=== PATIENT | female | born 1960 | race Two or more races ===

== ENCOUNTER 2020-01-14 17:54 | Inpatient (IN) | payer MEDICARE ==
[~2020-01-14] VITALS: Ht 165.1 cm; Wt 107.0 kg
[2020-01-14 17:56] VITALS: BP 88/44
--- NOTE | 2020-01-14 18:09 | Emergency Room Report ---
History of Present Illness General Chief Complaint: Abnormal vital signs Source: Patient, EMS Present Illness HPI Disclaimer: Please note that this report is being documented using DRAGON technology. This can lead to erroneous entry secondary to incorrect interpretation by the dictating instrument. HPI: 59-year-old female presenting from [facility] with a history of hypertension, diabetes, ESRD not on hemodialysis and recently tested positive for COVID-19 presents for abnormal vital signs. The patient reported shortness of breath, chills, sweats beginning last night. She was started on oxygen and this afternoon found tachycardic. She was being transferred to a different hospital by BLS team who noted a change in her vital signs. They noted increasing heart rate, hypotension with pressures 80s/40s, tachypnea. The patient is reported to be confused at baseline however she appears awake and alert. She states she is full code and seems to know her medical history. She denies acute complaints of vomiting, diarrhea, cough, shortness of breath currently but states those have been present for about a week. States she tested positive for COVID-19 last week. Unknown what medications she was given for it. PMH: ESRD not hemodialysis, hypertension, diabetes, COVID-19 PSH: Cholecystectomy, hysterectomy Allergies: Erythromycin, heparin Social Hx: None reported Allergies: Coded Allergies: ERYTHROMYCIN BASE (Verified Allergy, Unknown, 01/14/20) HEPARIN (Verified Allergy, Unknown, 01/14/20) COVID-19 Screening Contact w/high risk pt: No Recent Travel to affected area: No Experienced COVID-19 symptoms?: Yes COVID-19 symptoms experienced: Shortness of Breath, Flu-Like Symptoms COVID-19 Testing performed OVERNIGHT BABYSITTER: Yes COVID-19 Screening: Positive COVID-19 COVID-19 Testing Source: [facility] Review of Systems All Other Systems: negative except mentioned in HPI Physical Exam Vital Signs Date Time Temp Pulse Resp B/P (MAP) Pulse Ox O2 Delivery O2 Flow Rate FiO2 01/14/20 17:55 97.3 122 30 88/44 (59) 98 Nasal Cannula 2.0 General: Awake and alert, no acute distress HEENT: NC/AT. EOMI. PERRLA. Anicteric sclera. Cardiovascular: Tachycardic. S1 and S2 normal. No murmur appreciated Resp: 2 L nasal cannula. Tachypnea. Normal work of breathing. No cough, wheezing or crackles appreciated Abdomen: Abdomen is soft, nondistended, obese. Nontender Skin: Bandages over the heels and feet on the lower extremities MSK: Normal tone and bulk. Moving all extremities. No obvious deformity. Neuro: Awake and alert. Mentating appropriately. Procedures Critical Care Time Critical Care Time Total critical care time: Approximately 31 minutes Due to a high probability of clinically significant, life threatening deterioration, the patient required the highest level of preparedness to intervene emergently and I personally spent this critical care time directly and personally managing the patient. This critical care time included obtaining a history, examining the patient, pulse oximetry, ordering and reviewing studies , ordering treatments, evaluating response to treatment and updating management plan as needed, frequent reassessment and discussion with other providers as well as arranging for ultimate disposition. This critical to care time was performed to assess and manage the high probability of life-threatening deterioration that could result in multiorgan failure. This critical care time is separate from the separately billable procedures and treating other patients. Medical Decision Making Diagnostic Impression: Primary Impression: COVID-19 Additional Impressions: Anemia UTI (urinary tract infection) Sepsis ER Course 59-year-old female recently tested positive for COVID-19 presents for evaluation of tachycardia, hypotension and increased respiratory rate. Concern for pneumonia, sepsis, worsening COVID-19 infection, ACS, pneumothorax, bronchitis, URI to name a few. Concern for sepsis greatest at this point. IV access established and patient is receiving 30 cc/kg IV fluid bolus, empiric antibiotics vancomycin and Zosyn. She is comfortable on 2 L nasal cannula, saturating greater than 95%. Does not require emergent intubation at this point. She is full code. We will send off broad labs. Will give dexamethasone. Patient will require admission. 2000: Labs show anemia, urinary tract infection, lactic acid within normal limits. Vital signs improving. Patient is received antibiotics, Decadron. Continues to receive IV fluids. Dimer returned positive. Patient is unaware of what her allergy to Haldol is. Discussed with admitting team who supports giving a dose of Lovenox. Will be admitted to panel physician group, Alfonzo earl. Laboratory Tests Test 01/14/20 18:00 01/14/20 18:51 White Blood Count 9.3 K/UL (4.8-10.8) Red Blood Count 2.58 M/UL (4.20-5.40) L Hemoglobin 7.1 G/DL (12.0-16.0) L Hematocrit 24.3 % (37.0-47.0) L Mean Corpuscular Volume 94 FL (80-99) Mean Corpuscular Hemoglobin 27.5 PG (27.0-31.0) Mean Corpuscular Hemoglobin Concent 29.2 G/DL (32.0-36.0) L Red Cell Distribution Width 18.8 % (11.6-14.8) H Platelet Count 104 K/UL (150-450) L Mean Platelet Volume 7.3 FL (6.5-10.1) Neutrophils (%) (Auto) % (45.0-75.0) Lymphocytes (%) (Auto) % (20.0-45.0) Monocytes (%) (Auto) % (1.0-10.0) Eosinophils (%) (Auto) % (0.0-3.0) Basophils (%) (Auto) % (0.0-2.0) Neutrophils % (Manual) Pending Lymphocytes % (Manual) Pending Platelet Estimate Pending Platelet Morphology Pending Prothrombin Time 12.4 SEC (9.30-11.50) H Prothrombin Time INR 1.1 (0.9-1.1) Activated Partial Thromboplast Time 29 SEC (23-33) D-Dimer 2.98 mg/L FEU (0.00-0.49) H Sodium Level 147 MMOL/L (136-145) H Potassium Level 3.6 MMOL/L (3.5-5.1) Chloride Level 108 MMOL/L (98-107) H Carbon Dioxide Level 24 MMOL/L (21-32) Anion Gap 15 mmol/L (5-15) Blood Urea Nitrogen 39 mg/dL (7-18) H Creatinine 1.0 MG/DL (0.55-1.30) Estimated Glomerular Filtration Rate 56.5 mL/min (>60) Glucose Level 116 MG/DL (74-106) H Lactic Acid Level 1.10 mmol/L (0.4-2.0) Calcium Level 8.1 MG/DL (8.5-10.1) L Phosphorus Level 3.7 MG/DL (2.5-4.9) Magnesium Level 1.6 MG/DL (1.8-2.4) L Ferritin 417 NG/ML (8-388) H Total Bilirubin 0.9 MG/DL (0.2-1.0) Aspartate Amino Transferase (AST) 28 U/L (15-37) Alanine Aminotransferase (ALT) 35 U/L (12-78) Alkaline Phosphatase 158 U/L (46-116) H Total Creatine Kinase 26 U/L (26-308) Creatine Kinase MB 1.1 NG/ML (0.0-3.6) Creatine Kinase MB Relative Index 4.2 Troponin I 0.039 ng/mL (0.000-0.056) C-Reactive Protein, Quantitative 25.1 mg/dL (0.00-0.90) H Pro-B-Type Natriuretic Peptide 963 pg/mL (0-125) H Total Protein 6.0 G/DL (6.4-8.2) L Albumin 2.1 G/DL (3.4-5.0) L Globulin 3.9 g/dL Albumin/Globulin Ratio 0.5 (1.0-2.7) L Urine Color Yellow Urine Appearance Very cloudy Urine pH 6 (4.5-8.0) Urine Specific [place] 1.005 (1.005-1.035) Urine Protein 2+ (NEGATIVE) H Urine Glucose (UA) Negative (NEGATIVE) Urine Ketones Negative (NEGATIVE) Urine Blood 3+ (NEGATIVE) H Urine Nitrite Negative (NEGATIVE) Urine Bilirubin Negative (NEGATIVE) Urine Urobilinogen Normal MG/DL (0.0-1.0) Urine Leukocyte Esterase 3+ (NEGATIVE) H Urine RBC 0-2 /HPF (0 - 2) Urine WBC Tntc /HPF (0 - 2) H Urine Squamous Epithelial Cells Occasional /LPF Urine Bacteria Many /HPF (NONE) H EKG Diagnostic Results EKG Time: 18:36 Rate: tachycardiac Rhythm: NSR ST Segments: no acute changes Other Impression Sinus rhythm, tachycardic rate, normal axis, nonspecific ST flattening Rhythm Strip Diag. Results Rhythm Strip Time: 18:36 EP Interpretation: yes Rate: 107 Rhythm: NSR, no PVC's, no ectopy Chest X-Ray Diagnostic Results Chest X-Ray Diagnostic Results : Chest X-Ray Ordered: Yes # of Views/Limited/Complete: 1 View Indication: Shortness of Breath EP Interpretation: Yes Interpretation: no consolidation, no effusion, no pneumothorax, no acute cardiopulmonary disease Impression: No acute disease Electronically Signed by: Electronically signed by Dr. Diony Bell Last Vital Signs Date Time Temp Pulse Resp B/P (MAP) Pulse Ox O2 Delivery O2 Flow Rate FiO2 01/14/20 17:55 97.3 122 30 88/44 (59) 98 Nasal Cannula 2.0 Disposition: ADMITTED INPATIENT Condition: Serious Diony Bell MD Jan 14, 2020 18:09
[2020-01-14] MEDS ORDERED: Vancomycin 1 GM in NS 275 ML IVPB ONE (18:15)
[2020-01-14] MEDS ORDERED: Piperacillin/Tazobactam 3.375 GM in NS 110 ML IVPB ONE (18:15)
[2020-01-14] MEDS ORDERED: dexAMETHasone 10mg/ml Inj IV ONE (18:15)
[2020-01-14 18:40] LABS: HEMATOCRIT 24.3 % (37.0-47.0); HEMOGLOBIN 7.1 G/DL (12.0-16.0); MEAN CORPUSCULAR VOLUME 94 FL (80-99); PLATELET COUNT 104 K/UL (150-450); RED BLOOD COUNT 2.58 M/UL (4.20-5.40); RED CELL DISTRIBUTION WIDTH 18.8 % (11.6-14.8); WHITE BLOOD COUNT 9.3 K/UL (4.8-10.8)
[2020-01-14 18:45] LABS: INR 1.1 (0.9-1.1)
[2020-01-14 18:47] LABS: ANION GAP 15 mmol/L (5-15); BLOOD UREA NITROGEN 39 mg/dL (7-18); CALCIUM 8.1 MG/DL (8.5-10.1); CARBON DIOXIDE 24 MMOL/L (21-32); CHLORIDE 108 MMOL/L (98-107); POTASSIUM 3.6 MMOL/L (3.5-5.1); SODIUM 147 MMOL/L (136-145)
[2020-01-14 19:19] LABS: ALANINE AMINOTRANSFERASE 35 U/L (12-78); ALBUMIN 2.1 G/DL (3.4-5.0); ALBUMIN/GLOBULIN RATIO 0.5 (1.0-2.7); ALKALINE PHOSPHATASE 158 U/L (46-116); ASPARTATE AMINO TRANSFERASE 28 U/L (15-37); BILIRUBIN,TOTAL 0.9 MG/DL (0.2-1.0); CKMB 1.1 NG/ML (0.0-3.6); CREATINE KINASE 26 U/L (26-308); FERRITIN 417 NG/ML (8-388); PHOSPHORUS 3.7 MG/DL (2.5-4.9)
[2020-01-14 19:23] LABS: APPEARANCE,URINE VERY CLOUDY; BILIRUBIN, URINE NEGATIVE (NEGATIVE); GLUCOSE, URINE (UA) NEGATIVE (NEGATIVE); KETONES,URINE NEGATIVE (NEGATIVE); LEUKOCYTE ESTERASE ,URINE 3+ (NEGATIVE); NITRITE,URINE NEGATIVE (NEGATIVE); PH,URINE 6 (4.5-8.0); PROTEIN,URINE 2+ (NEGATIVE); UROBILINOGEN,URINE NORMAL MG/DL (0.0-1.0)
[2020-01-14 19:32] LABS: COLOR,URINE YELLOW
[2020-01-14 19:47] VITALS: BP 112/56
[2020-01-14] MEDS ORDERED: Vancomycin 1gm vial IVPB ONE (20:04)
[2020-01-14] MEDS ORDERED: Enoxaparin 80mg Inj SUBQ SCH (21:00)
[2020-01-14 21:20] VITALS: BP 133/55
--- NOTE | 2020-01-14 23:10 | History and Physical ---
History of Present Illness General Reason for Hospitalization: Flu Like Symptoms Present Illness HPI Patient 59yo F who reported from SNF ([facility]) with suspected COVID19 + as outpatient. Duration unknown.. 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 She is bedbound. She was transferred in route per EMS due to hypotension. Patients vitals here are stable. Inflammatory makers are elevated. Of note she has a hgb of 7mg/dl and a 40:1 BUN/Cr ratio. No active signs of bleeding. Will hydrate overnight and repeat CBC in morning. Patient remains on 2L NC. Allergies: Coded Allergies: ERYTHROMYCIN BASE (Verified Allergy, Unknown, 01/14/20) HEPARIN (Verified Allergy, Unknown, 01/14/20) COVID-19 Screening Contact w/high risk pt: No Recent Travel to affected area: No Experienced COVID-19 symptoms?: Yes COVID-19 symptoms experienced: Shortness of Breath, Flu-Like Symptoms Patient History Healthcare decision maker Resuscitation status Advanced Directive on File Review of Systems Constitutional: Reports: fever Eye: Reports: no symptoms ENT: Reports: no symptoms Respiratory: Reports: shortness of breath Cardiovascular: Denies: no symptoms, see HPI, chest pain, edema, palpitations, syncope, PND, other Gastrointestinal: Reports: no symptoms Genitourinary: Reports: no symptoms Musculoskeletal: Reports: no symptoms Skin: Reports: dryness Physical Exam General Appearance: WD/WN, alert, mild distress HEENT: normocephalic Neck: non-tender Respiratory/Chest: chest wall non-tender, normal breath sounds, respiratory distress Abdomen: normal bowel sounds Extremities: normal range of motion, non-tender, no edema Skin Exam: other Neurologic: harnessmaker II-XII grossly normal, oriented x 3 Last 24 Hour Vital Signs Date Time Temp Pulse Resp B/P (MAP) Pulse Ox O2 Delivery O2 Flow Rate FiO2 01/14/20 21:20 102.3 87 19 133/55 97 Nasal Cannula 2.0 01/14/20 19:47 97.7 102 26 112/56 98 Nasal Cannula 2.0 01/14/20 17:56 97.3 122 30 88/44 98 Nasal Cannula 2.0 01/14/20 17:56 122 30 Nasal Cannula 2.0 7/7/20 17:55 97.3 122 30 88/44 (59) 98 Nasal Cannula 2.0 Laboratory Tests Test 01/14/20 18:00 01/14/20 18:51 White Blood Count 9.3 K/UL (4.8-10.8) Red Blood Count 2.58 M/UL (4.20-5.40) L Hemoglobin 7.1 G/DL (12.0-16.0) L Hematocrit 24.3 % (37.0-47.0) L Mean Corpuscular Volume 94 FL (80-99) Mean Corpuscular Hemoglobin 27.5 PG (27.0-31.0) Mean Corpuscular Hemoglobin Concent 29.2 G/DL (32.0-36.0) L Red Cell Distribution Width 18.8 % (11.6-14.8) H Platelet Count 104 K/UL (150-450) L Mean Platelet Volume 7.3 FL (6.5-10.1) Neutrophils (%) (Auto) % (45.0-75.0) Lymphocytes (%) (Auto) % (20.0-45.0) Monocytes (%) (Auto) % (1.0-10.0) Eosinophils (%) (Auto) % (0.0-3.0) Basophils (%) (Auto) % (0.0-2.0) Differential Total Cells Counted 100 Neutrophils % (Manual) 87 % (45-75) H Lymphocytes % (Manual) 9 % (20-45) L Monocytes % (Manual) 3 % (1-10) Eosinophils % (Manual) 1 % (0-3) Basophils % (Manual) 0 % (0-2) Band Neutrophils 0 % (0-8) Platelet Estimate Decreased L Platelet Morphology Normal Polychromasia 1+ Hypochromasia 1+ Anisocytosis 1+ Prothrombin Time 12.4 SEC (9.30-11.50) H Prothromb Time International Ratio 1.1 (0.9-1.1) Activated Partial Thromboplast Time 29 SEC (23-33) D-Dimer 2.98 mg/L FEU (0.00-0.49) H Sodium Level 147 MMOL/L (136-145) H Potassium Level 3.6 MMOL/L (3.5-5.1) Chloride Level 108 MMOL/L (98-107) H Carbon Dioxide Level 24 MMOL/L (21-32) Anion Gap 15 mmol/L (5-15) Blood Urea Nitrogen 39 mg/dL (7-18) H Creatinine 1.0 MG/DL (0.55-1.30) Estimat Glomerular Filtration Rate 56.5 mL/min (>60) Glucose Level 116 MG/DL (74-106) H Lactic Acid Level 1.10 mmol/L (0.4-2.0) Calcium Level 8.1 MG/DL (8.5-10.1) L Phosphorus Level 3.7 MG/DL (2.5-4.9) Magnesium Level 1.6 MG/DL (1.8-2.4) L Ferritin 417 NG/ML (8-388) H Total Bilirubin 0.9 MG/DL (0.2-1.0) Aspartate Amino Transf (AST/SGOT) 28 U/L (15-37) Alanine Aminotransferase (ALT/SGPT) 35 U/L (12-78) Alkaline Phosphatase 158 U/L (46-116) H Total Creatine Kinase 26 U/L (26-308) Creatine Kinase MB 1.1 NG/ML (0.0-3.6) Creatine Kinase MB Relative Index 4.2 Troponin I 0.039 ng/mL (0.000-0.056) C-Reactive Protein, Quantitative 25.1 mg/dL (0.00-0.90) H Pro-B-Type Natriuretic Peptide 963 pg/mL (0-125) H Total Protein 6.0 G/DL (6.4-8.2) L Albumin 2.1 G/DL (3.4-5.0) L Globulin 3.9 g/dL Albumin/Globulin Ratio 0.5 (1.0-2.7) L Urine Color Yellow Urine Appearance Very cloudy Urine pH 6 (4.5-8.0) Urine Specific [place] 1.005 (1.005-1.035) Urine Protein 2+ (NEGATIVE) H Urine Glucose (UA) Negative (NEGATIVE) Urine Ketones Negative (NEGATIVE) Urine Blood 3+ (NEGATIVE) H Urine Nitrite Negative (NEGATIVE) Urine Bilirubin Negative (NEGATIVE) Urine Urobilinogen Normal MG/DL (0.0-1.0) Urine Leukocyte Esterase 3+ (NEGATIVE) H Urine RBC 0-2 /HPF (0 - 2) Urine WBC Tntc /HPF (0 - 2) H Urine Squamous Epithelial Cells Occasional /LPF Urine Bacteria Many /HPF (NONE) H Height (Feet): 5 Height (Inches): 7.00 Weight (Pounds): 170 Medications Current Medications Medications (Trade) Dose Ordered Sig/Samuel Route PRN Reason Start Time Stop Time Status Last Admin Dose Admin Enoxaparin Sodium (Lovenox) 80 mg EVERY 12 HOURS SUBQ 01/14/20 21:00 04/13/20 20:59 01/14/20 20:09 Assessment/Plan Problem List: (1) Anemia Assessment & Plan: High BUN: Cr ratio will continue to gentle hydrate overnight. Note serum sodium 147. ORDERS -IVF 0.45% 100ml/hr - Fecal occult - Repeat CBC in morning ICD Codes: D64.9 - Anemia, unspecified SNOMED: 109515976 (2) Sepsis ICD Codes: A41.9 - Sepsis, unspecified organism SNOMED: 51632439 (3) UTI (urinary tract infection) Assessment & Plan: Continue on zosyn renal dose. Await urine culture ICD Codes: N39.0 - Urinary tract infection, site not specified SNOMED: 78817669 (4) COVID-19 Assessment & Plan: Inflammatory markers elevated lymphocytopenic CXR negative Consults: Pulmonary: Dr. Ford ORDERED - Continue on Apixaban 2.5mg BID - Supportive care - Continue sildenafil 20mg daily for pulm htn, - Caution on overload due to Pulm HTN - Continue midodrine for hypotension - Due to active infection not a candidate for remdesivir ICD Codes: U07.1 - COVID-19 SNOMED: 917511392 Denny Trejo D.O. Jan 14, 2020 23:10
[2020-01-15] VITALS: BP 137/64
[2020-01-15] MEDS: Piperacillin/Tazobactam 3.375 GM in NS 110 ML IVPB SCH ×3 (02:41→16:28)
[2020-01-15 04:00] VITALS: BP 124/53
[2020-01-15 05:09] LABS: HEMATOCRIT 24.9 % (37.0-47.0); HEMOGLOBIN 7.1 G/DL (12.0-16.0); MEAN CORPUSCULAR VOLUME 97 FL (80-99); PLATELET COUNT 90 K/UL (150-450); RED BLOOD COUNT 2.56 M/UL (4.20-5.40); RED CELL DISTRIBUTION WIDTH 18.1 % (11.6-14.8); WHITE BLOOD COUNT 6.8 K/UL (4.8-10.8)
[2020-01-15 06:00] LABS: ANION GAP 15 mmol/L (5-15); BLOOD UREA NITROGEN 41 mg/dL (7-18); CARBON DIOXIDE 22 MMOL/L (21-32); CHLORIDE 109 MMOL/L (98-107); SODIUM 146 MMOL/L (136-145)
[2020-01-15] MEDS: NovoLOG Insulin Flexpen SUBQ SCH ×4 (06:30→21:20)
[2020-01-15 08:00] VITALS: BP 145/67
[2020-01-15] MEDS: Revatio 20mg tab ORAL SCH (08:24)
[2020-01-15] MEDS: Eliquis 2.5mg tablet ORAL SCH ×2 (08:25→17:45)
[2020-01-15] MEDS: Dakin's 0.125% Soln (Quarter Strength) 16oz TOPIC SCH (11:00)
[2020-01-15 12:00] VITALS: BP 107/50
[2020-01-15 12:02] LABS: % IRON SATURATION 7 % (15-50); IRON 10 ug/dL (50-175); TOTAL IRON BINDING CAPACITY 138 ug/dL (250-450)
--- NOTE | 2020-01-15 12:09 | General Progress Note ---
Assessment/Plan Problem List: (1) COVID-19 ICD Codes: U07.1 - COVID-19 SNOMED: 567010759 (2) UTI (urinary tract infection) ICD Codes: N39.0 - Urinary tract infection, site not specified SNOMED: 40724904 (3) Anemia ICD Codes: D64.9 - Anemia, unspecified SNOMED: 457327427 Qualifiers: Status: stable, progressing Assessment/Plan: # Acute Hypoxemic respiratory failure # COVID 19 infection # Pulmonary HTN Supplemental O2 on 2L NC saturating above 92% Pending COVID test Incentive spirometry trend inflammatory markers Consult to pulmonology appreciate recs Due to active infection not a candidate for remdesivir Sildenafil for pulmonary HTN # Normocytic anemia # Thrombocytopenia -Iron studies ordered - Trend CBC - Transfuse for Hg less than - Consult to hematology - put on 2.5 mg of elequis overnight - defer anticoagulation to hematology ( COVID hypercoagulability Vs. possible blood loss anemia) #UTI -Repeat UA with clean catch -Follow up cultures - gram negative rods -Continue with Zosyn -deescalate after speciating since it can still be Pseudomonas UTI DVRppx Elequis 2.5mg (heparin allergy) Physical therapy evaluation 40 minuets was spent on this patient with 20 min face to face with Patient. Coordinated with consultants, reviews labs and images. Discussed plan with RN. Subjective Constitutional: Reports: malaise HEENT: Reports: no symptoms Cardiovascular: Reports: no symptoms Respiratory: Reports: cough, shortness of breath, SOB at rest Gastrointestinal/Abdominal: Reports: no symptoms Genitourinary: Reports: no symptoms Neurologic/Psychiatric: Reports: no symptoms Endocrine: Reports: no symptoms Hematologic/Lymphatic: Reports: anemia Allergies: Coded Allergies: ERYTHROMYCIN BASE (Verified Allergy, Unknown, 01/14/20) HEPARIN (Verified Allergy, Unknown, 01/14/20) Subjective Patient is feeling better but concerned that this COVID infection will be the thing that kills her. On 2L NC saturating weel and speaking in full sentences. Objective Last 24 Hour Vital Signs Date Time Temp Pulse Resp B/P (MAP) Pulse Ox O2 Delivery O2 Flow Rate FiO2 01/15/20 08:24 89 145/67 01/15/20 08:00 97.3 95 145/67 (93) 01/15/20 08:00 Nasal Cannula 2.0 01/15/20 07:33 74 01/15/20 04:00 70 01/15/20 04:00 Nasal Cannula 2.0 01/15/20 04:00 97.5 60 124/53 (76) 01/15/20 00:00 98.2 85 137/64 (88) 01/15/20 00:00 Nasal Cannula 2.0 01/15/20 00:00 87 01/14/20 22:56 102.3 01/14/20 21:45 102.3 89 16 112/58 99 Nasal Cannula 2.0 01/14/20 21:20 102.3 87 19 133/55 97 Nasal Cannula 2.0 01/14/20 21:20 Nasal Cannula 2.0 01/14/20 19:47 97.7 102 26 112/56 98 Nasal Cannula 2.0 01/14/20 17:56 97.3 122 30 88/44 98 Nasal Cannula 2.0 01/14/20 17:56 122 30 Nasal Cannula 2.0 01/14/20 17:55 97.3 122 30 88/44 (59) 98 Nasal Cannula 2.0 Intake and Output 01/14/20 01/15/20 19:00 07:00 Intake Total 5469.0 ml Output Total 300 ml Balance 5169.0 ml Intake Oral 200 ml IV Total 5269.0 ml Output Urine Total 300 ml Laboratory Tests 01/14/20 18:00: White Blood Count 9.3, Red Blood Count 2.58L, Hemoglobin 7.1L, Hematocrit 24.3L , Mean Corpuscular Volume 94, Mean Corpuscular Hemoglobin 27.5, Mean Corpuscular Hemoglobin Concent 29.2L, Red Cell Distribution Width 18.8H, Platelet Count 104L, Mean Platelet Volume 7.3, Neutrophils (%) (Auto) , Lymphocytes (%) (Auto) , Monocytes (%) (Auto) , Eosinophils (%) (Auto) , Basophils (%) (Auto) , Differential Total Cells Counted 100, Neutrophils % ( Manual) 87H, Lymphocytes % (Manual) 9L, Monocytes % (Manual) 3, Eosinophils % ( Manual) 1, Basophils % (Manual) 0, Band Neutrophils 0, Platelet Estimate DecreasedL, Platelet Morphology Normal, Polychromasia 1+, Hypochromasia 1+, Anisocytosis 1+, Prothrombin Time 12.4H, Prothromb Time International Ratio 1.1 , Activated Partial Thromboplast Time 29, D-Dimer 2.98H, Sodium Level 147H, Potassium Level 3.6, Chloride Level 108H, Carbon Dioxide Level 24, Anion Gap 15 , Blood Urea Nitrogen 39H, Creatinine 1.0, Estimat Glomerular Filtration Rate 56.5, Glucose Level 116H, Lactic Acid Level 1.10, Calcium Level 8.1L, Phosphorus Level 3.7, Magnesium Level 1.6L, Ferritin 417H, Total Bilirubin 0.9, Aspartate Amino Transf (AST/SGOT) 28, Alanine Aminotransferase (ALT/SGPT) 35, Alkaline Phosphatase 158H, Total Creatine Kinase 26, Creatine Kinase MB 1.1, Creatine Kinase MB Relative Index 4.2, Troponin I 0.039, C-Reactive Protein, Quantitative 25.1H, Pro-B-Type Natriuretic Peptide 963H, Total Protein 6.0L, Albumin 2.1L, Globulin 3.9, Albumin/Globulin Ratio 0.5L 01/14/20 18:51: Urine Color Yellow, Urine Appearance Very cloudy, Urine pH 6, Urine Specific [place] 1.005, Urine Protein 2+H, Urine Glucose (UA) Negative, Urine Ketones Negative, Urine Blood 3+H, Urine Nitrite Negative, Urine Bilirubin Negative, Urine Urobilinogen Normal, Urine Leukocyte Esterase 3+H, Urine RBC 0-2, Urine WBC TntcH, Urine Squamous Epithelial Cells Occasional, Urine Bacteria ManyH 01/15/20 03:45: White Blood Count 6.8, Red Blood Count 2.56L, Hemoglobin 7.1L, Hematocrit 24.9L , Mean Corpuscular Volume 97, Mean Corpuscular Hemoglobin 27.6, Mean Corpuscular Hemoglobin Concent 28.3L, Red Cell Distribution Width 18.1H, Platelet Count 90L, Mean Platelet Volume 7.1, Neutrophils (%) (Auto) , Lymphocytes (%) (Auto) , Monocytes (%) (Auto) , Eosinophils (%) (Auto) , Basophils (%) (Auto) , Differential Total Cells Counted 100, Neutrophils % ( Manual) 91H, Lymphocytes % (Manual) 8L, Monocytes % (Manual) 1, Eosinophils % ( Manual) 0, Basophils % (Manual) 0, Band Neutrophils 0, Platelet Estimate DecreasedL, Platelet Morphology Normal, Hypochromasia 1+, Anisocytosis 1+, Sodium Level 146H, Potassium Level 4.0, Chloride Level 109H, Carbon Dioxide Level 22, Anion Gap 15, Blood Urea Nitrogen 41H, Creatinine 1.0, Estimat Glomerular Filtration Rate 56.5, Glucose Level 181H, Calcium Level 8.0L 01/15/20 06:11: POC Whole Blood Glucose 163H Height (Feet): 5 Height (Inches): 5.00 Weight (Pounds): 237 General Appearance: lethargic EENT: PERRL/EOMI, normal ENT inspection Neck: normal inspection Cardiovascular: normal rate, regular rhythm, no gallop/murmur, no JVD Respiratory/Chest: chest wall non-tender, normal breath sounds, no accessory muscle use, respiratory distress, decreased breath sounds, rhonchi - bilaterally Abdomen: normal bowel sounds, non tender, soft Extremities: normal inspection Edema: trace edema Neurologic: managing consultant clinical professor II-XII grossly normal, oriented x 3, responsive, normal mood/ affect Skin: normal pigmentation, warm/dry Khanh Sutart M.D. Jan 15, 2020 12:09
--- NOTE | 2020-01-15 13:26 | Diagnostic Imaging Report ---
Indication: Shortness of breath Technique: One view of the chest Comparison: none Findings: The lungs and pleural spaces are clear. The heart is normal in size. The aorta is tortuous and ectatic. Left arm PICC is noted Impression: No acute process
--- NOTE | 2020-01-15 15:30 | Consultation ---
DATE OF CONSULTATION: 01/15/2020 PULMONARY CONSULTATION CONSULTING PHYSICIAN: Rigoberto Ford MD. HISTORY OF PRESENT ILLNESS: This is a 59-year-old female who came to the hospital from a nursing facility with a known/suspected diagnosis of COVID-19. She is a known diabetic and has a history of midodrine use for autonomic dysfunction. She also is known to have pulmonary hypertension, GERD. Patient is bed-bound and has decubiti. Patient was found to be hypotensive and admitted to the hospital. She is also noted to be anemic. PAST MEDICAL HISTORY: Notable for diabetes mellitus, pulmonary hypertension, GERD, decubiti, [facility] resident. MEDICATIONS: Currently, patient is on Zosyn as well as vancomycin as well as resumption of home medications including Eliquis. REVIEW OF SYSTEMS: Not obtainable. PHYSICAL EXAMINATION: GENERAL: Reveals an elderly female, obese. HEENT: Unremarkable. CHEST: Decreased breath sounds bilaterally with normal heart sounds. ABDOMEN: Soft. EXTREMITIES: There is no edema. SKIN: Decubiti noted. VITAL SIGNS: Blood pressure 140/60, heart rate is 84, respirations 18, O2 saturation 98% on 2 L of oxygen. LABORATORY DATA: Lab testing shows hemoglobin 7.1, otherwise normal CBC and BMP. Creatinine is 1.0, glucose 163. Urine culture is pending at this point in time. COVID-19 PCR has been requested and is also pending. I have reviewed her imaging and I do not see a definitive report of a chest x-ray. The imaging study I have reviewed shows clear lung dejesus. IMPRESSION: 1. Probable COVID-19 pneumonia. 2. UTI. 3. Diabetes mellitus. 4. Decubiti. DISCUSSION: Admit to the hospital. Agree with broad-spectrum antibiotics. Oxygen and pulmonary hygiene. Await COVID-19 PCR. We will follow carefully. Rigoberto Ford M.D. DR: IRINA JOB#: [id number] CC:
--- NOTE | 2020-01-15 15:32 | Consultation ---
History of Present Illness General Date patient seen: Jan 15, 2020 Chief Complaint: Flu Like Symptoms Present Illness HPI 59-year-old female presenting from [facility] with a history of hypertension, diabetes, ESRD not on hemodialysis and recently tested positive for COVID-19 presents for abnormal vital signs. The patient reported shortness of breath, chills, sweats beginning last night. She was started on oxygen and this afternoon found tachycardic. She was being transferred to a different hospital by BLS team who noted a change in her vital signs. They noted increasing heart rate, hypotension with pressures 80s/40s, tachypnea. The patient is reported to be confused at baseline however she appears awake and alert. She states she is full code and seems to know her medical history. She denies acute complaints of vomiting, diarrhea, cough, shortness of breath currently but states those have been present for about a week. States she tested positive for COVID-19 last week. Unknown what medications she was given for it. On admission identified to have abnormal labs multiple decubitus ulcers complex requiring care and management surgery called to eval and assist with care patient seen, patient evaluate, chart reviewed Allergies: Coded Allergies: ERYTHROMYCIN BASE (Verified Allergy, Unknown, 01/14/20) HEPARIN (Verified Allergy, Unknown, 01/14/20) Patient History Limited by: medical condition History Provided By: Patient, Medical Record, PMD Healthcare decision maker Resuscitation status Advanced Directive on File Past Medical/Surgical History Past Medical/Surgical History: (1) Sepsis (2) UTI (urinary tract infection) (3) COVID-19 (4) SOB (shortness of breath) (5) Tachycardia (6) Anemia Review of Systems Constitutional: Denies: no symptoms, see HPI, chills, sweats, fever, malaise, weakness, other Eye: Denies: no symptoms, see HPI, eye pain, blurred vision, tearing, double vision, nose pain, nose congestion, acuity changes, discharge, other ENT: Denies: no symptoms, see HPI, ear pain, ear discharge, nose pain, nose congestion, throat pain, throat swelling, mouth pain, hearing loss, nasal discharge, other Respiratory: Denies: no symptoms, see HPI, cough, orthopnea, shortness of breath, stridor, wheezing, ELIAS, sputum, other Cardiovascular: Denies: no symptoms, see HPI, chest pain, edema, palpitations, syncope, PND, other Gastrointestinal: Denies: no symptoms, see HPI, abdominal pain, constipation, diarrhea, nausea, vomiting, melena, hematemesis, other Genitourinary: Denies: no symptoms, see HPI, discharge, dysuria, frequency, hematuria, pain, retention, incontinence, urgency, vag bleed/dc, other Musculoskeletal: Denies: no symptoms, see HPI, back pain, gout, joint pain, joint swelling, muscle pain, muscle stiffness, other Skin: Denies: no symptoms, see HPI, rash, change in color, change in hair/nails , dryness, lesions, other Psychiatric: Denies: no symptoms, see HPI, prior hx, anxiety, depressed feelings, emotional problems, SI, HI, hallucinations, other Neurological: Denies: no symptoms, see HPI, headache, numbness, paresthesia, seizure, tingling, tremors, focal weakness, syncope, dizziness, other Endocrine: Denies: no symptoms, see HPI, excessive sweating, flushing, intolerance to temperature, increased thirst, increased urine, unexplained weight loss, other Hematologic/Lymphatic: Denies: no symptoms, see HPI, anemia, blood clots, easy bleeding, easy bruising, swollen glands, diathesis, other All Other Systems: negative except mentioned in HPI Physical Exam General Appearance: no apparent distress, alert Lines, tubes and drains: peripheral HEENT: mucous membranes moist, PERRL Neck: normal inspection Respiratory/Chest: chest wall non-tender, no respiratory distress, no accessory muscle use, decreased breath sounds Cardiovascular/Chest: normal rate, regular rhythm Abdomen: soft, no organomegaly, no mass, other Extremities: inflammation, slow capillary refill, other Skin Exam: warm/dry, other Neurologic: alert, responsive Last 24 Hour Vital Signs Date Time Temp Pulse Resp B/P (MAP) Pulse Ox O2 Delivery O2 Flow Rate FiO2 01/15/20 12:00 Nasal Cannula 2.0 01/15/20 12:00 97.8 71 107/50 (69) 01/15/20 11:29 75 01/15/20 08:24 89 145/67 01/15/20 08:00 97.3 95 145/67 (93) 01/15/20 08:00 Nasal Cannula 2.0 01/15/20 07:33 74 01/15/20 04:00 70 01/15/20 04:00 Nasal Cannula 2.0 01/15/20 04:00 97.5 60 124/53 (76) 01/15/20 00:00 98.2 85 137/64 (88) 01/15/20 00:00 Nasal Cannula 2.0 01/15/20 00:00 87 01/14/20 22:56 102.3 01/14/20 21:45 102.3 89 16 112/58 99 Nasal Cannula 2.0 01/14/20 21:20 102.3 87 19 133/55 97 Nasal Cannula 2.0 01/14/20 21:20 Nasal Cannula 2.0 01/14/20 19:47 97.7 102 26 112/56 98 Nasal Cannula 2.0 01/14/20 17:56 97.3 122 30 88/44 98 Nasal Cannula 2.0 01/14/20 17:56 122 30 Nasal Cannula 2.0 01/14/20 17:55 97.3 122 30 88/44 (59) 98 Nasal Cannula 2.0 Intake and Output 01/14/20 01/15/20 19:00 07:00 Intake Total 5469.0 ml Output Total 300 ml Balance 5169.0 ml Intake Oral 200 ml IV Total 5269.0 ml Output Urine Total 300 ml Laboratory Tests Test 01/14/20 18:00 01/14/20 18:51 01/15/20 03:45 01/15/20 06:11 White Blood Count 9.3 K/UL (4.8-10.8) 6.8 K/UL (4.8-10.8) Red Blood Count 2.58 M/UL (4.20-5.40) L 2.56 M/UL (4.20-5.40) L Hemoglobin 7.1 G/DL (12.0-16.0) L 7.1 G/DL (12.0-16.0) L Hematocrit 24.3 % (37.0-47.0) L 24.9 % (37.0-47.0) L Mean Corpuscular Volume 94 FL (80-99) 97 FL (80-99) Mean Corpuscular Hemoglobin 27.5 PG (27.0-31.0) 27.6 PG (27.0-31.0) Mean Corpuscular Hemoglobin Concent 29.2 G/DL (32.0-36.0) L 28.3 G/DL (32.0-36.0) L Red Cell Distribution Width 18.8 % (11.6-14.8) H 18.1 % (11.6-14.8) H Platelet Count 104 K/UL (150-450) L 90 K/UL (150-450) L Mean Platelet Volume 7.3 FL (6.5-10.1) 7.1 FL (6.5-10.1) Neutrophils (%) (Auto) % (45.0-75.0) % (45.0-75.0) Lymphocytes (%) (Auto) % (20.0-45.0) % (20.0-45.0) Monocytes (%) (Auto) % (1.0-10.0) % (1.0-10.0) Eosinophils (%) (Auto) % (0.0-3.0) % (0.0-3.0) Basophils (%) (Auto) % (0.0-2.0) % (0.0-2.0) Differential Total Cells Counted 100 100 Neutrophils % (Manual) 87 % (45-75) H 91 % (45-75) H Lymphocytes % (Manual) 9 % (20-45) L 8 % (20-45) L Monocytes % (Manual) 3 % (1-10) 1 % (1-10) Eosinophils % (Manual) 1 % (0-3) 0 % (0-3) Basophils % (Manual) 0 % (0-2) 0 % (0-2) Band Neutrophils 0 % (0-8) 0 % (0-8) Platelet Estimate Decreased L Decreased L Platelet Morphology Normal Normal Polychromasia 1+ Hypochromasia 1+ 1+ Anisocytosis 1+ 1+ Prothrombin Time 12.4 SEC (9.30-11.50) H Prothromb Time International Ratio 1.1 (0.9-1.1) Activated Partial Thromboplast Time 29 SEC (23-33) D-Dimer 2.98 mg/L FEU (0.00-0.49) H Sodium Level 147 MMOL/L (136-145) H 146 MMOL/L (136-145) H Potassium Level 3.6 MMOL/L (3.5-5.1) 4.0 MMOL/L (3.5-5.1) Chloride Level 108 MMOL/L (98-107) H 109 MMOL/L (98-107) H Carbon Dioxide Level 24 MMOL/L (21-32) 22 MMOL/L (21-32) Anion Gap 15 mmol/L (5-15) 15 mmol/L (5-15) Blood Urea Nitrogen 39 mg/dL (7-18) H 41 mg/dL (7-18) H Creatinine 1.0 MG/DL (0.55-1.30) 1.0 MG/DL (0.55-1.30) Estimat Glomerular Filtration Rate 56.5 mL/min (>60) 56.5 mL/min (>60) Glucose Level 116 MG/DL (74-106) H 181 MG/DL (74-106) H Lactic Acid Level 1.10 mmol/L (0.4-2.0) Calcium Level 8.1 MG/DL (8.5-10.1) L 8.0 MG/DL (8.5-10.1) L Phosphorus Level 3.7 MG/DL (2.5-4.9) Magnesium Level 1.6 MG/DL (1.8-2.4) L Ferritin 417 NG/ML (8-388) H Total Bilirubin 0.9 MG/DL (0.2-1.0) Aspartate Amino Transf (AST/SGOT) 28 U/L (15-37) Alanine Aminotransferase (ALT/SGPT) 35 U/L (12-78) Alkaline Phosphatase 158 U/L (46-116) H Total Creatine Kinase 26 U/L (26-308) Creatine Kinase MB 1.1 NG/ML (0.0-3.6) Creatine Kinase MB Relative Index 4.2 Troponin I 0.039 ng/mL (0.000-0.056) C-Reactive Protein, Quantitative 25.1 mg/dL (0.00-0.90) H Pro-B-Type Natriuretic Peptide 963 pg/mL (0-125) H Total Protein 6.0 G/DL (6.4-8.2) L Albumin 2.1 G/DL (3.4-5.0) L Globulin 3.9 g/dL Albumin/Globulin Ratio 0.5 (1.0-2.7) L Urine Color Yellow Urine Appearance Very cloudy Urine pH 6 (4.5-8.0) Urine Specific [place] 1.005 (1.005-1.035) Urine Protein 2+ (NEGATIVE) H Urine Glucose (UA) Negative (NEGATIVE) Urine Ketones Negative (NEGATIVE) Urine Blood 3+ (NEGATIVE) H Urine Nitrite Negative (NEGATIVE) Urine Bilirubin Negative (NEGATIVE) Urine Urobilinogen Normal MG/DL (0.0-1.0) Urine Leukocyte Esterase 3+ (NEGATIVE) H Urine RBC 0-2 /HPF (0 - 2) Urine WBC Tntc /HPF (0 - 2) H Urine Squamous Epithelial Cells Occasional /LPF Urine Bacteria Many /HPF (NONE) H HIV (1&2) Antibody Rapid Negative (NEGATIVE) POC Whole Blood Glucose 163 MG/DL (74-106) H Test 01/15/20 08:48 01/15/20 14:00 Iron Level 10 ug/dL (50-175) L Total Iron Binding Capacity 138 ug/dL (250-450) L Percent Iron Saturation 7 % (15-50) L Unsaturated Iron Binding 128 ug/dL (112-346) Hepatitis A IgM Antibody Pending Hepatitis B Surface Antigen Pending Hepatitis B Core IgM Antibody Pending Hepatitis C Antibody Pending Microbiology Date/Time Source Procedure Growth Status 01/14/20 18:16 Blood Blood Culture - Preliminary Resulted 01/14/20 18:51 Urine,Clean Catch Urine Culture - Preliminary Resulted Height (Feet): 5 Height (Inches): 5.00 Weight (Pounds): 237 Medications Current Medications Medications (Trade) Dose Ordered Sig/Samuel Route PRN Reason Start Time Stop Time Status Last Admin Dose Admin Acetaminophen (Tylenol) 650 mg Q6H PRN ORAL Mild Pain (Pain Scale 1-3) 01/15/20 03:15 02/14/20 03:14 01/15/20 12:18 Acetaminophen (Tylenol) 650 mg Q6H PRN ORAL Temp >100.5 01/15/20 03:15 02/14/20 03:14 Apixaban (Eliquis) 2.5 mg BID ORAL 01/15/20 09:00 04/14/20 08:59 Chlorhexidine Gluconate (Mel-Hex 2%) 1 applic DAILY@1999 TOPIC 01/15/20 20:00 04/14/20 19:59 Dextrose (Dextrose 50%) 25 ml Q30M PRN IV Hypoglycemia 01/14/20 23:15 04/13/20 23:14 Dextrose (Dextrose 50%) 50 ml Q30M PRN IV Hypoglycemia 01/14/20 23:15 04/13/20 23:14 Insulin Aspart (NovoLOG) BEFORE MEALS AND HS SUBQ 01/15/20 06:30 04/14/20 06:29 01/15/20 11:30 Insulin Detemir (Levemir) 11 units BEDTIME SUBQ 01/15/20 21:00 04/14/20 20:59 Metoprolol Tartrate (Lopressor) 25 mg Q12HR ORAL 01/15/20 09:00 04/14/20 08:59 01/15/20 08:24 Midodrine (Pro-Amatine) 5 mg TID PRN ORAL sbp<110 01/15/20 09:00 04/14/20 08:59 Piperacillin Sod/ Tazobactam Sod 3.375 gm/Sodium Chloride 110 ml @ 27.5 mls/hr Q8H IVPB 01/15/20 00:00 01/22/20 00:00 01/15/20 08:25 Sildenafil Citrate (Revatio) 20 mg DAILY ORAL 01/15/20 09:00 04/14/20 08:59 01/15/20 08:24 Sodium Hypochlorite (Dakin's Quarter Strength) 1 applic DAILY TOPIC 01/15/20 11:00 02/14/20 10:59 01/15/20 11:00 Assessment/Plan Problem List: (1) Sepsis Assessment & Plan: Morbidly obese pt whom presented on admission with Multiple Pressure injuries. Pt stated wounds rapidly developed approx 3 weeks ago while acutely ill. Pt is on oxygen via N/C. Both ears assessed and no evidence of skin breakdown noted. Foam padding around oxygen tubing and pt was advised to maintain tubing loose around ears. Moisture Intertrigo noted to abd folds,R and L groin. 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 Base of wound is 100% soft Black/ rubin necrosis. Bone is palpable. Wound is malodorous. Small amt haemopurulent exudate noted. Borders are irregular, erythematous and macerated.Periwound is erythematous,indurated with additional Pressure injuries and shearing. At L gluteus is a full Thickness Pressure injury(L)7.5cm x (W)4.5cm.90% mixed necrosis/slough,10% pink epithelial at base of wound. Borders are erythematous and macerated. Small amt serous exudate noted. At R Gluteus is full thickness Pressure injury(L)7.3cm x (W)4.5cm. Base of wound is 100% slough. Borders are erythematous and macerated. Small amt serous exudate noted. Full Thickness stage 4 Pressure injury R lower Buttocks(L)4.4cm x (W)7.5cm. Base of wound is 25% necrotic,75% fibrinous slough. Wound is malodorous. Small amt haemopurulent exudate noted. Wound is malodorous. Borders are erythematous and macerated. Full Thickness stage 4 Pressure Injury R Ischium(L)7.6cm x (W)5.4cm. Base of wound is 25% necrotic,60% slough,15% pink epithelial. Small amt seropurulent exudate noted. Wound is malodorous.Borders are erythematous and macerated. Two Full thickness Pressure Injuries that are in close Proximity lower L buttocks.(Proximal)(L)3.5cm x (W)2.6cm.100% soft necrosis at base of wound. Marginal erythema along borders.Periwound L buttocks erythematous with shearing. (Distal)(L)1.3cm x (W)0.9cm. 100% slough at base of wound.Marginal erythema along Borders. Two Unstageable Pressure injuries L Ischium:(Proximal)(L)1.2cm x (W)1.9cm Base of wound is 90% slough,10%pink moist erythema.(Distal) L) 6cm x (W)5.3cm. 90% slough,10% moist erythema at base of wound. Small amt. seropurulent exudate noted. No odor noted. Borders are macerated. Periwound is erythematous with additional shearing. DTPI medial/posterior Upper L thigh which presents as blood Blister that is partially opened(L)1.1cm x (W)6.8cm.Open wound at most medial portion of wound ( L)1.1cm x (W)1.3cm noted to have slough at base. Stable dry eschar L pre-tibial (L)1.5cm x (W)1cm. Haemosiderin with dry scaly plaques L lower ext. DTPI L lateral Malleolus(L)2.3cm x (W)0.9cm. Wound presents as an intact Blood Blister. Non-Healing Surgical wound R Achilles. Pt stated she had surgical repair approximately 2 years ago. Base of wound is 40% fibrinous slough,10% necrotic , 50% pale pink. Edges are macerated. Keloid scar at distal portion of surgical wound. No odor or exudate noted. Surrounding Haemosiderin noted to R lower ext. Full thickness Pressure injury R lateral Malleolus(L)4.8cm x (W)5.8cm. Base of wound is 80%mixed soft necrosis and fibrinous slough,20% pink and moist. Small amt seropurulent exudate noted. (+) Epibole along borders.Periwound is erythematous. No elevation in skin temp. No odor noted. R Heel is boggy but blanchable. Historical scar noted to R heel. L Heel is boggy but blanchable. wounds unlikely etiology uti abx as per ID Tx.Plan: Cleanse Sacral,R and L Buttocks,R and L ischium wounds with Dakin's 0.125% Parul. Loosely pack with Dakin's moistened Gauze. Apply Triad Periwound. Cover with Optifoam drsgs Daily and prn. Cleanse Wound R Achilles with Dakin's 0.125% parul. Apply Dakin's Moistened Gauze. Apply Triad periwound. Cover with ABD Pad and Wrap with Kerlix Daily and prn. Cleanse Wound lateral R Malleolus with Dakin's 0.125%. parul. Apply Dakin's moistened Gauze to wound. Apply Triad Paste periwound. Cover with ABD Pad. Wrap with Kerlix Daily and prn. Apply Cavilon Skin Barrier to both heels. Cover each heel with Optifoam drsg. Change every 7 days and prn. Apply Triad Paste to abdominal folds and Bilat groin Twice Daily. Reposition at least every 2hours or as tolerated. Off-load heels with Pillow Bariatric bed with APM/LEO Mattress. ICD Codes: A41.9 - Sepsis, unspecified organism SNOMED: 28210148 (2) UTI (urinary tract infection) ICD Codes: N39.0 - Urinary tract infection, site not specified SNOMED: 35103433 (3) COVID-19 ICD Codes: U07.1 - COVID-19 SNOMED: 317866067 (4) Anemia ICD Codes: D64.9 - Anemia, unspecified SNOMED: 014039245 Qualifiers: (5) SOB (shortness of breath) ICD Codes: R06.02 - Shortness of breath SNOMED: 011188635 (6) Tachycardia ICD Codes: R00.0 - Tachycardia, unspecified SNOMED: 3327389 (7) Decubitus skin ulcer Assessment & Plan: Patient presented with multiple decubitus skin ulcers in various stages. Wounds evaluated initial staging and care plan initiated. Will follow with recommendations. DAILY ESTIMATED NEEDS: Needs based on Wounds, DM 62kg abw 25-30 kcals/kg 8587-3097 total kcals 1.5-2 g protein/kg 93-124 g total protein 25-30 mL/kg 0969-2884 total fluid mLs NUTRITION DIAGNOSIS: Increase pro needs r/t wound healing as evidenced by pt w/ multiple areas of skin breakdown, eval pending, per photos, wounds appear open and advanced. CURRENT DIET: CCHO LOW PO DIET RECOMMENDATIONS: CCHO LOW + DOUBLE PROTEIN PORTIONS ADDITIONAL RECOMMENDATIONS: 1) Texture per [place] 2) Add Glucerna 1 tetra TID 3) Wound care, f/up w/ WC eval 4) Monitor po intake, no record at this time ICD Codes: L89.90 - Pressure ulcer of unspecified site, unspecified stage SNOMED: 207642696 Jens Hoang Jan 15, 2020 15:32
[2020-01-15 16:00] VITALS: BP 109/53
[2020-01-15] MEDS ORDERED: 1/2 NS 1000ml IV ONE (17:01)
[2020-01-15 18:35] LABS: APPEARANCE,URINE TURBID; BILIRUBIN, URINE NEGATIVE (NEGATIVE); COLOR,URINE AMBER; GLUCOSE, URINE (UA) NEGATIVE (NEGATIVE); KETONES,URINE 1+ (NEGATIVE); LEUKOCYTE ESTERASE ,URINE 3+ (NEGATIVE); NITRITE,URINE NEGATIVE (NEGATIVE); PH,URINE 5 (4.5-8.0); PROTEIN,URINE 3+ (NEGATIVE); UROBILINOGEN,URINE NORMAL MG/DL (0.0-1.0)
[2020-01-15 20:00] VITALS: BP 99/53
[2020-01-15] MEDS: Dyna-Hex 2% Top Sol 2oz TOPIC SCH (20:09)
[2020-01-15] MEDS: Levemir Flexpen SUBQ SCH (21:21)
[2020-01-16] VITALS: BP 91/48
[2020-01-16] MEDS: Piperacillin/Tazobactam 3.375 GM in NS 110 ML IVPB SCH ×3 (00:18→16:00)
[2020-01-16 04:00] VITALS: BP 118/66
[2020-01-16] MEDS: NovoLOG Insulin Flexpen SUBQ SCH ×4 (05:47→20:50)
[2020-01-16 05:59] LABS: HEMATOCRIT 21.4 % (37.0-47.0); MEAN CORPUSCULAR VOLUME 94 FL (80-99); PLATELET COUNT 105 K/UL (150-450); RED BLOOD COUNT 2.28 M/UL (4.20-5.40); RED CELL DISTRIBUTION WIDTH 17.5 % (11.6-14.8); WHITE BLOOD COUNT 6.7 K/UL (4.8-10.8)
[2020-01-16 06:00] LABS: HEMOGLOBIN 6.4 G/DL (12.0-16.0)
[2020-01-16 08:00] VITALS: BP 128/68
[2020-01-16] MEDS: Eliquis 2.5mg tablet ORAL SCH (08:08)
[2020-01-16] MEDS: Revatio 20mg tab ORAL SCH (08:22)
[2020-01-16] MEDS: HYDROcodone/Acetamin 5/325 tab ORAL PRN ×3 (08:22→21:36)
[2020-01-16] MEDS: Dakin's 0.125% Soln (Quarter Strength) 16oz TOPIC SCH (08:23)
--- NOTE | 2020-01-16 08:37 | Consultation ---
History of Present Illness General Chief Complaint: Flu Like Symptoms Present Illness Allergies: Coded Allergies: ERYTHROMYCIN BASE (Verified Allergy, Unknown, 01/14/20) HEPARIN (Verified Allergy, Unknown, 01/14/20) Patient History Healthcare decision maker Resuscitation status Advanced Directive on File Physical Exam Last 24 Hour Vital Signs Date Time Temp Pulse Resp B/P (MAP) Pulse Ox O2 Delivery O2 Flow Rate FiO2 01/16/20 08:00 98.1 93 19 128/68 (88) 100 01/16/20 04:00 99 01/16/20 04:00 99.7 84 19 118/66 (83) 100 01/16/20 03:58 Nasal Cannula 2.0 01/16/20 00:00 97.0 77 20 91/48 (62) 100 01/16/20 00:00 69 01/16/20 00:00 Nasal Cannula 2.0 01/15/20 20:51 66 99/53 01/15/20 20:00 81 01/15/20 20:00 96.0 73 19 99/53 (68) 100 01/15/20 20:00 Nasal Cannula 2.0 01/15/20 16:00 Nasal Cannula 2.0 01/15/20 16:00 97.6 69 109/53 (71) 01/15/20 15:16 69 01/15/20 12:00 Nasal Cannula 2.0 01/15/20 12:00 97.8 71 107/50 (69) 01/15/20 11:29 75 Intake and Output 01/15/20 01/16/20 19:00 07:00 Intake Total 579.60 ml 395.0 ml Output Total 400 ml 380 ml Balance 179.60 ml 15.0 ml Intake Oral 400 ml 230 ml IV Total 179.60 ml 165.0 ml Output Urine Total 400 ml 380 ml # Bowel Movements 2 Laboratory Tests Test 01/15/20 08:48 01/15/20 14:00 01/15/20 18:20 01/15/20 21:09 Iron Level 10 ug/dL (50-175) L Total Iron Binding Capacity 138 ug/dL (250-450) L Percent Iron Saturation 7 % (15-50) L Unsaturated Iron Binding 128 ug/dL (112-346) Hepatitis A IgM Antibody Pending Hepatitis B Surface Antigen Pending Hepatitis B Core IgM Antibody Pending Hepatitis C Antibody Pending Urine Color Honey Urine Appearance Turbid Urine pH 5 (4.5-8.0) Urine Specific [place] 1.020 (1.005-1.035) Urine Protein 3+ (NEGATIVE) H Urine Glucose (UA) Negative (NEGATIVE) Urine Ketones 1+ (NEGATIVE) H Urine Blood 5+ (NEGATIVE) H Urine Nitrite Negative (NEGATIVE) Urine Bilirubin Negative (NEGATIVE) Urine Ictotest Negative (NEGATIVE) Urine Urobilinogen Normal MG/DL (0.0-1.0) Urine Leukocyte Esterase 3+ (NEGATIVE) H Urine RBC 15-20 /HPF (0 - 2) H Urine WBC Tntc /HPF (0 - 2) H Urine Squamous Epithelial Cells Moderate /LPF (NONE/OCC) H Urine Bacteria Many /HPF (NONE) H POC Whole Blood Glucose Pending Test 01/16/20 03:21 01/16/20 05:41 White Blood Count 6.7 K/UL (4.8-10.8) Red Blood Count 2.28 M/UL (4.20-5.40) L Hemoglobin 6.4 G/DL (12.0-16.0) *L Hematocrit 21.4 % (37.0-47.0) L Mean Corpuscular Volume 94 FL (80-99) Mean Corpuscular Hemoglobin 28.0 PG (27.0-31.0) Mean Corpuscular Hemoglobin Concent 29.8 G/DL (32.0-36.0) L Red Cell Distribution Width 17.5 % (11.6-14.8) H Platelet Count 105 K/UL (150-450) L Mean Platelet Volume 7.8 FL (6.5-10.1) Neutrophils (%) (Auto) % (45.0-75.0) Lymphocytes (%) (Auto) % (20.0-45.0) Monocytes (%) (Auto) % (1.0-10.0) Eosinophils (%) (Auto) % (0.0-3.0) Basophils (%) (Auto) % (0.0-2.0) Differential Total Cells Counted 100 Neutrophils % (Manual) 82 % (45-75) H Lymphocytes % (Manual) 10 % (20-45) L Monocytes % (Manual) 8 % (1-10) Eosinophils % (Manual) 0 % (0-3) Basophils % (Manual) 0 % (0-2) Band Neutrophils 0 % (0-8) Platelet Estimate Decreased L Platelet Morphology Normal Hypochromasia 4+ Anisocytosis 2+ POC Whole Blood Glucose 167 MG/DL (74-106) H Height (Feet): 5 Height (Inches): 5.00 Weight (Pounds): 237 Medications Current Medications Medications (Trade) Dose Ordered Sig/Samuel Route PRN Reason Start Time Stop Time Status Last Admin Dose Admin Acetaminophen (Tylenol) 650 mg Q6H PRN ORAL Mild Pain (Pain Scale 1-3) 01/15/20 03:15 02/14/20 03:14 01/16/20 01:38 Acetaminophen (Tylenol) 650 mg Q6H PRN ORAL Temp >100.5 01/15/20 03:15 02/14/20 03:14 Acetaminophen/ Hydrocodone Bitart ([place] 5/325) 1 tab Q6H PRN ORAL For Pain 01/16/20 07:00 01/23/20 06:59 01/16/20 08:22 Apixaban (Eliquis) 2.5 mg BID ORAL 01/15/20 09:00 04/14/20 08:59 Chlorhexidine Gluconate (Mel-Hex 2%) 1 applic DAILY@2000 TOPIC 01/15/20 20:00 04/14/20 19:59 01/15/20 20:09 Dextrose (Dextrose 50%) 25 ml Q30M PRN IV Hypoglycemia 01/14/20 23:15 04/13/20 23:14 Dextrose (Dextrose 50%) 50 ml Q30M PRN IV Hypoglycemia 01/14/20 23:15 04/13/20 23:14 Insulin Aspart (NovoLOG) BEFORE MEALS AND HS SUBQ 01/15/20 06:30 04/14/20 06:29 01/16/20 05:47 Insulin Detemir (Levemir) 11 units BEDTIME SUBQ 01/15/20 21:00 04/14/20 20:59 01/15/20 21:21 Metoprolol Tartrate (Lopressor) 25 mg Q12HR ORAL 01/15/20 09:00 04/14/20 08:59 01/15/20 08:24 Midodrine (Pro-Amatine) 5 mg TID PRN ORAL sbp<110 01/15/20 09:00 04/14/20 08:59 Piperacillin Sod/ Tazobactam Sod 3.375 gm/Sodium Chloride 110 ml @ 27.5 mls/hr Q8H IVPB 01/15/20 00:00 01/22/20 00:00 01/16/20 08:07 Sildenafil Citrate (Revatio) 20 mg DAILY ORAL 01/15/20 09:00 04/14/20 08:59 01/16/20 08:22 Sodium Hypochlorite (Dakin's Quarter Strength) 1 applic DAILY TOPIC 01/15/20 11:00 02/14/20 10:59 01/16/20 08:23 Assessment/Plan Assessment/Plan: Hematology Consultation REQ : Alfonzo RFC: Anemia and low platelets DOS 01/16/2020 HPI: 59-year-old female presenting from [facility] with a history of hypertension, diabetes, ESRD not on hemodialysis and recently tested positive for COVID-19 presents for abnormal vital signs. The patient reported shortness of breath, chills, sweats beginning last night. She was started on oxygen and this afternoon found tachycardic. She was being transferred to a different hospital by BLS team who noted a change in her vital signs. They noted increasing heart rate, hypotension with pressures 80s/40s, tachypnea. The patient is reported to be confused at baseline however she appears awake and alert. She states she is full code and seems to know her medical history. She denies acute complaints of vomiting, diarrhea, cough, shortness of breath currently but states those have been present for about a week. States she tested positive for COVID-19 last week. Unknown what medications she was given for it. 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 EOMI. PERRLA. Anicteric sclera. Cardiovascular: Tachycardic. S1 and S2 normal. Resp: 2 L nasal cannula. Tachypnea. Normal work of breathing. Abdomen: Abdomen is soft, nondistended, obese. Nontender Skin: Bandages over the heels and feet on the lower extremities MSK: Normal tone and bulk. Moving all extremities. No obvious deformity. Neuro: Awake and alert. Mentating appropriately. Labs: noted Imaging: reviewed Assessment and Recs # Anemia is due to chronic dsiease/kidney failure and covid19++, does not appear to be gi bleed --> anemia panel has been reviewed --> continue on epogen as per renal --> no hemolysis is noted --> hold off anticaog if hgb <7 # Thrombocytopenia given first time here cause workup ongoing --> us abd is pending, r/o cirrhosis and hsm --> hep and hiv panel pending --> may also be due to covid 19 # UTI (urinary tract infection) --> with poa Sepsis --> abx as per id team # Respiratory failure due to covid19 --> steriods, low threshold for intuabtion # Ddimer elevation --> duplex lower ext neg # Pulmonary HTN # Hyperocag disorder --> hold off eliquis for now given drop in h/h --> have bindu santiago this info --> consider cards patricia Appreciate consultation and Reno Castaneda RN, MD Jan 16, 2020 08:37
[2020-01-16 09:03] LABS: ANION GAP 14 mmol/L (5-15); BLOOD UREA NITROGEN 50 mg/dL (7-18); CALCIUM 7.7 MG/DL (8.5-10.1); CARBON DIOXIDE 23 MMOL/L (21-32); CHLORIDE 107 MMOL/L (98-107); CREATININE 1.4 MG/DL (0.55-1.30); POTASSIUM 3.7 MMOL/L (3.5-5.1); SODIUM 144 MMOL/L (136-145)
--- NOTE | 2020-01-16 10:08 | Consultation ---
History of Present Illness General Chief Complaint: Flu Like Symptoms Reason for Consultation: MISSY Present Illness HPI Patient 59yo F who reported from SNF ([facility]) with suspected COVID19 + as outpatient. Duration unknown.. 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 She is bedbound. She was transferred in route per EMS due to hypotension. labs today notable for MISSY in the setting of worsening anemia- plan to get one unit of prbc - I was consulted for further management of acute kidney injury. Allergies: Coded Allergies: ERYTHROMYCIN BASE (Verified Allergy, Unknown, 01/14/20) HEPARIN (Verified Allergy, Unknown, 01/14/20) Medication History Scheduled Duloxetine Hcl* (Cymbalta*), 60 MG ORAL DAILY, (Reported) Famotidine* (Pepcid 20mg tablet*), 40 MG ORAL DAILY, (Reported) Ferrous Sulfate (Ferrous Sulfate), 325 MG PO QOD, (Reported) Folic Acid* (Folic Acid*), 1 MG ORAL DAILY, (Reported) Midodrine* (Proamatine*), 5 MG ORAL THREE TIMES A DAY, (Reported) Scheduled PRN Metoprolol Tartrate* (Metoprolol Tartrate*), 25 MG ORAL EVERY 12 HOURS PRN for for high blood pressure, (Reported) Sildenafil Citrate (Sildenafil), 20 MG ORAL DAILY PRN for hypertension, ( Reported) Patient History Healthcare decision maker Resuscitation status Advanced Directive on File Review of Systems All Other Systems: negative except mentioned in HPI Physical Exam Last 24 Hour Vital Signs Date Time Temp Pulse Resp B/P (MAP) Pulse Ox O2 Delivery O2 Flow Rate FiO2 01/16/20 09:44 93 124/66 01/16/20 08:00 Nasal Cannula 2.0 01/16/20 08:00 98.1 93 19 128/68 (88) 100 01/16/20 04:00 99 01/16/20 04:00 99.7 84 19 118/66 (83) 100 01/16/20 03:58 Nasal Cannula 2.0 01/16/20 00:00 97.0 77 20 91/48 (62) 100 01/16/20 00:00 69 01/16/20 00:00 Nasal Cannula 2.0 01/15/20 20:51 66 99/53 01/15/20 20:00 81 01/15/20 20:00 96.0 73 19 99/53 (68) 100 01/15/20 20:00 Nasal Cannula 2.0 01/15/20 16:00 Nasal Cannula 2.0 01/15/20 16:00 97.6 69 109/53 (71) 01/15/20 15:16 69 01/15/20 12:00 Nasal Cannula 2.0 01/15/20 12:00 97.8 71 107/50 (69) 01/15/20 11:29 75 Intake and Output 01/15/20 01/16/20 19:00 07:00 Intake Total 579.60 ml 395.0 ml Output Total 400 ml 380 ml Balance 179.60 ml 15.0 ml Intake Oral 400 ml 230 ml IV Total 179.60 ml 165.0 ml Output Urine Total 400 ml 380 ml # Bowel Movements 2 Laboratory Tests Test 01/15/20 14:00 01/15/20 18:20 01/15/20 21:09 01/16/20 03:21 Hepatitis A IgM Antibody Pending Hepatitis B Surface Antigen Pending Hepatitis B Core IgM Antibody Pending Hepatitis C Antibody Pending Urine Color Honey Urine Appearance Turbid Urine pH 5 (4.5-8.0) Urine Specific [place] 1.020 (1.005-1.035) Urine Protein 3+ (NEGATIVE) H Urine Glucose (UA) Negative (NEGATIVE) Urine Ketones 1+ (NEGATIVE) H Urine Blood 5+ (NEGATIVE) H Urine Nitrite Negative (NEGATIVE) Urine Bilirubin Negative (NEGATIVE) Urine Ictotest Negative (NEGATIVE) Urine Urobilinogen Normal MG/DL (0.0-1.0) Urine Leukocyte Esterase 3+ (NEGATIVE) H Urine RBC 15-20 /HPF (0 - 2) H Urine WBC Tntc /HPF (0 - 2) H Urine Squamous Epithelial Cells Moderate /LPF (NONE/OCC) H Urine Bacteria Many /HPF (NONE) H POC Whole Blood Glucose Pending White Blood Count 6.7 K/UL (4.8-10.8) Red Blood Count 2.28 M/UL (4.20-5.40) L Hemoglobin 6.4 G/DL (12.0-16.0) *L Hematocrit 21.4 % (37.0-47.0) L Mean Corpuscular Volume 94 FL (80-99) Mean Corpuscular Hemoglobin 28.0 PG (27.0-31.0) Mean Corpuscular Hemoglobin Concent 29.8 G/DL (32.0-36.0) L Red Cell Distribution Width 17.5 % (11.6-14.8) H Platelet Count 105 K/UL (150-450) L Mean Platelet Volume 7.8 FL (6.5-10.1) Neutrophils (%) (Auto) % (45.0-75.0) Lymphocytes (%) (Auto) % (20.0-45.0) Monocytes (%) (Auto) % (1.0-10.0) Eosinophils (%) (Auto) % (0.0-3.0) Basophils (%) (Auto) % (0.0-2.0) Differential Total Cells Counted 100 Neutrophils % (Manual) 82 % (45-75) H Lymphocytes % (Manual) 10 % (20-45) L Monocytes % (Manual) 8 % (1-10) Eosinophils % (Manual) 0 % (0-3) Basophils % (Manual) 0 % (0-2) Band Neutrophils 0 % (0-8) Platelet Estimate Decreased L Platelet Morphology Normal Hypochromasia 4+ Anisocytosis 2+ Test 01/16/20 03:23 01/16/20 05:41 Sodium Level 144 MMOL/L (136-145) Potassium Level 3.7 MMOL/L (3.5-5.1) Chloride Level 107 MMOL/L (98-107) Carbon Dioxide Level 23 MMOL/L (21-32) Anion Gap 14 mmol/L (5-15) Blood Urea Nitrogen 50 mg/dL (7-18) H Creatinine 1.4 MG/DL (0.55-1.30) H Estimat Glomerular Filtration Rate 38.4 mL/min (>60) Glucose Level 191 MG/DL (74-106) H Calcium Level 7.7 MG/DL (8.5-10.1) L POC Whole Blood Glucose 167 MG/DL (74-106) H Microbiology Date/Time Source Procedure Growth Status 01/15/20 18:20 Urine,Clean Catch Urine Culture - Preliminary NO GROWTH Resulted Height (Feet): 5 Height (Inches): 5.00 Weight (Pounds): 237 Medications Current Medications Medications (Trade) Dose Ordered Sig/Samuel Route PRN Reason Start Time Stop Time Status Last Admin Dose Admin Acetaminophen (Tylenol) 650 mg Q6H PRN ORAL Mild Pain (Pain Scale 1-3) 01/15/20 03:15 02/14/20 03:14 01/16/20 01:38 Acetaminophen (Tylenol) 650 mg Q6H PRN ORAL Temp >100.5 01/15/20 03:15 02/14/20 03:14 Acetaminophen/ Hydrocodone Bitart ([place] 5/325) 1 tab Q6H PRN ORAL For Pain 01/16/20 07:00 01/23/20 06:59 01/16/20 08:22 Apixaban (Eliquis) 2.5 mg BID ORAL 01/15/20 09:00 04/14/20 08:59 Chlorhexidine Gluconate (Mel-Hex 2%) 1 applic DAILY@2000 TOPIC 01/15/20 20:00 04/14/20 19:59 01/15/20 20:09 Dextrose (Dextrose 50%) 25 ml Q30M PRN IV Hypoglycemia 01/14/20 23:15 04/13/20 23:14 Dextrose (Dextrose 50%) 50 ml Q30M PRN IV Hypoglycemia 01/14/20 23:15 04/13/20 23:14 Furosemide (Lasix) 10 mg ONCE IV 01/16/20 13:45 01/16/20 14:30 Insulin Aspart (NovoLOG) BEFORE MEALS AND HS SUBQ 01/15/20 06:30 04/14/20 06:29 01/16/20 05:47 Insulin Detemir (Levemir) 11 units BEDTIME SUBQ 01/15/20 21:00 04/14/20 20:59 01/15/20 21:21 Metoprolol Tartrate (Lopressor) 25 mg Q12HR ORAL 01/15/20 09:00 04/14/20 08:59 01/16/20 09:44 Midodrine (Pro-Amatine) 5 mg TID PRN ORAL sbp<110 01/15/20 09:00 04/14/20 08:59 Piperacillin Sod/ Tazobactam Sod 3.375 gm/Sodium Chloride 110 ml @ 27.5 mls/hr Q8H IVPB 01/15/20 00:00 01/22/20 00:00 01/16/20 08:07 Sildenafil Citrate (Revatio) 20 mg DAILY ORAL 01/15/20 09:00 04/14/20 08:59 01/16/20 08:22 Sodium Hypochlorite (Dakin's Quarter Strength) 1 applic DAILY TOPIC 01/15/20 11:00 02/14/20 10:59 01/16/20 08:23 Objective Narrative General Appearance: WD/WN, alert, mild distress HEENT: normocephalic Neck: non-tender Respiratory/Chest: chest wall non-tender, normal breath sounds, respiratory distress Abdomen: normal bowel sounds Extremities: normal range of motion, non-tender, no edema Skin Exam: other 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 II-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 grossly normal, oriented x 3 Assessment/Plan Diagnosis [place] I: #MISSY due to pre-rernal azotemia in the setting of anemia #Acute on chronic anemia # Acute Hypoxemic respiratory failure # COVID 19 infection previously - now 1 negative swab # Pulmonary HTN #UTI #runs of SVTs #ho/ HTN DM - PRBC transfusion today - defer further renal work up pending evolution of kidneu function - monitor CBC - IV iron - GI eval - continu metop 25mg BID - holding AC- on apixaban - continue with dig - avoid nephrotoxins - strict I&Os - monitor weights - check BMP, mag and phos daily Time spent 70 min > 50% on care coordiation and counseling Phil Morse M.D. Jan 16, 2020 10:08
--- NOTE | 2020-01-16 11:01 | Pulmonology Progress Note ---
Subjective Interval Events: None new Constitutional: Reports: no symptoms HEENT: Repors: no symptoms Respiratory: Reports: shortness of breath Cardiovascular: Reports: no symptoms Allergies: Coded Allergies: ERYTHROMYCIN BASE (Verified Allergy, Unknown, 01/14/20) HEPARIN (Verified Allergy, Unknown, 01/14/20) Objective Last 24 Hour Vital Signs Date Time Temp Pulse Resp B/P (MAP) Pulse Ox O2 Delivery O2 Flow Rate FiO2 01/16/20 09:44 93 124/66 01/16/20 08:00 123 01/16/20 08:00 Nasal Cannula 2.0 01/16/20 08:00 98.1 93 19 128/68 (88) 100 01/16/20 04:00 99 01/16/20 04:00 99.7 84 19 118/66 (83) 100 01/16/20 03:58 Nasal Cannula 2.0 01/16/20 00:00 97.0 77 20 91/48 (62) 100 01/16/20 00:00 69 01/16/20 00:00 Nasal Cannula 2.0 01/15/20 20:51 66 99/53 01/15/20 20:00 81 01/15/20 20:00 96.0 73 19 99/53 (68) 100 01/15/20 20:00 Nasal Cannula 2.0 01/15/20 16:00 Nasal Cannula 2.0 01/15/20 16:00 97.6 69 109/53 (71) 01/15/20 15:16 69 01/15/20 12:00 Nasal Cannula 2.0 01/15/20 12:00 97.8 71 107/50 (69) 01/15/20 11:29 75 Intake and Output 01/15/20 01/16/20 19:00 07:00 Intake Total 579.60 ml 395.0 ml Output Total 400 ml 380 ml Balance 179.60 ml 15.0 ml Intake Oral 400 ml 230 ml IV Total 179.60 ml 165.0 ml Output Urine Total 400 ml 380 ml # Bowel Movements 2 General Appearance: no acute distress HEENT: normocephalic Respiratory: chest wall non-tender, lungs clear Cardiovascular: normal peripheral pulses Abdomen: normal bowel sounds Microbiology Date/Time Source Procedure Growth Status 01/14/20 18:16 Blood Blood Culture - Preliminary Gram Negative Bacillus 1 Resulted 01/14/20 18:00 Blood Blood Culture - Preliminary Gram Negative Bacillus 1 Resulted 01/14/20 18:05 Nasopharynx Coronavirus COVID-19 PCR ([facility]) - Final Complete 01/15/20 18:20 Urine,Clean Catch Urine Culture - Preliminary NO GROWTH Resulted 01/14/20 18:51 Urine,Clean Catch Urine Culture - Preliminary Gram Negative Bacillus 3 Resulted Laboratory Tests 01/15/20 14:00: Hepatitis A IgM Antibody [Pending], Hepatitis B Surface Antigen [Pending], Hepatitis B Core IgM Antibody [Pending], Hepatitis C Antibody [Pending] 01/15/20 18:20: Urine Color Honey, Urine Appearance Turbid, Urine pH 5, Urine Specific [place] 1.020, Urine Protein 3+H, Urine Glucose (UA) Negative, Urine Ketones 1+H, Urine Blood 5+H, Urine Nitrite Negative, Urine Bilirubin Negative, Urine Ictotest Negative, Urine Urobilinogen Normal, Urine Leukocyte Esterase 3+H, Urine RBC 15- 20H, Urine WBC TntcH, Urine Squamous Epithelial Cells ModerateH, Urine Bacteria ManyH 01/15/20 21:09: POC Whole Blood Glucose [Pending] 01/16/20 03:21: White Blood Count 6.7, Red Blood Count 2.28L, Hemoglobin 6.4*L, Hematocrit 21.4L , Mean Corpuscular Volume 94, Mean Corpuscular Hemoglobin 28.0, Mean Corpuscular Hemoglobin Concent 29.8L, Red Cell Distribution Width 17.5H, Platelet Count 105L, Mean Platelet Volume 7.8, Neutrophils (%) (Auto) , Lymphocytes (%) (Auto) , Monocytes (%) (Auto) , Eosinophils (%) (Auto) , Basophils (%) (Auto) , Differential Total Cells Counted 100, Neutrophils % ( Manual) 82H, Lymphocytes % (Manual) 10L, Monocytes % (Manual) 8, Eosinophils % ( Manual) 0, Basophils % (Manual) 0, Band Neutrophils 0, Platelet Estimate DecreasedL, Platelet Morphology Normal, Hypochromasia 4+, Anisocytosis 2+ 01/16/20 03:23: Sodium Level 144, Potassium Level 3.7, Chloride Level 107, Carbon Dioxide Level 23, Anion Gap 14, Blood Urea Nitrogen 50H, Creatinine 1.4H, Estimat Glomerular Filtration Rate 38.4, Glucose Level 191H, Calcium Level 7.7L 01/16/20 05:41: POC Whole Blood Glucose 167H Current Medications Medications (Trade) Dose Ordered Sig/Samuel Route PRN Reason Start Time Stop Time Status Last Admin Dose Admin Acetaminophen (Tylenol) 650 mg Q6H PRN ORAL Mild Pain (Pain Scale 1-3) 01/15/20 03:15 02/14/20 03:14 01/16/20 01:38 Acetaminophen (Tylenol) 650 mg Q6H PRN ORAL Temp >100.5 01/15/20 03:15 02/14/20 03:14 Acetaminophen/ Hydrocodone Bitart ([place] 5/325) 1 tab Q6H PRN ORAL For Pain 01/16/20 07:00 01/23/20 06:59 01/16/20 08:22 Chlorhexidine Gluconate (Mel-Hex 2%) 1 applic DAILY@2000 TOPIC 01/15/20 20:00 04/14/20 19:59 01/15/20 20:09 Dextrose (Dextrose 50%) 25 ml Q30M PRN IV Hypoglycemia 01/14/20 23:15 04/13/20 23:14 Dextrose (Dextrose 50%) 50 ml Q30M PRN IV Hypoglycemia 01/14/20 23:15 04/13/20 23:14 Insulin Aspart (NovoLOG) BEFORE MEALS AND HS SUBQ 01/15/20 06:30 04/14/20 06:29 01/16/20 05:47 Insulin Detemir (Levemir) 11 units BEDTIME SUBQ 01/15/20 21:00 04/14/20 20:59 01/15/20 21:21 Iron Sucrose 100 mg/Sodium Chloride 60 ml @ 240 mls/hr BEDTIME IV 01/16/20 21:00 01/20/20 21:14 Metoprolol Tartrate (Lopressor) 25 mg Q12HR ORAL 01/15/20 09:00 04/14/20 08:59 01/16/20 09:44 Midodrine (Pro-Amatine) 5 mg TID PRN ORAL sbp<110 01/15/20 09:00 04/14/20 08:59 Piperacillin Sod/ Tazobactam Sod 3.375 gm/Sodium Chloride 110 ml @ 27.5 mls/hr Q8H IVPB 01/15/20 00:00 01/22/20 00:00 01/16/20 08:07 Sildenafil Citrate (Revatio) 20 mg DAILY ORAL 01/15/20 09:00 04/14/20 08:59 01/16/20 08:22 Sodium Hypochlorite (Dakin's Quarter Strength) 1 applic DAILY TOPIC 01/15/20 11:00 02/14/20 10:59 01/16/20 08:23 Assessment/Plan Assessment/Plan IMPRESSION: 1. Negative for COVID-19 pneumonia. 2. UTI. 3. Diabetes mellitus. 4. Decubiti. DISCUSSION: Admit to the hospital. Agree with broad-spectrum antibiotics. Oxygen and pulmonary hygiene. Negative COVID-19 PCR. I will follow carefully. Keerthi Morales Omar Syed MD Jan 16, 2020 11:01
[2020-01-16 12:00] VITALS: BP 128/62
--- NOTE | 2020-01-16 13:57 | General Progress Note ---
Assessment/Plan Problem List: (1) COVID-19 ICD Codes: U07.1 - COVID-19 SNOMED: 771012572 (2) UTI (urinary tract infection) ICD Codes: N39.0 - Urinary tract infection, site not specified SNOMED: 39596193 (3) Anemia ICD Codes: D64.9 - Anemia, unspecified SNOMED: 654146412 Qualifiers: Status: stable, progressing Assessment/Plan: # Acute Hypoxemic respiratory failure # COVID 19 infection previously - now 1 negative swab # Pulmonary HTN Supplemental O2 on 2L NC saturating above 92% Incentive spirometry Trend inflammatory markers Consult to pulmonology appreciate recs Due to active infection not a candidate for remdesivir Sildenafil for pulmonary HTN #Atrial fibrillation #Autonomic dysfunction -Restart metoprolol -Continue midodrine -Holding anticoagulation due to anemia -Consult to EP metrology specialist # Normocytic anemia # Thrombocytopenia -Iron studies ordered - Trend CBC - Transfuse 1 unit pRBC - 01/16/2020 - Transfuse for Hg less than 7 - Consult to hematology - anticoagulation held #MISSY -Fluid hydration -hold nephrotoci medications -Consult to nephrolocy- appeciate recs. #UTI -Follow up cultures - gram negative rods -Continue with Zosyn -deescalate after speciating since it can still be Pseudomonas UTI -Consult to ID #Pressure injuries -Wound care -Recs from surgery DVRppx scd due to anemia Physical therapy evaluation 40 minuets was spent on this patient with 10 min face to face with Patient. Coordinated with consultants, reviews labs and images. Discussed plan with RN. Subjective Constitutional: Reports: no symptoms HEENT: Reports: no symptoms Cardiovascular: Reports: irregular heart rate Respiratory: Reports: cough, shortness of breath, SOB with excertion, SOB at rest Gastrointestinal/Abdominal: Reports: other - hernia Genitourinary: Reports: no symptoms, frequency Neurologic/Psychiatric: Reports: no symptoms Endocrine: Reports: no symptoms Hematologic/Lymphatic: Reports: anemia Allergies: Coded Allergies: ERYTHROMYCIN BASE (Verified Allergy, Unknown, 01/14/20) HEPARIN (Verified Allergy, Unknown, 01/14/20) All Systems: reviewed and negative except above Subjective Patient is feeling better. Does not have signs of bleeding. No chest pain. Happy her COVID test was negative. Objective Last 24 Hour Vital Signs Date Time Temp Pulse Resp B/P (MAP) Pulse Ox O2 Delivery O2 Flow Rate FiO2 01/16/20 12:00 98.1 96 19 128/62 (84) 100 01/16/20 12:00 Nasal Cannula 2.0 01/16/20 12:00 74 01/16/20 09:44 93 124/66 01/16/20 08:00 123 01/16/20 08:00 Nasal Cannula 2.0 01/16/20 08:00 98.1 93 19 128/68 (88) 100 01/16/20 04:00 99 01/16/20 04:00 99.7 84 19 118/66 (83) 100 01/16/20 03:58 Nasal Cannula 2.0 01/16/20 00:00 97.0 77 20 91/48 (62) 100 01/16/20 00:00 69 01/16/20 00:00 Nasal Cannula 2.0 01/15/20 20:51 66 99/53 01/15/20 20:00 81 01/15/20 20:00 96.0 73 19 99/53 (68) 100 01/15/20 20:00 Nasal Cannula 2.0 01/15/20 16:00 Nasal Cannula 2.0 01/15/20 16:00 97.6 69 109/53 (71) 01/15/20 15:16 69 Intake and Output 01/15/20 01/16/20 19:00 07:00 Intake Total 579.60 ml 395.0 ml Output Total 400 ml 380 ml Balance 179.60 ml 15.0 ml Intake Oral 400 ml 230 ml IV Total 179.60 ml 165.0 ml Output Urine Total 400 ml 380 ml # Bowel Movements 2 Laboratory Tests 01/15/20 14:00: Hepatitis A IgM Antibody [Pending], Hepatitis B Surface Antigen [Pending], Hepatitis B Core IgM Antibody [Pending], Hepatitis C Antibody [Pending] 01/15/20 18:20: Urine Color Honey, Urine Appearance Turbid, Urine pH 5, Urine Specific [place] 1.020, Urine Protein 3+H, Urine Glucose (UA) Negative, Urine Ketones 1+H, Urine Blood 5+H, Urine Nitrite Negative, Urine Bilirubin Negative, Urine Ictotest Negative, Urine Urobilinogen Normal, Urine Leukocyte Esterase 3+H, Urine RBC 15- 20H, Urine WBC TntcH, Urine Squamous Epithelial Cells ModerateH, Urine Bacteria ManyH 01/15/20 21:09: POC Whole Blood Glucose [Pending] 01/16/20 03:21: White Blood Count 6.7, Red Blood Count 2.28L, Hemoglobin 6.4*L, Hematocrit 21.4L , Mean Corpuscular Volume 94, Mean Corpuscular Hemoglobin 28.0, Mean Corpuscular Hemoglobin Concent 29.8L, Red Cell Distribution Width 17.5H, Platelet Count 105L, Mean Platelet Volume 7.8, Neutrophils (%) (Auto) , Lymphocytes (%) (Auto) , Monocytes (%) (Auto) , Eosinophils (%) (Auto) , Basophils (%) (Auto) , Differential Total Cells Counted 100, Neutrophils % ( Manual) 82H, Lymphocytes % (Manual) 10L, Monocytes % (Manual) 8, Eosinophils % ( Manual) 0, Basophils % (Manual) 0, Band Neutrophils 0, Platelet Estimate DecreasedL, Platelet Morphology Normal, Hypochromasia 4+, Anisocytosis 2+ 01/16/20 03:23: Sodium Level 144, Potassium Level 3.7, Chloride Level 107, Carbon Dioxide Level 23, Anion Gap 14, Blood Urea Nitrogen 50H, Creatinine 1.4H, Estimat Glomerular Filtration Rate 38.4, Glucose Level 191H, Calcium Level 7.7L 01/16/20 05:41: POC Whole Blood Glucose 167H 01/16/20 12:02: POC Whole Blood Glucose 121H Height (Feet): 5 Height (Inches): 5.00 Weight (Pounds): 237 General Appearance: no apparent distress, alert EENT: PERRL/EOMI Neck: normal alignment, supple Cardiovascular: normal peripheral pulses, regular rhythm, regularly irregular, no gallop/murmur, no JVD Respiratory/Chest: chest wall non-tender, respiratory distress, decreased breath sounds, rhonchi - bilaterally Abdomen: normal bowel sounds, non tender, soft, mass Pelvis: normal external exam Extremities: normal inspection Edema: 1+ Leg (L), 1+ Leg (R) Edema: trace edema 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 Jan 16, 2020 13:57
--- NOTE | 2020-01-16 14:07 | Surgery Progress Note ---
Surgery Progress Note Subjective Additional Comments no acute events anemia pendiing prbc plt low dressings saturated and changed Objective Last 24 Hour Vital Signs Date Time Temp Pulse Resp B/P (MAP) Pulse Ox O2 Delivery O2 Flow Rate FiO2 01/16/20 12:00 98.1 96 19 128/62 (84) 100 01/16/20 12:00 Nasal Cannula 2.0 01/16/20 12:00 74 01/16/20 09:44 93 124/66 01/16/20 08:00 123 01/16/20 08:00 Nasal Cannula 2.0 01/16/20 08:00 98.1 93 19 128/68 (88) 100 01/16/20 04:00 99 01/16/20 04:00 99.7 84 19 118/66 (83) 100 01/16/20 03:58 Nasal Cannula 2.0 01/16/20 00:00 97.0 77 20 91/48 (62) 100 01/16/20 00:00 69 01/16/20 00:00 Nasal Cannula 2.0 01/15/20 20:51 66 99/53 01/15/20 20:00 81 01/15/20 20:00 96.0 73 19 99/53 (68) 100 01/15/20 20:00 Nasal Cannula 2.0 01/15/20 16:00 Nasal Cannula 2.0 01/15/20 16:00 97.6 69 109/53 (71) 01/15/20 15:16 69 I&O Intake and Output 01/15/20 01/16/20 19:00 07:00 Intake Total 579.60 ml 395.0 ml Output Total 400 ml 380 ml Balance 179.60 ml 15.0 ml Intake Oral 400 ml 230 ml IV Total 179.60 ml 165.0 ml Output Urine Total 400 ml 380 ml # Bowel Movements 2 Dressing: other Wound: other Drains: other Cardiovascular: RSR Respiratory: decreased breath sounds Abdomen: soft, non-tender, present bowel sounds Extremities: no cyanosis Laboratory Tests Test 01/15/20 18:20 01/15/20 21:09 01/16/20 03:21 01/16/20 03:23 Urine Color Honey Urine Appearance Turbid Urine pH 5 (4.5-8.0) Urine Specific [place] 1.020 (1.005-1.035) Urine Protein 3+ (NEGATIVE) H Urine Glucose (UA) Negative (NEGATIVE) Urine Ketones 1+ (NEGATIVE) H Urine Blood 5+ (NEGATIVE) H Urine Nitrite Negative (NEGATIVE) Urine Bilirubin Negative (NEGATIVE) Urine Ictotest Negative (NEGATIVE) Urine Urobilinogen Normal MG/DL (0.0-1.0) Urine Leukocyte Esterase 3+ (NEGATIVE) H Urine RBC 15-20 /HPF (0 - 2) H Urine WBC Tntc /HPF (0 - 2) H Urine Squamous Epithelial Cells Moderate /LPF (NONE/OCC) H Urine Bacteria Many /HPF (NONE) H POC Whole Blood Glucose Pending White Blood Count 6.7 K/UL (4.8-10.8) Red Blood Count 2.28 M/UL (4.20-5.40) L Hemoglobin 6.4 G/DL (12.0-16.0) *L Hematocrit 21.4 % (37.0-47.0) L Mean Corpuscular Volume 94 FL (80-99) Mean Corpuscular Hemoglobin 28.0 PG (27.0-31.0) Mean Corpuscular Hemoglobin Concent 29.8 G/DL (32.0-36.0) L Red Cell Distribution Width 17.5 % (11.6-14.8) H Platelet Count 105 K/UL (150-450) L Mean Platelet Volume 7.8 FL (6.5-10.1) Neutrophils (%) (Auto) % (45.0-75.0) Lymphocytes (%) (Auto) % (20.0-45.0) Monocytes (%) (Auto) % (1.0-10.0) Eosinophils (%) (Auto) % (0.0-3.0) Basophils (%) (Auto) % (0.0-2.0) Differential Total Cells Counted 100 Neutrophils % (Manual) 82 % (45-75) H Lymphocytes % (Manual) 10 % (20-45) L Monocytes % (Manual) 8 % (1-10) Eosinophils % (Manual) 0 % (0-3) Basophils % (Manual) 0 % (0-2) Band Neutrophils 0 % (0-8) Platelet Estimate Decreased L Platelet Morphology Normal Hypochromasia 4+ Anisocytosis 2+ Sodium Level 144 MMOL/L (136-145) Potassium Level 3.7 MMOL/L (3.5-5.1) Chloride Level 107 MMOL/L (98-107) Carbon Dioxide Level 23 MMOL/L (21-32) Anion Gap 14 mmol/L (5-15) Blood Urea Nitrogen 50 mg/dL (7-18) H Creatinine 1.4 MG/DL (0.55-1.30) H Estimat Glomerular Filtration Rate 38.4 mL/min (>60) Glucose Level 191 MG/DL (74-106) H Calcium Level 7.7 MG/DL (8.5-10.1) L Test 01/16/20 05:41 01/16/20 12:02 POC Whole Blood Glucose 167 MG/DL (74-106) H 121 MG/DL (74-106) H Plan Problems: (1) Sepsis Assessment & Plan: Morbidly obese pt whom presented on admission with Multiple Pressure injuries. Pt stated wounds rapidly developed approx 3 weeks ago while acutely ill. Pt is on oxygen via N/C. Both ears assessed and no evidence of skin breakdown noted. Foam padding around oxygen tubing and pt was advised to maintain tubing loose around ears. Moisture Intertrigo noted to abd folds,R and L groin. 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 Base of wound is 100% soft Black/ rubin necrosis. Bone is palpable. Wound is malodorous. Small amt haemopurulent exudate noted. Borders are irregular, erythematous and macerated.Periwound is erythematous,indurated with additional Pressure injuries and shearing. At L gluteus is a full Thickness Pressure injury(L)7.5cm x (W)4.5cm.90% mixed necrosis/slough,10% pink epithelial at base of wound. Borders are erythematous and macerated. Small amt serous exudate noted. At R Gluteus is full thickness Pressure injury(L)7.3cm x (W)4.5cm. Base of wound is 100% slough. Borders are erythematous and macerated. Small amt serous exudate noted. Full Thickness stage 4 Pressure injury R lower Buttocks(L)4.4cm x (W)7.5cm. Base of wound is 25% necrotic,75% fibrinous slough. Wound is malodorous. Small amt haemopurulent exudate noted. Wound is malodorous. Borders are erythematous and macerated. Full Thickness stage 4 Pressure Injury R Ischium(L)7.6cm x (W)5.4cm. Base of wound is 25% necrotic,60% slough,15% pink epithelial. Small amt seropurulent exudate noted. Wound is malodorous.Borders are erythematous and macerated. Two Full thickness Pressure Injuries that are in close Proximity lower L buttocks.(Proximal)(L)3.5cm x (W)2.6cm.100% soft necrosis at base of wound. Marginal erythema along borders.Periwound L buttocks erythematous with shearing. (Distal)(L)1.3cm x (W)0.9cm. 100% slough at base of wound.Marginal erythema along Borders. Two Unstageable Pressure injuries L Ischium:(Proximal)(L)1.2cm x (W)1.9cm Base of wound is 90% slough,10%pink moist erythema.(Distal) L) 6cm x (W)5.3cm. 90% slough,10% moist erythema at base of wound. Small amt. seropurulent exudate noted. No odor noted. Borders are macerated. Periwound is erythematous with additional shearing. DTPI medial/posterior Upper L thigh which presents as blood Blister that is partially opened(L)1.1cm x (W)6.8cm.Open wound at most medial portion of wound ( L)1.1cm x (W)1.3cm noted to have slough at base. Stable dry eschar L pre-tibial (L)1.5cm x (W)1cm. Haemosiderin with dry scaly plaques L lower ext. DTPI L lateral Malleolus(L)2.3cm x (W)0.9cm. Wound presents as an intact Blood Blister. Non-Healing Surgical wound R Achilles. Pt stated she had surgical repair approximately 2 years ago. Base of wound is 40% fibrinous slough,10% necrotic , 50% pale pink. Edges are macerated. Keloid scar at distal portion of surgical wound. No odor or exudate noted. Surrounding Haemosiderin noted to R lower ext. Full thickness Pressure injury R lateral Malleolus(L)4.8cm x (W)5.8cm. Base of wound is 80%mixed soft necrosis and fibrinous slough,20% pink and moist. Small amt seropurulent exudate noted. (+) Epibole along borders.Periwound is erythematous. No elevation in skin temp. No odor noted. R Heel is boggy but blanchable. Historical scar noted to R heel. L Heel is boggy but blanchable. wounds unlikely etiology uti abx as per ID Tx.Plan: Cleanse Sacral,R and L Buttocks,R and L ischium wounds with Dakin's 0.125% Parul. Loosely pack with Dakin's moistened Gauze. Apply Triad Periwound. Cover with Optifoam drsgs Daily and prn. Cleanse Wound R Achilles with Dakin's 0.125% parul. Apply Dakin's Moistened Gauze. Apply Triad periwound. Cover with ABD Pad and Wrap with Kerlix Daily and prn. Cleanse Wound lateral R Malleolus with Dakin's 0.125%. parul. Apply Dakin's moistened Gauze to wound. Apply Triad Paste periwound. Cover with ABD Pad. Wrap with Kerlix Daily and prn. Apply Cavilon Skin Barrier to both heels. Cover each heel with Optifoam drsg. Change every 7 days and prn. Apply Triad Paste to abdominal folds and Bilat groin Twice Daily. Reposition at least every 2hours or as tolerated. Off-load heels with Pillow Bariatric bed with APM/LEO Mattress. (2) UTI (urinary tract infection) (3) COVID-19 (4) Anemia (5) SOB (shortness of breath) (6) Tachycardia (7) Decubitus skin ulcer Assessment & Plan: Patient presented with multiple decubitus skin ulcers in various stages. Wounds evaluated initial staging and care plan initiated. Will follow with recommendations. DAILY ESTIMATED NEEDS: Needs based on Wounds, DM 62kg abw 25-30 kcals/kg 1259-8894 total kcals 1.5-2 g protein/kg 93-124 g total protein 25-30 mL/kg 7948-9982 total fluid mLs NUTRITION DIAGNOSIS: Increase pro needs r/t wound healing as evidenced by pt w/ multiple areas of skin breakdown, eval pending, per photos, wounds appear open and advanced. CURRENT DIET: CCHO LOW PO DIET RECOMMENDATIONS: CCHO LOW + DOUBLE PROTEIN PORTIONS ADDITIONAL RECOMMENDATIONS: 1) Texture per CREDIT RISK REVIEW OFFICER 2) Add Glucerna 1 tetra TID 3) Wound care, f/up w/ WC eval 4) Monitor po intake, no record at this time Jens Hoang Jan 16, 2020 14:07
--- NOTE | 2020-01-16 15:55 | Cardiac Electrophysiology PN ---
Subjective Subjective [id number] Objective Last 24 Hour Vital Signs Date Time Temp Pulse Resp B/P (MAP) Pulse Ox O2 Delivery O2 Flow Rate FiO2 01/16/20 12:00 98.1 96 19 128/62 (84) 100 01/16/20 12:00 Nasal Cannula 2.0 01/16/20 12:00 74 01/16/20 09:44 93 124/66 01/16/20 08:00 123 01/16/20 08:00 Nasal Cannula 2.0 01/16/20 08:00 98.1 93 19 128/68 (88) 100 01/16/20 04:00 99 01/16/20 04:00 99.7 84 19 118/66 (83) 100 01/16/20 03:58 Nasal Cannula 2.0 01/16/20 00:00 97.0 77 20 91/48 (62) 100 01/16/20 00:00 69 01/16/20 00:00 Nasal Cannula 2.0 01/15/20 20:51 66 99/53 01/15/20 20:00 81 01/15/20 20:00 96.0 73 19 99/53 (68) 100 01/15/20 20:00 Nasal Cannula 2.0 01/15/20 16:00 Nasal Cannula 2.0 01/15/20 16:00 97.6 69 109/53 (71) Intake and Output 01/15/20 01/16/20 19:00 07:00 Intake Total 579.60 ml 395.0 ml Output Total 400 ml 380 ml Balance 179.60 ml 15.0 ml Intake Oral 400 ml 230 ml IV Total 179.60 ml 165.0 ml Output Urine Total 400 ml 380 ml # Bowel Movements 2 Laboratory Tests Test 01/15/20 18:20 01/15/20 21:09 01/16/20 03:21 01/16/20 03:23 Urine Color Honey Urine Appearance Turbid Urine pH 5 (4.5-8.0) Urine Specific [place] 1.020 (1.005-1.035) Urine Protein 3+ (NEGATIVE) H Urine Glucose (UA) Negative (NEGATIVE) Urine Ketones 1+ (NEGATIVE) H Urine Blood 5+ (NEGATIVE) H Urine Nitrite Negative (NEGATIVE) Urine Bilirubin Negative (NEGATIVE) Urine Ictotest Negative (NEGATIVE) Urine Urobilinogen Normal MG/DL (0.0-1.0) Urine Leukocyte Esterase 3+ (NEGATIVE) H Urine RBC 15-20 /HPF (0 - 2) H Urine WBC Tntc /HPF (0 - 2) H Urine Squamous Epithelial Cells Moderate /LPF (NONE/OCC) H Urine Bacteria Many /HPF (NONE) H POC Whole Blood Glucose Pending White Blood Count 6.7 K/UL (4.8-10.8) Red Blood Count 2.28 M/UL (4.20-5.40) L Hemoglobin 6.4 G/DL (12.0-16.0) *L Hematocrit 21.4 % (37.0-47.0) L Mean Corpuscular Volume 94 FL (80-99) Mean Corpuscular Hemoglobin 28.0 PG (27.0-31.0) Mean Corpuscular Hemoglobin Concent 29.8 G/DL (32.0-36.0) L Red Cell Distribution Width 17.5 % (11.6-14.8) H Platelet Count 105 K/UL (150-450) L Mean Platelet Volume 7.8 FL (6.5-10.1) Neutrophils (%) (Auto) % (45.0-75.0) Lymphocytes (%) (Auto) % (20.0-45.0) Monocytes (%) (Auto) % (1.0-10.0) Eosinophils (%) (Auto) % (0.0-3.0) Basophils (%) (Auto) % (0.0-2.0) Differential Total Cells Counted 100 Neutrophils % (Manual) 82 % (45-75) H Lymphocytes % (Manual) 10 % (20-45) L Monocytes % (Manual) 8 % (1-10) Eosinophils % (Manual) 0 % (0-3) Basophils % (Manual) 0 % (0-2) Band Neutrophils 0 % (0-8) Platelet Estimate Decreased L Platelet Morphology Normal Hypochromasia 4+ Anisocytosis 2+ Sodium Level 144 MMOL/L (136-145) Potassium Level 3.7 MMOL/L (3.5-5.1) Chloride Level 107 MMOL/L (98-107) Carbon Dioxide Level 23 MMOL/L (21-32) Anion Gap 14 mmol/L (5-15) Blood Urea Nitrogen 50 mg/dL (7-18) H Creatinine 1.4 MG/DL (0.55-1.30) H Estimat Glomerular Filtration Rate 38.4 mL/min (>60) Glucose Level 191 MG/DL (74-106) H Calcium Level 7.7 MG/DL (8.5-10.1) L Test 01/16/20 05:41 01/16/20 12:02 POC Whole Blood Glucose 167 MG/DL (74-106) H 121 MG/DL (74-106) H Microbiology Date/Time Source Procedure Growth Status 01/14/20 18:16 Blood Blood Culture - Preliminary Gram Negative Bacillus 1 Resulted 01/14/20 18:00 Blood Blood Culture - Preliminary Gram Negative Bacillus 1 Resulted 01/14/20 18:05 Nasopharynx Coronavirus COVID-19 PCR ([facility]) - Final Complete 01/15/20 18:20 Urine,Clean Catch Urine Culture - Preliminary NO GROWTH Resulted 01/14/20 18:51 Urine,Clean Catch Urine Culture - Preliminary Gram Negative Bacillus 3 Resulted Austin Byrd MD Jan 16, 2020 15:55
[2020-01-16 16:00] VITALS: BP 138/79
--- NOTE | 2020-01-16 16:42 | Diagnostic Imaging Report ---
Indication: Reason For Exam: DVT Technique: Grayscale and duplex images of the bilateral lower extremity veins Comparison: None Findings: Bilaterally, grayscale and duplex images demonstrate no evidence of intraluminal thrombus. Normal phasic Doppler waveforms, demonstrating normal augmentation response and no evidence of valvular insufficiency. Greater saphenous vein(s) and tibial veins are patent. Normal compressibility. Impression: Negative for evidence of lower extremity deep venous thrombosis bilaterally
--- NOTE | 2020-01-16 19:45 | Consultation ---
DATE OF CONSULTATION: 01/16/2020 CARDIOLOGY CONSULTATION CONSULTING PHYSICIAN: Austin Byrd MD. REFERRING PHYSICIAN: Sher Mejía MD. ADDITIONAL REFERRING PHYSICIAN: . REASON FOR CONSULTATION: Management of hypertension and supraventricular tachycardia. HISTORY OF PRESENT ILLNESS: Patient is a 59-year-old lady who was transferred from [facility] with history of hypertension, diabetes, end-stage renal disease on hemodialysis who was recently tested positive for COVID-19, abnormal vital signs. Patient was started on oxygen and was found to be tachycardic. Patient was noted to have blood pressure 80/40 as well as multiple runs of supraventricular tachycardia. Patient is also already on Eliquis for her DVT. Eliquis has been discontinued for anemia. Cardiology consultation was obtained for further management. REVIEW OF SYSTEMS: Negative other than what was mentioned in the history of present illness. PAST MEDICAL HISTORY: As mentioned above. FAMILY HISTORY: Noncontributory. SOCIAL HISTORY: assisted resident. Does not smoke or drink alcohol. PHYSICAL EXAMINATION: VITAL SIGNS: Show blood pressure 120/62, pulse 74, respirations 18, temperature 98.1. HEAD AND NECK: Shows no JVD. LUNGS: Coarse rhonchi. CARDIOVASCULAR: Shows irregular S1 and S2 with no gallop. ABDOMEN: Soft. EXTREMITIES: No pitting edema. LABORATORY DATA: Labs show white count of 6.7, hemoglobin of 6.4, hematocrit 21.5, platelet count is 105. Sodium 144, potassium 3.7, BUN of 15, creatinine 1.4, glucose of 191. Her troponin is negative. ASSESSMENT AND PLAN: 1. Runs of supraventricular tachycardia. Blood pressure is running low at times in the 90s. Patient already on metoprolol 25 mg b.i.d. I will add digoxin to her medical regimen for better rate control. We will get a thyroid function test and echocardiogram and completely rule out RI protocol. 2. Hypertension. Patient already on metoprolol 25 mg b.i.d. that is also for rate control. 3. Diabetes. 4. End-stage renal disease. 5. Status post recent COVID. 6. Severe anemia, hemoglobin 6.5, getting 1 unit of blood transfusion. 7. Huge decubitus ulcer. Thank you very much for allowing me to participate in the care of this patient. Please do not hesitate to contact me for any questions regarding my evaluation. Austin Byrd M.D. DR: ASAF JOB#: [id number] CC:
[2020-01-16 20:00] VITALS: BP 131/73
[2020-01-16] MEDS: Dyna-Hex 2% Top Sol 2oz TOPIC SCH (20:47)
[2020-01-16] MEDS: Iron Sucrose 100 MG in NS 55 ML IV SCH (20:49)
[2020-01-16] MEDS: Levemir Flexpen SUBQ SCH (21:00)
[2020-01-16 21:50] LABS: BASOPHILS % (AUTO) 0.8 % (0.0-2.0); EOSINOPHILS % (AUTO) 0.7 % (0.0-3.0); HEMATOCRIT 27.5 % (37.0-47.0); HEMOGLOBIN 8.2 G/DL (12.0-16.0); MEAN CORPUSCULAR VOLUME 94 FL (80-99); MONOCYTES % (AUTO) 6.5 % (1.0-10.0); NEUTROPHILS % (AUTO) 80.9 % (45.0-75.0); PLATELET COUNT 131 K/UL (150-450); RED BLOOD COUNT 2.94 M/UL (4.20-5.40); RED CELL DISTRIBUTION WIDTH 18.2 % (11.6-14.8); WHITE BLOOD COUNT 6.8 K/UL (4.8-10.8)
--- NOTE | 2020-01-16 23:51 | Infectious Diseases Prog Note ---
Assessment/Plan Assessment/Plan Full consult dictated: A) 1) gram neg uti/pyelonephritis, gram neg bacteremia, sepsis, fevers 2) hx covid-19 infection - chest x-ray negative, covid-19 testing negative x1 now, hypoxia 3) pmh noted 4) allergies - erythromycin base, heparin P) 1) zosyn 2) f/u on cultures 3) covid-19 testing 4) thank you Subjective Allergies: Coded Allergies: ERYTHROMYCIN BASE (Verified Allergy, Unknown, 01/14/20) HEPARIN (Verified Allergy, Unknown, 01/14/20) Objective Last 24 Hour Vital Signs Date Time Temp Pulse Resp B/P (MAP) Pulse Ox O2 Delivery O2 Flow Rate FiO2 01/16/20 20:48 67 122/65 01/16/20 20:00 Nasal Cannula 2.0 01/16/20 20:00 97.3 83 19 131/73 (92) 100 01/16/20 19:43 107 01/16/20 16:00 97.7 68 19 138/79 (98) 100 01/16/20 16:00 Nasal Cannula 2.0 01/16/20 16:00 97 01/16/20 12:00 98.1 96 19 128/62 (84) 100 01/16/20 12:00 Nasal Cannula 2.0 01/16/20 12:00 74 01/16/20 09:44 93 124/66 01/16/20 08:00 123 01/16/20 08:00 Nasal Cannula 2.0 01/16/20 08:00 98.1 93 19 128/68 (88) 100 01/16/20 04:00 99 01/16/20 04:00 99.7 84 19 118/66 (83) 100 01/16/20 03:58 Nasal Cannula 2.0 01/16/20 00:00 97.0 77 20 91/48 (62) 100 01/16/20 00:00 69 01/16/20 00:00 Nasal Cannula 2.0 Height (Feet): 5 Height (Inches): 5.00 Weight (Pounds): 237 Microbiology Date/Time Source Procedure Growth Status 01/14/20 18:16 Blood Blood Culture - Preliminary Gram Negative Bacillus 1 Resulted 01/14/20 18:00 Blood Blood Culture - Preliminary Gram Negative Bacillus 1 Resulted 01/14/20 18:05 Nasopharynx Coronavirus COVID-19 PCR ([facility]) - Final Complete 01/15/20 18:20 Urine,Clean Catch Urine Culture - Preliminary NO GROWTH Resulted 01/14/20 18:51 Urine,Clean Catch Urine Culture - Preliminary Gram Negative Bacillus 3 Resulted Laboratory Tests Test 01/16/20 03:21 01/16/20 03:23 01/16/20 05:41 01/16/20 12:02 White Blood Count 6.7 K/UL (4.8-10.8) Red Blood Count 2.28 M/UL (4.20-5.40) L Hemoglobin 6.4 G/DL (12.0-16.0) *L Hematocrit 21.4 % (37.0-47.0) L Mean Corpuscular Volume 94 FL (80-99) Mean Corpuscular Hemoglobin 28.0 PG (27.0-31.0) Mean Corpuscular Hemoglobin Concent 29.8 G/DL (32.0-36.0) L Red Cell Distribution Width 17.5 % (11.6-14.8) H Platelet Count 105 K/UL (150-450) L Mean Platelet Volume 7.8 FL (6.5-10.1) Neutrophils (%) (Auto) % (45.0-75.0) Lymphocytes (%) (Auto) % (20.0-45.0) Monocytes (%) (Auto) % (1.0-10.0) Eosinophils (%) (Auto) % (0.0-3.0) Basophils (%) (Auto) % (0.0-2.0) Differential Total Cells Counted 100 Neutrophils % (Manual) 82 % (45-75) H Lymphocytes % (Manual) 10 % (20-45) L Monocytes % (Manual) 8 % (1-10) Eosinophils % (Manual) 0 % (0-3) Basophils % (Manual) 0 % (0-2) Band Neutrophils 0 % (0-8) Platelet Estimate Decreased L Platelet Morphology Normal Hypochromasia 4+ Anisocytosis 2+ Sodium Level 144 MMOL/L (136-145) Potassium Level 3.7 MMOL/L (3.5-5.1) Chloride Level 107 MMOL/L (98-107) Carbon Dioxide Level 23 MMOL/L (21-32) Anion Gap 14 mmol/L (5-15) Blood Urea Nitrogen 50 mg/dL (7-18) H Creatinine 1.4 MG/DL (0.55-1.30) H Estimat Glomerular Filtration Rate 38.4 mL/min (>60) Glucose Level 191 MG/DL (74-106) H Calcium Level 7.7 MG/DL (8.5-10.1) L POC Whole Blood Glucose 167 MG/DL (74-106) H 121 MG/DL (74-106) H Test 01/16/20 16:24 01/16/20 21:45 POC Whole Blood Glucose 118 MG/DL (74-106) H White Blood Count 6.8 K/UL (4.8-10.8) Red Blood Count 2.94 M/UL (4.20-5.40) L Hemoglobin 8.2 G/DL (12.0-16.0) L Hematocrit 27.5 % (37.0-47.0) L Mean Corpuscular Volume 94 FL (80-99) Mean Corpuscular Hemoglobin 27.8 PG (27.0-31.0) Mean Corpuscular Hemoglobin Concent 29.7 G/DL (32.0-36.0) L Red Cell Distribution Width 18.2 % (11.6-14.8) H Platelet Count 131 K/UL (150-450) L Mean Platelet Volume 6.9 FL (6.5-10.1) Neutrophils (%) (Auto) 80.9 % (45.0-75.0) H Lymphocytes (%) (Auto) 11.0 % (20.0-45.0) L Monocytes (%) (Auto) 6.5 % (1.0-10.0) Eosinophils (%) (Auto) 0.7 % (0.0-3.0) Basophils (%) (Auto) 0.8 % (0.0-2.0) Current Medications Medications (Trade) Dose Ordered Sig/Samuel Route PRN Reason Start Time Stop Time Status Last Admin Dose Admin Acetaminophen (Tylenol) 650 mg Q6H PRN ORAL Mild Pain (Pain Scale 1-3) 01/15/20 03:15 02/14/20 03:14 01/16/20 01:38 Acetaminophen (Tylenol) 650 mg Q6H PRN ORAL Temp >100.5 01/15/20 03:15 02/14/20 03:14 Acetaminophen/ Hydrocodone Bitart ([place] 5/325) 1 tab Q6H PRN ORAL For Pain 01/16/20 07:00 01/23/20 06:59 01/16/20 21:36 Chlorhexidine Gluconate (Mel-Hex 2%) 1 applic DAILY@2000 TOPIC 01/15/20 20:00 04/14/20 19:59 01/16/20 20:47 Dextrose (Dextrose 50%) 25 ml Q30M PRN IV Hypoglycemia 01/14/20 23:15 04/13/20 23:14 Dextrose (Dextrose 50%) 50 ml Q30M PRN IV Hypoglycemia 01/14/20 23:15 04/13/20 23:14 Digoxin (Lanoxin) 0.125 mg DAILY ORAL 01/17/20 09:00 04/16/20 08:59 Insulin Aspart (NovoLOG) BEFORE MEALS AND HS SUBQ 01/15/20 06:30 04/14/20 06:29 01/16/20 05:47 Insulin Detemir (Levemir) 11 units BEDTIME SUBQ 01/15/20 21:00 04/14/20 20:59 01/15/20 21:21 Iron Sucrose 100 mg/Sodium Chloride 60 ml @ 240 mls/hr BEDTIME IV 01/16/20 21:00 01/20/20 21:14 01/16/20 20:49 Metoprolol Tartrate (Lopressor) 25 mg Q12HR ORAL 01/15/20 09:00 04/14/20 08:59 01/16/20 20:48 Midodrine (Pro-Amatine) 5 mg TID PRN ORAL sbp<110 01/15/20 09:00 04/14/20 08:59 Piperacillin Sod/ Tazobactam Sod 3.375 gm/Sodium Chloride 110 ml @ 27.5 mls/hr Q8H IVPB 01/15/20 00:00 01/22/20 00:00 01/16/20 08:07 Sildenafil Citrate (Revatio) 20 mg DAILY ORAL 01/15/20 09:00 04/14/20 08:59 01/16/20 08:22 Sodium Hypochlorite (Dakin's Quarter Strength) 1 applic DAILY TOPIC 01/15/20 11:00 02/14/20 10:59 01/16/20 08:23 Maria A Parra MD Jan 16, 2020 23:51
[2020-01-17] VITALS: BP 141/71
[2020-01-17] MEDS: Piperacillin/Tazobactam 3.375 GM in NS 110 ML IVPB SCH ×3 (00:38→15:37)
[2020-01-17 04:00] VITALS: BP 148/72
[2020-01-17 05:17] LABS: BASOPHILS % (AUTO) 0.4 % (0.0-2.0); EOSINOPHILS % (AUTO) 1.9 % (0.0-3.0); HEMATOCRIT 27.3 % (37.0-47.0); LYMPHOCYTES % (AUTO) 14.2 % (20.0-45.0); MEAN CORPUSCULAR VOLUME 94 FL (80-99); MONOCYTES % (AUTO) 4.6 % (1.0-10.0); NEUTROPHILS % (AUTO) 78.9 % (45.0-75.0); PLATELET COUNT 118 K/UL (150-450); RED BLOOD COUNT 2.91 M/UL (4.20-5.40); WHITE BLOOD COUNT 4.7 K/UL (4.8-10.8)
[2020-01-17 05:33] LABS: ALANINE AMINOTRANSFERASE 31 U/L (12-78); ALBUMIN 2.2 G/DL (3.4-5.0); ALBUMIN/GLOBULIN RATIO 0.5 (1.0-2.7); ALKALINE PHOSPHATASE 132 U/L (46-116); ANION GAP 13 mmol/L (5-15); ASPARTATE AMINO TRANSFERASE 21 U/L (15-37); BILIRUBIN,TOTAL 0.6 MG/DL (0.2-1.0); BLOOD UREA NITROGEN 52 mg/dL (7-18); CALCIUM 8.5 MG/DL (8.5-10.1); CARBON DIOXIDE 25 MMOL/L (21-32); CHLORIDE 108 MMOL/L (98-107); CREATININE 1.2 MG/DL (0.55-1.30); POTASSIUM 3.8 MMOL/L (3.5-5.1); SODIUM 145 MMOL/L (136-145)
--- NOTE | 2020-01-17 06:00 | Consultation ---
DATE OF CONSULTATION: 01/16/2020 INFECTIOUS DISEASE CONSULTATION CONSULTING PHYSICIAN: Maria A Parra MD. ATTENDING PHYSICIAN: Sher Mejía MD. REFERRING PHYSICIAN: Khanh Stuart MD. REASON FOR CONSULTATION: Gram-negative UTI/pyelonephritis with bacteremia, sepsis, fevers with history of COVID-19 virus infection. CHIEF COMPLAINT: Patient's chief complaint coming into the hospital is sepsis. HISTORY OF PRESENT ILLNESS: This is a very pleasant 59-year-old female who presents to [facility] with fevers and sepsis. Patient's workup shows that she has a gram-negative organism in the urine and blood. Patient's urinalysis had 3+ leukocyte esterase and too many to count white blood cells. Patient has been febrile as high as 102.3. Patient has a history of COVID-19 infection in the past. It is unclear how long, but testing right now at [facility] is negative x1, I believe followup testing has been ordered. Patient currently is on Zosyn for the gram-negative UTI/pyelonephritis with gram-negative bacteremia sepsis. Chest x-ray was negative. She currently is in COVID isolation because of history. MAR was noted. Orders were noted. Notes were reviewed. Patient will be continued on Zosyn for the gram-negative sepsis, UTI, pyelonephritis, and bacteremia. REVIEW OF SYSTEMS: CONSTITUTIONAL: Patient has fever and chills when she came in. Currently, fevers are improved. She denies any weight loss or night sweats. HEAD AND NECK: No head pain, neck pain, thrush, dysphagia, or neck stiffness. CARDIAC: No chest pain or pressors. GASTROINTESTINAL: No nausea, vomiting, or diarrhea. GENITOURINARY: She does have a Reyes. PULMONARY: No congestion or shortness of breath. Mild secretions. Maybe mild hypoxia, cough and congestion, but no secretions or hemoptysis. SKIN: No rash, itching, or pruritus. She has multiple wounds. EXTREMITIES: No pain. NEUROLOGIC: No seizures. Generalized fatigue and generalized weakness. PAST MEDICAL HISTORY: Patient has a past medical history of COVID infection in the past, it is unclear how long. Other past medical history includes a history of diabetes that is insulin-dependent diabetes mellitus, history of automatic dysfunction. She has history of pulmonary hypertension. She has a history of GERD, multiple wounds. In addition to diabetes, she has past medical history of hypertension. She has history of chronic renal disease, history of anemia. She also has history of dialysis in the past also, but her kidney seems to have recovered. Other past medical history of cholecystectomy and hysterectomy. ALLERGIES: Include erythromycin base and heparin. No other antibiotic allergies. SOCIAL HISTORY: Negative for smoking, alcohol, or drug abuse. FAMILY HISTORY: Noncontributory. Negative for tuberculosis or cancer. MEDICATIONS: Upon reviewing the MAR, she is on following medications. She is on digoxin, hydrocodone, insulin, chlorhexidine, metoprolol, midodrine, sildenafil citrate, acetaminophen, Zosyn. Outside medications noted and reconciliated. PHYSICAL EXAMINATION: VITAL SIGNS: Current vital signs temperature is 97.3, pulse rate is 83, respiratory rate 19, blood pressure 131/73, saturation 100% on 2 liters. T-max was 102.3. Heart rate was as high as 123. Respiratory rate was as high as 30. GENERAL: Alert, responsive, oriented x3. No acute distress. HEAD AND NECK: Oral exam, no thrush. Eye exam, no icterus. Normocephalic. Neck is supple. No JVD. HEART: Regular. No gallop or murmur. No friction rub. ABDOMEN: Soft. Positive bowel sounds. Nontender. LUNGS: Fairly clear bilaterally. No rhonchi or rales. SKIN: No rash or dermatitis. Multiple wounds were noted reviewed. some areas of necrosis. MUSCULOSKELETAL: No effusions. Legs are without cellulitis. PERIPHERAL VASCULAR: No gangrene or cyanosis. GENITOURINARY: She has a Reyes. Urine is cloudy. LINE SITES: Without phlebitis NEUROLOGIC: Generalized weakness. Alert, responsive, oriented. LABORATORY DATA: As follows creatinine 1.0. White count 6.8, hemoglobin 8.2. Urinalysis had 3+ leukocyte esterase, too many to count white blood cells, many bacteria. Cultures, urine culture with gram-negative bacilli. Blood cultures, gram-negative bacilli. COVID PCR testing here is negative x1. IMAGING STUDIES: Chest x-ray is negative. ASSESSMENT AND PLAN: 1. Patient has gram-negative UTI/pyelonephritis with gram-negative bacteremia and gram-negative sepsis, sepsis syndrome, fevers, SIRS criteria. At this time, I agree with Zosyn for gram-negative UTI/pyelonephritis with gram-negative bacteremia and sepsis. Monitor fevers. Continue Zosyn. Check identification of the urine culture and blood cultures. Check surveillance blood cultures. Monitor sepsis status. Zosyn has excellent gram-negative coverage including ESBL organisms, but we will adjust antibiotics as indicated by the urine and blood cultures. 2. Patient has history COVID-19 virus infection. She is in isolation. We will get repeat testing, I believe that was done. History of hypoxia also. 3. She has multiple wounds. Wound care per Surgery. Surgery note was reviewed and we will continue local wound care per Surgery. Looks like there could be sacral wound infection and buttocks and ischial wound infections. In addition to Zosyn, consider adding doxycycline for MRSA coverage. I would avoid nephrotoxic drugs such as Vanco because of history of renal failure and also Bactrim with history of renal failure. Continue Zosyn and doxycycline for the infected wound including sacral, ischial. 4. Patient has diabetes. 5. Hypertension. 6. Blood sugar and blood pressure treatment primary care team for diabetes and hypertension and cardiology assessment also. 7. Anemia. 8. History of renal failure in the past. Hemodialysis seems to have improved. 9. Tachycardia. 10. Continue treatment per primary consultants. 11. Allergic to erythromycin base and heparin. 12. Social history is negative. 13. Family history is noncontributory. 14. MAR was noted. 15. Case discussed with RN. Maria A aPrra M.D. DR: KESHAV JOB#: [id number] CC: ELLY
[2020-01-17] MEDS: NovoLOG Insulin Flexpen SUBQ SCH ×4 (06:30→21:00)
[2020-01-17] MEDS ORDERED: CYMBALTA60 MG ORAL (07:45)
[2020-01-17 08:00] VITALS: BP 154/68
[2020-01-17] MEDS ORDERED: METOPROLOL TART25 MG ORAL (08:03)
[2020-01-17] MEDS ORDERED: MIDODRINE HCL5 MG ORAL (08:03)
[2020-01-17] MEDS ORDERED: FAMOTIDINE20 MG ORAL (08:05)
[2020-01-17] MEDS ORDERED: FERROUS SULFAT324 MG PO (08:08)
[2020-01-17] MEDS ORDERED: FOLIC ACID1 MG ORAL (08:09)
[2020-01-17] MEDS: Revatio 20mg tab ORAL SCH (08:43)
[2020-01-17] MEDS: Dakin's 0.125% Soln (Quarter Strength) 16oz TOPIC SCH (08:45)
[2020-01-17] MEDS ORDERED: Doxycycline Monohydrate 100mg ORAL SCH (08:45)
[2020-01-17] MEDS: Digoxin 0.125mg tab ORAL SCH (08:45)
--- NOTE | 2020-01-17 09:01 | Surgery Progress Note ---
Surgery Progress Note Subjective Additional Comments venous duplex negative micro noted ecoli uti on abx comfortable no n/v/f/c Objective Last 24 Hour Vital Signs Date Time Temp Pulse Resp B/P (MAP) Pulse Ox O2 Delivery O2 Flow Rate FiO2 01/17/20 08:45 89 01/17/20 08:44 89 154/68 01/17/20 08:00 97.9 89 20 154/68 (96) 99 01/17/20 04:00 97.2 11 20 148/72 (97) 100 01/17/20 04:00 Nasal Cannula 2.0 01/17/20 03:28 130 01/17/20 00:00 Nasal Cannula 2.0 01/17/20 00:00 97.5 63 18 141/71 (94) 100 01/16/20 23:26 80 01/16/20 20:48 67 122/65 01/16/20 20:00 Nasal Cannula 2.0 01/16/20 20:00 97.3 83 19 131/73 (92) 100 01/16/20 19:43 107 01/16/20 16:00 97.7 68 19 138/79 (98) 100 01/16/20 16:00 Nasal Cannula 2.0 01/16/20 16:00 97 01/16/20 12:00 98.1 96 19 128/62 (84) 100 01/16/20 12:00 Nasal Cannula 2.0 01/16/20 12:00 74 01/16/20 09:44 93 124/66 I&O Intake and Output 01/16/20 01/17/20 19:00 07:00 Intake Total 610.0 ml 1100.0 ml Output Total 700 ml 400 ml Balance -90.0 ml 700.0 ml Intake Oral 500 ml 450 ml IV Total 110.0 ml 350.0 ml Blood Product 300 ml Output Urine Total 700 ml 400 ml Dressing: other Wound: other Drains: other Cardiovascular: RSR Respiratory: decreased breath sounds Abdomen: soft, non-tender, present bowel sounds Extremities: no cyanosis Laboratory Tests Test 01/16/20 12:02 01/16/20 16:24 01/16/20 21:45 01/17/20 03:20 POC Whole Blood Glucose 121 MG/DL (74-106) H 118 MG/DL (74-106) H White Blood Count 6.8 K/UL (4.8-10.8) 4.7 K/UL (4.8-10.8) L Red Blood Count 2.94 M/UL (4.20-5.40) L 2.91 M/UL (4.20-5.40) L Hemoglobin 8.2 G/DL (12.0-16.0) L 8.0 G/DL (12.0-16.0) L Hematocrit 27.5 % (37.0-47.0) L 27.3 % (37.0-47.0) L Mean Corpuscular Volume 94 FL (80-99) 94 FL (80-99) Mean Corpuscular Hemoglobin 27.8 PG (27.0-31.0) 27.5 PG (27.0-31.0) Mean Corpuscular Hemoglobin Concent 29.7 G/DL (32.0-36.0) L 29.3 G/DL (32.0-36.0) L Red Cell Distribution Width 18.2 % (11.6-14.8) H 17.0 % (11.6-14.8) H Platelet Count 131 K/UL (150-450) L 118 K/UL (150-450) L Mean Platelet Volume 6.9 FL (6.5-10.1) 7.3 FL (6.5-10.1) Neutrophils (%) (Auto) 80.9 % (45.0-75.0) H 78.9 % (45.0-75.0) H Lymphocytes (%) (Auto) 11.0 % (20.0-45.0) L 14.2 % (20.0-45.0) L Monocytes (%) (Auto) 6.5 % (1.0-10.0) 4.6 % (1.0-10.0) Eosinophils (%) (Auto) 0.7 % (0.0-3.0) 1.9 % (0.0-3.0) Basophils (%) (Auto) 0.8 % (0.0-2.0) 0.4 % (0.0-2.0) Sodium Level 145 MMOL/L (136-145) Potassium Level 3.8 MMOL/L (3.5-5.1) Chloride Level 108 MMOL/L (98-107) H Carbon Dioxide Level 25 MMOL/L (21-32) Anion Gap 13 mmol/L (5-15) Blood Urea Nitrogen 52 mg/dL (7-18) H Creatinine 1.2 MG/DL (0.55-1.30) Estimat Glomerular Filtration Rate 45.9 mL/min (>60) Glucose Level 99 MG/DL (74-106) Calcium Level 8.5 MG/DL (8.5-10.1) Total Bilirubin 0.6 MG/DL (0.2-1.0) Aspartate Amino Transf (AST/SGOT) 21 U/L (15-37) Alanine Aminotransferase (ALT/SGPT) 31 U/L (12-78) Alkaline Phosphatase 132 U/L (46-116) H Troponin I 0.005 ng/mL (0.000-0.056) Pro-B-Type Natriuretic Peptide 1310 pg/mL (0-125) H Total Protein 6.5 G/DL (6.4-8.2) Albumin 2.2 G/DL (3.4-5.0) L Globulin 4.3 g/dL Albumin/Globulin Ratio 0.5 (1.0-2.7) L Thyroid Stimulating Hormone (TSH) 2.463 uiU/mL (0.358-3.740) Free Thyroxine 0.92 NG/DL (0.76-1.46) Digoxin Level < 0.2 NG/ML (0.9-2.0) L Plan Problems: (1) Sepsis Assessment & Plan: Morbidly obese pt whom presented on admission with Multiple Pressure injuries. Pt stated wounds rapidly developed approx 3 weeks ago while acutely ill. Pt is on oxygen via N/C. Both ears assessed and no evidence of skin breakdown noted. Foam padding around oxygen tubing and pt was advised to maintain tubing loose around ears. Moisture Intertrigo noted to abd folds,R and L groin. 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 Base of wound is 100% soft Black/ rubin necrosis. Bone is palpable. Wound is malodorous. Small amt haemopurulent exudate noted. Borders are irregular, erythematous and macerated.Periwound is erythematous,indurated with additional Pressure injuries and shearing. At L gluteus is a full Thickness Pressure injury(L)7.5cm x (W)4.5cm.90% mixed necrosis/slough,10% pink epithelial at base of wound. Borders are erythematous and macerated. Small amt serous exudate noted. At R Gluteus is full thickness Pressure injury(L)7.3cm x (W)4.5cm. Base of wound is 100% slough. Borders are erythematous and macerated. Small amt serous exudate noted. Full Thickness stage 4 Pressure injury R lower Buttocks(L)4.4cm x (W)7.5cm. Base of wound is 25% necrotic,75% fibrinous slough. Wound is malodorous. Small amt haemopurulent exudate noted. Wound is malodorous. Borders are erythematous and macerated. Full Thickness stage 4 Pressure Injury R Ischium(L)7.6cm x (W)5.4cm. Base of wound is 25% necrotic,60% slough,15% pink epithelial. Small amt seropurulent exudate noted. Wound is malodorous.Borders are erythematous and macerated. Two Full thickness Pressure Injuries that are in close Proximity lower L buttocks.(Proximal)(L)3.5cm x (W)2.6cm.100% soft necrosis at base of wound. Marginal erythema along borders.Periwound L buttocks erythematous with shearing. (Distal)(L)1.3cm x (W)0.9cm. 100% slough at base of wound.Marginal erythema along Borders. Two Unstageable Pressure injuries L Ischium:(Proximal)(L)1.2cm x (W)1.9cm Base of wound is 90% slough,10%pink moist erythema.(Distal) L) 6cm x (W)5.3cm. 90% slough,10% moist erythema at base of wound. Small amt. seropurulent exudate noted. No odor noted. Borders are macerated. Periwound is erythematous with additional shearing. DTPI medial/posterior Upper L thigh which presents as blood Blister that is partially opened(L)1.1cm x (W)6.8cm.Open wound at most medial portion of wound ( L)1.1cm x (W)1.3cm noted to have slough at base. Stable dry eschar L pre-tibial (L)1.5cm x (W)1cm. Haemosiderin with dry scaly plaques L lower ext. DTPI L lateral Malleolus(L)2.3cm x (W)0.9cm. Wound presents as an intact Blood Blister. Non-Healing Surgical wound R Achilles. Pt stated she had surgical repair approximately 2 years ago. Base of wound is 40% fibrinous slough,10% necrotic , 50% pale pink. Edges are macerated. Keloid scar at distal portion of surgical wound. No odor or exudate noted. Surrounding Haemosiderin noted to R lower ext. Full thickness Pressure injury R lateral Malleolus(L)4.8cm x (W)5.8cm. Base of wound is 80%mixed soft necrosis and fibrinous slough,20% pink and moist. Small amt seropurulent exudate noted. (+) Epibole along borders.Periwound is erythematous. No elevation in skin temp. No odor noted. R Heel is boggy but blanchable. Historical scar noted to R heel. L Heel is boggy but blanchable. wounds unlikely etiology uti abx as per ID Tx.Plan: Cleanse Sacral,R and L Buttocks,R and L ischium wounds with Dakin's 0.125% Harjeet. Loosely pack with Dakin's moistened Gauze. Apply Triad Periwound. Cover with Optifoam drsgs Daily and prn. Cleanse Wound R Achilles with Dakin's 0.125% harjeet. Apply Dakin's Moistened Gauze. Apply Triad periwound. Cover with ABD Pad and Wrap with Kerlix Daily and prn. Cleanse Wound lateral R Malleolus with Dakin's 0.125%. harjeet. Apply Dakin's moistened Gauze to wound. Apply Triad Paste periwound. Cover with ABD Pad. Wrap with Kerlix Daily and prn. Apply Cavilon Skin Barrier to both heels. Cover each heel with Optifoam drsg. Change every 7 days and prn. Apply Triad Paste to abdominal folds and Bilat groin Twice Daily. Reposition at least every 2hours or as tolerated. Off-load heels with Pillow Bariatric bed with APM/LEO Mattress. (2) UTI (urinary tract infection) (3) COVID-19 (4) Anemia (5) SOB (shortness of breath) (6) Tachycardia (7) Decubitus skin ulcer Assessment & Plan: Patient presented with multiple decubitus skin ulcers in various stages. Wounds evaluated initial staging and care plan initiated. Will follow with recommendations. DAILY ESTIMATED NEEDS: Needs based on Wounds, DM 62kg abw 25-30 kcals/kg 4565-6920 total kcals 1.5-2 g protein/kg 93-124 g total protein 25-30 mL/kg 5998-7591 total fluid mLs NUTRITION DIAGNOSIS: Increase pro needs r/t wound healing as evidenced by pt w/ multiple areas of skin breakdown, eval pending, per photos, wounds appear open and advanced. CURRENT DIET: CCHO LOW PO DIET RECOMMENDATIONS: CCHO LOW + DOUBLE PROTEIN PORTIONS ADDITIONAL RECOMMENDATIONS: 1) Texture per NEWS DEPARTMENT INTERN 2) Add Glucerna 1 tetra TID 3) Wound care, f/up w/ WC eval 4) Monitor po intake, no record at this time Jens Hoang Jan 17, 2020 09:01
[2020-01-17] MEDS ORDERED: SILDENAFIL20 MG ORAL (09:53)
--- NOTE | 2020-01-17 09:59 | Nephrology Progress Note ---
Assessment/Plan Plan #MISSY due to pre-rernal azotemia in the setting of anemia #Acute on chronic anemia # Acute Hypoxemic respiratory failure # COVID 19 infection previously - now 1 negative swab # Pulmonary HTN #UTI #runs of SVTs #ho/ HTN DM = - defer further renal work up pending evolution of kidney function - monitor CBC - IV iron - GI eval - continue metop 25mg BID - holding AC- on apixaban - continue with dig - avoid nephrotoxins - strict I&Os - monitor weights - check BMP, mag and phos daily Time spent 70 min > 50% on care coordiation and counseling Subjective ROS Limited/Unobtainable: No Constitutional: Reports: malaise, weakness HEENT: Denies: no symptoms, eye pain, blurred vision, tearing, double vision, ear pain, ear discharge, nose pain, nose congestion, throat pain, throat swelling, mouth pain, mouth swelling, other Genitourinary: Denies: no symptoms, burning, discharge, frequency, flank pain, hematuria, incontinence, pain, urgency, other Neurologic/Psychiatric: Denies: no symptoms, anxiety, depressed, emotional problems, headache, numbness, paresthesia, pre-existing deficit, seizure, tingling, tremors, weakness, other Subjective Cr improved BP stable s/p one unit of prbc on NC at 2 L Objective Objective Last 24 Hour Vital Signs Date Time Temp Pulse Resp B/P (MAP) Pulse Ox O2 Delivery O2 Flow Rate FiO2 01/17/20 08:45 89 01/17/20 08:44 89 154/68 01/17/20 08:00 97.9 89 20 154/68 (96) 99 01/17/20 04:00 97.2 66 20 148/72 (97) 100 01/17/20 04:00 Nasal Cannula 2.0 01/17/20 03:28 130 01/17/20 00:00 Nasal Cannula 2.0 01/17/20 00:00 97.5 63 18 141/71 (94) 100 01/16/20 23:26 80 01/16/20 20:48 67 122/65 01/16/20 20:00 Nasal Cannula 2.0 01/16/20 20:00 97.3 83 19 131/73 (92) 100 01/16/20 19:43 107 01/16/20 16:00 97.7 68 19 138/79 (98) 100 01/16/20 16:00 Nasal Cannula 2.0 01/16/20 16:00 97 01/16/20 12:00 98.1 96 19 128/62 (84) 100 01/16/20 12:00 Nasal Cannula 2.0 01/16/20 12:00 74 Intake and Output 01/16/20 01/17/20 19:00 07:00 Intake Total 610.0 ml 1100.0 ml Output Total 700 ml 400 ml Balance -90.0 ml 700.0 ml Intake Oral 500 ml 450 ml IV Total 110.0 ml 350.0 ml Blood Product 300 ml Output Urine Total 700 ml 400 ml Laboratory Tests 01/16/20 12:02: POC Whole Blood Glucose 121H 01/16/20 16:24: POC Whole Blood Glucose 118H 01/16/20 21:45: White Blood Count 6.8, Red Blood Count 2.94L, Hemoglobin 8.2L, Hematocrit 27.5L , Mean Corpuscular Volume 94, Mean Corpuscular Hemoglobin 27.8, Mean Corpuscular Hemoglobin Concent 29.7L, Red Cell Distribution Width 18.2H, Platelet Count 131L, Mean Platelet Volume 6.9, Neutrophils (%) (Auto) 80.9H, Lymphocytes (%) (Auto) 11.0L, Monocytes (%) (Auto) 6.5, Eosinophils (%) (Auto) 0.7, Basophils (%) (Auto) 0.8 01/17/20 03:20: White Blood Count 4.7L, Red Blood Count 2.91L, Hemoglobin 8.0L, Hematocrit 27.3L , Mean Corpuscular Volume 94, Mean Corpuscular Hemoglobin 27.5, Mean Corpuscular Hemoglobin Concent 29.3L, Red Cell Distribution Width 17.0H, Platelet Count 118L, Mean Platelet Volume 7.3, Neutrophils (%) (Auto) 78.9H, Lymphocytes (%) (Auto) 14.2L, Monocytes (%) (Auto) 4.6, Eosinophils (%) (Auto) 1.9, Basophils (%) (Auto) 0.4, Sodium Level 145, Potassium Level 3.8, Chloride Level 108H, Carbon Dioxide Level 25, Anion Gap 13, Blood Urea Nitrogen 52H, Creatinine 1.2, Estimat Glomerular Filtration Rate 45.9, Glucose Level 99, Calcium Level 8.5, Total Bilirubin 0.6, Aspartate Amino Transf (AST/SGOT) 21, Alanine Aminotransferase (ALT/SGPT) 31, Alkaline Phosphatase 132H, Troponin I 0.005, Pro-B-Type Natriuretic Peptide 1310H, Total Protein 6.5, Albumin 2.2L, Globulin 4.3, Albumin/Globulin Ratio 0.5L, Thyroid Stimulating Hormone (TSH) 2.463, Free Thyroxine 0.92, Digoxin Level < 0.2L Height (Feet): 5 Height (Inches): 5.00 Weight (Pounds): 237 General Appearance: no apparent distress EENT: PERRL/EOMI, normal ENT inspection Neck: non-tender, normal alignment Cardiovascular: normal peripheral pulses Respiratory/Chest: chest wall non-tender, lungs clear Abdomen: normal bowel sounds, non tender, soft Extremities: non-tender Phil Morse M.D. Jan 17, 2020 09:59
[2020-01-17] MEDS: HYDROcodone/Acetamin 5/325 tab ORAL PRN ×2 (10:14→21:18)
[2020-01-17] MEDS ORDERED: RENAL CAPS SOFTG1 MG PO (10:48)
[2020-01-17] MEDS ORDERED: ROPINIROLE HCL2 MG PO (10:50)
--- NOTE | 2020-01-17 11:15 | Hematology/Onc Progress Note ---
Assessment/Plan Assessment/Plan Assessment and Recs # Anemia is due to chronic dsiease/kidney failure and covid19++, does not appear to be gi bleed --> anemia panel has been reviewed --> continue on epogen as per renal --> no hemolysis is noted --> hgb trend 6.4-->8.2 --> hold off anticaog if hgb <7 # Thrombocytopenia given first time here cause workup ongoing --> us abd is pending, r/o cirrhosis and hsm --> hep and hiv panel pending --> may also be due to covid 19 # UTI (urinary tract infection) --> with poa Sepsis --> abx as per id team # Respiratory failure due to covid19 --> steriods, low threshold for intuabtion # Ddimer elevation --> duplex lower ext neg # Pulmonary HTN # Hyperocag disorder --> hold off eliquis for now given drop in h/h --> have bindu garduno this info --> consider cards eval Appreciate consultation and bindu GARDUNO Subjective Constitutional: Denies: no symptoms, chills, fever, malaise, weakness, other HEENT: Denies: no symptoms, eye pain, blurred vision, tearing, double vision, ear pain, ear discharge, nose pain, nose congestion, throat pain, throat swelling, mouth pain, mouth swelling, other Cardiovascular: Denies: no symptoms, chest pain, edema, irregular heart rate, lightheadedness, palpitations, syncope, other Respiratory: Denies: no symptoms, cough, shortness of breath, SOB with excertion, SOB at rest, sputum, wheezing, other Gastrointestinal/Abdominal: Denies: no symptoms, abdomen distended, abdominal pain, black stools, tarry stools, blood in stool, constipated, diarrhea, difficulty swallowing, nausea, poor appetite, poor fluid intake, rectal bleeding , vomiting, other Genitourinary: Denies: no symptoms, burning, discharge, frequency, flank pain, hematuria, incontinence, pain, urgency, other Neurologic/Psychiatric: Denies: no symptoms, anxiety, depressed, emotional problems, headache, numbness, paresthesia, pre-existing deficit, seizure, tingling, tremors, weakness, other Endocrine: Denies: no symptoms, excessive sweating, flushing, intolerance to cold, intolerance to heat, increased hunger, increased thirst, increased urine, unexplained weight gain, unexplained weight loss, other Allergies: Coded Allergies: ERYTHROMYCIN BASE (Verified Allergy, Unknown, 01/14/20) HEPARIN (Verified Allergy, Unknown, 01/14/20) Subjective 01/15 duplex was negative, holding off anticoag, no night sweats Objective Objective Current Medications Medications (Trade) Dose Ordered Sig/Samuel Route PRN Reason Start Time Stop Time Status Last Admin Dose Admin Acetaminophen (Tylenol) 650 mg Q6H PRN ORAL Mild Pain (Pain Scale 1-3) 01/15/20 03:15 02/14/20 03:14 01/16/20 01:38 Acetaminophen (Tylenol) 650 mg Q6H PRN ORAL Temp >100.5 01/15/20 03:15 02/14/20 03:14 Acetaminophen/ Hydrocodone Bitart ([place] 5/325) 1 tab Q6H PRN ORAL For Pain 01/16/20 07:00 01/23/20 06:59 01/17/20 10:14 Ascorbic Acid (Vitamin C) 250 mg TWICE A DAY ORAL 01/17/20 18:00 02/16/20 17:59 Chlorhexidine Gluconate (Mel-Hex 2%) 1 applic DAILY@1999 TOPIC 01/15/20 20:00 04/14/20 19:59 01/16/20 20:47 Dextrose (Dextrose 50%) 25 ml Q30M PRN IV Hypoglycemia 01/14/20 23:15 04/13/20 23:14 Dextrose (Dextrose 50%) 50 ml Q30M PRN IV Hypoglycemia 01/14/20 23:15 04/13/20 23:14 Digoxin (Lanoxin) 0.125 mg DAILY ORAL 01/17/20 09:00 04/16/20 08:59 01/17/20 08:45 Doxycycline Monohydrate (Doxycycline Monohydrate) 100 mg EVERY 12 HOURS ORAL 01/18/20 09:00 01/25/20 08:59 Insulin Aspart (NovoLOG) BEFORE MEALS AND HS SUBQ 01/15/20 06:30 04/14/20 06:29 01/16/20 05:47 Insulin Detemir (Levemir) 11 units BEDTIME SUBQ 01/15/20 21:00 04/14/20 20:59 01/15/20 21:21 Iron Sucrose 100 mg/Sodium Chloride 60 ml @ 240 mls/hr BEDTIME IV 01/16/20 21:00 01/20/20 21:14 01/16/20 20:49 Metoprolol Tartrate (Lopressor) 25 mg Q12HR ORAL 01/15/20 09:00 04/14/20 08:59 01/17/20 08:44 Midodrine (Pro-Amatine) 5 mg TID PRN ORAL sbp<110 01/15/20 09:00 04/14/20 08:59 Multivitamins (Multivitamins) 1 tab Q24H ORAL 01/18/20 07:00 02/17/20 06:59 Piperacillin Sod/ Tazobactam Sod 3.375 gm/Sodium Chloride 110 ml @ 27.5 mls/hr Q8H IVPB 01/15/20 00:00 01/22/20 00:00 01/17/20 08:45 Sildenafil Citrate (Revatio) 20 mg DAILY ORAL 01/15/20 09:00 04/14/20 08:59 01/17/20 08:43 Sodium Hypochlorite ([place] Quarter Strength) 1 applic DAILY TOPIC 01/15/20 11:00 02/14/20 10:59 01/17/20 08:45 Zinc Sulfate (Zinc Sulfate) 220 mg Q24H ORAL 01/18/20 07:00 04/17/20 06:59 Last 24 Hour Vital Signs Date Time Temp Pulse Resp B/P (MAP) Pulse Ox O2 Delivery O2 Flow Rate FiO2 01/17/20 08:45 89 01/17/20 08:44 89 154/68 01/17/20 08:00 93 01/17/20 08:00 Nasal Cannula 2.0 01/17/20 08:00 97.9 89 20 154/68 (96) 99 01/17/20 04:00 97.2 66 20 148/72 (97) 100 01/17/20 04:00 Nasal Cannula 2.0 01/17/20 03:28 130 01/17/20 00:00 Nasal Cannula 2.0 01/17/20 00:00 97.5 63 18 141/71 (94) 100 01/16/20 23:26 80 01/16/20 20:48 67 122/65 01/16/20 20:00 Nasal Cannula 2.0 01/16/20 20:00 97.3 83 19 131/73 (92) 100 01/16/20 19:43 107 01/16/20 16:00 97.7 68 19 138/79 (98) 100 01/16/20 16:00 Nasal Cannula 2.0 01/16/20 16:00 97 01/16/20 12:00 98.1 96 19 128/62 (84) 100 01/16/20 12:00 Nasal Cannula 2.0 01/16/20 12:00 74 01/16/20 09:44 93 124/66 01/16/20 08:00 123 01/16/20 08:00 Nasal Cannula 2.0 01/16/20 08:00 98.1 93 19 128/68 (88) 100 01/16/20 04:00 99 01/16/20 04:00 99.7 84 19 118/66 (83) 100 01/16/20 03:58 Nasal Cannula 2.0 01/16/20 00:00 97.0 77 20 91/48 (62) 100 01/16/20 00:00 69 01/16/20 00:00 Nasal Cannula 2.0 01/15/20 20:51 66 99/53 01/15/20 20:00 81 01/15/20 20:00 96.0 73 19 99/53 (68) 100 01/15/20 20:00 Nasal Cannula 2.0 01/15/20 16:00 Nasal Cannula 2.0 01/15/20 16:00 97.6 69 109/53 (71) 01/15/20 15:16 69 01/15/20 12:00 Nasal Cannula 2.0 01/15/20 12:00 97.8 71 107/50 (69) 01/15/20 11:29 75 Intake and Output 01/16/20 01/17/20 19:00 07:00 Intake Total 610.0 ml 1100.0 ml Output Total 700 ml 400 ml Balance -90.0 ml 700.0 ml Intake Oral 500 ml 450 ml IV Total 110.0 ml 350.0 ml Blood Product 300 ml Output Urine Total 700 ml 400 ml Labs Test 01/14/20 18:00 01/14/20 18:51 01/15/20 03:45 01/15/20 06:11 White Blood Count 9.3 K/UL (4.8-10.8) 6.8 K/UL (4.8-10.8) Red Blood Count 2.58 M/UL (4.20-5.40) 2.56 M/UL (4.20-5.40) Hemoglobin 7.1 G/DL (12.0-16.0) 7.1 G/DL (12.0-16.0) Hematocrit 24.3 % (37.0-47.0) 24.9 % (37.0-47.0) Mean Corpuscular Volume 94 FL (80-99) 97 FL (80-99) Mean Corpuscular Hemoglobin 27.5 PG (27.0-31.0) 27.6 PG (27.0-31.0) Mean Corpuscular Hemoglobin Concent 29.2 G/DL (32.0-36.0) 28.3 G/DL (32.0-36.0) Red Cell Distribution Width 18.8 % (11.6-14.8) 18.1 % (11.6-14.8) Platelet Count 104 K/UL (150-450) 90 K/UL (150-450) Mean Platelet Volume 7.3 FL (6.5-10.1) 7.1 FL (6.5-10.1) Neutrophils (%) (Auto) % (45.0-75.0) % (45.0-75.0) Lymphocytes (%) (Auto) % (20.0-45.0) % (20.0-45.0) Monocytes (%) (Auto) % (1.0-10.0) % (1.0-10.0) Eosinophils (%) (Auto) % (0.0-3.0) % (0.0-3.0) Basophils (%) (Auto) % (0.0-2.0) % (0.0-2.0) Differential Total Cells Counted 100 100 Neutrophils % (Manual) 87 % (45-75) 91 % (45-75) Lymphocytes % (Manual) 9 % (20-45) 8 % (20-45) Monocytes % (Manual) 3 % (1-10) 1 % (1-10) Eosinophils % (Manual) 1 % (0-3) 0 % (0-3) Basophils % (Manual) 0 % (0-2) 0 % (0-2) Band Neutrophils 0 % (0-8) 0 % (0-8) Platelet Estimate Decreased Decreased Platelet Morphology Normal Normal Polychromasia 1+ Hypochromasia 1+ 1+ Anisocytosis 1+ 1+ Prothrombin Time 12.4 SEC (9.30-11.50) Prothromb Time International Ratio 1.1 (0.9-1.1) Activated Partial Thromboplast Time 29 SEC (23-33) D-Dimer 2.98 mg/L FEU (0.00-0.49) Sodium Level 147 MMOL/L (136-145) 146 MMOL/L (136-145) Potassium Level 3.6 MMOL/L (3.5-5.1) 4.0 MMOL/L (3.5-5.1) Chloride Level 108 MMOL/L (98-107) 109 MMOL/L (98-107) Carbon Dioxide Level 24 MMOL/L (21-32) 22 MMOL/L (21-32) Anion Gap 15 mmol/L (5-15) 15 mmol/L (5-15) Blood Urea Nitrogen 39 mg/dL (7-18) 41 mg/dL (7-18) Creatinine 1.0 MG/DL (0.55-1.30) 1.0 MG/DL (0.55-1.30) Estimat Glomerular Filtration Rate 56.5 mL/min (>60) 56.5 mL/min (>60) Glucose Level 116 MG/DL (74-106) 181 MG/DL (74-106) Lactic Acid Level 1.10 mmol/L (0.4-2.0) Calcium Level 8.1 MG/DL (8.5-10.1) 8.0 MG/DL (8.5-10.1) Phosphorus Level 3.7 MG/DL (2.5-4.9) Magnesium Level 1.6 MG/DL (1.8-2.4) Ferritin 417 NG/ML (8-388) Total Bilirubin 0.9 MG/DL (0.2-1.0) Aspartate Amino Transf (AST/SGOT) 28 U/L (15-37) Alanine Aminotransferase (ALT/SGPT) 35 U/L (12-78) Alkaline Phosphatase 158 U/L (46-116) Total Creatine Kinase 26 U/L (26-308) Creatine Kinase MB 1.1 NG/ML (0.0-3.6) Creatine Kinase MB Relative Index 4.2 Troponin I 0.039 ng/mL (0.000-0.056) C-Reactive Protein, Quantitative 25.1 mg/dL (0.00-0.90) Pro-B-Type Natriuretic Peptide 963 pg/mL (0-125) Total Protein 6.0 G/DL (6.4-8.2) Albumin 2.1 G/DL (3.4-5.0) Globulin 3.9 g/dL Albumin/Globulin Ratio 0.5 (1.0-2.7) Urine Color Yellow Urine Appearance Very cloudy Urine pH 6 (4.5-8.0) Urine Specific [place] 1.005 (1.005-1.035) Urine Protein 2+ (NEGATIVE) Urine Glucose (UA) Negative (NEGATIVE) Urine Ketones Negative (NEGATIVE) Urine Blood 3+ (NEGATIVE) Urine Nitrite Negative (NEGATIVE) Urine Bilirubin Negative (NEGATIVE) Urine Urobilinogen Normal MG/DL (0.0-1.0) Urine Leukocyte Esterase 3+ (NEGATIVE) Urine RBC 0-2 /HPF (0 - 2) Urine WBC Tntc /HPF (0 - 2) Urine Squamous Epithelial Cells Occasional /LPF Urine Bacteria Many /HPF (NONE) HIV (1&2) Antibody Rapid Negative (NEGATIVE) POC Whole Blood Glucose 163 MG/DL (74-106) Test 01/15/20 08:48 01/15/20 14:00 01/15/20 18:20 01/15/20 21:09 Iron Level 10 ug/dL (50-175) Total Iron Binding Capacity 138 ug/dL (250-450) Percent Iron Saturation 7 % (15-50) Unsaturated Iron Binding 128 ug/dL (112-346) Hepatitis A IgM Antibody Negative (Negative) Hepatitis B Surface Antigen Negative (Negative) Hepatitis B Core IgM Antibody Indeterminate (Negative) Hepatitis C Antibody <0.1 s/co ratio Urine Color Honey Urine Appearance Turbid Urine pH 5 (4.5-8.0) Urine Specific [place] 1.020 (1.005-1.035) Urine Protein 3+ (NEGATIVE) Urine Glucose (UA) Negative (NEGATIVE) Urine Ketones 1+ (NEGATIVE) Urine Blood 5+ (NEGATIVE) Urine Nitrite Negative (NEGATIVE) Urine Bilirubin Negative (NEGATIVE) Urine Ictotest Negative (NEGATIVE) Urine Urobilinogen Normal MG/DL (0.0-1.0) Urine Leukocyte Esterase 3+ (NEGATIVE) Urine RBC 15-20 /HPF (0 - 2) Urine WBC Tntc /HPF (0 - 2) Urine Squamous Epithelial Cells Moderate /LPF (NONE/OCC) Urine Bacteria Many /HPF (NONE) Test 01/16/20 03:21 01/16/20 03:23 01/16/20 05:41 01/16/20 12:02 White Blood Count 6.7 K/UL (4.8-10.8) Red Blood Count 2.28 M/UL (4.20-5.40) Hemoglobin 6.4 G/DL (12.0-16.0) Hematocrit 21.4 % (37.0-47.0) Mean Corpuscular Volume 94 FL (80-99) Mean Corpuscular Hemoglobin 28.0 PG (27.0-31.0) Mean Corpuscular Hemoglobin Concent 29.8 G/DL (32.0-36.0) Red Cell Distribution Width 17.5 % (11.6-14.8) Platelet Count 105 K/UL (150-450) Mean Platelet Volume 7.8 FL (6.5-10.1) Neutrophils (%) (Auto) % (45.0-75.0) Lymphocytes (%) (Auto) % (20.0-45.0) Monocytes (%) (Auto) % (1.0-10.0) Eosinophils (%) (Auto) % (0.0-3.0) Basophils (%) (Auto) % (0.0-2.0) Differential Total Cells Counted 100 Neutrophils % (Manual) 82 % (45-75) Lymphocytes % (Manual) 10 % (20-45) Monocytes % (Manual) 8 % (1-10) Eosinophils % (Manual) 0 % (0-3) Basophils % (Manual) 0 % (0-2) Band Neutrophils 0 % (0-8) Platelet Estimate Decreased Platelet Morphology Normal Hypochromasia 4+ Anisocytosis 2+ Sodium Level 144 MMOL/L (136-145) Potassium Level 3.7 MMOL/L (3.5-5.1) Chloride Level 107 MMOL/L (98-107) Carbon Dioxide Level 23 MMOL/L (21-32) Anion Gap 14 mmol/L (5-15) Blood Urea Nitrogen 50 mg/dL (7-18) Creatinine 1.4 MG/DL (0.55-1.30) Estimat Glomerular Filtration Rate 38.4 mL/min (>60) Glucose Level 191 MG/DL (74-106) Calcium Level 7.7 MG/DL (8.5-10.1) POC Whole Blood Glucose 167 MG/DL (74-106) 121 MG/DL (74-106) Test 01/16/20 16:24 01/16/20 21:45 01/17/20 03:20 POC Whole Blood Glucose 118 MG/DL (74-106) White Blood Count 6.8 K/UL (4.8-10.8) 4.7 K/UL (4.8-10.8) Red Blood Count 2.94 M/UL (4.20-5.40) 2.91 M/UL (4.20-5.40) Hemoglobin 8.2 G/DL (12.0-16.0) 8.0 G/DL (12.0-16.0) Hematocrit 27.5 % (37.0-47.0) 27.3 % (37.0-47.0) Mean Corpuscular Volume 94 FL (80-99) 94 FL (80-99) Mean Corpuscular Hemoglobin 27.8 PG (27.0-31.0) 27.5 PG (27.0-31.0) Mean Corpuscular Hemoglobin Concent 29.7 G/DL (32.0-36.0) 29.3 G/DL (32.0-36.0) Red Cell Distribution Width 18.2 % (11.6-14.8) 17.0 % (11.6-14.8) Platelet Count 131 K/UL (150-450) 118 K/UL (150-450) Mean Platelet Volume 6.9 FL (6.5-10.1) 7.3 FL (6.5-10.1) Neutrophils (%) (Auto) 80.9 % (45.0-75.0) 78.9 % (45.0-75.0) Lymphocytes (%) (Auto) 11.0 % (20.0-45.0) 14.2 % (20.0-45.0) Monocytes (%) (Auto) 6.5 % (1.0-10.0) 4.6 % (1.0-10.0) Eosinophils (%) (Auto) 0.7 % (0.0-3.0) 1.9 % (0.0-3.0) Basophils (%) (Auto) 0.8 % (0.0-2.0) 0.4 % (0.0-2.0) Sodium Level 145 MMOL/L (136-145) Potassium Level 3.8 MMOL/L (3.5-5.1) Chloride Level 108 MMOL/L (98-107) Carbon Dioxide Level 25 MMOL/L (21-32) Anion Gap 13 mmol/L (5-15) Blood Urea Nitrogen 52 mg/dL (7-18) Creatinine 1.2 MG/DL (0.55-1.30) Estimat Glomerular Filtration Rate 45.9 mL/min (>60) Glucose Level 99 MG/DL (74-106) Calcium Level 8.5 MG/DL (8.5-10.1) Total Bilirubin 0.6 MG/DL (0.2-1.0) Aspartate Amino Transf (AST/SGOT) 21 U/L (15-37) Alanine Aminotransferase (ALT/SGPT) 31 U/L (12-78) Alkaline Phosphatase 132 U/L (46-116) Troponin I 0.005 ng/mL (0.000-0.056) Pro-B-Type Natriuretic Peptide 1310 pg/mL (0-125) Total Protein 6.5 G/DL (6.4-8.2) Albumin 2.2 G/DL (3.4-5.0) Globulin 4.3 g/dL Albumin/Globulin Ratio 0.5 (1.0-2.7) Thyroid Stimulating Hormone (TSH) 2.463 uiU/mL (0.358-3.740) Free Thyroxine 0.92 NG/DL (0.76-1.46) Digoxin Level < 0.2 NG/ML (0.9-2.0) Height (Feet): 5 Height (Inches): 5.00 Weight (Pounds): 237 Lymphatic: tender other Objective Physical Exam General: Awake and alert, no acute distress HEENT: NC/AT. EOMI. PERRLA. Anicteric sclera. Cardiovascular: Tachycardic. S1 and S2 normal. Resp: 2 L nasal cannula. Tachypnea. Normal work of breathing. Abdomen: Abdomen is soft, nondistended, obese. Nontender Skin: Bandages over the heels and feet on the lower extremities MSK: Normal tone and bulk. Moving all extremities. No obvious deformity. Neuro: Awake and alert. Mentating appropriately. Reno Valle MD Jan 17, 2020 11:15
--- NOTE | 2020-01-17 11:29 | General Progress Note ---
Assessment/Plan Problem List: (1) COVID-19 ICD Codes: U07.1 - COVID-19 SNOMED: 830193607 (2) UTI (urinary tract infection) ICD Codes: N39.0 - Urinary tract infection, site not specified SNOMED: 82042040 (3) Anemia ICD Codes: D64.9 - Anemia, unspecified SNOMED: 483058354 Qualifiers: (4) SVT (supraventricular tachycardia) ICD Codes: I47.1 - Supraventricular tachycardia SNOMED: 0142911 (5) Gram-negative bacteremia ICD Codes: R78.81 - Bacteremia SNOMED: 752526778039 (6) Decubitus skin ulcer ICD Codes: L89.90 - Pressure ulcer of unspecified site, unspecified stage SNOMED: 089026487 Qualifiers: Qualified Codes: L89.159 - Pressure ulcer of sacral region, unspecified stage Status: stable, progressing Assessment/Plan: # Acute Hypoxemic respiratory failure # COVID 19 infection previously - now 1 negative swab # Pulmonary HTN Supplemental O2 on 2L NC saturating above 92% Incentive spirometry Trend inflammatory markers Consult to pulmonology appreciate recs Due to active infection not a candidate for remdesivir Sildenafil for pulmonary HTN #SVT #Autonomic dysfunction -Restart metoprolol -Added Digoxin per Cardiology -Continue midodrine -Holding anticoagulation due to anemia -Consult to EP telecommunications project manager - may be candidate for ablation at [facility] # Normocytic anemia # Thrombocytopenia -Iron studies reviewd - Trend CBC - Transfuse 1 unit pRBC - 01/16/2020 - Transfuse for Hg less than 7 - Consult to hematology - anticoagulation held #MISSY -Fluid hydration -hold nephrotoxic medications -Electrolyte replacement -Consult to nephrology- appreciate recs. # ESBL UTI # Proteus bacteremia -Follow up cultures - ESBL in urine and Proteus in blood -Continue with Zosyn -Consult to ID -Follow up WBC count #Pressure injuries - Wound care - Recs from surgery - Added po Doxycycline per ID recs DVRppx scd due to anemia Physical therapy evaluation 40 minuets was spent on this patient with 10 min face to face with Patient. Coordinated with consultants, reviews labs and images. Discussed plan with RN. Extensive chart review and multiple calls from nursing. Subjective Date patient seen: Jan 17, 2020 Time patient seen: 08:30 Constitutional: Reports: no symptoms HEENT: Reports: no symptoms Cardiovascular: Reports: palpitations Respiratory: Reports: cough, shortness of breath, SOB with excertion Gastrointestinal/Abdominal: Reports: no symptoms; Denies: black stools, tarry stools, blood in stool, nausea Genitourinary: Reports: no symptoms Neurologic/Psychiatric: Reports: no symptoms Endocrine: Reports: no symptoms Hematologic/Lymphatic: Reports: anemia Allergies: Coded Allergies: ERYTHROMYCIN BASE (Verified Allergy, Unknown, 01/14/20) HEPARIN (Verified Allergy, Unknown, 01/14/20) All Systems: reviewed and negative except above Subjective Patient is feeling better. Does not have signs of bleeding. No chest pain. Happy she stood up with PT. Objective Last 24 Hour Vital Signs Date Time Temp Pulse Resp B/P (MAP) Pulse Ox O2 Delivery O2 Flow Rate FiO2 01/17/20 08:45 89 01/17/20 08:44 89 154/68 01/17/20 08:00 93 01/17/20 08:00 Nasal Cannula 2.0 01/17/20 08:00 97.9 89 20 154/68 (96) 99 01/17/20 04:00 97.2 66 20 148/72 (97) 100 01/17/20 04:00 Nasal Cannula 2.0 01/17/20 03:28 130 01/17/20 00:00 Nasal Cannula 2.0 01/17/20 00:00 97.5 63 18 141/71 (94) 100 01/16/20 23:26 80 01/16/20 20:48 67 122/65 01/16/20 20:00 Nasal Cannula 2.0 01/16/20 20:00 97.3 83 19 131/73 (92) 100 01/16/20 19:43 107 01/16/20 16:00 97.7 68 19 138/79 (98) 100 01/16/20 16:00 Nasal Cannula 2.0 01/16/20 16:00 97 01/16/20 12:00 98.1 96 19 128/62 (84) 100 01/16/20 12:00 Nasal Cannula 2.0 01/16/20 12:00 74 Intake and Output 01/16/20 01/17/20 19:00 07:00 Intake Total 610.0 ml 1100.0 ml Output Total 700 ml 400 ml Balance -90.0 ml 700.0 ml Intake Oral 500 ml 450 ml IV Total 110.0 ml 350.0 ml Blood Product 300 ml Output Urine Total 700 ml 400 ml Laboratory Tests 01/16/20 12:02: POC Whole Blood Glucose 121H 01/16/20 16:24: POC Whole Blood Glucose 118H 01/16/20 21:45: White Blood Count 6.8, Red Blood Count 2.94L, Hemoglobin 8.2L, Hematocrit 27.5L , Mean Corpuscular Volume 94, Mean Corpuscular Hemoglobin 27.8, Mean Corpuscular Hemoglobin Concent 29.7L, Red Cell Distribution Width 18.2H, Platelet Count 131L, Mean Platelet Volume 6.9, Neutrophils (%) (Auto) 80.9H, Lymphocytes (%) (Auto) 11.0L, Monocytes (%) (Auto) 6.5, Eosinophils (%) (Auto) 0.7, Basophils (%) (Auto) 0.8 01/17/20 03:20: White Blood Count 4.7L, Red Blood Count 2.91L, Hemoglobin 8.0L, Hematocrit 27.3L , Mean Corpuscular Volume 94, Mean Corpuscular Hemoglobin 27.5, Mean Corpuscular Hemoglobin Concent 29.3L, Red Cell Distribution Width 17.0H, Platelet Count 118L, Mean Platelet Volume 7.3, Neutrophils (%) (Auto) 78.9H, Lymphocytes (%) (Auto) 14.2L, Monocytes (%) (Auto) 4.6, Eosinophils (%) (Auto) 1.9, Basophils (%) (Auto) 0.4, Sodium Level 145, Potassium Level 3.8, Chloride Level 108H, Carbon Dioxide Level 25, Anion Gap 13, Blood Urea Nitrogen 52H, Creatinine 1.2, Estimat Glomerular Filtration Rate 45.9, Glucose Level 99, Calcium Level 8.5, Total Bilirubin 0.6, Aspartate Amino Transf (AST/SGOT) 21, Alanine Aminotransferase (ALT/SGPT) 31, Alkaline Phosphatase 132H, Troponin I 0.005, Pro-B-Type Natriuretic Peptide 1310H, Total Protein 6.5, Albumin 2.2L, Globulin 4.3, Albumin/Globulin Ratio 0.5L, Thyroid Stimulating Hormone (TSH) 2.463, Free Thyroxine 0.92, Digoxin Level < 0.2L Height (Feet): 5 Height (Inches): 5.00 Weight (Pounds): 237 General Appearance: no apparent distress EENT: PERRL/EOMI Neck: non-tender, normal alignment, supple Cardiovascular: normal peripheral pulses, regular rhythm, no gallop/murmur, no JVD, tachycardia Respiratory/Chest: chest wall non-tender, crackles/rales, rhonchi - bilaterally Abdomen: normal bowel sounds, non tender, soft, no mass, hernia Pelvis: normal external exam Extremities: normal range of motion, non-tender Edema: 1+ Leg (L), 1+ Leg (R) Edema: trace edema Neurologic: 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 Jan 17, 2020 11:29
--- NOTE | 2020-01-17 11:41 | Cardiac Electrophysiology PN ---
Assessment/Plan Assessment/Plan 1. Runs of regular sudden onset and termination supraventricular tachycardia. Blood pressure in the 90s. Patient already on metoprolol 25 mg b.i.d. and digoxin 0.125 daily. Echocardiogram EF 55% and ruled out for SD 2. Hypertension. On metoprolol 25 mg b.i.d. 3. Diabetes. 4. End-stage renal disease. 5. Status post recent COVID. 6. Severe anemia, hemoglobin 6.5, S/P 1 unit of blood transfusion. 7. Huge decubitus ulcer. 8. Hx of DVT Eliquis 2.5 daily held for severe anemia. Records from [facility] reviewed and DW RN and Dr Calderon Subjective Subjective Has had recurrent regular SVTs of sudden onset and termination despite Lopressor 25 bid. Covid still pending. Was swabbed yesterday Objective Last 24 Hour Vital Signs Date Time Temp Pulse Resp B/P (MAP) Pulse Ox O2 Delivery O2 Flow Rate FiO2 01/17/20 08:45 89 01/17/20 08:44 89 154/68 01/17/20 08:00 93 01/17/20 08:00 Nasal Cannula 2.0 01/17/20 08:00 97.9 89 20 154/68 (96) 99 01/17/20 04:00 97.2 66 20 148/72 (97) 100 01/17/20 04:00 Nasal Cannula 2.0 01/17/20 03:28 130 01/17/20 00:00 Nasal Cannula 2.0 01/17/20 00:00 97.5 63 18 141/71 (94) 100 01/16/20 23:26 80 01/16/20 20:48 67 122/65 01/16/20 20:00 Nasal Cannula 2.0 01/16/20 20:00 97.3 83 19 131/73 (92) 100 01/16/20 19:43 107 01/16/20 16:00 97.7 68 19 138/79 (98) 100 01/16/20 16:00 Nasal Cannula 2.0 01/16/20 16:00 97 01/16/20 12:00 98.1 96 19 128/62 (84) 100 01/16/20 12:00 Nasal Cannula 2.0 01/16/20 12:00 74 Intake and Output 01/16/20 01/17/20 19:00 07:00 Intake Total 610.0 ml 1100.0 ml Output Total 700 ml 400 ml Balance -90.0 ml 700.0 ml Intake Oral 500 ml 450 ml IV Total 110.0 ml 350.0 ml Blood Product 300 ml Output Urine Total 700 ml 400 ml Laboratory Tests Test 01/16/20 12:02 01/16/20 16:24 01/16/20 21:45 01/17/20 03:20 POC Whole Blood Glucose 121 MG/DL (74-106) H 118 MG/DL (74-106) H White Blood Count 6.8 K/UL (4.8-10.8) 4.7 K/UL (4.8-10.8) L Red Blood Count 2.94 M/UL (4.20-5.40) L 2.91 M/UL (4.20-5.40) L Hemoglobin 8.2 G/DL (12.0-16.0) L 8.0 G/DL (12.0-16.0) L Hematocrit 27.5 % (37.0-47.0) L 27.3 % (37.0-47.0) L Mean Corpuscular Volume 94 FL (80-99) 94 FL (80-99) Mean Corpuscular Hemoglobin 27.8 PG (27.0-31.0) 27.5 PG (27.0-31.0) Mean Corpuscular Hemoglobin Concent 29.7 G/DL (32.0-36.0) L 29.3 G/DL (32.0-36.0) L Red Cell Distribution Width 18.2 % (11.6-14.8) H 17.0 % (11.6-14.8) H Platelet Count 131 K/UL (150-450) L 118 K/UL (150-450) L Mean Platelet Volume 6.9 FL (6.5-10.1) 7.3 FL (6.5-10.1) Neutrophils (%) (Auto) 80.9 % (45.0-75.0) H 78.9 % (45.0-75.0) H Lymphocytes (%) (Auto) 11.0 % (20.0-45.0) L 14.2 % (20.0-45.0) L Monocytes (%) (Auto) 6.5 % (1.0-10.0) 4.6 % (1.0-10.0) Eosinophils (%) (Auto) 0.7 % (0.0-3.0) 1.9 % (0.0-3.0) Basophils (%) (Auto) 0.8 % (0.0-2.0) 0.4 % (0.0-2.0) Sodium Level 145 MMOL/L (136-145) Potassium Level 3.8 MMOL/L (3.5-5.1) Chloride Level 108 MMOL/L (98-107) H Carbon Dioxide Level 25 MMOL/L (21-32) Anion Gap 13 mmol/L (5-15) Blood Urea Nitrogen 52 mg/dL (7-18) H Creatinine 1.2 MG/DL (0.55-1.30) Estimat Glomerular Filtration Rate 45.9 mL/min (>60) Glucose Level 99 MG/DL (74-106) Calcium Level 8.5 MG/DL (8.5-10.1) Total Bilirubin 0.6 MG/DL (0.2-1.0) Aspartate Amino Transf (AST/SGOT) 21 U/L (15-37) Alanine Aminotransferase (ALT/SGPT) 31 U/L (12-78) Alkaline Phosphatase 132 U/L (46-116) H Troponin I 0.005 ng/mL (0.000-0.056) Pro-B-Type Natriuretic Peptide 1310 pg/mL (0-125) H Total Protein 6.5 G/DL (6.4-8.2) Albumin 2.2 G/DL (3.4-5.0) L Globulin 4.3 g/dL Albumin/Globulin Ratio 0.5 (1.0-2.7) L Thyroid Stimulating Hormone (TSH) 2.463 uiU/mL (0.358-3.740) Free Thyroxine 0.92 NG/DL (0.76-1.46) Digoxin Level < 0.2 NG/ML (0.9-2.0) L Microbiology Date/Time Source Procedure Growth Status 01/14/20 18:16 Blood Blood Culture - Final Proteus Mirabilis Complete 01/14/20 18:00 Blood Blood Culture - Final Proteus Mirabilis Complete 01/14/20 18:05 Nasopharynx Coronavirus COVID-19 PCR ([facility]) - Final Complete 01/15/20 18:20 Urine,Clean Catch Urine Culture - Preliminary Gram Negative Seamus Resulted 01/14/20 18:51 Urine,Clean Catch Urine Culture - Final Escherichia Coli - Esbl Complete Objective HEAD AND NECK: no JVD. LUNGS: Coarse rhonchi. CARDIOVASCULAR: Regular S1 and S2 with no gallop. ABDOMEN: Soft. EXTREMITIES: No pitting edema. Austin Byrd MD Jan 17, 2020 11:41
[2020-01-17 12:00] VITALS: BP 121/68
--- NOTE | 2020-01-17 12:03 | Pulmonology Progress Note ---
Subjective ROS Limited/Unobtainable: No Interval Events: None new Constitutional: Reports: no symptoms HEENT: Repors: no symptoms Respiratory: Reports: shortness of breath Cardiovascular: Reports: no symptoms Allergies: Coded Allergies: ERYTHROMYCIN BASE (Verified Allergy, Unknown, 01/14/20) HEPARIN (Verified Allergy, Unknown, 01/14/20) All Systems: reviewed and negative except above Objective Last 24 Hour Vital Signs Date Time Temp Pulse Resp B/P (MAP) Pulse Ox O2 Delivery O2 Flow Rate FiO2 01/17/20 08:45 89 01/17/20 08:44 89 154/68 01/17/20 08:00 93 01/17/20 08:00 Nasal Cannula 2.0 01/17/20 08:00 97.9 89 20 154/68 (96) 99 01/17/20 04:00 97.2 66 20 148/72 (97) 100 01/17/20 04:00 Nasal Cannula 2.0 01/17/20 03:28 130 01/17/20 00:00 Nasal Cannula 2.0 01/17/20 00:00 97.5 63 18 141/71 (94) 100 01/16/20 23:26 80 01/16/20 20:48 67 122/65 01/16/20 20:00 Nasal Cannula 2.0 01/16/20 20:00 97.3 83 19 131/73 (92) 100 01/16/20 19:43 107 01/16/20 16:00 97.7 68 19 138/79 (98) 100 01/16/20 16:00 Nasal Cannula 2.0 01/16/20 16:00 97 Intake and Output 01/16/20 01/17/20 19:00 07:00 Intake Total 610.0 ml 1100.0 ml Output Total 700 ml 400 ml Balance -90.0 ml 700.0 ml Intake Oral 500 ml 450 ml IV Total 110.0 ml 350.0 ml Blood Product 300 ml Output Urine Total 700 ml 400 ml General Appearance: no acute distress HEENT: normocephalic Respiratory: chest wall non-tender, lungs clear Cardiovascular: normal peripheral pulses Abdomen: normal bowel sounds Microbiology Date/Time Source Procedure Growth Status 01/14/20 18:16 Blood Blood Culture - Final Proteus Mirabilis Complete 01/14/20 18:00 Blood Blood Culture - Final Proteus Mirabilis Complete 01/14/20 18:05 Nasopharynx Coronavirus COVID-19 PCR ([facility]) - Final Complete 01/15/20 18:20 Urine,Clean Catch Urine Culture - Preliminary Gram Negative Seamus Resulted 01/14/20 18:51 Urine,Clean Catch Urine Culture - Final Escherichia Coli - Esbl Complete Laboratory Tests 01/16/20 16:24: POC Whole Blood Glucose 118H 01/16/20 21:45: White Blood Count 6.8, Red Blood Count 2.94L, Hemoglobin 8.2L, Hematocrit 27.5L , Mean Corpuscular Volume 94, Mean Corpuscular Hemoglobin 27.8, Mean Corpuscular Hemoglobin Concent 29.7L, Red Cell Distribution Width 18.2H, Platelet Count 131L, Mean Platelet Volume 6.9, Neutrophils (%) (Auto) 80.9H, Lymphocytes (%) (Auto) 11.0L, Monocytes (%) (Auto) 6.5, Eosinophils (%) (Auto) 0.7, Basophils (%) (Auto) 0.8 01/17/20 03:20: White Blood Count 4.7L, Red Blood Count 2.91L, Hemoglobin 8.0L, Hematocrit 27.3L , Mean Corpuscular Volume 94, Mean Corpuscular Hemoglobin 27.5, Mean Corpuscular Hemoglobin Concent 29.3L, Red Cell Distribution Width 17.0H, Platelet Count 118L, Mean Platelet Volume 7.3, Neutrophils (%) (Auto) 78.9H, Lymphocytes (%) (Auto) 14.2L, Monocytes (%) (Auto) 4.6, Eosinophils (%) (Auto) 1.9, Basophils (%) (Auto) 0.4, Sodium Level 145, Potassium Level 3.8, Chloride Level 108H, Carbon Dioxide Level 25, Anion Gap 13, Blood Urea Nitrogen 52H, Creatinine 1.2, Estimat Glomerular Filtration Rate 45.9, Glucose Level 99, Calcium Level 8.5, Total Bilirubin 0.6, Aspartate Amino Transf (AST/SGOT) 21, Alanine Aminotransferase (ALT/SGPT) 31, Alkaline Phosphatase 132H, Troponin I 0.005, Pro-B-Type Natriuretic Peptide 1310H, Total Protein 6.5, Albumin 2.2L, Globulin 4.3, Albumin/Globulin Ratio 0.5L, Thyroid Stimulating Hormone (TSH) 2.463, Free Thyroxine 0.92, Digoxin Level < 0.2L 01/17/20 11:41: POC Whole Blood Glucose 90 Current Medications Medications (Trade) Dose Ordered Sig/Samuel Route PRN Reason Start Time Stop Time Status Last Admin Dose Admin Acetaminophen (Tylenol) 650 mg Q6H PRN ORAL Mild Pain (Pain Scale 1-3) 01/15/20 03:15 02/14/20 03:14 01/16/20 01:38 Acetaminophen (Tylenol) 650 mg Q6H PRN ORAL Temp >100.5 01/15/20 03:15 02/14/20 03:14 Acetaminophen/ Hydrocodone Bitart ([place] 5/325) 1 tab Q6H PRN ORAL For Pain 01/16/20 07:00 01/23/20 06:59 01/17/20 10:14 Ascorbic Acid (Vitamin C) 250 mg TWICE A DAY ORAL 01/17/20 18:00 02/16/20 17:59 Chlorhexidine Gluconate (Mel-Hex 2%) 1 applic DAILY@2000 TOPIC 01/15/20 20:00 04/14/20 19:59 01/16/20 20:47 Dextrose (Dextrose 50%) 25 ml Q30M PRN IV Hypoglycemia 01/14/20 23:15 04/13/20 23:14 Dextrose (Dextrose 50%) 50 ml Q30M PRN IV Hypoglycemia 01/14/20 23:15 04/13/20 23:14 Digoxin (Lanoxin) 0.125 mg DAILY ORAL 01/17/20 09:00 04/16/20 08:59 01/17/20 08:45 Doxycycline Monohydrate (Doxycycline Monohydrate) 100 mg EVERY 12 HOURS ORAL 01/18/20 09:00 01/25/20 08:59 Insulin Aspart (NovoLOG) BEFORE MEALS AND HS SUBQ 01/15/20 06:30 04/14/20 06:29 01/16/20 05:47 Insulin Detemir (Levemir) 11 units BEDTIME SUBQ 01/15/20 21:00 04/14/20 20:59 01/15/20 21:21 Iron Sucrose 100 mg/Sodium Chloride 60 ml @ 240 mls/hr BEDTIME IV 01/16/20 21:00 01/20/20 21:14 01/16/20 20:49 Metoprolol Tartrate (Lopressor) 25 mg Q12HR ORAL 01/15/20 09:00 04/14/20 08:59 01/17/20 08:44 Midodrine (Pro-Amatine) 5 mg TID PRN ORAL sbp<110 01/15/20 09:00 04/14/20 08:59 Multivitamins (Multivitamins) 1 tab Q24H ORAL 01/18/20 07:00 02/17/20 06:59 Piperacillin Sod/ Tazobactam Sod 3.375 gm/Sodium Chloride 110 ml @ 27.5 mls/hr Q8H IVPB 01/15/20 00:00 01/22/20 00:00 01/17/20 08:45 Sildenafil Citrate (Revatio) 20 mg DAILY ORAL 01/15/20 09:00 04/14/20 08:59 01/17/20 08:43 Sodium Hypochlorite (Dakin's Quarter Strength) 1 applic DAILY TOPIC 01/15/20 11:00 02/14/20 10:59 01/17/20 08:45 Zinc Sulfate (Zinc Sulfate) 220 mg Q24H ORAL 01/18/20 07:00 04/17/20 06:59 Assessment/Plan Assessment/Plan IMPRESSION: 1. Negative for COVID-19 pneumonia. 2. UTI. 3. Diabetes mellitus. 4. Decubiti. DISCUSSION: Admit to the hospital. Agree with broad-spectrum antibiotics. Oxygen and pulmonary hygiene. Negative COVID-19 PCR. I will follow carefully. Keerthi Morales Omar Syed MD Jan 17, 2020 12:03
[2020-01-17 16:00] VITALS: BP 121/61
[2020-01-17] MEDS: Ascorbic Acid 500mg tab ORAL SCH (17:37)
[2020-01-17] MEDS: Meropenem 1gm in NS 55ml IVPB SCH ×2 (17:37→21:21)
[2020-01-17 20:00] VITALS: BP 119/80
[2020-01-17] MEDS: Levemir Flexpen SUBQ SCH (21:00)
[2020-01-17] MEDS: Dyna-Hex 2% Top Sol 2oz TOPIC SCH (21:09)
[2020-01-17] MEDS: Iron Sucrose 100 MG in NS 55 ML IV SCH (21:12)
[2020-01-18] VITALS: BP 102/68
[2020-01-18 04:00] VITALS: BP 127/76
[2020-01-18] MEDS: NovoLOG Insulin Flexpen SUBQ SCH ×4 (05:42→21:00)
[2020-01-18] MEDS: Zinc Sulfate 220mg ORAL SCH (06:05)
[2020-01-18] MEDS: HYDROcodone/Acetamin 5/325 tab ORAL PRN (06:05)
[2020-01-18 07:15] LABS: BASOPHILS % (AUTO) 0.9 % (0.0-2.0); EOSINOPHILS % (AUTO) 5.5 % (0.0-3.0); HEMOGLOBIN 8.1 G/DL (12.0-16.0); LYMPHOCYTES % (AUTO) 16.7 % (20.0-45.0); MEAN CORPUSCULAR VOLUME 95 FL (80-99); PLATELET COUNT 110 K/UL (150-450); RED BLOOD COUNT 2.96 M/UL (4.20-5.40); RED CELL DISTRIBUTION WIDTH 17.2 % (11.6-14.8); WHITE BLOOD COUNT 3.8 K/UL (4.8-10.8)
[2020-01-18 07:57] LABS: ALANINE AMINOTRANSFERASE 30 U/L (12-78); ALBUMIN/GLOBULIN RATIO 0.5 (1.0-2.7); ALKALINE PHOSPHATASE 118 U/L (46-116); ANION GAP 10 mmol/L (5-15); ASPARTATE AMINO TRANSFERASE 25 U/L (15-37); BILIRUBIN,TOTAL 0.4 MG/DL (0.2-1.0); BLOOD UREA NITROGEN 39 mg/dL (7-18); CALCIUM 8.8 MG/DL (8.5-10.1); CARBON DIOXIDE 24 MMOL/L (21-32); CHLORIDE 108 MMOL/L (98-107); POTASSIUM 3.7 MMOL/L (3.5-5.1); SODIUM 142 MMOL/L (136-145)
[2020-01-18 08:00] VITALS: BP 118/70
[2020-01-18] MEDS: Revatio 20mg tab ORAL SCH (08:30)
[2020-01-18] MEDS: Ascorbic Acid 500mg tab ORAL SCH ×2 (08:31→16:56)
[2020-01-18] MEDS: Digoxin 0.125mg tab ORAL SCH (08:31)
[2020-01-18] MEDS: Doxycycline Monohydrate 100mg ORAL SCH ×2 (08:31→21:01)
[2020-01-18] MEDS: Dakin's 0.125% Soln (Quarter Strength) 16oz TOPIC SCH (08:32)
[2020-01-18] MEDS: Meropenem 1gm in NS 55ml IVPB SCH ×2 (08:33→21:53)
[2020-01-18] MEDS ORDERED: NS 275ml ONE (09:45)
[2020-01-18] MEDS ORDERED: Tubing IV Blood Pump IV ONE (09:45)
[2020-01-18] MEDS ORDERED: Tubing IV Secondary IV ONE (09:45)
--- NOTE | 2020-01-18 10:15 | Pulmonology Progress Note ---
Subjective ROS Limited/Unobtainable: No Interval Events: None new Constitutional: Reports: no symptoms HEENT: Repors: no symptoms Respiratory: Reports: shortness of breath Cardiovascular: Reports: no symptoms Allergies: Coded Allergies: ERYTHROMYCIN BASE (Verified Allergy, Unknown, 01/14/20) HEPARIN (Verified Allergy, Unknown, 01/14/20) All Systems: reviewed and negative except above Objective Last 24 Hour Vital Signs Date Time Temp Pulse Resp B/P (MAP) Pulse Ox O2 Delivery O2 Flow Rate FiO2 01/18/20 08:31 85 01/18/20 08:30 85 118/70 01/18/20 08:00 97.1 85 20 118/70 (86) 100 01/18/20 07:36 Nasal Cannula 2.0 01/18/20 04:00 Nasal Cannula 2.0 01/18/20 04:00 98.1 85 18 127/76 (93) 100 01/18/20 03:35 77 01/18/20 00:00 96.8 87 18 102/68 (79) 100 01/18/20 00:00 Nasal Cannula 2.0 01/17/20 23:54 65 01/17/20 21:12 91 119/80 01/17/20 20:00 97.0 87 24 119/80 (93) 100 01/17/20 20:00 82 01/17/20 20:00 Nasal Cannula 2.0 01/17/20 16:00 106 01/17/20 16:00 Nasal Cannula 2.0 01/17/20 16:00 97.7 96 20 121/61 (81) 94 01/17/20 12:03 102 01/17/20 12:00 97.7 61 20 121/68 (85) 99 01/17/20 12:00 Nasal Cannula 2.0 01/17/20 11:22 149 Intake and Output 01/17/20 01/18/20 19:00 07:00 Intake Total 300 ml 815 ml Output Total 600 ml 500 ml Balance -300 ml 315 ml Intake Oral 300 ml 700 ml IV Total 115 ml Output Urine Total 600 ml 500 ml General Appearance: no acute distress HEENT: normocephalic Respiratory: chest wall non-tender, lungs clear Cardiovascular: normal peripheral pulses Abdomen: normal bowel sounds Microbiology Date/Time Source Procedure Growth Status 01/15/20 18:20 Urine,Clean Catch Urine Culture - Final Escherichia Coli - Esbl Complete Laboratory Tests 01/17/20 11:41: POC Whole Blood Glucose 90 01/17/20 15:35: POC Whole Blood Glucose [Pending] 01/17/20 21:01: POC Whole Blood Glucose [Pending] 01/18/20 05:00: White Blood Count 3.8L, Red Blood Count 2.96L, Hemoglobin 8.1L, Hematocrit 28.0L , Mean Corpuscular Volume 95, Mean Corpuscular Hemoglobin 27.5, Mean Corpuscular Hemoglobin Concent 29.0L, Red Cell Distribution Width 17.2H, Platelet Count 110L, Mean Platelet Volume 8.0, Neutrophils (%) (Auto) 70.0, Lymphocytes (%) (Auto) 16.7L, Monocytes (%) (Auto) 7.0, Eosinophils (%) (Auto) 5.5H, Basophils (%) (Auto) 0.9, Stool Occult Blood Positive, Sodium Level 142, Potassium Level 3.7, Chloride Level 108H, Carbon Dioxide Level 24, Anion Gap 10 , Blood Urea Nitrogen 39H, Creatinine 1.0, Estimat Glomerular Filtration Rate 56.5, Glucose Level 90, Calcium Level 8.8, Total Bilirubin 0.4, Aspartate Amino Transf (AST/SGOT) 25, Alanine Aminotransferase (ALT/SGPT) 30, Alkaline Phosphatase 118H, Total Protein 6.3L, Albumin 2.0L, Globulin 4.3, Albumin/ Globulin Ratio 0.5L Current Medications Medications (Trade) Dose Ordered Sig/Samuel Route PRN Reason Start Time Stop Time Status Last Admin Dose Admin Acetaminophen (Tylenol) 650 mg Q6H PRN ORAL Mild Pain (Pain Scale 1-3) 01/15/20 03:15 02/14/20 03:14 01/16/20 01:38 Acetaminophen (Tylenol) 650 mg Q6H PRN ORAL Temp >100.5 01/15/20 03:15 02/14/20 03:14 Acetaminophen/ Hydrocodone Bitart ([place] 5/325) 1 tab Q6H PRN ORAL For Pain 01/16/20 07:00 01/23/20 06:59 01/18/20 06:05 Ascorbic Acid (Vitamin C) 250 mg TWICE A DAY ORAL 01/17/20 18:00 02/16/20 17:59 01/18/20 08:31 Chlorhexidine Gluconate (Mel-Hex 2%) 1 applic DAILY@2000 TOPIC 01/15/20 20:00 04/14/20 19:59 01/17/20 21:09 Dextrose (Dextrose 50%) 25 ml Q30M PRN IV Hypoglycemia 01/14/20 23:15 04/13/20 23:14 Dextrose (Dextrose 50%) 50 ml Q30M PRN IV Hypoglycemia 01/14/20 23:15 04/13/20 23:14 Digoxin (Lanoxin) 0.125 mg DAILY ORAL 01/17/20 09:00 04/16/20 08:59 01/18/20 08:31 Doxycycline Monohydrate (Doxycycline Monohydrate) 100 mg EVERY 12 HOURS ORAL 01/18/20 09:00 01/25/20 08:59 01/18/20 08:31 Duloxetine HCl (Cymbalta) 60 mg DAILY ORAL 01/17/20 14:45 04/16/20 14:44 01/18/20 08:30 Famotidine (Pepcid) 40 mg DAILY ORAL 01/17/20 14:45 04/16/20 14:44 01/18/20 08:30 Insulin Aspart (NovoLOG) BEFORE MEALS AND HS SUBQ 01/15/20 06:30 04/14/20 06:29 01/16/20 05:47 Insulin Detemir (Levemir) 11 units BEDTIME SUBQ 01/15/20 21:00 04/14/20 20:59 01/15/20 21:21 Iron Sucrose 100 mg/Sodium Chloride 60 ml @ 240 mls/hr BEDTIME IV 01/16/20 21:00 01/20/20 21:14 01/17/20 21:12 Meropenem 1 gm/ Sodium Chloride 55 ml @ 110 mls/hr Q12HR IVPB 01/17/20 17:00 01/22/20 16:59 01/18/20 08:33 Metoprolol Tartrate (Lopressor) 25 mg Q12HR ORAL 01/15/20 09:00 04/14/20 08:59 01/18/20 08:30 Midodrine (Pro-Amatine) 5 mg TID PRN ORAL sbp<110 01/15/20 09:00 04/14/20 08:59 Multivitamins (Multivitamins) 1 tab Q24H ORAL 01/18/20 07:00 02/17/20 06:59 01/18/20 06:05 Sildenafil Citrate (Revatio) 20 mg DAILY ORAL 01/15/20 09:00 04/14/20 08:59 01/18/20 08:30 Sodium Hypochlorite (Dakin's Quarter Strength) 1 applic DAILY TOPIC 01/15/20 11:00 02/14/20 10:59 01/18/20 08:32 Zinc Sulfate (Zinc Sulfate) 220 mg Q24H ORAL 01/18/20 07:00 04/17/20 06:59 01/18/20 06:05 Assessment/Plan Assessment/Plan IMPRESSION: 1. Negative for COVID-19 pneumonia. 2. UTI. 3. Diabetes mellitus. 4. Decubiti. DISCUSSION: Admit to the hospital. Agree with broad-spectrum antibiotics. Oxygen and pulmonary hygiene. Negative COVID-19 PCR. I will follow carefully. Rigoberto Ford M.D. Rigoberto Ford MD Jan 18, 2020 10:15
--- NOTE | 2020-01-18 11:01 | General Progress Note ---
Assessment/Plan Problem List: (1) COVID-19 ICD Codes: U07.1 - COVID-19 SNOMED: 488378153 (2) UTI (urinary tract infection) ICD Codes: N39.0 - Urinary tract infection, site not specified SNOMED: 61126438 (3) Anemia ICD Codes: D64.9 - Anemia, unspecified SNOMED: 639979324 Qualifiers: (4) SVT (supraventricular tachycardia) ICD Codes: I47.1 - Supraventricular tachycardia SNOMED: 0096751 (5) Gram-negative bacteremia ICD Codes: R78.81 - Bacteremia SNOMED: 694362041618 (6) Decubitus skin ulcer ICD Codes: L89.90 - Pressure ulcer of unspecified site, unspecified stage SNOMED: 106124614 Qualifiers: Qualified Codes: L89.159 - Pressure ulcer of sacral region, unspecified stage Status: stable, progressing Assessment/Plan: # Acute Hypoxemic respiratory failure # COVID 19 infection previously - now 1 negative swab # Pulmonary HTN Supplemental O2 on 2L NC saturating above 92% Incentive spirometry Trend inflammatory markers Consult to pulmonology appreciate recs Due to active infection not a candidate for remdesivir Sildenafil for pulmonary HTN #SVT #Autonomic dysfunction -Restart metoprolol -Added Digoxin per Cardiology -Continue midodrine -Holding anticoagulation due to anemia -Consult to EP quill collector - may be candidate for ablation at [facility] # Normocytic anemia # Thrombocytopenia # FOBT + -Iron studies reviewd - Trend CBC - Transfuse 1 unit pRBC - 01/16/2020 - Transfuse for Hg less than 7 - Consult to hematology - anticoagulation held - Consult to GI- appreciate recs #MISSY - resolving -Fluid hydration -hold nephrotoxic medications -Electrolyte replacement -Consult to nephrology- appreciate recs. # ESBL UTI # Proteus bacteremia -Follow up cultures - ESBL in urine and Proteus in blood -Continue with Zosyn -Consult to ID -Follow up WBC count #Pressure injuries - Wound care - Recs from surgery - Added po Doxycycline per ID recs DVRppx SCDdue to anemia Physical therapy evaluation 35 minuets was spent on this patient with 10 min face to face with Patient. Coordinated with consultants, reviews labs and images. Discussed plan with RN. Extensive chart review and multiple calls from nursing. Subjective Date patient seen: Jan 18, 2020 Time patient seen: 09:30 ROS Limited/Unobtainable: No Constitutional: Reports: no symptoms HEENT: Reports: no symptoms Cardiovascular: Reports: palpitations Respiratory: Reports: cough, shortness of breath, SOB with excertion, SOB at rest Gastrointestinal/Abdominal: Reports: no symptoms Genitourinary: Reports: frequency Neurologic/Psychiatric: Reports: no symptoms Endocrine: Reports: no symptoms Hematologic/Lymphatic: Reports: anemia Allergies: Coded Allergies: ERYTHROMYCIN BASE (Verified Allergy, Unknown, 01/14/20) HEPARIN (Verified Allergy, Unknown, 01/14/20) Subjective Patient is feeling better and wants to go home and not a SNF. Objective Last 24 Hour Vital Signs Date Time Temp Pulse Resp B/P (MAP) Pulse Ox O2 Delivery O2 Flow Rate FiO2 01/18/20 08:31 85 01/18/20 08:30 85 118/70 01/18/20 08:00 97.1 85 20 118/70 (86) 100 01/18/20 07:36 Nasal Cannula 2.0 01/18/20 04:00 Nasal Cannula 2.0 01/18/20 04:00 98.1 85 18 127/76 (93) 100 01/18/20 03:35 77 01/18/20 00:00 96.8 87 18 102/68 (79) 100 01/18/20 00:00 Nasal Cannula 2.0 01/17/20 23:54 65 01/17/20 21:12 91 119/80 01/17/20 20:00 97.0 87 24 119/80 (93) 100 01/17/20 20:00 82 01/17/20 20:00 Nasal Cannula 2.0 01/17/20 16:00 106 01/17/20 16:00 Nasal Cannula 2.0 01/17/20 16:00 97.7 96 20 121/61 (81) 94 01/17/20 12:03 102 01/17/20 12:00 97.7 61 20 121/68 (85) 99 01/17/20 12:00 Nasal Cannula 2.0 01/17/20 11:22 149 Intake and Output 01/17/20 01/18/20 19:00 07:00 Intake Total 300 ml 815 ml Output Total 600 ml 500 ml Balance -300 ml 315 ml Intake Oral 300 ml 700 ml IV Total 115 ml Output Urine Total 600 ml 500 ml Laboratory Tests 01/17/20 11:41: POC Whole Blood Glucose 90 01/17/20 15:35: POC Whole Blood Glucose [Pending] 01/17/20 21:01: POC Whole Blood Glucose [Pending] 01/18/20 05:00: White Blood Count 3.8L, Red Blood Count 2.96L, Hemoglobin 8.1L, Hematocrit 28.0L , Mean Corpuscular Volume 95, Mean Corpuscular Hemoglobin 27.5, Mean Corpuscular Hemoglobin Concent 29.0L, Red Cell Distribution Width 17.2H, Platelet Count 110L, Mean Platelet Volume 8.0, Neutrophils (%) (Auto) 70.0, Lymphocytes (%) (Auto) 16.7L, Monocytes (%) (Auto) 7.0, Eosinophils (%) (Auto) 5.5H, Basophils (%) (Auto) 0.9, Stool Occult Blood Positive, Sodium Level 142, Potassium Level 3.7, Chloride Level 108H, Carbon Dioxide Level 24, Anion Gap 10 , Blood Urea Nitrogen 39H, Creatinine 1.0, Estimat Glomerular Filtration Rate 56.5, Glucose Level 90, Calcium Level 8.8, Total Bilirubin 0.4, Aspartate Amino Transf (AST/SGOT) 25, Alanine Aminotransferase (ALT/SGPT) 30, Alkaline Phosphatase 118H, Total Protein 6.3L, Albumin 2.0L, Globulin 4.3, Albumin/ Globulin Ratio 0.5L Height (Feet): 5 Height (Inches): 5.00 Weight (Pounds): 237 General Appearance: no apparent distress, alert, obese EENT: PERRL/EOMI Neck: normal alignment, supple, normal inspection Cardiovascular: regular rhythm, no gallop/murmur, no JVD, tachycardia Respiratory/Chest: chest wall non-tender, no respiratory distress, no accessory muscle use, crackles/rales Abdomen: normal bowel sounds, non tender, soft Pelvis: normal external exam Extremities: non-tender, normal inspection Edema: trace edema Neurologic: transcript clerk [id number] grossly normal, alert, oriented x 3, responsive, normal mood/affect Khanh Stuart M.D. Jan 18, 2020 11:01
[2020-01-18 12:00] VITALS: BP 106/60
--- NOTE | 2020-01-18 13:26 | Surgery Progress Note ---
Surgery Progress Note Subjective Additional Comments no acute events Objective Last 24 Hour Vital Signs Date Time Temp Pulse Resp B/P (MAP) Pulse Ox O2 Delivery O2 Flow Rate FiO2 01/18/20 12:00 97.5 82 20 106/60 (75) 99 01/18/20 12:00 Nasal Cannula 2.0 01/18/20 11:36 71 01/18/20 08:31 85 01/18/20 08:30 85 118/70 01/18/20 08:00 97.1 85 20 118/70 (86) 100 01/18/20 07:47 73 01/18/20 07:36 Nasal Cannula 2.0 01/18/20 04:00 Nasal Cannula 2.0 01/18/20 04:00 98.1 85 18 127/76 (93) 100 01/18/20 03:35 77 01/18/20 00:00 96.8 87 18 102/68 (79) 100 01/18/20 00:00 Nasal Cannula 2.0 01/17/20 23:54 65 01/17/20 21:12 91 119/80 01/17/20 20:00 97.0 87 24 119/80 (93) 100 01/17/20 20:00 82 01/17/20 20:00 Nasal Cannula 2.0 01/17/20 16:00 106 01/17/20 16:00 Nasal Cannula 2.0 01/17/20 16:00 97.7 96 20 121/61 (81) 94 I&O Intake and Output 01/17/20 01/18/20 19:00 07:00 Intake Total 300 ml 815 ml Output Total 600 ml 500 ml Balance -300 ml 315 ml Intake Oral 300 ml 700 ml IV Total 115 ml Output Urine Total 600 ml 500 ml Dressing: other Wound: other Cardiovascular: RSR Respiratory: decreased breath sounds Abdomen: soft, non-tender, present bowel sounds Extremities: no cyanosis Laboratory Tests Test 01/17/20 15:35 01/17/20 21:01 01/18/20 05:00 01/18/20 12:25 POC Whole Blood Glucose Pending Pending 84 MG/DL (74-106) White Blood Count 3.8 K/UL (4.8-10.8) L Red Blood Count 2.96 M/UL (4.20-5.40) L Hemoglobin 8.1 G/DL (12.0-16.0) L Hematocrit 28.0 % (37.0-47.0) L Mean Corpuscular Volume 95 FL (80-99) Mean Corpuscular Hemoglobin 27.5 PG (27.0-31.0) Mean Corpuscular Hemoglobin Concent 29.0 G/DL (32.0-36.0) L Red Cell Distribution Width 17.2 % (11.6-14.8) H Platelet Count 110 K/UL (150-450) L Mean Platelet Volume 8.0 FL (6.5-10.1) Neutrophils (%) (Auto) 70.0 % (45.0-75.0) Lymphocytes (%) (Auto) 16.7 % (20.0-45.0) L Monocytes (%) (Auto) 7.0 % (1.0-10.0) Eosinophils (%) (Auto) 5.5 % (0.0-3.0) H Basophils (%) (Auto) 0.9 % (0.0-2.0) Stool Occult Blood Positive (NEGATIVE) Sodium Level 142 MMOL/L (136-145) Potassium Level 3.7 MMOL/L (3.5-5.1) Chloride Level 108 MMOL/L (98-107) H Carbon Dioxide Level 24 MMOL/L (21-32) Anion Gap 10 mmol/L (5-15) Blood Urea Nitrogen 39 mg/dL (7-18) H Creatinine 1.0 MG/DL (0.55-1.30) Estimat Glomerular Filtration Rate 56.5 mL/min (>60) Glucose Level 90 MG/DL (74-106) Calcium Level 8.8 MG/DL (8.5-10.1) Total Bilirubin 0.4 MG/DL (0.2-1.0) Aspartate Amino Transf (AST/SGOT) 25 U/L (15-37) Alanine Aminotransferase (ALT/SGPT) 30 U/L (12-78) Alkaline Phosphatase 118 U/L (46-116) H Total Protein 6.3 G/DL (6.4-8.2) L Albumin 2.0 G/DL (3.4-5.0) L Globulin 4.3 g/dL Albumin/Globulin Ratio 0.5 (1.0-2.7) L Plan Problems: (1) Sepsis Assessment & Plan: Morbidly obese pt whom presented on admission with Multiple Pressure injuries. Pt stated wounds rapidly developed approx 3 weeks ago while acutely ill. Pt is on oxygen via N/C. Both ears assessed and no evidence of skin breakdown noted. Foam padding around oxygen tubing and pt was advised to maintain tubing loose around ears. Moisture Intertrigo noted to abd folds,R and L groin. 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 Base of wound is 100% soft Black/ rubin necrosis. Bone is palpable. Wound is malodorous. Small amt haemopurulent exudate noted. Borders are irregular, erythematous and macerated.Periwound is erythematous,indurated with additional Pressure injuries and shearing. At L gluteus is a full Thickness Pressure injury(L)7.5cm x (W)4.5cm.90% mixed necrosis/slough,10% pink epithelial at base of wound. Borders are erythematous and macerated. Small amt serous exudate noted. At R Gluteus is full thickness Pressure injury(L)7.3cm x (W)4.5cm. Base of wound is 100% slough. Borders are erythematous and macerated. Small amt serous exudate noted. Full Thickness stage 4 Pressure injury R lower Buttocks(L)4.4cm x (W)7.5cm. Base of wound is 25% necrotic,75% fibrinous slough. Wound is malodorous. Small amt haemopurulent exudate noted. Wound is malodorous. Borders are erythematous and macerated. Full Thickness stage 4 Pressure Injury R Ischium(L)7.6cm x (W)5.4cm. Base of wound is 25% necrotic,60% slough,15% pink epithelial. Small amt seropurulent exudate noted. Wound is malodorous.Borders are erythematous and macerated. Two Full thickness Pressure Injuries that are in close Proximity lower L buttocks.(Proximal)(L)3.5cm x (W)2.6cm.100% soft necrosis at base of wound. Marginal erythema along borders.Periwound L buttocks erythematous with shearing. (Distal)(L)1.3cm x (W)0.9cm. 100% slough at base of wound.Marginal erythema along Borders. Two Unstageable Pressure injuries L Ischium:(Proximal)(L)1.2cm x (W)1.9cm Base of wound is 90% slough,10%pink moist erythema.(Distal) L) 6cm x (W)5.3cm. 90% slough,10% moist erythema at base of wound. Small amt. seropurulent exudate noted. No odor noted. Borders are macerated. Periwound is erythematous with additional shearing. DTPI medial/posterior Upper L thigh which presents as blood Blister that is partially opened(L)1.1cm x (W)6.8cm.Open wound at most medial portion of wound ( L)1.1cm x (W)1.3cm noted to have slough at base. Stable dry eschar L pre-tibial (L)1.5cm x (W)1cm. Haemosiderin with dry scaly plaques L lower ext. DTPI L lateral Malleolus(L)2.3cm x (W)0.9cm. Wound presents as an intact Blood Blister. Non-Healing Surgical wound R Achilles. Pt stated she had surgical repair approximately 2 years ago. Base of wound is 40% fibrinous slough,10% necrotic , 50% pale pink. Edges are macerated. Keloid scar at distal portion of surgical wound. No odor or exudate noted. Surrounding Haemosiderin noted to R lower ext. Full thickness Pressure injury R lateral Malleolus(L)4.8cm x (W)5.8cm. Base of wound is 80%mixed soft necrosis and fibrinous slough,20% pink and moist. Small amt seropurulent exudate noted. (+) Epibole along borders.Periwound is erythematous. No elevation in skin temp. No odor noted. R Heel is boggy but blanchable. Historical scar noted to R heel. L Heel is boggy but blanchable. wounds unlikely etiology uti abx as per ID Tx.Plan: Cleanse Sacral,R and L Buttocks,R and L ischium wounds with Dakin's 0.125% Harjeet. Loosely pack with Dakin's moistened Gauze. Apply Triad Periwound. Cover with Optifoam drsgs Daily and prn. Cleanse Wound R Achilles with Dakin's 0.125% harjeet. Apply Dakin's Moistened Gauze. Apply Triad periwound. Cover with ABD Pad and Wrap with Kerlix Daily and prn. Cleanse Wound lateral R Malleolus with Dakin's 0.125%. harjeet. Apply Dakin's moistened Gauze to wound. Apply Triad Paste periwound. Cover with ABD Pad. Wrap with Kerlix Daily and prn. Apply Cavilon Skin Barrier to both heels. Cover each heel with Optifoam drsg. Change every 7 days and prn. Apply Triad Paste to abdominal folds and Bilat groin Twice Daily. Reposition at least every 2hours or as tolerated. Off-load heels with Pillow Bariatric bed with APM/LEO Mattress. (2) UTI (urinary tract infection) (3) COVID-19 (4) Anemia (5) SOB (shortness of breath) (6) Tachycardia (7) Decubitus skin ulcer Assessment & Plan: Patient presented with multiple decubitus skin ulcers in various stages. Wounds evaluated initial staging and care plan initiated. Will follow with recommendations. DAILY ESTIMATED NEEDS: Needs based on Wounds, DM 62kg abw 25-30 kcals/kg 7182-8189 total kcals 1.5-2 g protein/kg 93-124 g total protein 25-30 mL/kg 6988-9507 total fluid mLs NUTRITION DIAGNOSIS: Increase pro needs r/t wound healing as evidenced by pt w/ multiple areas of skin breakdown, eval pending, per photos, wounds appear open and advanced. CURRENT DIET: CCHO LOW PO DIET RECOMMENDATIONS: CCHO LOW + DOUBLE PROTEIN PORTIONS ADDITIONAL RECOMMENDATIONS: 1) Texture per CHOCOLATE DIPPER 2) Add Glucerna 1 tetra TID 3) Wound care, f/up w/ WC eval 4) Monitor po intake, no record at this time Jens Hoang Jan 18, 2020 13:26
--- NOTE | 2020-01-18 15:19 | Cardiac Electrophysiology PN ---
Assessment/Plan Assessment/Plan 1. Runs of regular sudden onset and termination supraventricular tachycardia. Blood pressure in the 90s. On metoprolol 25 mg b.i.d. and digoxin 0.125 daily. Echocardiogram EF 55% and ruled out for GA Dig level <0.2 2. Hypertension. On metoprolol 25 mg b.i.d. 3. Diabetes. 4. End-stage renal disease. 5. Status post recent COVID. 6. Severe anemia, hemoglobin 6.5, S/P 1 unit of blood transfusion. 7. Huge decubitus ulcer. 8. Hx of DVT. Eliquis held for severe anemia. Records from [facility] reviewed and DW RN and Dr Calderon Subjective Subjective No more SVT ovenight on Lopressor 25 bid and Dig daily. Covid negative x1. Was swabbed again on 01/16/20 Objective Last 24 Hour Vital Signs Date Time Temp Pulse Resp B/P (MAP) Pulse Ox O2 Delivery O2 Flow Rate FiO2 01/18/20 12:00 97.5 82 20 106/60 (75) 99 01/18/20 12:00 Nasal Cannula 2.0 01/18/20 11:36 71 01/18/20 08:31 85 01/18/20 08:30 85 118/70 01/18/20 08:00 97.1 85 20 118/70 (86) 100 01/18/20 07:47 73 01/18/20 07:36 Nasal Cannula 2.0 01/18/20 04:00 Nasal Cannula 2.0 01/18/20 04:00 98.1 85 18 127/76 (93) 100 01/18/20 03:35 77 01/18/20 00:00 96.8 87 18 102/68 (79) 100 01/18/20 00:00 Nasal Cannula 2.0 01/17/20 23:54 65 01/17/20 21:12 91 119/80 01/17/20 20:00 97.0 87 24 119/80 (93) 100 01/17/20 20:00 82 01/17/20 20:00 Nasal Cannula 2.0 01/17/20 16:00 106 01/17/20 16:00 Nasal Cannula 2.0 01/17/20 16:00 97.7 96 20 121/61 (81) 94 Intake and Output 01/17/20 01/18/20 19:00 07:00 Intake Total 300 ml 815 ml Output Total 600 ml 500 ml Balance -300 ml 315 ml Intake Oral 300 ml 700 ml IV Total 115 ml Output Urine Total 600 ml 500 ml Laboratory Tests Test 01/17/20 15:35 01/17/20 21:01 01/18/20 05:00 01/18/20 10:00 POC Whole Blood Glucose Pending Pending White Blood Count 3.8 K/UL (4.8-10.8) L Red Blood Count 2.96 M/UL (4.20-5.40) L Hemoglobin 8.1 G/DL (12.0-16.0) L Hematocrit 28.0 % (37.0-47.0) L Mean Corpuscular Volume 95 FL (80-99) Mean Corpuscular Hemoglobin 27.5 PG (27.0-31.0) Mean Corpuscular Hemoglobin Concent 29.0 G/DL (32.0-36.0) L Red Cell Distribution Width 17.2 % (11.6-14.8) H Platelet Count 110 K/UL (150-450) L Mean Platelet Volume 8.0 FL (6.5-10.1) Neutrophils (%) (Auto) 70.0 % (45.0-75.0) Lymphocytes (%) (Auto) 16.7 % (20.0-45.0) L Monocytes (%) (Auto) 7.0 % (1.0-10.0) Eosinophils (%) (Auto) 5.5 % (0.0-3.0) H Basophils (%) (Auto) 0.9 % (0.0-2.0) Stool Occult Blood Positive (NEGATIVE) Pending Sodium Level 142 MMOL/L (136-145) Potassium Level 3.7 MMOL/L (3.5-5.1) Chloride Level 108 MMOL/L (98-107) H Carbon Dioxide Level 24 MMOL/L (21-32) Anion Gap 10 mmol/L (5-15) Blood Urea Nitrogen 39 mg/dL (7-18) H Creatinine 1.0 MG/DL (0.55-1.30) Estimat Glomerular Filtration Rate 56.5 mL/min (>60) Glucose Level 90 MG/DL (74-106) Calcium Level 8.8 MG/DL (8.5-10.1) Total Bilirubin 0.4 MG/DL (0.2-1.0) Aspartate Amino Transf (AST/SGOT) 25 U/L (15-37) Alanine Aminotransferase (ALT/SGPT) 30 U/L (12-78) Alkaline Phosphatase 118 U/L (46-116) H Total Protein 6.3 G/DL (6.4-8.2) L Albumin 2.0 G/DL (3.4-5.0) L Globulin 4.3 g/dL Albumin/Globulin Ratio 0.5 (1.0-2.7) L Test 01/18/20 12:25 POC Whole Blood Glucose 84 MG/DL (74-106) Microbiology Date/Time Source Procedure Growth Status 01/15/20 18:20 Urine,Clean Catch Urine Culture - Final Escherichia Coli - Esbl Complete Objective HEAD AND NECK: no JVD. LUNGS: Coarse rhonchi. CARDIOVASCULAR: Regular S1 and S2 with no gallop. ABDOMEN: Soft. EXTREMITIES: No pitting edema. Austin Byrd MD Jan 18, 2020 15:19
[2020-01-18 16:00] VITALS: BP 129/61
[2020-01-18 20:00] VITALS: BP 135/65
--- NOTE | 2020-01-18 20:45 | Infectious Diseases Prog Note ---
Assessment/Plan Assessment/Plan ASSESSMENT AND PLAN: 1. esbl e.coli uti/pyelonephritis with bacteremia, proteus bacteremia, sepsis, fevers, leukopenia - meropenem - day # 2 - monitor labs - surveillance blood cultures - fevers better 2. Patient has history COVID-19 virus infection - repeat covid testing negative by pcr 3. multiple wounds - surgery management, on meropenem and doxycycline 4. Patient has diabetes. 5. Hypertension. 6. Blood sugar and blood pressure treatment primary care team for diabetes and hypertension and cardiology assessment also. 7. Anemia. 8. History of renal failure in the past. Hemodialysis seems to have improved. 9. Tachycardia. 10. Continue treatment per primary consultants. 11. Allergic to erythromycin base and heparin. 12. Social history is negative. 13. Family history is noncontributory. 14. MAR was noted. 15. Case discussed with RN. Subjective Constitutional: Reports: fatigue; Denies: fever HEENT: Denies: congestion Respiratory: Denies: shortness of breath Cardiovascular: Denies: chest pain Gastrointestinal/Abdominal: Denies: nausea, vomiting, diarrhea Genitourinary: Reports: other - + topete Neurologic: Denies: headache Psychiatric: Denies: depression Skin: Denies: rash Hematologic: Denies: bleeding Musculoskeletal: Denies: pain Allergies: Coded Allergies: ERYTHROMYCIN BASE (Verified Allergy, Unknown, 01/14/20) HEPARIN (Verified Allergy, Unknown, 01/14/20) Objective Last 24 Hour Vital Signs Date Time Temp Pulse Resp B/P (MAP) Pulse Ox O2 Delivery O2 Flow Rate FiO2 01/18/20 16:00 Nasal Cannula 2.0 01/18/20 16:00 98.1 80 20 129/61 (83) 95 01/18/20 15:28 75 01/18/20 12:00 97.5 82 20 106/60 (75) 99 01/18/20 12:00 Nasal Cannula 2.0 01/18/20 11:36 71 01/18/20 08:31 85 01/18/20 08:30 85 118/70 01/18/20 08:00 97.1 85 20 118/70 (86) 100 01/18/20 07:47 73 01/18/20 07:36 Nasal Cannula 2.0 01/18/20 04:00 Nasal Cannula 2.0 01/18/20 04:00 98.1 85 18 127/76 (93) 100 01/18/20 03:35 77 01/18/20 00:00 96.8 87 18 102/68 (79) 100 01/18/20 00:00 Nasal Cannula 2.0 01/17/20 23:54 65 01/17/20 21:12 91 119/80 Height (Feet): 5 Height (Inches): 5.00 Weight (Pounds): 237 General Appearance: no acute distress HEENT: normocephalic, atraumatic, anicteric, mucous membranes moist Respiratory/Chest: lungs clear, normal breath sounds, no respiratory distress, no accessory muscle use Cardiovascular: normal rate, regular rhythm, no gallop/murmur, no JVD Abdomen: normal bowel sounds, soft, non tender, no organomegaly, non distended Genitourinary: other - + topete - urine cloudy but clearer Extremities: no cyanosis Skin: no rash Neurologic/Psychiatric: 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 The heart is normal in size. The aorta is tortuous and ectatic. Left arm PICC is noted Impression: No acute process Microbiology Date/Time Source Procedure Growth Status 01/14/20 18:16 Blood Blood Culture - Final Proteus Mirabilis Complete 01/14/20 18:05 Nasopharynx Coronavirus COVID-19 PCR ([facility]) - Final Complete 01/15/20 18:20 Urine,Clean Catch Urine Culture - Final Escherichia Coli - Esbl Complete Laboratory Tests Test 01/17/20 21:01 01/18/20 05:00 01/18/20 10:00 01/18/20 12:25 POC Whole Blood Glucose Pending 84 MG/DL (74-106) White Blood Count 3.8 K/UL (4.8-10.8) L Red Blood Count 2.96 M/UL (4.20-5.40) L Hemoglobin 8.1 G/DL (12.0-16.0) L Hematocrit 28.0 % (37.0-47.0) L Mean Corpuscular Volume 95 FL (80-99) Mean Corpuscular Hemoglobin 27.5 PG (27.0-31.0) Mean Corpuscular Hemoglobin Concent 29.0 G/DL (32.0-36.0) L Red Cell Distribution Width 17.2 % (11.6-14.8) H Platelet Count 110 K/UL (150-450) L Mean Platelet Volume 8.0 FL (6.5-10.1) Neutrophils (%) (Auto) 70.0 % (45.0-75.0) Lymphocytes (%) (Auto) 16.7 % (20.0-45.0) L Monocytes (%) (Auto) 7.0 % (1.0-10.0) Eosinophils (%) (Auto) 5.5 % (0.0-3.0) H Basophils (%) (Auto) 0.9 % (0.0-2.0) Stool Occult Blood Positive (NEGATIVE) Pending Sodium Level 142 MMOL/L (136-145) Potassium Level 3.7 MMOL/L (3.5-5.1) Chloride Level 108 MMOL/L (98-107) H Carbon Dioxide Level 24 MMOL/L (21-32) Anion Gap 10 mmol/L (5-15) Blood Urea Nitrogen 39 mg/dL (7-18) H Creatinine 1.0 MG/DL (0.55-1.30) Estimat Glomerular Filtration Rate 56.5 mL/min (>60) Glucose Level 90 MG/DL (74-106) Calcium Level 8.8 MG/DL (8.5-10.1) Total Bilirubin 0.4 MG/DL (0.2-1.0) Aspartate Amino Transf (AST/SGOT) 25 U/L (15-37) Alanine Aminotransferase (ALT/SGPT) 30 U/L (12-78) Alkaline Phosphatase 118 U/L (46-116) H Total Protein 6.3 G/DL (6.4-8.2) L Albumin 2.0 G/DL (3.4-5.0) L Globulin 4.3 g/dL Albumin/Globulin Ratio 0.5 (1.0-2.7) L Test 01/18/20 16:48 POC Whole Blood Glucose 84 MG/DL (74-106) Current Medications Medications (Trade) Dose Ordered Sig/Samuel Route PRN Reason Start Time Stop Time Status Last Admin Dose Admin Acetaminophen (Tylenol) 650 mg Q6H PRN ORAL Mild Pain (Pain Scale 1-3) 01/15/20 03:15 02/14/20 03:14 01/16/20 01:38 Acetaminophen (Tylenol) 650 mg Q6H PRN ORAL Temp >100.5 01/15/20 03:15 02/14/20 03:14 Acetaminophen/ Hydrocodone Bitart ([place] 5/325) 1 tab Q6H PRN ORAL For Pain 01/16/20 07:00 01/23/20 06:59 01/18/20 06:05 Ascorbic Acid (Vitamin C) 250 mg TWICE A DAY ORAL 01/17/20 18:00 02/16/20 17:59 01/18/20 16:56 Chlorhexidine Gluconate (Mel-Hex 2%) 1 applic DAILY@2000 TOPIC 01/15/20 20:00 04/14/20 19:59 01/17/20 21:09 Dextrose (Dextrose 50%) 25 ml Q30M PRN IV Hypoglycemia 01/14/20 23:15 04/13/20 23:14 Dextrose (Dextrose 50%) 50 ml Q30M PRN IV Hypoglycemia 01/14/20 23:15 04/13/20 23:14 Digoxin (Lanoxin) 0.125 mg DAILY ORAL 01/17/20 09:00 04/16/20 08:59 01/18/20 08:31 Doxycycline Monohydrate (Doxycycline Monohydrate) 100 mg EVERY 12 HOURS ORAL 01/18/20 09:00 01/25/20 08:59 01/18/20 08:31 Duloxetine HCl (Cymbalta) 60 mg DAILY ORAL 01/17/20 14:45 04/16/20 14:44 01/18/20 08:30 Insulin Aspart (NovoLOG) BEFORE MEALS AND HS SUBQ 01/15/20 06:30 04/14/20 06:29 01/16/20 05:47 Insulin Detemir (Levemir) 11 units BEDTIME SUBQ 01/15/20 21:00 04/14/20 20:59 01/15/20 21:21 Iron Sucrose 100 mg/Sodium Chloride 60 ml @ 240 mls/hr BEDTIME IV 01/16/20 21:00 01/20/20 21:14 01/17/20 21:12 Meropenem 1 gm/ Sodium Chloride 55 ml @ 110 mls/hr Q12HR IVPB 01/17/20 17:00 01/22/20 16:59 01/18/20 08:33 Metoprolol Tartrate (Lopressor) 25 mg Q12HR ORAL 01/15/20 09:00 04/14/20 08:59 01/18/20 08:30 Midodrine (Pro-Amatine) 5 mg TID PRN ORAL sbp<110 01/15/20 09:00 04/14/20 08:59 Multivitamins (Multivitamins) 1 tab Q24H ORAL 01/18/20 07:00 02/17/20 06:59 01/18/20 06:05 Pantoprazole (Protonix) 40 mg DAILY ORAL 01/19/20 09:00 02/18/20 08:59 Sildenafil Citrate (Revatio) 20 mg DAILY ORAL 01/15/20 09:00 04/14/20 08:59 01/18/20 08:30 Sodium Hypochlorite (Dakin's Quarter Strength) 1 applic DAILY TOPIC 01/15/20 11:00 02/14/20 10:59 01/18/20 08:32 Zinc Sulfate (Zinc Sulfate) 220 mg Q24H ORAL 01/18/20 07:00 04/17/20 06:59 01/18/20 06:05 Maria A Parra MD Jan 18, 2020 20:45
[2020-01-18] MEDS: Levemir Flexpen SUBQ SCH (21:00)
[2020-01-18] MEDS: Dyna-Hex 2% Top Sol 2oz TOPIC SCH (21:00)
[2020-01-18] MEDS: Iron Sucrose 100 MG in NS 55 ML IV SCH (21:01)
--- NOTE | 2020-01-18 21:35 | Nephrology Progress Note ---
Assessment/Plan Plan #MISSY due to pre-rernal azotemia in the setting of anemia #Acute on chronic anemia # Acute Hypoxemic respiratory failure # COVID 19 infection previously - now 1 negative swab # Pulmonary HTN #UTI #runs of SVTs #ho/ HTN DM = - defer further renal work up pending evolution of kidney function - monitor CBC - IV iron - GI eval - continue metop 25mg BID - holding AC- on apixaban - continue with dig - avoid nephrotoxins - strict I&Os - monitor weights - check BMP, mag and phos daily Time spent 70 min > 50% on care coordiation and counseling Subjective ROS Limited/Unobtainable: Yes Constitutional: Reports: malaise, weakness HEENT: Denies: no symptoms, eye pain, blurred vision, tearing, double vision, ear pain, ear discharge, nose pain, nose congestion, throat pain, throat swelling, mouth pain, mouth swelling, other Genitourinary: Denies: no symptoms, burning, discharge, frequency, flank pain, hematuria, incontinence, pain, urgency, other Neurologic/Psychiatric: Denies: no symptoms, anxiety, depressed, emotional problems, headache, numbness, paresthesia, pre-existing deficit, seizure, tingling, tremors, weakness, other Subjective Cr improved BP stable s/p one unit of prbc on NC at 2 L Objective Objective Last 24 Hour Vital Signs Date Time Temp Pulse Resp B/P (MAP) Pulse Ox O2 Delivery O2 Flow Rate FiO2 01/18/20 21:01 96 126/62 01/18/20 20:00 Nasal Cannula 2.0 Nasal Cannula 2.0 01/18/20 16:00 Nasal Cannula 2.0 01/18/20 16:00 98.1 80 20 129/61 (83) 95 01/18/20 15:28 75 01/18/20 12:00 97.5 82 20 106/60 (75) 99 01/18/20 12:00 Nasal Cannula 2.0 01/18/20 11:36 71 01/18/20 08:31 85 01/18/20 08:30 85 118/70 01/18/20 08:00 97.1 85 20 118/70 (86) 100 01/18/20 07:47 73 01/18/20 07:36 Nasal Cannula 2.0 01/18/20 04:00 Nasal Cannula 2.0 01/18/20 04:00 98.1 85 18 127/76 (93) 100 01/18/20 03:35 77 01/18/20 00:00 96.8 87 18 102/68 (79) 100 01/18/20 00:00 Nasal Cannula 2.0 01/17/20 23:54 65 Intake and Output 01/17/20 01/18/20 19:00 07:00 Intake Total 300 ml 815 ml Output Total 600 ml 500 ml Balance -300 ml 315 ml Intake Oral 300 ml 700 ml IV Total 115 ml Output Urine Total 600 ml 500 ml Laboratory Tests 01/18/20 05:00: White Blood Count 3.8L, Red Blood Count 2.96L, Hemoglobin 8.1L, Hematocrit 28.0L , Mean Corpuscular Volume 95, Mean Corpuscular Hemoglobin 27.5, Mean Corpuscular Hemoglobin Concent 29.0L, Red Cell Distribution Width 17.2H, Platelet Count 110L, Mean Platelet Volume 8.0, Neutrophils (%) (Auto) 70.0, Lymphocytes (%) (Auto) 16.7L, Monocytes (%) (Auto) 7.0, Eosinophils (%) (Auto) 5.5H, Basophils (%) (Auto) 0.9, Stool Occult Blood Positive, Sodium Level 142, Potassium Level 3.7, Chloride Level 108H, Carbon Dioxide Level 24, Anion Gap 10 , Blood Urea Nitrogen 39H, Creatinine 1.0, Estimat Glomerular Filtration Rate 56.5, Glucose Level 90, Calcium Level 8.8, Total Bilirubin 0.4, Aspartate Amino Transf (AST/SGOT) 25, Alanine Aminotransferase (ALT/SGPT) 30, Alkaline Phosphatase 118H, Total Protein 6.3L, Albumin 2.0L, Globulin 4.3, Albumin/ Globulin Ratio 0.5L 01/18/20 10:00: Stool Occult Blood [Pending] 01/18/20 12:25: POC Whole Blood Glucose 84 01/18/20 16:48: POC Whole Blood Glucose 84 Height (Feet): 5 Height (Inches): 5.00 Weight (Pounds): 237 Phil Morse M.D. Jan 18, 2020 21:35
--- NOTE | 2020-01-18 21:45 | Consultation ---
DATE OF CONSULTATION: 01/18/2020 GASTROENTEROLOGY CONSULTATION CONSULTING PHYSICIAN: Manuel Lyon M.D. CHIEF COMPLAINT: Anemia. HISTORY OF PRESENT ILLNESS: This is a 59-year-old female, assisted patient, was admitted to the hospital mainly for abnormal vital signs, was found to be profoundly anemic, requiring blood transfusion and stool for occult blood came back positive and so GI consultation was requested for evaluation. PAST MEDICAL HISTORY: Significant for: 1. History of diabetes. 2. End-stage renal disease, on hemodialysis. 3. Recent diagnosis of COVID positive pneumonia. 4. GERD. 5. Diabetes. 6. COPD. 7. Hypertension. PAST SURGICAL HISTORY: None. ALLERGIES: Erythromycin and heparin. MEDICATIONS: Please see medication reconciliation list. SOCIAL HISTORY: Currently lives in a assisted. No recent history of tobacco, alcohol, or drug abuse. FAMILY HISTORY: Noncontributory. PHYSICAL EXAMINATION: VITAL SIGNS: Temperature is 97.1, pulse 85, respirations 20, blood pressure is 118/70. HEENT: Normocephalic, atraumatic. Mild pale conjunctivae. NECK: Supple. No evidence of obvious lymphadenopathy. CARDIOVASCULAR: Regular rate and rhythm. Plus S1-S2. LUNGS: Decreased breath sounds bilaterally based on the supine exam. ABDOMEN: Soft, nontender. No rebound. No guarding. No peritoneal sign. EXTREMITIES: No cyanosis, no clubbing, no edema. LABORATORY DATA: White count is 3.8, hemoglobin 8.1, hematocrit 28, platelets of 110. Chem-7, sodium 142, potassium 3.7, BUN is 39, creatinine is 1.0. ASSESSMENT AND PLAN: This is a 59-year-old female with profound anemia, stool OB positive, pancytopenia. This picture is little bit confusing. The patient has anemia, currently on IV iron, but also has pancytopenia, but also has stool OB positive for blood. Currently, the patient is in isolation for COVID, rule out COVID. Our plan will be to discontinue Pepcid, start the patient on Protonix, send another stool for OB. Consider GI procedures if the patient is off of isolation and if needed. Pedro Vosoghi, M.D. DR: COSTA JOB#: [id number] CC:
[2020-01-19] VITALS: BP 109/67
[2020-01-19] MEDS: HYDROcodone/Acetamin 5/325 tab ORAL PRN ×3 (00:09→13:28)
[2020-01-19 04:00] VITALS: BP 144/67
[2020-01-19] MEDS: Zinc Sulfate 220mg ORAL SCH (06:21)
[2020-01-19] MEDS: Meropenem 1gm in NS 55ml IVPB SCH ×3 (06:21→23:23)
[2020-01-19] MEDS: NovoLOG Insulin Flexpen SUBQ SCH ×4 (06:30→21:00)
--- NOTE | 2020-01-19 06:55 | General Progress Note ---
Assessment/Plan Status: stable, progressing Assessment/Plan: 1. History of diabetes. 2. End-stage renal disease, on hemodialysis. 3. Recent diagnosis of COVID positive pneumonia. 4. GERD. 5. Diabetes. 6. COPD. 7. Hypertension. 8. Diarrhea 9. Anemia 10. Stool ob + 11. pancytopenia add imodium prn stool for C.diff ppi repeat cbc repeat stool ob fu hematology recs consider GI procedures if persistent stool ob positive Subjective Allergies: Coded Allergies: ERYTHROMYCIN BASE (Verified Allergy, Unknown, 01/14/20) HEPARIN (Verified Allergy, Unknown, 01/14/20) Objective Last 24 Hour Vital Signs Date Time Temp Pulse Resp B/P (MAP) Pulse Ox O2 Delivery O2 Flow Rate FiO2 01/19/20 04:00 Nasal Cannula 2.0 Nasal Cannula 2.0 01/19/20 04:00 98.0 104 22 144/67 (92) 97 01/19/20 03:37 120 01/19/20 00:00 Nasal Cannula 2.0 Nasal Cannula 2.0 01/19/20 00:00 97.4 89 24 109/67 (81) 100 01/18/20 23:43 110 01/18/20 21:01 96 126/62 01/18/20 20:00 Nasal Cannula 2.0 Nasal Cannula 2.0 01/18/20 20:00 97.3 94 24 135/65 (88) 96 01/18/20 19:47 119 01/18/20 16:00 Nasal Cannula 2.0 01/18/20 16:00 98.1 80 20 129/61 (83) 95 01/18/20 15:28 75 01/18/20 12:00 97.5 82 20 106/60 (75) 99 01/18/20 12:00 Nasal Cannula 2.0 01/18/20 11:36 71 01/18/20 08:31 85 01/18/20 08:30 85 118/70 01/18/20 08:00 97.1 85 20 118/70 (86) 100 01/18/20 07:47 73 01/18/20 07:36 Nasal Cannula 2.0 Intake and Output 01/18/20 01/19/20 19:00 07:00 Intake Total 560 ml 615 ml Output Total 800 ml 500 ml Balance -240 ml 115 ml Intake Oral 450 ml 500 ml IV Total 110 ml 115 ml Output Urine Total 800 ml 500 ml # Bowel Movements 4 2 Laboratory Tests 01/18/20 10:00: Stool Occult Blood [Pending] 01/18/20 12:25: POC Whole Blood Glucose 84 01/18/20 16:48: POC Whole Blood Glucose 84 01/19/20 06:35: POC Whole Blood Glucose 77 Height (Feet): 5 Height (Inches): 5.00 Weight (Pounds): 237 General Appearance: alert EENT: PERRL/EOMI Neck: normal alignment Cardiovascular: normal rate Respiratory/Chest: decreased breath sounds Abdomen: non tender, hypoactive bowel sounds Extremities: non-tender Pedro Braun MD Jan 19, 2020 06:55
[2020-01-19 08:00] VITALS: BP 106/51
--- NOTE | 2020-01-19 08:06 | Pulmonology Progress Note ---
Subjective ROS Limited/Unobtainable: No Interval Events: None new Constitutional: Reports: fatigue; Denies: fever HEENT: Repors: no symptoms Respiratory: Reports: shortness of breath Cardiovascular: Reports: no symptoms Gastrointestinal/Abdominal: Denies: nausea, vomiting, diarrhea Psychiatric: Denies: depression Skin: Denies: rash Musculoskeletal: Denies: pain Allergies: Coded Allergies: ERYTHROMYCIN BASE (Verified Allergy, Unknown, 01/14/20) HEPARIN (Verified Allergy, Unknown, 01/14/20) All Systems: reviewed and negative except above Objective Last 24 Hour Vital Signs Date Time Temp Pulse Resp B/P (MAP) Pulse Ox O2 Delivery O2 Flow Rate FiO2 01/19/20 04:00 Nasal Cannula 2.0 Nasal Cannula 2.0 01/19/20 04:00 98.0 104 22 144/67 (92) 97 01/19/20 03:37 120 01/19/20 00:00 Nasal Cannula 2.0 Nasal Cannula 2.0 01/19/20 00:00 97.4 89 24 109/67 (81) 100 01/18/20 23:43 110 01/18/20 21:01 96 126/62 01/18/20 20:00 Nasal Cannula 2.0 Nasal Cannula 2.0 01/18/20 20:00 97.3 94 24 135/65 (88) 96 01/18/20 19:47 119 01/18/20 16:00 Nasal Cannula 2.0 01/18/20 16:00 98.1 80 20 129/61 (83) 95 01/18/20 15:28 75 01/18/20 12:00 97.5 82 20 106/60 (75) 99 01/18/20 12:00 Nasal Cannula 2.0 01/18/20 11:36 71 01/18/20 08:31 85 01/18/20 08:30 85 118/70 Intake and Output 01/18/20 01/19/20 19:00 07:00 Intake Total 560 ml 670 ml Output Total 800 ml 500 ml Balance -240 ml 170 ml Intake Oral 450 ml 500 ml IV Total 110 ml 170 ml Output Urine Total 800 ml 500 ml # Bowel Movements 4 2 General Appearance: no acute distress HEENT: normocephalic Respiratory: chest wall non-tender, lungs clear Cardiovascular: normal peripheral pulses Abdomen: normal bowel sounds Laboratory Tests 01/18/20 10:00: Stool Occult Blood [Pending] 01/18/20 12:25: POC Whole Blood Glucose 84 01/18/20 16:48: POC Whole Blood Glucose 84 01/19/20 06:35: POC Whole Blood Glucose 77 Current Medications Medications (Trade) Dose Ordered Sig/Samuel Route PRN Reason Start Time Stop Time Status Last Admin Dose Admin Acetaminophen (Tylenol) 650 mg Q6H PRN ORAL Mild Pain (Pain Scale 1-3) 01/15/20 03:15 02/14/20 03:14 01/16/20 01:38 Acetaminophen (Tylenol) 650 mg Q6H PRN ORAL Temp >100.5 01/15/20 03:15 02/14/20 03:14 Acetaminophen/ Hydrocodone Bitart ([place] 5/325) 1 tab Q6H PRN ORAL For Pain 01/16/20 07:00 01/23/20 06:59 01/19/20 06:45 Ascorbic Acid (Vitamin C) 250 mg TWICE A DAY ORAL 01/17/20 18:00 02/16/20 17:59 01/18/20 16:56 Chlorhexidine Gluconate (Mel-Hex 2%) 1 applic DAILY@2000 TOPIC 01/15/20 20:00 04/14/20 19:59 01/18/20 21:00 Dextrose (Dextrose 50%) 25 ml Q30M PRN IV Hypoglycemia 01/14/20 23:15 04/13/20 23:14 Dextrose (Dextrose 50%) 50 ml Q30M PRN IV Hypoglycemia 01/14/20 23:15 04/13/20 23:14 Digoxin (Lanoxin) 0.125 mg DAILY ORAL 01/17/20 09:00 04/16/20 08:59 01/18/20 08:31 Doxycycline Monohydrate (Doxycycline Monohydrate) 100 mg EVERY 12 HOURS ORAL 01/18/20 09:00 01/25/20 08:59 01/18/20 21:01 Duloxetine HCl (Cymbalta) 60 mg DAILY ORAL 01/17/20 14:45 04/16/20 14:44 01/18/20 08:30 Insulin Aspart (NovoLOG) BEFORE MEALS AND HS SUBQ 01/15/20 06:30 04/14/20 06:29 01/16/20 05:47 Insulin Detemir (Levemir) 11 units BEDTIME SUBQ 01/15/20 21:00 04/14/20 20:59 01/15/20 21:21 Iron Sucrose 100 mg/Sodium Chloride 60 ml @ 240 mls/hr BEDTIME IV 01/16/20 21:00 01/20/20 21:14 01/18/20 21:01 Loperamide HCl (Imodium) 2 mg Q4H PRN ORAL Diarrhea 01/19/20 07:00 02/18/20 06:59 Meropenem 1 gm/ Sodium Chloride 55 ml @ 110 mls/hr Q8HR IVPB 01/18/20 22:00 01/23/20 21:59 01/19/20 06:21 Metoprolol Tartrate (Lopressor) 25 mg Q12HR ORAL 01/15/20 09:00 04/14/20 08:59 01/18/20 21:01 Midodrine (Pro-Amatine) 5 mg TID PRN ORAL sbp<110 01/15/20 09:00 04/14/20 08:59 Multivitamins (Multivitamins) 1 tab Q24H ORAL 01/18/20 07:00 02/17/20 06:59 01/19/20 06:21 Pantoprazole (Protonix) 40 mg DAILY ORAL 01/19/20 09:00 02/18/20 08:59 Sildenafil Citrate (Revatio) 20 mg DAILY ORAL 01/15/20 09:00 04/14/20 08:59 01/18/20 08:30 Sodium Hypochlorite (Dakin's Quarter Strength) 1 applic DAILY TOPIC 01/15/20 11:00 02/14/20 10:59 01/18/20 08:32 Zinc Sulfate (Zinc Sulfate) 220 mg Q24H ORAL 01/18/20 07:00 04/17/20 06:59 01/19/20 06:21 Assessment/Plan Assessment/Plan IMPRESSION: 1. Negative for COVID-19 pneumonia. 2. UTI. 3. Diabetes mellitus. 4. Decubiti. DISCUSSION: Contnue antibiotics. Oxygen and pulmonary hygiene. Negative COVID-19 PCR. I will follow carefully. DC planning Keerthi Morales Omar Syed MD Jan 19, 2020 08:06
[2020-01-19] MEDS: Doxycycline Monohydrate 100mg ORAL SCH ×2 (08:30→22:55)
[2020-01-19] MEDS: Ascorbic Acid 500mg tab ORAL SCH ×2 (08:31→17:00)
[2020-01-19] MEDS: Dakin's 0.125% Soln (Quarter Strength) 16oz TOPIC SCH (08:31)
[2020-01-19] MEDS: Digoxin 0.125mg tab ORAL SCH (08:31)
[2020-01-19] MEDS: Revatio 20mg tab ORAL SCH (08:31)
[2020-01-19 09:17] LABS: HEMATOCRIT 25.7 % (37.0-47.0); HEMOGLOBIN 7.6 G/DL (12.0-16.0); MEAN CORPUSCULAR VOLUME 94 FL (80-99); PLATELET COUNT 125 K/UL (150-450); RED BLOOD COUNT 2.74 M/UL (4.20-5.40); WHITE BLOOD COUNT 3.4 K/UL (4.8-10.8)
[2020-01-19 09:38] LABS: ALANINE AMINOTRANSFERASE 26 U/L (12-78); ALBUMIN 1.9 G/DL (3.4-5.0); ALBUMIN/GLOBULIN RATIO 0.5 (1.0-2.7); ALKALINE PHOSPHATASE 110 U/L (46-116); ANION GAP 11 mmol/L (5-15); ASPARTATE AMINO TRANSFERASE 13 U/L (15-37); BILIRUBIN,TOTAL 0.4 MG/DL (0.2-1.0); BLOOD UREA NITROGEN 35 mg/dL (7-18); CALCIUM 8.2 MG/DL (8.5-10.1); CARBON DIOXIDE 26 MMOL/L (21-32); CHLORIDE 110 MMOL/L (98-107); CREATININE 0.7 MG/DL (0.55-1.30); POTASSIUM 3.1 MMOL/L (3.5-5.1); SODIUM 147 MMOL/L (136-145)
[2020-01-19] MEDS ORDERED: NS 275ml ONE ×2 (09:58→14:57)
--- NOTE | 2020-01-19 10:25 | Surgery Progress Note ---
Surgery Progress Note Subjective Additional Comments h/h stable no active bleeding exam stable Objective Last 24 Hour Vital Signs Date Time Temp Pulse Resp B/P (MAP) Pulse Ox O2 Delivery O2 Flow Rate FiO2 01/19/20 08:31 101 01/19/20 08:30 101 106/51 01/19/20 08:00 97.7 101 22 106/51 (69) 97 01/19/20 08:00 96 01/19/20 04:00 Nasal Cannula 2.0 Nasal Cannula 2.0 01/19/20 04:00 98.0 104 22 144/67 (92) 97 01/19/20 03:37 120 01/19/20 00:00 Nasal Cannula 2.0 Nasal Cannula 2.0 01/19/20 00:00 97.4 89 24 109/67 (81) 100 01/18/20 23:43 110 01/18/20 21:01 96 126/62 01/18/20 20:00 Nasal Cannula 2.0 Nasal Cannula 2.0 01/18/20 20:00 97.3 94 24 135/65 (88) 96 01/18/20 19:47 119 01/18/20 16:00 Nasal Cannula 2.0 01/18/20 16:00 98.1 80 20 129/61 (83) 95 01/18/20 15:28 75 01/18/20 12:00 97.5 82 20 106/60 (75) 99 01/18/20 12:00 Nasal Cannula 2.0 01/18/20 11:36 71 I&O Intake and Output 01/18/20 01/19/20 19:00 07:00 Intake Total 560 ml 670 ml Output Total 800 ml 500 ml Balance -240 ml 170 ml Intake Oral 450 ml 500 ml IV Total 110 ml 170 ml Output Urine Total 800 ml 500 ml # Bowel Movements 4 2 Dressing: other Wound: other Drains: other Cardiovascular: RSR Respiratory: decreased breath sounds Abdomen: soft, non-tender, present bowel sounds Extremities: no cyanosis Laboratory Tests Test 01/18/20 12:25 01/18/20 16:48 01/19/20 06:35 01/19/20 09:05 POC Whole Blood Glucose 84 MG/DL (74-106) 84 MG/DL (74-106) 77 MG/DL (74-106) White Blood Count 3.4 K/UL (4.8-10.8) L Red Blood Count 2.74 M/UL (4.20-5.40) L Hemoglobin 7.6 G/DL (12.0-16.0) L Hematocrit 25.7 % (37.0-47.0) L Mean Corpuscular Volume 94 FL (80-99) Mean Corpuscular Hemoglobin 27.7 PG (27.0-31.0) Mean Corpuscular Hemoglobin Concent 29.6 G/DL (32.0-36.0) L Red Cell Distribution Width 17.0 % (11.6-14.8) H Platelet Count 125 K/UL (150-450) L Mean Platelet Volume 6.7 FL (6.5-10.1) Neutrophils (%) (Auto) % (45.0-75.0) Lymphocytes (%) (Auto) % (20.0-45.0) Monocytes (%) (Auto) % (1.0-10.0) Eosinophils (%) (Auto) % (0.0-3.0) Basophils (%) (Auto) % (0.0-2.0) Differential Total Cells Counted 100 Neutrophils % (Manual) 63 % (45-75) Lymphocytes % (Manual) 26 % (20-45) Monocytes % (Manual) 2 % (1-10) Eosinophils % (Manual) 9 % (0-3) H Basophils % (Manual) 0 % (0-2) Band Neutrophils 0 % (0-8) Platelet Estimate Decreased L Platelet Morphology Normal Polychromasia 1+ Hypochromasia 1+ Anisocytosis 1+ Sodium Level 147 MMOL/L (136-145) H Potassium Level 3.1 MMOL/L (3.5-5.1) L Chloride Level 110 MMOL/L (98-107) H Carbon Dioxide Level 26 MMOL/L (21-32) Anion Gap 11 mmol/L (5-15) Blood Urea Nitrogen 35 mg/dL (7-18) H Creatinine 0.7 MG/DL (0.55-1.30) Estimat Glomerular Filtration Rate > 60 mL/min (>60) Glucose Level 101 MG/DL (74-106) Calcium Level 8.2 MG/DL (8.5-10.1) L Total Bilirubin 0.4 MG/DL (0.2-1.0) Aspartate Amino Transf (AST/SGOT) 13 U/L (15-37) L Alanine Aminotransferase (ALT/SGPT) 26 U/L (12-78) Alkaline Phosphatase 110 U/L (46-116) Total Protein 5.8 G/DL (6.4-8.2) L Albumin 1.9 G/DL (3.4-5.0) L Globulin 3.9 g/dL Albumin/Globulin Ratio 0.5 (1.0-2.7) L Plan Problems: (1) Sepsis Assessment & Plan: Morbidly obese pt whom presented on admission with Multiple Pressure injuries. Pt stated wounds rapidly developed approx 3 weeks ago while acutely ill. Pt is on oxygen via N/C. Both ears assessed and no evidence of skin breakdown noted. Foam padding around oxygen tubing and pt was advised to maintain tubing loose around ears. Moisture Intertrigo noted to abd folds,R and L groin. 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 Base of wound is 100% soft Black/ rubin necrosis. Bone is palpable. Wound is malodorous. Small amt haemopurulent exudate noted. Borders are irregular, erythematous and macerated.Periwound is erythematous,indurated with additional Pressure injuries and shearing. At L gluteus is a full Thickness Pressure injury(L)7.5cm x (W)4.5cm.90% mixed necrosis/slough,10% pink epithelial at base of wound. Borders are erythematous and macerated. Small amt serous exudate noted. At R Gluteus is full thickness Pressure injury(L)7.3cm x (W)4.5cm. Base of wound is 100% slough. Borders are erythematous and macerated. Small amt serous exudate noted. Full Thickness stage 4 Pressure injury R lower Buttocks(L)4.4cm x (W)7.5cm. Base of wound is 25% necrotic,75% fibrinous slough. Wound is malodorous. Small amt haemopurulent exudate noted. Wound is malodorous. Borders are erythematous and macerated. Full Thickness stage 4 Pressure Injury R Ischium(L)7.6cm x (W)5.4cm. Base of wound is 25% necrotic,60% slough,15% pink epithelial. Small amt seropurulent exudate noted. Wound is malodorous.Borders are erythematous and macerated. Two Full thickness Pressure Injuries that are in close Proximity lower L buttocks.(Proximal)(L)3.5cm x (W)2.6cm.100% soft necrosis at base of wound. Marginal erythema along borders.Periwound L buttocks erythematous with shearing. (Distal)(L)1.3cm x (W)0.9cm. 100% slough at base of wound.Marginal erythema along Borders. Two Unstageable Pressure injuries L Ischium:(Proximal)(L)1.2cm x (W)1.9cm Base of wound is 90% slough,10%pink moist erythema.(Distal) L) 6cm x (W)5.3cm. 90% slough,10% moist erythema at base of wound. Small amt. seropurulent exudate noted. No odor noted. Borders are macerated. Periwound is erythematous with additional shearing. DTPI medial/posterior Upper L thigh which presents as blood Blister that is partially opened(L)1.1cm x (W)6.8cm.Open wound at most medial portion of wound ( L)1.1cm x (W)1.3cm noted to have slough at base. Stable dry eschar L pre-tibial (L)1.5cm x (W)1cm. Haemosiderin with dry scaly plaques L lower ext. DTPI L lateral Malleolus(L)2.3cm x (W)0.9cm. Wound presents as an intact Blood Blister. Non-Healing Surgical wound R Achilles. Pt stated she had surgical repair approximately 2 years ago. Base of wound is 40% fibrinous slough,10% necrotic , 50% pale pink. Edges are macerated. Keloid scar at distal portion of surgical wound. No odor or exudate noted. Surrounding Haemosiderin noted to R lower ext. Full thickness Pressure injury R lateral Malleolus(L)4.8cm x (W)5.8cm. Base of wound is 80%mixed soft necrosis and fibrinous slough,20% pink and moist. Small amt seropurulent exudate noted. (+) Epibole along borders.Periwound is erythematous. No elevation in skin temp. No odor noted. R Heel is boggy but blanchable. Historical scar noted to R heel. L Heel is boggy but blanchable. wounds unlikely etiology uti abx as per ID Tx.Plan: Cleanse Sacral,R and L Buttocks,R and L ischium wounds with Dakin's 0.125% Harjeet. Loosely pack with Dakin's moistened Gauze. Apply Triad Periwound. Cover with Optifoam drsgs Daily and prn. Cleanse Wound R Achilles with Dakin's 0.125% harjeet. Apply Dakin's Moistened Gauze. Apply Triad periwound. Cover with ABD Pad and Wrap with Kerlix Daily and prn. Cleanse Wound lateral R Malleolus with Dakin's 0.125%. harjeet. Apply Dakin's moistened Gauze to wound. Apply Triad Paste periwound. Cover with ABD Pad. Wrap with Kerlix Daily and prn. Apply Cavilon Skin Barrier to both heels. Cover each heel with Optifoam drsg. Change every 7 days and prn. Apply Triad Paste to abdominal folds and Bilat groin Twice Daily. Reposition at least every 2hours or as tolerated. Off-load heels with Pillow Bariatric bed with APM/LEO Mattress. (2) UTI (urinary tract infection) (3) COVID-19 (4) Anemia (5) SOB (shortness of breath) (6) Tachycardia (7) Decubitus skin ulcer Assessment & Plan: Patient presented with multiple decubitus skin ulcers in various stages. Wounds evaluated initial staging and care plan initiated. Will follow with recommendations. DAILY ESTIMATED NEEDS: Needs based on Wounds, DM 62kg abw 25-30 kcals/kg 7008-2141 total kcals 1.5-2 g protein/kg 93-124 g total protein 25-30 mL/kg 2289-7882 total fluid mLs NUTRITION DIAGNOSIS: Increase pro needs r/t wound healing as evidenced by pt w/ multiple areas of skin breakdown, eval pending, per photos, wounds appear open and advanced. CURRENT DIET: CCHO LOW PO DIET RECOMMENDATIONS: CCHO LOW + DOUBLE PROTEIN PORTIONS ADDITIONAL RECOMMENDATIONS: 1) Texture per PROP MAKER 2) Add Glucerna 1 tetra TID 3) Wound care, f/up w/ WC eval 4) Monitor po intake, no record at this time Jens Hoang Jan 19, 2020 10:25
--- NOTE | 2020-01-19 11:16 | General Progress Note ---
Assessment/Plan Problem List: (1) COVID-19 ICD Codes: U07.1 - COVID-19 SNOMED: 480512319 (2) UTI (urinary tract infection) ICD Codes: N39.0 - Urinary tract infection, site not specified SNOMED: 79552005 (3) Anemia ICD Codes: D64.9 - Anemia, unspecified SNOMED: 755198451 Qualifiers: (4) SVT (supraventricular tachycardia) ICD Codes: I47.1 - Supraventricular tachycardia SNOMED: 2708605 (5) Gram-negative bacteremia ICD Codes: R78.81 - Bacteremia SNOMED: 337255325253 (6) Decubitus skin ulcer ICD Codes: L89.90 - Pressure ulcer of unspecified site, unspecified stage SNOMED: 568813239 Qualifiers: Qualified Codes: L89.159 - Pressure ulcer of sacral region, unspecified stage (7) Hypokalemia ICD Codes: E87.6 - Hypokalemia SNOMED: 61028891 (8) Hypernatremia ICD Codes: E87.0 - Hyperosmolality and hypernatremia SNOMED: 915195219 Status: stable, progressing Assessment/Plan: # Acute Hypoxemic respiratory failure - improving # COVID 19 infection previously - now 1 negative swab # Pulmonary HTN Supplemental O2 when moving - saturating above 92% Incentive spirometry Trend inflammatory markers Consult to pulmonology appreciate recs Due to active infection not a candidate for remdesivir Sildenafil for pulmonary HTN #SVT #Autonomic dysfunction -Restart metoprolol -Added Digoxin per Cardiology -Digoxin level -Continue midodrine -Holding anticoagulation due to anemia -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 # ESBL UTI # Proteus bacteremia -Follow up cultures - ESBL in urine and Proteus in blood -Continue with Zosyn -Consult to ID -Follow up WBC count #Pressure injuries - Wound care - Recs from surgery - Added po Doxycycline per ID recs DVRppx SCDdue to anemia Physical therapy evaluation Dispo: Back to [facility] or transfer to [facility] for ablation 35 minuets was spent on this patient with 10 min face to face with Patient. Coordinated with consultants, reviews labs and images. Discussed plan with RN. Chart review and multiple calls from nursing. Subjective Date patient seen: Jan 19, 2020 Time patient seen: 09:00 ROS Limited/Unobtainable: No Constitutional: Reports: malaise; Denies: chills, fever HEENT: Reports: no symptoms Cardiovascular: Reports: edema, palpitations; Denies: chest pain Respiratory: Reports: SOB with excertion Gastrointestinal/Abdominal: Reports: diarrhea; Denies: abdomen distended, abdominal pain Genitourinary: Denies: frequency, flank pain, hematuria Neurologic/Psychiatric: Reports: no symptoms Endocrine: Reports: no symptoms Hematologic/Lymphatic: Reports: no symptoms, anemia, easy bleeding, easy bruising Allergies: Coded Allergies: ERYTHROMYCIN BASE (Verified Allergy, Unknown, 01/14/20) HEPARIN (Verified Allergy, Unknown, 01/14/20) Subjective Patient is feeling better and wants to go home with home health and not a SNF. Explained she may need ablation at [facility] and was amenable to that. Objective Last 24 Hour Vital Signs Date Time Temp Pulse Resp B/P (MAP) Pulse Ox O2 Delivery O2 Flow Rate FiO2 01/19/20 08:31 101 01/19/20 08:30 101 106/51 01/19/20 08:00 97.7 101 22 106/51 (69) 97 01/19/20 08:00 96 01/19/20 04:00 Nasal Cannula 2.0 Nasal Cannula 2.0 01/19/20 04:00 98.0 104 22 144/67 (92) 97 01/19/20 03:37 120 01/19/20 00:00 Nasal Cannula 2.0 Nasal Cannula 2.0 01/19/20 00:00 97.4 89 24 109/67 (81) 100 01/18/20 23:43 110 01/18/20 21:01 96 126/62 01/18/20 20:00 Nasal Cannula 2.0 Nasal Cannula 2.0 01/18/20 20:00 97.3 94 24 135/65 (88) 96 01/18/20 19:47 119 01/18/20 16:00 Nasal Cannula 2.0 01/18/20 16:00 98.1 80 20 129/61 (83) 95 01/18/20 15:28 75 01/18/20 12:00 97.5 82 20 106/60 (75) 99 01/18/20 12:00 Nasal Cannula 2.0 01/18/20 11:36 71 Intake and Output 01/18/20 01/19/20 19:00 07:00 Intake Total 560 ml 670 ml Output Total 800 ml 500 ml Balance -240 ml 170 ml Intake Oral 450 ml 500 ml IV Total 110 ml 170 ml Output Urine Total 800 ml 500 ml # Bowel Movements 4 2 Laboratory Tests 01/18/20 12:25: POC Whole Blood Glucose 84 01/18/20 16:48: POC Whole Blood Glucose 84 01/19/20 06:35: POC Whole Blood Glucose 77 01/19/20 09:05: White Blood Count 3.4L, Red Blood Count 2.74L, Hemoglobin 7.6L, Hematocrit 25.7L , Mean Corpuscular Volume 94, Mean Corpuscular Hemoglobin 27.7, Mean Corpuscular Hemoglobin Concent 29.6L, Red Cell Distribution Width 17.0H, Platelet Count 125L, Mean Platelet Volume 6.7, Neutrophils (%) (Auto) , Lymphocytes (%) (Auto) , Monocytes (%) (Auto) , Eosinophils (%) (Auto) , Basophils (%) (Auto) , Differential Total Cells Counted 100, Neutrophils % ( Manual) 63, Lymphocytes % (Manual) 26, Monocytes % (Manual) 2, Eosinophils % ( Manual) 9H, Basophils % (Manual) 0, Band Neutrophils 0, Platelet Estimate DecreasedL, Platelet Morphology Normal, Polychromasia 1+, Hypochromasia 1+, Anisocytosis 1+, Sodium Level 147H, Potassium Level 3.1L, Chloride Level 110H, Carbon Dioxide Level 26, Anion Gap 11, Blood Urea Nitrogen 35H, Creatinine 0.7, Estimat Glomerular Filtration Rate > 60, Glucose Level 101, Calcium Level 8.2L, Total Bilirubin 0.4, Aspartate Amino Transf (AST/SGOT) 13L, Alanine Aminotransferase (ALT/SGPT) 26, Alkaline Phosphatase 110, Total Protein 5.8L, Albumin 1.9L, Globulin 3.9, Albumin/Globulin Ratio 0.5L Height (Feet): 5 Height (Inches): 5.00 Weight (Pounds): 237 General Appearance: no apparent distress, alert, obese, alert oriented x3 EENT: PERRL/EOMI Neck: non-tender, normal alignment, supple, normal inspection Cardiovascular: normal peripheral pulses, normal rate, regular rhythm, no gallop/murmur, no JVD Respiratory/Chest: chest wall non-tender, lungs clear, normal breath sounds, no respiratory distress, no accessory muscle use Abdomen: normal bowel sounds, non tender, soft, hernia, mass Edema: 1+ Leg (L), 1+ Leg (R) Edema: trace edema 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 Jan 19, 2020 11:16
--- NOTE | 2020-01-19 11:35 | Nephrology Progress Note ---
Assessment/Plan Plan #MISSY due to pre-rernal azotemia in the setting of anemia #Acute on chronic anemia # Acute Hypoxemic respiratory failure # COVID 19 infection previously - now 1 negative swab # Pulmonary HTN #UTI #runs of SVTs #ho/ HTN #DM - D5w + kcl 20 meq at 50 cc/hr - defer further renal work up pending evolution of kidney function - monitor CBC - IV iron - GI eval - continue metop 25mg BID - on middorine 5mg TID - holding AC- on apixaban - continue with dig - avoid nephrotoxins - strict I&Os - monitor weights - check BMP, mag and phos daily Time spent 70 min > 50% on care coordiation and counseling Subjective ROS Limited/Unobtainable: No Constitutional: Reports: malaise, weakness HEENT: Denies: no symptoms, eye pain, blurred vision, tearing, double vision, ear pain, ear discharge, nose pain, nose congestion, throat pain, throat swelling, mouth pain, mouth swelling, other Genitourinary: Denies: no symptoms, burning, discharge, frequency, flank pain, hematuria, incontinence, pain, urgency, other Neurologic/Psychiatric: Denies: no symptoms, anxiety, depressed, emotional problems, headache, numbness, paresthesia, pre-existing deficit, seizure, tingling, tremors, weakness, other Subjective Cr improved BP stable sodium 147 K 3.1 on NC at 2 L Objective Objective Last 24 Hour Vital Signs Date Time Temp Pulse Resp B/P (MAP) Pulse Ox O2 Delivery O2 Flow Rate FiO2 01/19/20 08:31 101 01/19/20 08:30 101 106/51 01/19/20 08:00 97.7 101 22 106/51 (69) 97 01/19/20 08:00 96 01/19/20 04:00 Nasal Cannula 2.0 Nasal Cannula 2.0 01/19/20 04:00 98.0 104 22 144/67 (92) 97 01/19/20 03:37 120 01/19/20 00:00 Nasal Cannula 2.0 Nasal Cannula 2.0 01/19/20 00:00 97.4 89 24 109/67 (81) 100 01/18/20 23:43 110 01/18/20 21:01 96 126/62 01/18/20 20:00 Nasal Cannula 2.0 Nasal Cannula 2.0 01/18/20 20:00 97.3 94 24 135/65 (88) 96 01/18/20 19:47 119 01/18/20 16:00 Nasal Cannula 2.0 01/18/20 16:00 98.1 80 20 129/61 (83) 95 01/18/20 15:28 75 01/18/20 12:00 97.5 82 20 106/60 (75) 99 01/18/20 12:00 Nasal Cannula 2.0 01/18/20 11:36 71 Intake and Output 01/18/20 01/19/20 19:00 07:00 Intake Total 560 ml 670 ml Output Total 800 ml 500 ml Balance -240 ml 170 ml Intake Oral 450 ml 500 ml IV Total 110 ml 170 ml Output Urine Total 800 ml 500 ml # Bowel Movements 4 2 Laboratory Tests 01/18/20 12:25: POC Whole Blood Glucose 84 01/18/20 16:48: POC Whole Blood Glucose 84 01/19/20 06:35: POC Whole Blood Glucose 77 01/19/20 09:05: White Blood Count 3.4L, Red Blood Count 2.74L, Hemoglobin 7.6L, Hematocrit 25.7L , Mean Corpuscular Volume 94, Mean Corpuscular Hemoglobin 27.7, Mean Corpuscular Hemoglobin Concent 29.6L, Red Cell Distribution Width 17.0H, Platelet Count 125L, Mean Platelet Volume 6.7, Neutrophils (%) (Auto) , Lymphocytes (%) (Auto) , Monocytes (%) (Auto) , Eosinophils (%) (Auto) , Basophils (%) (Auto) , Differential Total Cells Counted 100, Neutrophils % ( Manual) 63, Lymphocytes % (Manual) 26, Monocytes % (Manual) 2, Eosinophils % ( Manual) 9H, Basophils % (Manual) 0, Band Neutrophils 0, Platelet Estimate DecreasedL, Platelet Morphology Normal, Polychromasia 1+, Hypochromasia 1+, Anisocytosis 1+, Sodium Level 147H, Potassium Level 3.1L, Chloride Level 110H, Carbon Dioxide Level 26, Anion Gap 11, Blood Urea Nitrogen 35H, Creatinine 0.7, Estimat Glomerular Filtration Rate > 60, Glucose Level 101, Calcium Level 8.2L, Total Bilirubin 0.4, Aspartate Amino Transf (AST/SGOT) 13L, Alanine Aminotransferase (ALT/SGPT) 26, Alkaline Phosphatase 110, Total Protein 5.8L, Albumin 1.9L, Globulin 3.9, Albumin/Globulin Ratio 0.5L Height (Feet): 5 Height (Inches): 5.00 Weight (Pounds): 237 Phil Morse M.D. Jan 19, 2020 11:35
[2020-01-19 11:45] VITALS: BP 99/52
--- NOTE | 2020-01-19 12:57 | Hematology/Onc Progress Note ---
Assessment/Plan Assessment/Plan Assessment and Recs # Anemia is due to chronic dsiease/kidney failure and covid19++, does not appear to be gi bleed --> anemia panel has been reviewed --> continue on epogen as per renal --> no hemolysis is noted --> hgb trend 6.4-->8.2 --> hold off anticaog if hgb <7 # Thrombocytopenia given first time here cause workup ongoing --> us abd is pending, r/o cirrhosis and hsm --> hep and hiv panel pending --> may also be due to covid 19 # UTI (urinary tract infection) --> with poa Sepsis --> abx as per id team # Respiratory failure due to covid19 --> steriods, low threshold for intuabtion # Ddimer elevation --> duplex lower ext neg # Pulmonary HTN # Hyperocag disorder --> hold off eliquis for now given drop in h/h --> have bindu garduno this info --> consider cards eval Appreciate consultation and bindu GARDUNO Subjective Constitutional: Denies: no symptoms, chills, fever, malaise, weakness, other HEENT: Denies: no symptoms, eye pain, blurred vision, tearing, double vision, ear pain, ear discharge, nose pain, nose congestion, throat pain, throat swelling, mouth pain, mouth swelling, other Cardiovascular: Denies: no symptoms, chest pain, edema, irregular heart rate, lightheadedness, palpitations, syncope, other Respiratory: Denies: no symptoms, cough, shortness of breath, SOB with excertion, SOB at rest, sputum, wheezing, other Gastrointestinal/Abdominal: Denies: no symptoms, abdomen distended, abdominal pain, black stools, tarry stools, blood in stool, constipated, diarrhea, difficulty swallowing, nausea, poor appetite, poor fluid intake, rectal bleeding , vomiting, other Neurologic/Psychiatric: Denies: no symptoms, anxiety, depressed, emotional problems, headache, numbness, paresthesia, pre-existing deficit, seizure, tingling, tremors, weakness, other Endocrine: Denies: no symptoms, excessive sweating, flushing, intolerance to cold, intolerance to heat, increased hunger, increased thirst, increased urine, unexplained weight gain, unexplained weight loss, other Allergies: Coded Allergies: ERYTHROMYCIN BASE (Verified Allergy, Unknown, 01/14/20) HEPARIN (Verified Allergy, Unknown, 01/14/20) Subjective 01/15 duplex was negative, holding off anticoag, no night sweats 01/18 meds noted, no bleeding, labs reviewed, h/h stable Objective Objective Current Medications Medications (Trade) Dose Ordered Sig/Samuel Route PRN Reason Start Time Stop Time Status Last Admin Dose Admin Acetaminophen (Tylenol) 650 mg Q6H PRN ORAL Mild Pain (Pain Scale 1-3) 01/15/20 03:15 02/14/20 03:14 01/16/20 01:38 Acetaminophen (Tylenol) 650 mg Q6H PRN ORAL Temp >100.5 01/15/20 03:15 02/14/20 03:14 Acetaminophen/ Hydrocodone Bitart ([place] 5/325) 1 tab Q6H PRN ORAL For Pain 01/16/20 07:00 01/23/20 06:59 01/19/20 06:45 Ascorbic Acid (Vitamin C) 250 mg TWICE A DAY ORAL 01/17/20 18:00 02/16/20 17:59 01/19/20 08:31 Chlorhexidine Gluconate (Mel-Hex 2%) 1 applic DAILY@2000 TOPIC 01/15/20 20:00 04/14/20 19:59 01/18/20 21:00 Dextrose (Dextrose 50%) 25 ml Q30M PRN IV Hypoglycemia 01/14/20 23:15 04/13/20 23:14 Dextrose (Dextrose 50%) 50 ml Q30M PRN IV Hypoglycemia 01/14/20 23:15 04/13/20 23:14 Dextrose/ Electrolytes 1,000 ml @ 50 mls/hr Q20H IV 01/19/20 13:00 02/18/20 12:59 Digoxin (Lanoxin) 0.125 mg DAILY ORAL 01/17/20 09:00 04/16/20 08:59 01/19/20 08:31 Doxycycline Monohydrate (Doxycycline Monohydrate) 100 mg EVERY 12 HOURS ORAL 01/18/20 09:00 01/25/20 08:59 01/19/20 08:30 Duloxetine HCl (Cymbalta) 60 mg DAILY ORAL 01/17/20 14:45 04/16/20 14:44 01/19/20 08:30 Insulin Aspart (NovoLOG) BEFORE MEALS AND HS SUBQ 01/15/20 06:30 04/14/20 06:29 01/16/20 05:47 Insulin Detemir (Levemir) 11 units BEDTIME SUBQ 01/15/20 21:00 04/14/20 20:59 01/15/20 21:21 Iron Sucrose 100 mg/Sodium Chloride 60 ml @ 240 mls/hr BEDTIME IV 01/16/20 21:00 01/20/20 21:14 01/18/20 21:01 Loperamide HCl (Imodium) 2 mg Q4H PRN ORAL Diarrhea 01/19/20 07:00 02/18/20 06:59 Meropenem 1 gm/ Sodium Chloride 55 ml @ 110 mls/hr Q8HR IVPB 01/18/20 22:00 01/23/20 21:59 01/19/20 06:21 Metoprolol Tartrate (Lopressor) 25 mg Q12HR ORAL 01/15/20 09:00 04/14/20 08:59 01/19/20 08:30 Midodrine (Pro-Amatine) 5 mg TID PRN ORAL sbp<110 01/15/20 09:00 04/14/20 08:59 Multivitamins (Multivitamins) 1 tab Q24H ORAL 01/18/20 07:00 02/17/20 06:59 01/19/20 06:21 Pantoprazole (Protonix) 40 mg DAILY ORAL 01/19/20 09:00 02/18/20 08:59 01/19/20 08:30 Sildenafil Citrate (Revatio) 20 mg DAILY ORAL 01/15/20 09:00 04/14/20 08:59 01/19/20 08:31 Sodium Hypochlorite (Dakin's Quarter Strength) 1 applic DAILY TOPIC 01/15/20 11:00 02/14/20 10:59 01/19/20 08:31 Zinc Sulfate (Zinc Sulfate) 220 mg Q24H ORAL 01/18/20 07:00 04/17/20 06:59 01/19/20 06:21 Last 24 Hour Vital Signs Date Time Temp Pulse Resp B/P (MAP) Pulse Ox O2 Delivery O2 Flow Rate FiO2 01/19/20 11:45 97.1 98 22 99/52 (68) 98 01/19/20 08:31 101 01/19/20 08:30 101 106/51 01/19/20 08:00 Room Air 2.0 Nasal Cannula 01/19/20 08:00 97.7 101 22 106/51 (69) 97 01/19/20 08:00 96 01/19/20 04:00 Nasal Cannula 2.0 Nasal Cannula 2.0 01/19/20 04:00 98.0 104 22 144/67 (92) 97 01/19/20 03:37 120 01/19/20 00:00 Nasal Cannula 2.0 Nasal Cannula 2.0 01/19/20 00:00 97.4 89 24 109/67 (81) 100 01/18/20 23:43 110 01/18/20 21:01 96 126/62 01/18/20 20:00 Nasal Cannula 2.0 Nasal Cannula 2.0 01/18/20 20:00 97.3 94 24 135/65 (88) 96 01/18/20 19:47 119 01/18/20 16:00 Nasal Cannula 2.0 01/18/20 16:00 98.1 80 20 129/61 (83) 95 01/18/20 15:28 75 01/18/20 12:00 97.5 82 20 106/60 (75) 99 01/18/20 12:00 Nasal Cannula 2.0 01/18/20 11:36 71 01/18/20 08:31 85 01/18/20 08:30 85 118/70 01/18/20 08:00 97.1 85 20 118/70 (86) 100 01/18/20 07:47 73 01/18/20 07:36 Nasal Cannula 2.0 01/18/20 04:00 Nasal Cannula 2.0 01/18/20 04:00 98.1 85 18 127/76 (93) 100 01/18/20 03:35 77 01/18/20 00:00 96.8 87 18 102/68 (79) 100 01/18/20 00:00 Nasal Cannula 2.0 01/17/20 23:54 65 01/17/20 21:12 91 119/80 01/17/20 20:00 97.0 87 24 119/80 (93) 100 01/17/20 20:00 82 01/17/20 20:00 Nasal Cannula 2.0 01/17/20 16:00 106 01/17/20 16:00 Nasal Cannula 2.0 01/17/20 16:00 97.7 96 20 121/61 (81) 94 Intake and Output 01/18/20 01/19/20 19:00 07:00 Intake Total 560 ml 670 ml Output Total 800 ml 500 ml Balance -240 ml 170 ml Intake Oral 450 ml 500 ml IV Total 110 ml 170 ml Output Urine Total 800 ml 500 ml # Bowel Movements 4 2 Labs Test 01/16/20 16:24 01/16/20 21:45 01/17/20 03:20 01/17/20 11:41 POC Whole Blood Glucose 118 MG/DL (74-106) 90 MG/DL (74-106) White Blood Count 6.8 K/UL (4.8-10.8) 4.7 K/UL (4.8-10.8) Red Blood Count 2.94 M/UL (4.20-5.40) 2.91 M/UL (4.20-5.40) Hemoglobin 8.2 G/DL (12.0-16.0) 8.0 G/DL (12.0-16.0) Hematocrit 27.5 % (37.0-47.0) 27.3 % (37.0-47.0) Mean Corpuscular Volume 94 FL (80-99) 94 FL (80-99) Mean Corpuscular Hemoglobin 27.8 PG (27.0-31.0) 27.5 PG (27.0-31.0) Mean Corpuscular Hemoglobin Concent 29.7 G/DL (32.0-36.0) 29.3 G/DL (32.0-36.0) Red Cell Distribution Width 18.2 % (11.6-14.8) 17.0 % (11.6-14.8) Platelet Count 131 K/UL (150-450) 118 K/UL (150-450) Mean Platelet Volume 6.9 FL (6.5-10.1) 7.3 FL (6.5-10.1) Neutrophils (%) (Auto) 80.9 % (45.0-75.0) 78.9 % (45.0-75.0) Lymphocytes (%) (Auto) 11.0 % (20.0-45.0) 14.2 % (20.0-45.0) Monocytes (%) (Auto) 6.5 % (1.0-10.0) 4.6 % (1.0-10.0) Eosinophils (%) (Auto) 0.7 % (0.0-3.0) 1.9 % (0.0-3.0) Basophils (%) (Auto) 0.8 % (0.0-2.0) 0.4 % (0.0-2.0) Sodium Level 145 MMOL/L (136-145) Potassium Level 3.8 MMOL/L (3.5-5.1) Chloride Level 108 MMOL/L (98-107) Carbon Dioxide Level 25 MMOL/L (21-32) Anion Gap 13 mmol/L (5-15) Blood Urea Nitrogen 52 mg/dL (7-18) Creatinine 1.2 MG/DL (0.55-1.30) Estimat Glomerular Filtration Rate 45.9 mL/min (>60) Glucose Level 99 MG/DL (74-106) Calcium Level 8.5 MG/DL (8.5-10.1) Magnesium Level 1.8 MG/DL (1.8-2.4) Total Bilirubin 0.6 MG/DL (0.2-1.0) Aspartate Amino Transf (AST/SGOT) 21 U/L (15-37) Alanine Aminotransferase (ALT/SGPT) 31 U/L (12-78) Alkaline Phosphatase 132 U/L (46-116) Troponin I 0.005 ng/mL (0.000-0.056) Pro-B-Type Natriuretic Peptide 1310 pg/mL (0-125) Total Protein 6.5 G/DL (6.4-8.2) Albumin 2.2 G/DL (3.4-5.0) Globulin 4.3 g/dL Albumin/Globulin Ratio 0.5 (1.0-2.7) Thyroid Stimulating Hormone (TSH) 2.463 uiU/mL (0.358-3.740) Free Thyroxine 0.92 NG/DL (0.76-1.46) Digoxin Level < 0.2 NG/ML (0.9-2.0) Test 01/17/20 15:35 01/17/20 21:01 01/18/20 05:00 01/18/20 10:00 White Blood Count 3.8 K/UL (4.8-10.8) Red Blood Count 2.96 M/UL (4.20-5.40) Hemoglobin 8.1 G/DL (12.0-16.0) Hematocrit 28.0 % (37.0-47.0) Mean Corpuscular Volume 95 FL (80-99) Mean Corpuscular Hemoglobin 27.5 PG (27.0-31.0) Mean Corpuscular Hemoglobin Concent 29.0 G/DL (32.0-36.0) Red Cell Distribution Width 17.2 % (11.6-14.8) Platelet Count 110 K/UL (150-450) Mean Platelet Volume 8.0 FL (6.5-10.1) Neutrophils (%) (Auto) 70.0 % (45.0-75.0) Lymphocytes (%) (Auto) 16.7 % (20.0-45.0) Monocytes (%) (Auto) 7.0 % (1.0-10.0) Eosinophils (%) (Auto) 5.5 % (0.0-3.0) Basophils (%) (Auto) 0.9 % (0.0-2.0) Stool Occult Blood Positive (NEGATIVE) Positive (NEGATIVE) Sodium Level 142 MMOL/L (136-145) Potassium Level 3.7 MMOL/L (3.5-5.1) Chloride Level 108 MMOL/L (98-107) Carbon Dioxide Level 24 MMOL/L (21-32) Anion Gap 10 mmol/L (5-15) Blood Urea Nitrogen 39 mg/dL (7-18) Creatinine 1.0 MG/DL (0.55-1.30) Estimat Glomerular Filtration Rate 56.5 mL/min (>60) Glucose Level 90 MG/DL (74-106) Calcium Level 8.8 MG/DL (8.5-10.1) Total Bilirubin 0.4 MG/DL (0.2-1.0) Aspartate Amino Transf (AST/SGOT) 25 U/L (15-37) Alanine Aminotransferase (ALT/SGPT) 30 U/L (12-78) Alkaline Phosphatase 118 U/L (46-116) Total Protein 6.3 G/DL (6.4-8.2) Albumin 2.0 G/DL (3.4-5.0) Globulin 4.3 g/dL Albumin/Globulin Ratio 0.5 (1.0-2.7) Test 01/18/20 12:25 01/18/20 16:48 01/19/20 06:35 01/19/20 09:05 POC Whole Blood Glucose 84 MG/DL (74-106) 84 MG/DL (74-106) 77 MG/DL (74-106) White Blood Count 3.4 K/UL (4.8-10.8) Red Blood Count 2.74 M/UL (4.20-5.40) Hemoglobin 7.6 G/DL (12.0-16.0) Hematocrit 25.7 % (37.0-47.0) Mean Corpuscular Volume 94 FL (80-99) Mean Corpuscular Hemoglobin 27.7 PG (27.0-31.0) Mean Corpuscular Hemoglobin Concent 29.6 G/DL (32.0-36.0) Red Cell Distribution Width 17.0 % (11.6-14.8) Platelet Count 125 K/UL (150-450) Mean Platelet Volume 6.7 FL (6.5-10.1) Neutrophils (%) (Auto) % (45.0-75.0) Lymphocytes (%) (Auto) % (20.0-45.0) Monocytes (%) (Auto) % (1.0-10.0) Eosinophils (%) (Auto) % (0.0-3.0) Basophils (%) (Auto) % (0.0-2.0) Differential Total Cells Counted 100 Neutrophils % (Manual) 63 % (45-75) Lymphocytes % (Manual) 26 % (20-45) Monocytes % (Manual) 2 % (1-10) Eosinophils % (Manual) 9 % (0-3) Basophils % (Manual) 0 % (0-2) Band Neutrophils 0 % (0-8) Platelet Estimate Decreased Platelet Morphology Normal Polychromasia 1+ Hypochromasia 1+ Anisocytosis 1+ Sodium Level 147 MMOL/L (136-145) Potassium Level 3.1 MMOL/L (3.5-5.1) Chloride Level 110 MMOL/L (98-107) Carbon Dioxide Level 26 MMOL/L (21-32) Anion Gap 11 mmol/L (5-15) Blood Urea Nitrogen 35 mg/dL (7-18) Creatinine 0.7 MG/DL (0.55-1.30) Estimat Glomerular Filtration Rate > 60 mL/min (>60) Glucose Level 101 MG/DL (74-106) Calcium Level 8.2 MG/DL (8.5-10.1) Total Bilirubin 0.4 MG/DL (0.2-1.0) Aspartate Amino Transf (AST/SGOT) 13 U/L (15-37) Alanine Aminotransferase (ALT/SGPT) 26 U/L (12-78) Alkaline Phosphatase 110 U/L (46-116) Total Protein 5.8 G/DL (6.4-8.2) Albumin 1.9 G/DL (3.4-5.0) Globulin 3.9 g/dL Albumin/Globulin Ratio 0.5 (1.0-2.7) Test 01/19/20 12:12 POC Whole Blood Glucose 101 MG/DL (74-106) Height (Feet): 5 Height (Inches): 5.00 Weight (Pounds): 237 Objective Physical Exam General: Awake and alert, no acute distress HEENT: NC/AT. EOMI. PERRLA. Anicteric sclera. Cardiovascular: Tachycardic. S1 and S2 normal. Resp: 2 L nasal cannula. Tachypnea. Normal work of breathing. Abdomen: Abdomen is soft, nondistended, obese. Nontender Skin: Bandages over the heels and feet on the lower extremities MSK: Normal tone and bulk. Moving all extremities. No obvious deformity. Neuro: Awake and alert. Mentating appropriately. Reno Valle MD Jan 19, 2020 12:57
[2020-01-19] MEDS: D5W w/KCl 20mEq 1,000 ML IV SCH (13:07)
[2020-01-19 16:00] VITALS: BP 112/59
[2020-01-19 20:00] VITALS: BP 118/73
[2020-01-19] MEDS: Levemir Flexpen SUBQ SCH (21:00)
[2020-01-19] MEDS: Iron Sucrose 100 MG in NS 55 ML IV SCH (22:55)
[2020-01-19] MEDS: Dyna-Hex 2% Top Sol 2oz TOPIC SCH (22:55)
[2020-01-20] VITALS: BP 115/68
[2020-01-20 04:00] VITALS: BP 120/66
[2020-01-20] MEDS: NovoLOG Insulin Flexpen SUBQ SCH ×4 (05:58→21:00)
[2020-01-20] MEDS: Meropenem 1gm in NS 55ml IVPB SCH ×3 (05:58→21:58)
[2020-01-20] MEDS: Zinc Sulfate 220mg ORAL SCH (06:06)
[2020-01-20] MEDS: HYDROcodone/Acetamin 5/325 tab ORAL PRN ×2 (06:18→18:07)
[2020-01-20 07:02] LABS: ANION GAP 12 mmol/L (5-15); BLOOD UREA NITROGEN 32 mg/dL (7-18); CALCIUM 8.6 MG/DL (8.5-10.1); CARBON DIOXIDE 25 MMOL/L (21-32); CHLORIDE 108 MMOL/L (98-107); CREATININE 0.9 MG/DL (0.55-1.30); POTASSIUM 4.1 MMOL/L (3.5-5.1); SODIUM 145 MMOL/L (136-145)
[2020-01-20 07:04] LABS: BASOPHILS % (AUTO) 0.7 % (0.0-2.0); EOSINOPHILS % (AUTO) 8.9 % (0.0-3.0); HEMOGLOBIN 8.5 G/DL (12.0-16.0); LYMPHOCYTES % (AUTO) 25.8 % (20.0-45.0); MEAN CORPUSCULAR VOLUME 95 FL (80-99); NEUTROPHILS % (AUTO) 57.6 % (45.0-75.0); PLATELET COUNT 149 K/UL (150-450); RED BLOOD COUNT 3.05 M/UL (4.20-5.40); RED CELL DISTRIBUTION WIDTH 18.1 % (11.6-14.8); WHITE BLOOD COUNT 4.1 K/UL (4.8-10.8)
[2020-01-20 07:45] LABS: PHOSPHORUS 3.6 MG/DL (2.5-4.9)
[2020-01-20 08:00] VITALS: BP 143/70
[2020-01-20] MEDS: Doxycycline Monohydrate 100mg ORAL SCH ×2 (08:15→20:57)
[2020-01-20] MEDS: Ascorbic Acid 500mg tab ORAL SCH ×2 (08:16→18:06)
[2020-01-20] MEDS: Revatio 20mg tab ORAL SCH (08:16)
[2020-01-20] MEDS: Digoxin 0.125mg tab ORAL SCH (08:16)
[2020-01-20] MEDS: Dakin's 0.125% Soln (Quarter Strength) 16oz TOPIC SCH (08:17)
[2020-01-20] MEDS: D5W w/KCl 20mEq 1,000 ML IV SCH (08:18)
--- NOTE | 2020-01-20 08:58 | General Progress Note ---
Assessment/Plan Status: stable, progressing Assessment/Plan: # Acute Hypoxemic respiratory failure - improving # COVID 19 infection, positive on 01/15 # Pulmonary HTN continue supplemental oxygen 2L via NC continue COVID precautions Incentive spirometry Trend inflammatory markers Pulm and ID follows Sildenafil for pulmonary HTN #SVT #Autonomic dysfunction -continue metoprolol and digoxin -Continue midodrine -Holding anticoagulation due to anemia -EP following for possible ablation #Normocytic anemia #Thrombocytopenia #Pancytopenia #FOBT + #Diarrhea - Iron studies reviewed - Trend CBC - Transfuse 1 unit pRBC - 01/16/2020 - Transfuse for Hg less than 7 - Consult to hematology - anticoagulation held - GI consult #MISSY - resolved #Hypernatremia #Hypokalemia #Hypomagnesemia -Fluid hydration -hold nephrotoxic medications -Electrolyte replacement -Nephrology following -replace IV magnesium sulfate #ESBL UTI #Proteus bacteremia -Follow up cultures - ESBL in urine and Proteus in blood -Continue with antibiotics as per ID recs #Pressure injuries -Wound care -Surgery following VTE PPx I spent 38 minutes on this patient's case, and 19 minutes was dedicated to counseling and/or care coordination with RN, case operator, consulting MDs I spent an additional 37 minutes on review of medical records including prior outside hospital records, consult notes, progress notes, procedures, imaging, labs, hemodynamics, and other clinical documentation. Subjective Date patient seen: Jan 20, 2020 Time patient seen: 08:00 ROS Limited/Unobtainable: Yes Allergies: Coded Allergies: ERYTHROMYCIN BASE (Verified Allergy, Unknown, 01/14/20) HEPARIN (Verified Allergy, Unknown, 01/14/20) Subjective Follow up for COVID19 infection Objective Last 24 Hour Vital Signs Date Time Temp Pulse Resp B/P (MAP) Pulse Ox O2 Delivery O2 Flow Rate FiO2 01/20/20 08:16 120 01/20/20 08:15 123 120/66 01/20/20 08:00 97.6 122 20 143/70 (94) 100 01/20/20 06:48 97.5 01/20/20 04:00 97.5 86 20 120/66 (84) 100 01/20/20 04:00 123 01/20/20 03:10 Nasal Cannula 2.0 Nasal Cannula 2.0 01/20/20 00:00 97.2 91 20 115/68 (84) 97 01/20/20 00:00 91 01/19/20 23:44 Nasal Cannula 2.0 Nasal Cannula 2.0 01/19/20 22:55 90 118/73 01/19/20 20:00 Nasal Cannula 2.0 Nasal Cannula 2.0 01/19/20 20:00 97.8 90 20 118/73 (88) 97 01/19/20 19:08 85 01/19/20 16:00 96.6 89 22 112/59 (76) 97 01/19/20 16:00 84 01/19/20 16:00 Nasal Cannula 2.0 Nasal Cannula 2.0 01/19/20 12:00 113 01/19/20 12:00 Nasal Cannula 2.0 Nasal Cannula 2.0 01/19/20 11:45 97.1 98 22 99/52 (68) 98 Intake and Output 01/19/20 01/20/20 19:00 07:00 Intake Total 355 ml 384 ml Output Total 600 ml 600 ml Balance -245 ml -216 ml IV Total 355 ml 384 ml Output Urine Total 600 ml 600 ml # Bowel Movements 2 3 Laboratory Tests 01/19/20 09:05: White Blood Count 3.4L, Red Blood Count 2.74L, Hemoglobin 7.6L, Hematocrit 25.7L , Mean Corpuscular Volume 94, Mean Corpuscular Hemoglobin 27.7, Mean Corpuscular Hemoglobin Concent 29.6L, Red Cell Distribution Width 17.0H, Platelet Count 125L, Mean Platelet Volume 6.7, Neutrophils (%) (Auto) , Lymphocytes (%) (Auto) , Monocytes (%) (Auto) , Eosinophils (%) (Auto) , Basophils (%) (Auto) , Differential Total Cells Counted 100, Neutrophils % ( Manual) 63, Lymphocytes % (Manual) 26, Monocytes % (Manual) 2, Eosinophils % ( Manual) 9H, Basophils % (Manual) 0, Band Neutrophils 0, Platelet Estimate DecreasedL, Platelet Morphology Normal, Polychromasia 1+, Hypochromasia 1+, Anisocytosis 1+, Sodium Level 147H, Potassium Level 3.1L, Chloride Level 110H, Carbon Dioxide Level 26, Anion Gap 11, Blood Urea Nitrogen 35H, Creatinine 0.7, Estimat Glomerular Filtration Rate > 60, Glucose Level 101, Calcium Level 8.2L, Total Bilirubin 0.4, Aspartate Amino Transf (AST/SGOT) 13L, Alanine Aminotransferase (ALT/SGPT) 26, Alkaline Phosphatase 110, Total Protein 5.8L, Albumin 1.9L, Globulin 3.9, Albumin/Globulin Ratio 0.5L 01/19/20 12:12: POC Whole Blood Glucose 101 01/19/20 16:45: POC Whole Blood Glucose 101 01/19/20 21:44: POC Whole Blood Glucose 108H 01/20/20 04:13: White Blood Count 4.1L, Red Blood Count 3.05L, Hemoglobin 8.5L, Hematocrit 29.0L , Mean Corpuscular Volume 95, Mean Corpuscular Hemoglobin 27.8, Mean Corpuscular Hemoglobin Concent 29.2L, Red Cell Distribution Width 18.1H, Platelet Count 149L, Mean Platelet Volume 7.5, Neutrophils (%) (Auto) 57.6, Lymphocytes (%) (Auto) 25.8, Monocytes (%) (Auto) 7.0, Eosinophils (%) (Auto) 8.9H, Basophils (%) (Auto) 0.7, Sodium Level 145, Potassium Level 4.1, Chloride Level 108H, Carbon Dioxide Level 25, Anion Gap 12, Blood Urea Nitrogen 32H, Creatinine 0.9, Estimat Glomerular Filtration Rate > 60, Glucose Level 98, Calcium Level 8.6, Phosphorus Level 3.6, Magnesium Level 1.6L Height (Feet): 5 Height (Inches): 5.00 Weight (Pounds): 237 William Rowley MD Jan 20, 2020 08:58
--- NOTE | 2020-01-20 09:20 | Nephrology Progress Note ---
Assessment/Plan Plan #MISSY due to pre-rernal azotemia in the setting of anemia #Acute on chronic anemia # Acute Hypoxemic respiratory failure # COVID 19 infection previously - now 1 negative swab # Pulmonary HTN #UTI #runs of SVTs #ho/ HTN #DM - dc ivf - replete mag - defer further renal work up pending evolution of kidney function - monitor CBC - IV iron - GI eval - continue metop 25mg BID - on midodrine 5mg TID - holding AC- on apixaban - continue with dig - avoid nephrotoxins - strict I&Os - monitor weights - check BMP, mag and phos daily Time spent 70 min > 50% on care coordiation and counseling Subjective ROS Limited/Unobtainable: No HEENT: Denies: no symptoms, eye pain, blurred vision, tearing, double vision, ear pain, ear discharge, nose pain, nose congestion, throat pain, throat swelling, mouth pain, mouth swelling, other Genitourinary: Denies: no symptoms, burning, discharge, frequency, flank pain, hematuria, incontinence, pain, urgency, other Neurologic/Psychiatric: Denies: no symptoms, anxiety, depressed, emotional problems, headache, numbness, paresthesia, pre-existing deficit, seizure, tingling, tremors, weakness, other Subjective Cr improved BP stable mag low getting replete hemoglobin stable Objective Objective Last 24 Hour Vital Signs Date Time Temp Pulse Resp B/P (MAP) Pulse Ox O2 Delivery O2 Flow Rate FiO2 01/20/20 08:16 120 01/20/20 08:15 123 120/66 01/20/20 08:00 97.6 122 20 143/70 (94) 100 01/20/20 06:48 97.5 01/20/20 04:00 97.5 86 20 120/66 (84) 100 01/20/20 04:00 123 01/20/20 03:10 Nasal Cannula 2.0 Nasal Cannula 2.0 01/20/20 00:00 97.2 91 20 115/68 (84) 97 01/20/20 00:00 91 01/19/20 23:44 Nasal Cannula 2.0 Nasal Cannula 2.0 01/19/20 22:55 90 118/73 01/19/20 20:00 Nasal Cannula 2.0 Nasal Cannula 2.0 01/19/20 20:00 97.8 90 20 118/73 (88) 97 01/19/20 19:08 85 01/19/20 16:00 96.6 89 22 112/59 (76) 97 01/19/20 16:00 84 01/19/20 16:00 Nasal Cannula 2.0 Nasal Cannula 2.0 01/19/20 12:00 113 01/19/20 12:00 Nasal Cannula 2.0 Nasal Cannula 2.0 01/19/20 11:45 97.1 98 22 99/52 (68) 98 Intake and Output 01/19/20 01/20/20 19:00 07:00 Intake Total 355 ml 384 ml Output Total 600 ml 600 ml Balance -245 ml -216 ml IV Total 355 ml 384 ml Output Urine Total 600 ml 600 ml # Bowel Movements 2 3 Laboratory Tests 01/19/20 12:12: POC Whole Blood Glucose 101 01/19/20 16:45: POC Whole Blood Glucose 101 01/19/20 21:44: POC Whole Blood Glucose 108H 01/20/20 04:13: White Blood Count 4.1L, Red Blood Count 3.05L, Hemoglobin 8.5L, Hematocrit 29.0L , Mean Corpuscular Volume 95, Mean Corpuscular Hemoglobin 27.8, Mean Corpuscular Hemoglobin Concent 29.2L, Red Cell Distribution Width 18.1H, Platelet Count 149L, Mean Platelet Volume 7.5, Neutrophils (%) (Auto) 57.6, Lymphocytes (%) (Auto) 25.8, Monocytes (%) (Auto) 7.0, Eosinophils (%) (Auto) 8.9H, Basophils (%) (Auto) 0.7, Sodium Level 145, Potassium Level 4.1, Chloride Level 108H, Carbon Dioxide Level 25, Anion Gap 12, Blood Urea Nitrogen 32H, Creatinine 0.9, Estimat Glomerular Filtration Rate > 60, Glucose Level 98, Calcium Level 8.6, Phosphorus Level 3.6, Magnesium Level 1.6L Height (Feet): 5 Height (Inches): 5.00 Weight (Pounds): 237 Phil Morse M.D. Jan 20, 2020 09:20
--- NOTE | 2020-01-20 09:27 | General Progress Note ---
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 GERd symptoms takes PRN AA says had a negative colonoscopy in 2019 no EGD Objective Last 24 Hour Vital Signs Date Time Temp Pulse Resp B/P (MAP) Pulse Ox O2 Delivery O2 Flow Rate FiO2 01/20/20 08:16 120 01/20/20 08:15 123 120/66 01/20/20 08:00 97.6 122 20 143/70 (94) 100 01/20/20 06:48 97.5 01/20/20 04:00 97.5 86 20 120/66 (84) 100 01/20/20 04:00 123 01/20/20 03:10 Nasal Cannula 2.0 Nasal Cannula 2.0 01/20/20 00:00 97.2 91 20 115/68 (84) 97 01/20/20 00:00 91 01/19/20 23:44 Nasal Cannula 2.0 Nasal Cannula 2.0 01/19/20 22:55 90 118/73 01/19/20 20:00 Nasal Cannula 2.0 Nasal Cannula 2.0 01/19/20 20:00 97.8 90 20 118/73 (88) 97 01/19/20 19:08 85 01/19/20 16:00 96.6 89 22 112/59 (76) 97 01/19/20 16:00 84 01/19/20 16:00 Nasal Cannula 2.0 Nasal Cannula 2.0 01/19/20 12:00 113 01/19/20 12:00 Nasal Cannula 2.0 Nasal Cannula 2.0 01/19/20 11:45 97.1 98 22 99/52 (68) 98 Intake and Output 01/19/20 01/20/20 19:00 07:00 Intake Total 355 ml 384 ml Output Total 600 ml 600 ml Balance -245 ml -216 ml IV Total 355 ml 384 ml Output Urine Total 600 ml 600 ml # Bowel Movements 2 3 Laboratory Tests 7/12/20 12:12: POC Whole Blood Glucose 101 01/19/20 16:45: POC Whole Blood Glucose 101 01/19/20 21:44: POC Whole Blood Glucose 108H 01/20/20 04:13: White Blood Count 4.1L, Red Blood Count 3.05L, Hemoglobin 8.5L, Hematocrit 29.0L , Mean Corpuscular Volume 95, Mean Corpuscular Hemoglobin 27.8, Mean Corpuscular Hemoglobin Concent 29.2L, Red Cell Distribution Width 18.1H, Platelet Count 149L, Mean Platelet Volume 7.5, Neutrophils (%) (Auto) 57.6, Lymphocytes (%) (Auto) 25.8, Monocytes (%) (Auto) 7.0, Eosinophils (%) (Auto) 8.9H, Basophils (%) (Auto) 0.7, Sodium Level 145, Potassium Level 4.1, Chloride Level 108H, Carbon Dioxide Level 25, Anion Gap 12, Blood Urea Nitrogen 32H, Creatinine 0.9, Estimat Glomerular Filtration Rate > 60, Glucose Level 98, Calcium Level 8.6, Phosphorus Level 3.6, Magnesium Level 1.6L Height (Feet): 5 Height (Inches): 5.00 Weight (Pounds): 237 Objective WDWN NCAT supple CTA RR abd soft obest NT ND no edema nonfocal Norman Greenberg MD Jan 20, 2020 09:27
--- NOTE | 2020-01-20 10:53 | Cardiac Electrophysiology PN ---
Assessment/Plan Assessment/Plan 1. Runs of regular sudden onset and termination supraventricular tachycardia. Blood pressure in the 90s. On metoprolol 25 mg b.i.d. and digoxin 0.125 daily. EF 55% and ruled out for NM Dig level <0.2 2. Hypertension. On metoprolol 25 mg b.i.d. 3. Diabetes. 4. End-stage renal disease. 5. Status post recent COVID. Covid positive again and now in isolation 6. Severe anemia, hemoglobin 6.5, S/P 1 unit of blood transfusion. 7. Huge decubitus ulcer. 8. Hx of DVT. Eliquis held for severe anemia. LAMINE RN and Dr. Castellanos Subjective Subjective No more SVT on Lopressor 25 bid and Dig daily. Covid negative x1. Now positive after swabbed again on 01/16/20 Objective Last 24 Hour Vital Signs Date Time Temp Pulse Resp B/P (MAP) Pulse Ox O2 Delivery O2 Flow Rate FiO2 01/20/20 08:16 120 01/20/20 08:15 123 120/66 01/20/20 08:00 97.6 122 20 143/70 (94) 100 01/20/20 08:00 Nasal Cannula 2.0 Nasal Cannula 2.0 01/20/20 06:48 97.5 01/20/20 04:00 97.5 86 20 120/66 (84) 100 01/20/20 04:00 123 01/20/20 03:10 Nasal Cannula 2.0 Nasal Cannula 2.0 01/20/20 00:00 97.2 91 20 115/68 (84) 97 01/20/20 00:00 91 01/19/20 23:44 Nasal Cannula 2.0 Nasal Cannula 2.0 01/19/20 22:55 90 118/73 01/19/20 20:00 Nasal Cannula 2.0 Nasal Cannula 2.0 01/19/20 20:00 97.8 90 20 118/73 (88) 97 01/19/20 19:08 85 01/19/20 16:00 96.6 89 22 112/59 (76) 97 01/19/20 16:00 84 01/19/20 16:00 Nasal Cannula 2.0 Nasal Cannula 2.0 01/19/20 12:00 113 01/19/20 12:00 Nasal Cannula 2.0 Nasal Cannula 2.0 01/19/20 11:45 97.1 98 22 99/52 (68) 98 Intake and Output 01/19/20 01/20/20 19:00 07:00 Intake Total 355 ml 384 ml Output Total 600 ml 600 ml Balance -245 ml -216 ml IV Total 355 ml 384 ml Output Urine Total 600 ml 600 ml # Bowel Movements 2 3 Laboratory Tests Test 01/19/20 12:12 01/19/20 16:45 01/19/20 21:44 01/20/20 04:13 POC Whole Blood Glucose 101 MG/DL (74-106) 101 MG/DL (74-106) 108 MG/DL (74-106) H White Blood Count 4.1 K/UL (4.8-10.8) L Red Blood Count 3.05 M/UL (4.20-5.40) L Hemoglobin 8.5 G/DL (12.0-16.0) L Hematocrit 29.0 % (37.0-47.0) L Mean Corpuscular Volume 95 FL (80-99) Mean Corpuscular Hemoglobin 27.8 PG (27.0-31.0) Mean Corpuscular Hemoglobin Concent 29.2 G/DL (32.0-36.0) L Red Cell Distribution Width 18.1 % (11.6-14.8) H Platelet Count 149 K/UL (150-450) L Mean Platelet Volume 7.5 FL (6.5-10.1) Neutrophils (%) (Auto) 57.6 % (45.0-75.0) Lymphocytes (%) (Auto) 25.8 % (20.0-45.0) Monocytes (%) (Auto) 7.0 % (1.0-10.0) Eosinophils (%) (Auto) 8.9 % (0.0-3.0) H Basophils (%) (Auto) 0.7 % (0.0-2.0) Sodium Level 145 MMOL/L (136-145) Potassium Level 4.1 MMOL/L (3.5-5.1) Chloride Level 108 MMOL/L (98-107) H Carbon Dioxide Level 25 MMOL/L (21-32) Anion Gap 12 mmol/L (5-15) Blood Urea Nitrogen 32 mg/dL (7-18) H Creatinine 0.9 MG/DL (0.55-1.30) Estimat Glomerular Filtration Rate > 60 mL/min (>60) Glucose Level 98 MG/DL (74-106) Calcium Level 8.6 MG/DL (8.5-10.1) Phosphorus Level 3.6 MG/DL (2.5-4.9) Magnesium Level 1.6 MG/DL (1.8-2.4) L Microbiology Date/Time Source Procedure Growth Status 01/19/20 16:00 Stool Clostridium difficile Toxin Assay - Final Complete Objective HEAD AND NECK: no JVD. LUNGS: Coarse rhonchi. CARDIOVASCULAR: Regular S1 and S2 with no gallop. ABDOMEN: Soft. EXTREMITIES: No pitting edema. Austin Byrd MD Jan 20, 2020 10:53
--- NOTE | 2020-01-20 11:38 | Hematology/Onc Progress Note ---
Assessment/Plan Assessment/Plan Assessment and Recs # Pancytopenia initialy with Anemia is due to chronic dsiease/kidney failure and covid19++, does not appear to be gi bleed --> anemia panel has been reviewed --> continue on epogen as per renal --> no hemolysis is noted --> hgb trend 6.4-->8.2 --> hold off anticaog if hgb <7 --> wbc 4.1 --> wbc 125-->149 # Thrombocytopenia given first time here cause workup ongoing --> us abd is pending, r/o cirrhosis and hsm --> hep and hiv panel neg --> may also be due to covid 19 # UTI (urinary tract infection) --> with poa Sepsis --> abx as per id team # Respiratory failure due to covid19 --> steriods, low threshold for intuabtion -> covid 19 on iso # Ddimer elevation --> duplex lower ext neg # Pulmonary HTN # Hyperocag disorder --> hold off eliquis for now given drop in h/h --> have bindu rn this info --> consider cards eval Appreciate consultation and bindu RN Subjective Constitutional: Denies: no symptoms, chills, fever, malaise, weakness, other HEENT: Denies: no symptoms, eye pain, blurred vision, tearing, double vision, ear pain, ear discharge, nose pain, nose congestion, throat pain, throat swelling, mouth pain, mouth swelling, other Cardiovascular: Denies: no symptoms, chest pain, edema, irregular heart rate, lightheadedness, palpitations, syncope, other Respiratory: Denies: no symptoms, cough, shortness of breath, SOB with excertion, SOB at rest, sputum, wheezing, other Gastrointestinal/Abdominal: Denies: no symptoms, abdomen distended, abdominal pain, black stools, tarry stools, blood in stool, constipated, diarrhea, difficulty swallowing, nausea, poor appetite, poor fluid intake, rectal bleeding , vomiting, other Genitourinary: Denies: no symptoms, burning, discharge, frequency, flank pain, hematuria, incontinence, pain, urgency, other Neurologic/Psychiatric: Denies: no symptoms, anxiety, depressed, emotional problems, headache, numbness, paresthesia, pre-existing deficit, seizure, tingling, tremors, weakness, other Endocrine: Denies: no symptoms, excessive sweating, flushing, intolerance to cold, intolerance to heat, increased hunger, increased thirst, increased urine, unexplained weight gain, unexplained weight loss, other Hematologic/Lymphatic: Denies: no symptoms, anemia, easy bleeding, easy bruising, adenopathy, other Allergies: Coded Allergies: ERYTHROMYCIN BASE (Verified Allergy, Unknown, 01/14/20) HEPARIN (Verified Allergy, Unknown, 01/14/20) Subjective 01/15 duplex was negative, holding off anticoag, no night sweats 01/18 meds noted, no bleeding, labs reviewed, h/h stable 01/19 labs have been reviewed, no bleeding, stable overnight, covid19+ Objective Objective Current Medications Medications (Trade) Dose Ordered Sig/Samuel Route PRN Reason Start Time Stop Time Status Last Admin Dose Admin Acetaminophen (Tylenol) 650 mg Q6H PRN ORAL Mild Pain (Pain Scale 1-3) 01/15/20 03:15 02/14/20 03:14 01/16/20 01:38 Acetaminophen (Tylenol) 650 mg Q6H PRN ORAL Temp >100.5 01/15/20 03:15 02/14/20 03:14 Acetaminophen/ Hydrocodone Bitart ([place] 5/325) 1 tab Q6H PRN ORAL For Pain 01/16/20 07:00 01/23/20 06:59 01/20/20 06:18 Ascorbic Acid (Vitamin C) 250 mg TWICE A DAY ORAL 01/17/20 18:00 02/16/20 17:59 01/20/20 08:16 Chlorhexidine Gluconate (Mel-Hex 2%) 1 applic DAILY@1999 TOPIC 01/15/20 20:00 04/14/20 19:59 01/19/20 22:55 Dextrose (Dextrose 50%) 25 ml Q30M PRN IV Hypoglycemia 01/14/20 23:15 04/13/20 23:14 Dextrose (Dextrose 50%) 50 ml Q30M PRN IV Hypoglycemia 01/14/20 23:15 04/13/20 23:14 Digoxin (Lanoxin) 0.125 mg DAILY ORAL 01/17/20 09:00 04/16/20 08:59 01/20/20 08:16 Doxycycline Monohydrate (Doxycycline Monohydrate) 100 mg EVERY 12 HOURS ORAL 01/18/20 09:00 01/25/20 08:59 01/20/20 08:15 Duloxetine HCl (Cymbalta) 60 mg DAILY ORAL 01/17/20 14:45 04/16/20 14:44 01/20/20 08:17 Insulin Aspart (NovoLOG) BEFORE MEALS AND HS SUBQ 01/15/20 06:30 04/14/20 06:29 01/16/20 05:47 Insulin Detemir (Levemir) 11 units BEDTIME SUBQ 01/15/20 21:00 04/14/20 20:59 01/15/20 21:21 Iron Sucrose 100 mg/Sodium Chloride 60 ml @ 240 mls/hr BEDTIME IV 01/16/20 21:00 01/20/20 21:14 01/19/20 22:55 Loperamide HCl (Imodium) 2 mg Q4H PRN ORAL Diarrhea 01/19/20 07:00 02/18/20 06:59 01/20/20 09:45 Meropenem 1 gm/ Sodium Chloride 55 ml @ 110 mls/hr Q8HR IVPB 01/18/20 22:00 01/23/20 21:59 01/20/20 05:58 Metoprolol Tartrate (Lopressor) 25 mg Q12HR ORAL 01/15/20 09:00 04/14/20 08:59 01/20/20 08:15 Midodrine (Pro-Amatine) 5 mg TID PRN ORAL sbp<110 01/15/20 09:00 04/14/20 08:59 Multivitamins (Multivitamins) 1 tab Q24H ORAL 01/18/20 07:00 02/17/20 06:59 01/20/20 06:06 Pantoprazole (Protonix) 40 mg DAILY ORAL 01/19/20 09:00 02/18/20 08:59 01/20/20 08:16 Sildenafil Citrate (Revatio) 20 mg DAILY ORAL 01/15/20 09:00 04/14/20 08:59 01/20/20 08:16 Sodium Hypochlorite (Dakin's Quarter Strength) 1 applic DAILY TOPIC 01/15/20 11:00 02/14/20 10:59 01/20/20 08:17 Zinc Sulfate (Zinc Sulfate) 220 mg Q24H ORAL 01/18/20 07:00 04/17/20 06:59 01/20/20 06:06 Last 24 Hour Vital Signs Date Time Temp Pulse Resp B/P (MAP) Pulse Ox O2 Delivery O2 Flow Rate FiO2 01/20/20 08:16 120 01/20/20 08:15 123 120/66 01/20/20 08:00 97.6 122 20 143/70 (94) 100 01/20/20 08:00 Nasal Cannula 2.0 Nasal Cannula 2.0 01/20/20 06:48 97.5 01/20/20 04:00 97.5 86 20 120/66 (84) 100 01/20/20 04:00 123 01/20/20 03:10 Nasal Cannula 2.0 Nasal Cannula 2.0 01/20/20 00:00 97.2 91 20 115/68 (84) 97 01/20/20 00:00 91 01/19/20 23:44 Nasal Cannula 2.0 Nasal Cannula 2.0 01/19/20 22:55 90 118/73 01/19/20 20:00 Nasal Cannula 2.0 Nasal Cannula 2.0 01/19/20 20:00 97.8 90 20 118/73 (88) 97 01/19/20 19:08 85 01/19/20 16:00 96.6 89 22 112/59 (76) 97 01/19/20 16:00 84 01/19/20 16:00 Nasal Cannula 2.0 Nasal Cannula 2.0 01/19/20 12:00 113 01/19/20 12:00 Nasal Cannula 2.0 Nasal Cannula 2.0 01/19/20 11:45 97.1 98 22 99/52 (68) 98 01/19/20 08:31 101 01/19/20 08:30 101 106/51 01/19/20 08:00 Room Air Room Air 01/19/20 08:00 97.7 101 22 106/51 (69) 97 01/19/20 08:00 96 01/19/20 04:00 Nasal Cannula 2.0 Nasal Cannula 2.0 01/19/20 04:00 98.0 104 22 144/67 (92) 97 01/19/20 03:37 120 01/19/20 00:00 Nasal Cannula 2.0 Nasal Cannula 2.0 01/19/20 00:00 97.4 89 24 109/67 (81) 100 01/18/20 23:43 110 01/18/20 21:01 96 126/62 01/18/20 20:00 Nasal Cannula 2.0 Nasal Cannula 2.0 01/18/20 20:00 97.3 94 24 135/65 (88) 96 01/18/20 19:47 119 01/18/20 16:00 Nasal Cannula 2.0 01/18/20 16:00 98.1 80 20 129/61 (83) 95 01/18/20 15:28 75 01/18/20 12:00 97.5 82 20 106/60 (75) 99 01/18/20 12:00 Nasal Cannula 2.0 Intake and Output 01/19/20 01/20/20 19:00 07:00 Intake Total 355 ml 384 ml Output Total 600 ml 600 ml Balance -245 ml -216 ml IV Total 355 ml 384 ml Output Urine Total 600 ml 600 ml # Bowel Movements 2 3 Labs Test 01/17/20 11:41 01/17/20 15:35 01/17/20 21:01 01/18/20 05:00 POC Whole Blood Glucose 90 MG/DL (74-106) White Blood Count 3.8 K/UL (4.8-10.8) Red Blood Count 2.96 M/UL (4.20-5.40) Hemoglobin 8.1 G/DL (12.0-16.0) Hematocrit 28.0 % (37.0-47.0) Mean Corpuscular Volume 95 FL (80-99) Mean Corpuscular Hemoglobin 27.5 PG (27.0-31.0) Mean Corpuscular Hemoglobin Concent 29.0 G/DL (32.0-36.0) Red Cell Distribution Width 17.2 % (11.6-14.8) Platelet Count 110 K/UL (150-450) Mean Platelet Volume 8.0 FL (6.5-10.1) Neutrophils (%) (Auto) 70.0 % (45.0-75.0) Lymphocytes (%) (Auto) 16.7 % (20.0-45.0) Monocytes (%) (Auto) 7.0 % (1.0-10.0) Eosinophils (%) (Auto) 5.5 % (0.0-3.0) Basophils (%) (Auto) 0.9 % (0.0-2.0) Stool Occult Blood Positive (NEGATIVE) Sodium Level 142 MMOL/L (136-145) Potassium Level 3.7 MMOL/L (3.5-5.1) Chloride Level 108 MMOL/L (98-107) Carbon Dioxide Level 24 MMOL/L (21-32) Anion Gap 10 mmol/L (5-15) Blood Urea Nitrogen 39 mg/dL (7-18) Creatinine 1.0 MG/DL (0.55-1.30) Estimat Glomerular Filtration Rate 56.5 mL/min (>60) Glucose Level 90 MG/DL (74-106) Calcium Level 8.8 MG/DL (8.5-10.1) Total Bilirubin 0.4 MG/DL (0.2-1.0) Aspartate Amino Transf (AST/SGOT) 25 U/L (15-37) Alanine Aminotransferase (ALT/SGPT) 30 U/L (12-78) Alkaline Phosphatase 118 U/L (46-116) Total Protein 6.3 G/DL (6.4-8.2) Albumin 2.0 G/DL (3.4-5.0) Globulin 4.3 g/dL Albumin/Globulin Ratio 0.5 (1.0-2.7) Test 01/18/20 10:00 01/18/20 12:25 01/18/20 16:00 01/18/20 16:48 Stool Occult Blood Positive (NEGATIVE) POC Whole Blood Glucose 84 MG/DL (74-106) 84 MG/DL (74-106) Test 01/19/20 06:35 01/19/20 09:05 01/19/20 12:12 01/19/20 16:45 POC Whole Blood Glucose 77 MG/DL (74-106) 101 MG/DL (74-106) 101 MG/DL (74-106) White Blood Count 3.4 K/UL (4.8-10.8) Red Blood Count 2.74 M/UL (4.20-5.40) Hemoglobin 7.6 G/DL (12.0-16.0) Hematocrit 25.7 % (37.0-47.0) Mean Corpuscular Volume 94 FL (80-99) Mean Corpuscular Hemoglobin 27.7 PG (27.0-31.0) Mean Corpuscular Hemoglobin Concent 29.6 G/DL (32.0-36.0) Red Cell Distribution Width 17.0 % (11.6-14.8) Platelet Count 125 K/UL (150-450) Mean Platelet Volume 6.7 FL (6.5-10.1) Neutrophils (%) (Auto) % (45.0-75.0) Lymphocytes (%) (Auto) % (20.0-45.0) Monocytes (%) (Auto) % (1.0-10.0) Eosinophils (%) (Auto) % (0.0-3.0) Basophils (%) (Auto) % (0.0-2.0) Differential Total Cells Counted 100 Neutrophils % (Manual) 63 % (45-75) Lymphocytes % (Manual) 26 % (20-45) Monocytes % (Manual) 2 % (1-10) Eosinophils % (Manual) 9 % (0-3) Basophils % (Manual) 0 % (0-2) Band Neutrophils 0 % (0-8) Platelet Estimate Decreased Platelet Morphology Normal Polychromasia 1+ Hypochromasia 1+ Anisocytosis 1+ Sodium Level 147 MMOL/L (136-145) Potassium Level 3.1 MMOL/L (3.5-5.1) Chloride Level 110 MMOL/L (98-107) Carbon Dioxide Level 26 MMOL/L (21-32) Anion Gap 11 mmol/L (5-15) Blood Urea Nitrogen 35 mg/dL (7-18) Creatinine 0.7 MG/DL (0.55-1.30) Estimat Glomerular Filtration Rate > 60 mL/min (>60) Glucose Level 101 MG/DL (74-106) Calcium Level 8.2 MG/DL (8.5-10.1) Total Bilirubin 0.4 MG/DL (0.2-1.0) Aspartate Amino Transf (AST/SGOT) 13 U/L (15-37) Alanine Aminotransferase (ALT/SGPT) 26 U/L (12-78) Alkaline Phosphatase 110 U/L (46-116) Total Protein 5.8 G/DL (6.4-8.2) Albumin 1.9 G/DL (3.4-5.0) Globulin 3.9 g/dL Albumin/Globulin Ratio 0.5 (1.0-2.7) Test 01/19/20 21:44 01/20/20 04:13 POC Whole Blood Glucose 108 MG/DL (74-106) White Blood Count 4.1 K/UL (4.8-10.8) Red Blood Count 3.05 M/UL (4.20-5.40) Hemoglobin 8.5 G/DL (12.0-16.0) Hematocrit 29.0 % (37.0-47.0) Mean Corpuscular Volume 95 FL (80-99) Mean Corpuscular Hemoglobin 27.8 PG (27.0-31.0) Mean Corpuscular Hemoglobin Concent 29.2 G/DL (32.0-36.0) Red Cell Distribution Width 18.1 % (11.6-14.8) Platelet Count 149 K/UL (150-450) Mean Platelet Volume 7.5 FL (6.5-10.1) Neutrophils (%) (Auto) 57.6 % (45.0-75.0) Lymphocytes (%) (Auto) 25.8 % (20.0-45.0) Monocytes (%) (Auto) 7.0 % (1.0-10.0) Eosinophils (%) (Auto) 8.9 % (0.0-3.0) Basophils (%) (Auto) 0.7 % (0.0-2.0) Sodium Level 145 MMOL/L (136-145) Potassium Level 4.1 MMOL/L (3.5-5.1) Chloride Level 108 MMOL/L (98-107) Carbon Dioxide Level 25 MMOL/L (21-32) Anion Gap 12 mmol/L (5-15) Blood Urea Nitrogen 32 mg/dL (7-18) Creatinine 0.9 MG/DL (0.55-1.30) Estimat Glomerular Filtration Rate > 60 mL/min (>60) Glucose Level 98 MG/DL (74-106) Calcium Level 8.6 MG/DL (8.5-10.1) Phosphorus Level 3.6 MG/DL (2.5-4.9) Magnesium Level 1.6 MG/DL (1.8-2.4) Micro Microbiology Date/Time Source Procedure Growth Status 01/19/20 16:00 Stool Clostridium difficile Toxin Assay - Final Complete Height (Feet): 5 Height (Inches): 5.00 Weight (Pounds): 237 Objective Physical Exam General: Awake and alert, no acute distress HEENT: NC/AT. EOMI. PERRLA. Anicteric sclera. Cardiovascular: Tachycardic. S1 and S2 normal. Resp: 2 L nasal cannula. Tachypnea. Normal work of breathing. Abdomen: Abdomen is soft, nondistended, obese. Nontender Skin: Bandages over the heels and feet on the lower extremities MSK: Normal tone and bulk. Moving all extremities. No obvious deformity. Neuro: Awake and alert. Mentating appropriately. Reno Valle MD Jan 20, 2020 11:38
[2020-01-20 12:00] VITALS: BP 100/64
--- NOTE | 2020-01-20 12:39 | Surgery Progress Note ---
Surgery Progress Note Subjective Additional Comments no acute events labs noted exam stable micro reviewed discussed with team Objective Last 24 Hour Vital Signs Date Time Temp Pulse Resp B/P (MAP) Pulse Ox O2 Delivery O2 Flow Rate FiO2 01/20/20 12:00 97.9 91 20 100/64 (76) 100 01/20/20 12:00 93 01/20/20 12:00 Nasal Cannula 2.0 Nasal Cannula 2.0 01/20/20 08:16 120 01/20/20 08:15 123 120/66 01/20/20 08:00 97.6 122 20 143/70 (94) 100 01/20/20 08:00 Nasal Cannula 2.0 Nasal Cannula 2.0 01/20/20 08:00 91 01/20/20 06:48 97.5 01/20/20 04:00 97.5 86 20 120/66 (84) 100 01/20/20 04:00 123 01/20/20 03:10 Nasal Cannula 2.0 Nasal Cannula 2.0 01/20/20 00:00 97.2 91 20 115/68 (84) 97 01/20/20 00:00 91 01/19/20 23:44 Nasal Cannula 2.0 Nasal Cannula 2.0 01/19/20 22:55 90 118/73 01/19/20 20:00 Nasal Cannula 2.0 Nasal Cannula 2.0 01/19/20 20:00 97.8 90 20 118/73 (88) 97 01/19/20 19:08 85 01/19/20 16:00 96.6 89 22 112/59 (76) 97 01/19/20 16:00 84 01/19/20 16:00 Nasal Cannula 2.0 Nasal Cannula 2.0 I&O Intake and Output 01/19/20 01/20/20 19:00 07:00 Intake Total 355 ml 384 ml Output Total 600 ml 600 ml Balance -245 ml -216 ml IV Total 355 ml 384 ml Output Urine Total 600 ml 600 ml # Bowel Movements 2 3 Dressing: saturated Wound: other Cardiovascular: RSR Respiratory: decreased breath sounds Abdomen: soft, non-tender, present bowel sounds Extremities: edema, no tenderness, no cyanosis Laboratory Tests Test 01/19/20 16:45 01/19/20 21:44 01/20/20 04:13 POC Whole Blood Glucose 101 MG/DL (74-106) 108 MG/DL (74-106) H White Blood Count 4.1 K/UL (4.8-10.8) L Red Blood Count 3.05 M/UL (4.20-5.40) L Hemoglobin 8.5 G/DL (12.0-16.0) L Hematocrit 29.0 % (37.0-47.0) L Mean Corpuscular Volume 95 FL (80-99) Mean Corpuscular Hemoglobin 27.8 PG (27.0-31.0) Mean Corpuscular Hemoglobin Concent 29.2 G/DL (32.0-36.0) L Red Cell Distribution Width 18.1 % (11.6-14.8) H Platelet Count 149 K/UL (150-450) L Mean Platelet Volume 7.5 FL (6.5-10.1) Neutrophils (%) (Auto) 57.6 % (45.0-75.0) Lymphocytes (%) (Auto) 25.8 % (20.0-45.0) Monocytes (%) (Auto) 7.0 % (1.0-10.0) Eosinophils (%) (Auto) 8.9 % (0.0-3.0) H Basophils (%) (Auto) 0.7 % (0.0-2.0) Sodium Level 145 MMOL/L (136-145) Potassium Level 4.1 MMOL/L (3.5-5.1) Chloride Level 108 MMOL/L (98-107) H Carbon Dioxide Level 25 MMOL/L (21-32) Anion Gap 12 mmol/L (5-15) Blood Urea Nitrogen 32 mg/dL (7-18) H Creatinine 0.9 MG/DL (0.55-1.30) Estimat Glomerular Filtration Rate > 60 mL/min (>60) Glucose Level 98 MG/DL (74-106) Calcium Level 8.6 MG/DL (8.5-10.1) Phosphorus Level 3.6 MG/DL (2.5-4.9) Magnesium Level 1.6 MG/DL (1.8-2.4) L Plan Problems: (1) Sepsis Assessment & Plan: Morbidly obese pt whom presented on admission with Multiple Pressure injuries. Pt stated wounds rapidly developed approx 3 weeks ago while acutely ill. Pt is on oxygen via N/C. Both ears assessed and no evidence of skin breakdown noted. Foam padding around oxygen tubing and pt was advised to maintain tubing loose around ears. Moisture Intertrigo noted to abd folds,R and L groin. 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 Base of wound is 100% soft Black/ rubin necrosis. Bone is palpable. Wound is malodorous. Small amt haemopurulent exudate noted. Borders are irregular, erythematous and macerated.Periwound is erythematous,indurated with additional Pressure injuries and shearing. At L gluteus is a full Thickness Pressure injury(L)7.5cm x (W)4.5cm.90% mixed necrosis/slough,10% pink epithelial at base of wound. Borders are erythematous and macerated. Small amt serous exudate noted. At R Gluteus is full thickness Pressure injury(L)7.3cm x (W)4.5cm. Base of wound is 100% slough. Borders are erythematous and macerated. Small amt serous exudate noted. Full Thickness stage 4 Pressure injury R lower Buttocks(L)4.4cm x (W)7.5cm. Base of wound is 25% necrotic,75% fibrinous slough. Wound is malodorous. Small amt haemopurulent exudate noted. Wound is malodorous. Borders are erythematous and macerated. Full Thickness stage 4 Pressure Injury R Ischium(L)7.6cm x (W)5.4cm. Base of wound is 25% necrotic,60% slough,15% pink epithelial. Small amt seropurulent exudate noted. Wound is malodorous.Borders are erythematous and macerated. Two Full thickness Pressure Injuries that are in close Proximity lower L buttocks.(Proximal)(L)3.5cm x (W)2.6cm.100% soft necrosis at base of wound. Marginal erythema along borders.Periwound L buttocks erythematous with shearing. (Distal)(L)1.3cm x (W)0.9cm. 100% slough at base of wound.Marginal erythema along Borders. Two Unstageable Pressure injuries L Ischium:(Proximal)(L)1.2cm x (W)1.9cm Base of wound is 90% slough,10%pink moist erythema.(Distal) L) 6cm x (W)5.3cm. 90% slough,10% moist erythema at base of wound. Small amt. seropurulent exudate noted. No odor noted. Borders are macerated. Periwound is erythematous with additional shearing. DTPI medial/posterior Upper L thigh which presents as blood Blister that is partially opened(L)1.1cm x (W)6.8cm.Open wound at most medial portion of wound ( L)1.1cm x (W)1.3cm noted to have slough at base. Stable dry eschar L pre-tibial (L)1.5cm x (W)1cm. Haemosiderin with dry scaly plaques L lower ext. DTPI L lateral Malleolus(L)2.3cm x (W)0.9cm. Wound presents as an intact Blood Blister. Non-Healing Surgical wound R Achilles. Pt stated she had surgical repair approximately 2 years ago. Base of wound is 40% fibrinous slough,10% necrotic , 50% pale pink. Edges are macerated. Keloid scar at distal portion of surgical wound. No odor or exudate noted. Surrounding Haemosiderin noted to R lower ext. Full thickness Pressure injury R lateral Malleolus(L)4.8cm x (W)5.8cm. Base of wound is 80%mixed soft necrosis and fibrinous slough,20% pink and moist. Small amt seropurulent exudate noted. (+) Epibole along borders.Periwound is erythematous. No elevation in skin temp. No odor noted. R Heel is boggy but blanchable. Historical scar noted to R heel. L Heel is boggy but blanchable. wounds unlikely etiology uti abx as per ID sacral wound needs debridement. currently covid positive. cont current therapy. will plan for elective debridement once stable and improved Tx.Plan: Cleanse Sacral,R and L Buttocks,R and L ischium wounds with Dakin's 0.125% Harjeet. Loosely pack with Dakin's moistened Gauze. Apply Triad Periwound. Cover with Optifoam drsgs Daily and prn. Cleanse Wound R Achilles with Dakin's 0.125% harjeet. Apply Dakin's Moistened Gauze. Apply Triad periwound. Cover with ABD Pad and Wrap with Kerlix Daily and prn. Cleanse Wound lateral R Malleolus with Dakin's 0.125%. harjeet. Apply Dakin's moistened Gauze to wound. Apply Triad Paste periwound. Cover with ABD Pad. Wrap with Kerlix Daily and prn. Apply Cavilon Skin Barrier to both heels. Cover each heel with Optifoam drsg. Change every 7 days and prn. Apply Triad Paste to abdominal folds and Bilat groin Twice Daily. Reposition at least every 2hours or as tolerated. Off-load heels with Pillow Bariatric bed with APM/LEO Mattress. (2) UTI (urinary tract infection) (3) COVID-19 (4) Anemia (5) SOB (shortness of breath) (6) Tachycardia (7) Decubitus skin ulcer Assessment & Plan: Patient presented with multiple decubitus skin ulcers in various stages. Wounds evaluated initial staging and care plan initiated. Will follow with recommendations. DAILY ESTIMATED NEEDS: Needs based on Wounds, DM 62kg abw 25-30 kcals/kg 6784-2689 total kcals 1.5-2 g protein/kg 93-124 g total protein 25-30 mL/kg 3630-9840 total fluid mLs NUTRITION DIAGNOSIS: Increase pro needs r/t wound healing as evidenced by pt w/ multiple areas of skin breakdown, eval pending, per photos, wounds appear open and advanced. 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
--- NOTE | 2020-01-20 14:10 | Pulmonology Progress Note ---
Subjective ROS Limited/Unobtainable: No Interval Events: None new Constitutional: Reports: fatigue; Denies: fever HEENT: Repors: no symptoms Respiratory: Reports: shortness of breath Cardiovascular: Reports: no symptoms Gastrointestinal/Abdominal: Denies: nausea, vomiting, diarrhea Psychiatric: Denies: depression Skin: Denies: rash Musculoskeletal: Denies: pain Allergies: Coded Allergies: ERYTHROMYCIN BASE (Verified Allergy, Unknown, 01/14/20) HEPARIN (Verified Allergy, Unknown, 01/14/20) All Systems: reviewed and negative except above Objective Last 24 Hour Vital Signs Date Time Temp Pulse Resp B/P (MAP) Pulse Ox O2 Delivery O2 Flow Rate FiO2 01/20/20 12:00 97.9 91 20 100/64 (76) 100 01/20/20 12:00 93 01/20/20 12:00 Nasal Cannula 2.0 Nasal Cannula 2.0 01/20/20 08:16 120 01/20/20 08:15 123 120/66 01/20/20 08:00 97.6 122 20 143/70 (94) 100 01/20/20 08:00 Nasal Cannula 2.0 Nasal Cannula 2.0 01/20/20 08:00 91 01/20/20 06:48 97.5 01/20/20 04:00 97.5 86 20 120/66 (84) 100 01/20/20 04:00 123 01/20/20 03:10 Nasal Cannula 2.0 Nasal Cannula 2.0 01/20/20 00:00 97.2 91 20 115/68 (84) 97 01/20/20 00:00 91 01/19/20 23:44 Nasal Cannula 2.0 Nasal Cannula 2.0 01/19/20 22:55 90 118/73 01/19/20 20:00 Nasal Cannula 2.0 Nasal Cannula 2.0 01/19/20 20:00 97.8 90 20 118/73 (88) 97 01/19/20 19:08 85 01/19/20 16:00 96.6 89 22 112/59 (76) 97 01/19/20 16:00 84 01/19/20 16:00 Nasal Cannula 2.0 Nasal Cannula 2.0 Intake and Output 01/19/20 01/20/20 19:00 07:00 Intake Total 355 ml 839 ml Output Total 600 ml 600 ml Balance -245 ml 239 ml IV Total 355 ml 839 ml Output Urine Total 600 ml 600 ml # Bowel Movements 2 3 General Appearance: no acute distress HEENT: normocephalic Respiratory: chest wall non-tender, lungs clear Cardiovascular: normal peripheral pulses Abdomen: normal bowel sounds Microbiology Date/Time Source Procedure Growth Status 01/19/20 16:00 Stool Clostridium difficile Toxin Assay - Final Complete Laboratory Tests 01/19/20 16:45: POC Whole Blood Glucose 101 01/19/20 21:44: POC Whole Blood Glucose 108H 01/20/20 04:13: White Blood Count 4.1L, Red Blood Count 3.05L, Hemoglobin 8.5L, Hematocrit 29.0L , Mean Corpuscular Volume 95, Mean Corpuscular Hemoglobin 27.8, Mean Corpuscular Hemoglobin Concent 29.2L, Red Cell Distribution Width 18.1H, Platelet Count 149L, Mean Platelet Volume 7.5, Neutrophils (%) (Auto) 57.6, Lymphocytes (%) (Auto) 25.8, Monocytes (%) (Auto) 7.0, Eosinophils (%) (Auto) 8.9H, Basophils (%) (Auto) 0.7, Sodium Level 145, Potassium Level 4.1, Chloride Level 108H, Carbon Dioxide Level 25, Anion Gap 12, Blood Urea Nitrogen 32H, Creatinine 0.9, Estimat Glomerular Filtration Rate > 60, Glucose Level 98, Calcium Level 8.6, Phosphorus Level 3.6, Magnesium Level 1.6L Current Medications Medications (Trade) Dose Ordered Sig/Samuel Route PRN Reason Start Time Stop Time Status Last Admin Dose Admin Acetaminophen (Tylenol) 650 mg Q6H PRN ORAL Mild Pain (Pain Scale 1-3) 01/15/20 03:15 02/14/20 03:14 01/16/20 01:38 Acetaminophen (Tylenol) 650 mg Q6H PRN ORAL Temp >100.5 01/15/20 03:15 02/14/20 03:14 Acetaminophen/ Hydrocodone Bitart ([place] 5/325) 1 tab Q6H PRN ORAL For Pain 01/16/20 07:00 01/23/20 06:59 01/20/20 06:18 Ascorbic Acid (Vitamin C) 250 mg TWICE A DAY ORAL 01/17/20 18:00 02/16/20 17:59 01/20/20 08:16 Chlorhexidine Gluconate (Mel-Hex 2%) 1 applic DAILY@2000 TOPIC 01/15/20 20:00 04/14/20 19:59 01/19/20 22:55 Dextrose (Dextrose 50%) 25 ml Q30M PRN IV Hypoglycemia 01/14/20 23:15 04/13/20 23:14 Dextrose (Dextrose 50%) 50 ml Q30M PRN IV Hypoglycemia 01/14/20 23:15 04/13/20 23:14 Digoxin (Lanoxin) 0.125 mg DAILY ORAL 01/17/20 09:00 04/16/20 08:59 01/20/20 08:16 Doxycycline Monohydrate (Doxycycline Monohydrate) 100 mg EVERY 12 HOURS ORAL 01/18/20 09:00 01/25/20 08:59 01/20/20 08:15 Duloxetine HCl (Cymbalta) 60 mg DAILY ORAL 01/17/20 14:45 04/16/20 14:44 01/20/20 08:17 Insulin Aspart (NovoLOG) BEFORE MEALS AND HS SUBQ 01/15/20 06:30 04/14/20 06:29 01/16/20 05:47 Insulin Detemir (Levemir) 11 units BEDTIME SUBQ 01/15/20 21:00 04/14/20 20:59 01/15/20 21:21 Iron Sucrose 100 mg/Sodium Chloride 60 ml @ 240 mls/hr BEDTIME IV 01/16/20 21:00 01/20/20 21:14 01/19/20 22:55 Loperamide HCl (Imodium) 2 mg Q4H PRN ORAL Diarrhea 01/19/20 07:00 02/18/20 06:59 01/20/20 09:45 Meropenem 1 gm/ Sodium Chloride 55 ml @ 110 mls/hr Q8HR IVPB 01/18/20 22:00 01/23/20 21:59 01/20/20 14:07 Metoprolol Tartrate (Lopressor) 25 mg Q12HR ORAL 01/15/20 09:00 04/14/20 08:59 01/20/20 08:15 Midodrine (Pro-Amatine) 5 mg TID PRN ORAL sbp<110 01/15/20 09:00 04/14/20 08:59 Multivitamins (Multivitamins) 1 tab Q24H ORAL 01/18/20 07:00 02/17/20 06:59 01/20/20 06:06 Pantoprazole (Protonix) 40 mg DAILY ORAL 01/19/20 09:00 02/18/20 08:59 01/20/20 08:16 Sildenafil Citrate (Revatio) 20 mg DAILY ORAL 01/15/20 09:00 04/14/20 08:59 01/20/20 08:16 Sodium Hypochlorite (Dakin's Quarter Strength) 1 applic DAILY TOPIC 01/15/20 11:00 02/14/20 10:59 01/20/20 08:17 Zinc Sulfate (Zinc Sulfate) 220 mg Q24H ORAL 01/18/20 07:00 04/17/20 06:59 01/20/20 06:06 Assessment/Plan Assessment/Plan IMPRESSION: 1. Negative for COVID-19 pneumonia. 2. UTI. 3. Diabetes mellitus. 4. Decubiti. DISCUSSION: Contnue antibiotics. Oxygen and pulmonary hygiene. Negative COVID-19 PCR. I will follow carefully. DC planning Keerthi Morales Omar Syed MD Jan 20, 2020 14:10
[2020-01-20 16:00] VITALS: BP 114/67
[2020-01-20 20:00] VITALS: BP 112/55
[2020-01-20] MEDS: Iron Sucrose 100 MG in NS 55 ML IV SCH (20:57)
[2020-01-20] MEDS: Dyna-Hex 2% Top Sol 2oz TOPIC SCH (20:57)
[2020-01-20] MEDS: Levemir Flexpen SUBQ SCH (21:00)
--- NOTE | 2020-01-20 21:08 | Infectious Diseases Prog Note ---
Assessment/Plan Assessment/Plan ASSESSMENT AND PLAN: 1. esbl e.coli uti/pyelonephritis with bacteremia, proteus bacteremia, sepsis, fevers, leukopenia covid-19 ABEL testing + - meropenem - day # 4 - monitor labs - f/u surveillance blood cultures - fevers better - no indication for covid-19 treatment - sats good, past infection, chest x- ray negative 2. Patient has history COVID-19 virus infection - repeat covid testing negative by pcr 3. multiple wounds - surgery management, on meropenem and doxycycline 4. Patient has diabetes. 5. Hypertension. 6. Blood sugar and blood pressure treatment primary care team for diabetes and hypertension and cardiology assessment also. 7. Anemia. 8. History of renal failure in the past. Hemodialysis seems to have improved. 9. Tachycardia. 10. Continue treatment per primary consultants. 11. Allergic to erythromycin base and heparin. 12. Social history is negative. 13. Family history is noncontributory. 14. MAR was noted. 15. Case discussed with RN. Subjective Constitutional: Reports: fatigue; Denies: fever HEENT: Denies: congestion Respiratory: Denies: shortness of breath Cardiovascular: Denies: chest pain Gastrointestinal/Abdominal: Denies: nausea, vomiting, diarrhea Genitourinary: Reports: other - no topete Neurologic: Denies: headache Psychiatric: Denies: depression Skin: Denies: rash Hematologic: Denies: bleeding Musculoskeletal: Denies: pain Allergies: Coded Allergies: ERYTHROMYCIN BASE (Verified Allergy, Unknown, 01/14/20) HEPARIN (Verified Allergy, Unknown, 01/14/20) Objective Last 24 Hour Vital Signs Date Time Temp Pulse Resp B/P (MAP) Pulse Ox O2 Delivery O2 Flow Rate FiO2 01/20/20 20:59 81 117/55 01/20/20 16:00 97.8 97 20 114/67 (83) 100 01/20/20 16:00 Nasal Cannula 2.0 Nasal Cannula 2.0 01/20/20 16:00 100 01/20/20 12:00 97.9 91 20 100/64 (76) 100 01/20/20 12:00 93 01/20/20 12:00 Nasal Cannula 2.0 Nasal Cannula 2.0 01/20/20 08:16 120 01/20/20 08:15 123 120/66 7/13/20 08:00 97.6 122 20 143/70 (94) 100 01/20/20 08:00 Nasal Cannula 2.0 Nasal Cannula 2.0 01/20/20 08:00 91 01/20/20 06:48 97.5 01/20/20 04:00 97.5 86 20 120/66 (84) 100 01/20/20 04:00 123 01/20/20 03:10 Nasal Cannula 2.0 Nasal Cannula 2.0 01/20/20 00:00 97.2 91 20 115/68 (84) 97 01/20/20 00:00 91 01/19/20 23:44 Nasal Cannula 2.0 Nasal Cannula 2.0 01/19/20 22:55 90 118/73 Height (Feet): 5 Height (Inches): 5.00 Weight (Pounds): 237 General Appearance: no acute distress HEENT: normocephalic, atraumatic, anicteric, mucous membranes moist Respiratory/Chest: lungs clear, normal breath sounds, no respiratory distress, no accessory muscle use Cardiovascular: normal rate, regular rhythm, no gallop/murmur, no JVD Abdomen: normal bowel sounds, soft, non tender, no organomegaly, non distended Genitourinary: other - + topete - urine clearer Extremities: no cyanosis Skin: no rash Neurologic/Psychiatric: shop cooper II-XII grossly normal, alert, oriented x 3, responsive Lymphatic: no neck adenopathy Musculoskeletal: no effusion Chest x-ray - 01/15/20 - Procedure: XRAY Chest 1v Indication: Shortness of breath Technique: One view of the chest Comparison: none Findings: The lungs and pleural spaces are clear. The heart is normal in size. The aorta is tortuous and ectatic. Left arm PICC is noted Impression: No acute process Microbiology Date/Time Source Procedure Growth Status 01/14/20 18:16 Blood Blood Culture - Final Proteus Mirabilis Complete 01/16/20 14:00 Nasopharynx Coronavirus COVID-19 PCR ([facility]) - Final Complete 01/19/20 16:00 Stool Clostridium difficile Toxin Assay - Final Complete 01/15/20 18:20 Urine,Clean Catch Urine Culture - Final Escherichia Coli - Esbl Complete Microbiology Date/Time Source Procedure Growth Status 01/19/20 16:00 Stool Clostridium difficile Toxin Assay - Final Complete Laboratory Tests Test 01/19/20 21:44 01/20/20 04:13 POC Whole Blood Glucose 108 MG/DL (74-106) H White Blood Count 4.1 K/UL (4.8-10.8) L Red Blood Count 3.05 M/UL (4.20-5.40) L Hemoglobin 8.5 G/DL (12.0-16.0) L Hematocrit 29.0 % (37.0-47.0) L Mean Corpuscular Volume 95 FL (80-99) Mean Corpuscular Hemoglobin 27.8 PG (27.0-31.0) Mean Corpuscular Hemoglobin Concent 29.2 G/DL (32.0-36.0) L Red Cell Distribution Width 18.1 % (11.6-14.8) H Platelet Count 149 K/UL (150-450) L Mean Platelet Volume 7.5 FL (6.5-10.1) Neutrophils (%) (Auto) 57.6 % (45.0-75.0) Lymphocytes (%) (Auto) 25.8 % (20.0-45.0) Monocytes (%) (Auto) 7.0 % (1.0-10.0) Eosinophils (%) (Auto) 8.9 % (0.0-3.0) H Basophils (%) (Auto) 0.7 % (0.0-2.0) Sodium Level 145 MMOL/L (136-145) Potassium Level 4.1 MMOL/L (3.5-5.1) Chloride Level 108 MMOL/L (98-107) H Carbon Dioxide Level 25 MMOL/L (21-32) Anion Gap 12 mmol/L (5-15) Blood Urea Nitrogen 32 mg/dL (7-18) H Creatinine 0.9 MG/DL (0.55-1.30) Estimat Glomerular Filtration Rate > 60 mL/min (>60) Glucose Level 98 MG/DL (74-106) Calcium Level 8.6 MG/DL (8.5-10.1) Phosphorus Level 3.6 MG/DL (2.5-4.9) Magnesium Level 1.6 MG/DL (1.8-2.4) L Current Medications Medications (Trade) Dose Ordered Sig/Samuel Route PRN Reason Start Time Stop Time Status Last Admin Dose Admin Acetaminophen (Tylenol) 650 mg Q6H PRN ORAL Mild Pain (Pain Scale 1-3) 01/15/20 03:15 02/14/20 03:14 01/16/20 01:38 Acetaminophen (Tylenol) 650 mg Q6H PRN ORAL Temp >100.5 01/15/20 03:15 02/14/20 03:14 Acetaminophen/ Hydrocodone Bitart ([place] 5/325) 1 tab Q6H PRN ORAL For Pain 01/16/20 07:00 01/23/20 06:59 01/20/20 18:07 Ascorbic Acid (Vitamin C) 250 mg TWICE A DAY ORAL 01/17/20 18:00 02/16/20 17:59 01/20/20 18:06 Chlorhexidine Gluconate (Mel-Hex 2%) 1 applic DAILY@2000 TOPIC 01/15/20 20:00 04/14/20 19:59 01/20/20 20:57 Dextrose (Dextrose 50%) 25 ml Q30M PRN IV Hypoglycemia 01/14/20 23:15 04/13/20 23:14 Dextrose (Dextrose 50%) 50 ml Q30M PRN IV Hypoglycemia 01/14/20 23:15 04/13/20 23:14 Digoxin (Lanoxin) 0.125 mg DAILY ORAL 01/17/20 09:00 04/16/20 08:59 01/20/20 08:16 Doxycycline Monohydrate (Doxycycline Monohydrate) 100 mg EVERY 12 HOURS ORAL 01/18/20 09:00 01/25/20 08:59 01/20/20 20:57 Duloxetine HCl (Cymbalta) 60 mg DAILY ORAL 01/17/20 14:45 04/16/20 14:44 01/20/20 08:17 Insulin Aspart (NovoLOG) BEFORE MEALS AND HS SUBQ 01/15/20 06:30 04/14/20 06:29 01/16/20 05:47 Insulin Detemir (Levemir) 11 units BEDTIME SUBQ 01/15/20 21:00 04/14/20 20:59 01/15/20 21:21 Iron Sucrose 100 mg/Sodium Chloride 60 ml @ 240 mls/hr BEDTIME IV 01/16/20 21:00 01/20/20 21:14 01/20/20 20:57 Loperamide HCl (Imodium) 2 mg Q4H PRN ORAL Diarrhea 01/19/20 07:00 02/18/20 06:59 01/20/20 18:09 Meropenem 1 gm/ Sodium Chloride 55 ml @ 110 mls/hr Q8HR IVPB 01/18/20 22:00 01/23/20 21:59 01/20/20 14:07 Metoprolol Tartrate (Lopressor) 25 mg Q12HR ORAL 01/15/20 09:00 04/14/20 08:59 01/20/20 20:59 Midodrine (Pro-Amatine) 5 mg TID PRN ORAL sbp<110 01/15/20 09:00 04/14/20 08:59 Multivitamins (Multivitamins) 1 tab Q24H ORAL 01/18/20 07:00 02/17/20 06:59 01/20/20 06:06 Pantoprazole (Protonix) 40 mg DAILY ORAL 01/19/20 09:00 02/18/20 08:59 01/20/20 08:16 Sildenafil Citrate (Revatio) 20 mg DAILY ORAL 01/15/20 09:00 04/14/20 08:59 01/20/20 08:16 Sodium Hypochlorite (Dakin's Quarter Strength) 1 applic DAILY TOPIC 01/15/20 11:00 02/14/20 10:59 01/20/20 08:17 Zinc Sulfate (Zinc Sulfate) 220 mg Q24H ORAL 01/18/20 07:00 04/17/20 06:59 01/20/20 06:06 Maria A Parra MD Jan 20, 2020 21:08
[2020-01-21] VITALS: BP 103/60
[2020-01-21 04:00] VITALS: BP 114/73
[2020-01-21] MEDS: Meropenem 1gm in NS 55ml IVPB SCH ×2 (05:23→14:20)
[2020-01-21 05:24] LABS: HEMATOCRIT 25.8 % (37.0-47.0); HEMOGLOBIN 7.6 G/DL (12.0-16.0); MEAN CORPUSCULAR VOLUME 95 FL (80-99); PLATELET COUNT 130 K/UL (150-450); RED BLOOD COUNT 2.72 M/UL (4.20-5.40); RED CELL DISTRIBUTION WIDTH 17.1 % (11.6-14.8); WHITE BLOOD COUNT 3.3 K/UL (4.8-10.8)
[2020-01-21] MEDS: HYDROcodone/Acetamin 5/325 tab ORAL PRN ×2 (05:33→21:22)
[2020-01-21 05:51] LABS: ANION GAP 10 mmol/L (5-15); BLOOD UREA NITROGEN 36 mg/dL (7-18); CALCIUM 8.1 MG/DL (8.5-10.1); CARBON DIOXIDE 27 MMOL/L (21-32); CHLORIDE 111 MMOL/L (98-107); CREATININE 0.8 MG/DL (0.55-1.30); POTASSIUM 4.7 MMOL/L (3.5-5.1); SODIUM 148 MMOL/L (136-145)
[2020-01-21] MEDS: NovoLOG Insulin Flexpen SUBQ SCH ×4 (06:27→21:00)
[2020-01-21] MEDS: Zinc Sulfate 220mg ORAL SCH (06:49)
[2020-01-21 08:00] VITALS: BP 113/55
[2020-01-21] MEDS: Digoxin 0.125mg tab ORAL SCH (08:51)
[2020-01-21] MEDS: Ascorbic Acid 500mg tab ORAL SCH ×2 (08:53→17:48)
[2020-01-21] MEDS: Doxycycline Monohydrate 100mg ORAL SCH ×2 (08:53→21:20)
[2020-01-21] MEDS: Revatio 20mg tab ORAL SCH (08:53)
--- NOTE | 2020-01-21 09:58 | General Progress Note ---
Assessment/Plan Status: stable, progressing Assessment/Plan: # Acute Hypoxemic respiratory failure - improving # COVID 19 infection, positive on 01/15 # Pulmonary HTN continue supplemental oxygen 2L via NC continue COVID precautions Incentive spirometry Trend inflammatory markers Pulm and ID following Sildenafil for pulmonary HTN #SVT #Autonomic dysfunction -continue metoprolol and digoxin -Continue midodrine -Holding anticoagulation due to anemia -EP following for possible ablation #Normocytic anemia #Thrombocytopenia #Pancytopenia #FOBT + #Diarrhea - Iron studies reviewed - Trend CBC - Transfuse 1 unit pRBC - 01/16/2020 - Transfuse for Hg less than 7 - Consult to hematology - anticoagulation held - GI consult #MISSY - resolved #Hypernatremia #Hypokalemia #Hypomagnesemia -Fluid hydration -hold nephrotoxic medications -Electrolyte replacement -Nephrology following -replace IV magnesium sulfate 4 grams today #ESBL UTI #Proteus bacteremia -Follow up cultures - ESBL in urine and Proteus in blood -Continue with antibiotics as per ID recs #Pressure injuries -Wound care -Surgery following VTE PPx I spent 36 minutes on this patient's case, and 20 minutes was dedicated to counseling and/or care coordination with RN, porter sample case, consulting MDs Subjective Date patient seen: Jan 21, 2020 Time patient seen: 09:36 ROS Limited/Unobtainable: Yes Constitutional: Denies: chills Cardiovascular: Denies: chest pain Respiratory: Denies: cough Gastrointestinal/Abdominal: Denies: abdominal pain Allergies: Coded Allergies: ERYTHROMYCIN BASE (Verified Allergy, Unknown, 01/14/20) HEPARIN (Verified Allergy, Unknown, 01/14/20) Subjective Follow up for COVID19 infection Doing well today, transferred out of [facility] Mg is 1.5 Na 148 Objective Last 24 Hour Vital Signs Date Time Temp Pulse Resp B/P (MAP) Pulse Ox O2 Delivery O2 Flow Rate FiO2 01/21/20 09:00 Nasal Cannula 2.0 Nasal Cannula 2.0 01/21/20 08:52 74 113/55 01/21/20 08:51 74 01/21/20 08:00 97.9 87 20 113/55 (74) 100 01/21/20 08:00 87 01/21/20 06:03 97.7 01/21/20 04:00 97.7 77 20 114/73 (87) 98 01/21/20 04:00 72 01/21/20 04:00 Nasal Cannula 2.0 Nasal Cannula 2.0 01/21/20 00:00 82 01/21/20 00:00 97.7 77 22 103/60 (74) 99 01/21/20 00:00 Nasal Cannula 2.0 Nasal Cannula 2.0 01/20/20 21:00 Nasal Cannula 2.0 Nasal Cannula 2.0 01/20/20 20:59 81 117/55 01/20/20 20:00 97.8 81 20 112/55 (74) 99 01/20/20 20:00 105 01/20/20 16:00 97.8 97 20 114/67 (83) 100 01/20/20 16:00 Nasal Cannula 2.0 Nasal Cannula 2.0 01/20/20 16:00 100 01/20/20 12:00 97.9 91 20 100/64 (76) 100 01/20/20 12:00 93 01/20/20 12:00 Nasal Cannula 2.0 Nasal Cannula 2.0 Intake and Output 01/20/20 01/21/20 19:00 07:00 Intake Total 736 ml 250 ml Output Total 650 ml 500 ml Balance 86 ml -250 ml Intake Oral 600 ml 250 ml IV Total 136 ml Output Urine Total 650 ml 500 ml # Bowel Movements 5 Laboratory Tests 01/20/20 20:52: POC Whole Blood Glucose [Pending] 01/21/20 03:45: White Blood Count 3.3L, Red Blood Count 2.72L, Hemoglobin 7.6L, Hematocrit 25.8L , Mean Corpuscular Volume 95, Mean Corpuscular Hemoglobin 28.1, Mean Corpuscular Hemoglobin Concent 29.7L, Red Cell Distribution Width 17.1H, Platelet Count 130L, Mean Platelet Volume 7.3, Neutrophils (%) (Auto) , Lymphocytes (%) (Auto) , Monocytes (%) (Auto) , Eosinophils (%) (Auto) , Basophils (%) (Auto) , Differential Total Cells Counted 100, Neutrophils % ( Manual) 71, Lymphocytes % (Manual) 19L, Monocytes % (Manual) 5, Eosinophils % ( Manual) 5H, Basophils % (Manual) 0, Band Neutrophils 0, Platelet Estimate DecreasedL, Platelet Morphology Normal, Hypochromasia 3+, Anisocytosis 1+, Sodium Level 148H, Potassium Level 4.7, Chloride Level 111H, Carbon Dioxide Level 27, Anion Gap 10, Blood Urea Nitrogen 36H, Creatinine 0.8, Estimat Glomerular Filtration Rate > 60, Glucose Level 91, Calcium Level 8.1L, Magnesium Level 1.5L 01/21/20 05:20: POC Whole Blood Glucose [Pending] Height (Feet): 5 Height (Inches): 5.00 Weight (Pounds): 237 General Appearance: no apparent distress, alert Neck: normal alignment, supple Cardiovascular: normal rate, regular rhythm Respiratory/Chest: lungs clear, normal breath sounds William Rowley MD Jan 21, 2020 09:58
--- NOTE | 2020-01-21 10:07 | Nephrology Progress Note ---
Assessment/Plan Plan #MISSY due to pre-rernal azotemia in the setting of anemia #hypernatremia #Acute on chronic anemia # Acute Hypoxemic respiratory failure # COVID 19 infection previously - now 1 negative swab # Pulmonary HTN #UTI #runs of SVTs #ho/ HTN #DM - D5W 250 ccx1 - replete mag - defer further renal work up pending evolution of kidney function - monitor CBC - IV iron - GI eval - continue metop 25mg BID - on midodrine 5mg TID - holding AC- on apixaban - continue with dig - avoid nephrotoxins - strict I&Os - monitor weights - check BMP, mag and phos daily Time spent 70 min > 50% on care coordiation and counseling Subjective ROS Limited/Unobtainable: No Constitutional: Reports: weakness HEENT: Denies: no symptoms, eye pain, blurred vision, tearing, double vision, ear pain, ear discharge, nose pain, nose congestion, throat pain, throat swelling, mouth pain, mouth swelling, other Genitourinary: Denies: no symptoms, burning, discharge, frequency, flank pain, hematuria, incontinence, pain, urgency, other Neurologic/Psychiatric: Denies: no symptoms, anxiety, depressed, emotional problems, headache, numbness, paresthesia, pre-existing deficit, seizure, tingling, tremors, weakness, other Subjective Cr improved BP stable sodium 148 hemoglobin stable Objective Objective Last 24 Hour Vital Signs Date Time Temp Pulse Resp B/P (MAP) Pulse Ox O2 Delivery O2 Flow Rate FiO2 01/21/20 09:00 Nasal Cannula 2.0 Nasal Cannula 2.0 01/21/20 08:52 74 113/55 01/21/20 08:51 74 01/21/20 08:00 97.9 87 20 113/55 (74) 100 01/21/20 08:00 87 01/21/20 06:03 97.7 01/21/20 04:00 97.7 77 20 114/73 (87) 98 01/21/20 04:00 72 01/21/20 04:00 Nasal Cannula 2.0 Nasal Cannula 2.0 01/21/20 00:00 82 01/21/20 00:00 97.7 77 22 103/60 (74) 99 01/21/20 00:00 Nasal Cannula 2.0 Nasal Cannula 2.0 01/20/20 21:00 Nasal Cannula 2.0 Nasal Cannula 2.0 01/20/20 20:59 81 117/55 01/20/20 20:00 97.8 81 20 112/55 (74) 99 01/20/20 20:00 105 01/20/20 16:00 97.8 97 20 114/67 (83) 100 01/20/20 16:00 Nasal Cannula 2.0 Nasal Cannula 2.0 01/20/20 16:00 100 01/20/20 12:00 97.9 91 20 100/64 (76) 100 01/20/20 12:00 93 01/20/20 12:00 Nasal Cannula 2.0 Nasal Cannula 2.0 Intake and Output 01/20/20 01/21/20 19:00 07:00 Intake Total 736 ml 250 ml Output Total 650 ml 500 ml Balance 86 ml -250 ml Intake Oral 600 ml 250 ml IV Total 136 ml Output Urine Total 650 ml 500 ml # Bowel Movements 5 Laboratory Tests 01/20/20 20:52: POC Whole Blood Glucose [Pending] 01/21/20 03:45: White Blood Count 3.3L, Red Blood Count 2.72L, Hemoglobin 7.6L, Hematocrit 25.8L , Mean Corpuscular Volume 95, Mean Corpuscular Hemoglobin 28.1, Mean Corpuscular Hemoglobin Concent 29.7L, Red Cell Distribution Width 17.1H, Platelet Count 130L, Mean Platelet Volume 7.3, Neutrophils (%) (Auto) , Lymphocytes (%) (Auto) , Monocytes (%) (Auto) , Eosinophils (%) (Auto) , Basophils (%) (Auto) , Differential Total Cells Counted 100, Neutrophils % ( Manual) 71, Lymphocytes % (Manual) 19L, Monocytes % (Manual) 5, Eosinophils % ( Manual) 5H, Basophils % (Manual) 0, Band Neutrophils 0, Platelet Estimate DecreasedL, Platelet Morphology Normal, Hypochromasia 3+, Anisocytosis 1+, Sodium Level 148H, Potassium Level 4.7, Chloride Level 111H, Carbon Dioxide Level 27, Anion Gap 10, Blood Urea Nitrogen 36H, Creatinine 0.8, Estimat Glomerular Filtration Rate > 60, Glucose Level 91, Calcium Level 8.1L, Magnesium Level 1.5L 01/21/20 05:20: POC Whole Blood Glucose [Pending] Height (Feet): 5 Height (Inches): 5.00 Weight (Pounds): 237 Phil Morse M.D. Jan 21, 2020 10:07
--- NOTE | 2020-01-21 10:14 | Hematology/Onc Progress Note ---
Assessment/Plan Assessment/Plan Assessment and Recs # Pancytopenia initialy with Anemia is due to chronic dsiease/kidney failure and covid19++, does not appear to be gi bleed --> anemia panel has been reviewed --> continue on epogen as per renal --> no hemolysis is noted --> hgb trend 6.4-->8.2 --> hold off anticaog if hgb <7 --> wbc 4.1-->3.3 --> wbc 125-->149->130 --> us abd is pending, r/o cirrhosis and hsm if plt lower than 100 --> hep and hiv panel neg --> may also be due to covid 19 # UTI (urinary tract infection) --> with poa Sepsis --> abx as per id team # Respiratory failure due to covid19 --> steriods, low threshold for intuabtion -> covid 19 on iso # Ddimer elevation --> duplex lower ext neg # Pulmonary HTN # Hyperocag disorder --> hold off eliquis for now given drop in h/h --> have bindu rn this info --> consider cards eval # Dvt ppx scds Appreciate consultation and bindu RN Subjective Constitutional: Denies: no symptoms, chills, fever, malaise, weakness, other HEENT: Denies: no symptoms, eye pain, blurred vision, tearing, double vision, ear pain, ear discharge, nose pain, nose congestion, throat pain, throat swelling, mouth pain, mouth swelling, other Cardiovascular: Denies: no symptoms, chest pain, edema, irregular heart rate, lightheadedness, palpitations, syncope, other Respiratory: Denies: no symptoms, cough, shortness of breath, SOB with excertion, SOB at rest, sputum, wheezing, other Genitourinary: Denies: no symptoms, burning, discharge, frequency, flank pain, hematuria, incontinence, pain, urgency, other Neurologic/Psychiatric: Denies: no symptoms, anxiety, depressed, emotional problems, headache, numbness, paresthesia, pre-existing deficit, seizure, tingling, tremors, weakness, other Hematologic/Lymphatic: Denies: no symptoms, anemia, easy bleeding, easy bruising, adenopathy, other Allergies: Coded Allergies: ERYTHROMYCIN BASE (Verified Allergy, Unknown, 7/7/20) HEPARIN (Verified Allergy, Unknown, 01/14/20) Subjective 01/15 duplex was negative, holding off anticoag, no night sweats 01/18 meds noted, no bleeding, labs reviewed, h/h stable 01/19 labs have been reviewed, no bleeding, stable overnight, covid19+ 01/20 is on 2l nc, no bleeding, meds noted, pancytopenic still, wbc 3.3 Objective Objective Current Medications Medications (Trade) Dose Ordered Sig/Samuel Route PRN Reason Start Time Stop Time Status Last Admin Dose Admin Acetaminophen (Tylenol) 650 mg Q6H PRN ORAL Mild Pain (Pain Scale 1-3) 01/21/20 09:15 02/14/20 03:14 Acetaminophen (Tylenol) 650 mg Q6H PRN ORAL Temp >100.5 01/21/20 09:15 02/14/20 03:14 Acetaminophen/ Hydrocodone Bitart ([place] 5/325) 1 tab Q6H PRN ORAL For Pain 01/21/20 11:30 01/23/20 11:29 Ascorbic Acid (Vitamin C) 250 mg TWICE A DAY ORAL 01/21/20 09:00 02/16/20 17:59 01/21/20 08:53 Chlorhexidine Gluconate (Mel-Hex 2%) 1 applic DAILY@2000 TOPIC 01/21/20 20:00 04/14/20 19:59 Dextrose 250 ml @ 250 mls/hr ONCE ONCE IVPB 01/21/20 10:15 01/21/20 11:14 Dextrose (Dextrose 50%) 25 ml Q30M PRN IV Hypoglycemia 01/21/20 06:45 04/13/20 23:14 Dextrose (Dextrose 50%) 50 ml Q30M PRN IV Hypoglycemia 01/21/20 06:45 04/13/20 23:14 Digoxin (Lanoxin) 0.125 mg DAILY ORAL 01/21/20 09:00 04/16/20 08:59 01/21/20 08:51 Doxycycline Monohydrate (Doxycycline Monohydrate) 100 mg EVERY 12 HOURS ORAL 01/21/20 09:00 01/25/20 08:59 01/21/20 08:53 Duloxetine HCl (Cymbalta) 60 mg DAILY ORAL 01/21/20 09:00 04/16/20 14:44 7/14/20 08:51 Insulin Aspart (NovoLOG) BEFORE MEALS AND HS SUBQ 01/21/20 06:30 04/14/20 06:29 Insulin Detemir (Levemir) 11 units BEDTIME SUBQ 01/21/20 21:00 04/14/20 20:59 Loperamide HCl (Imodium) 2 mg Q4H PRN ORAL Diarrhea 01/21/20 07:00 02/18/20 06:59 Magnesium Sulfate 100 ml @ 100 mls/hr Q1H IVPB 01/21/20 10:00 01/21/20 13:59 Magnesium Sulfate 100 ml @ 100 mls/hr Q1H IVPB 01/21/20 10:15 01/21/20 12:14 UNV Meropenem 1 gm/ Sodium Chloride 55 ml @ 110 mls/hr Q8HR IVPB 01/21/20 14:00 01/23/20 21:59 Metoprolol Tartrate (Lopressor) 25 mg Q12HR ORAL 01/21/20 09:00 04/14/20 08:59 01/21/20 08:52 Midodrine (Pro-Amatine) 5 mg TID PRN ORAL sbp<110 01/21/20 09:00 04/14/20 08:59 Multivitamins (Multivitamins) 1 tab Q24H ORAL 01/21/20 07:00 02/17/20 06:59 01/21/20 06:49 Pantoprazole (Protonix) 40 mg DAILY ORAL 01/21/20 09:00 02/18/20 08:59 01/21/20 08:53 Sildenafil Citrate (Revatio) 20 mg DAILY ORAL 01/21/20 09:00 04/14/20 08:59 01/21/20 08:53 Sodium Hypochlorite (Dakin's Quarter Strength) 1 applic DAILY TOPIC 01/21/20 09:00 02/14/20 10:59 Zinc Sulfate (Zinc Sulfate) 220 mg Q24H ORAL 01/21/20 07:00 04/17/20 06:59 01/21/20 06:49 Last 24 Hour Vital Signs Date Time Temp Pulse Resp B/P (MAP) Pulse Ox O2 Delivery O2 Flow Rate FiO2 01/21/20 09:00 Nasal Cannula 2.0 Nasal Cannula 2.0 01/21/20 08:52 74 113/55 01/21/20 08:51 74 01/21/20 08:00 97.9 87 20 113/55 (74) 100 01/21/20 08:00 87 01/21/20 06:03 97.7 01/21/20 04:00 97.7 77 20 114/73 (87) 98 01/21/20 04:00 72 01/21/20 04:00 Nasal Cannula 2.0 Nasal Cannula 2.0 01/21/20 00:00 82 01/21/20 00:00 97.7 77 22 103/60 (74) 99 01/21/20 00:00 Nasal Cannula 2.0 Nasal Cannula 2.0 01/20/20 21:00 Nasal Cannula 2.0 Nasal Cannula 2.0 01/20/20 20:59 81 117/55 01/20/20 20:00 97.8 81 20 112/55 (74) 99 01/20/20 20:00 105 01/20/20 16:00 97.8 97 20 114/67 (83) 100 01/20/20 16:00 Nasal Cannula 2.0 Nasal Cannula 2.0 01/20/20 16:00 100 01/20/20 12:00 97.9 91 20 100/64 (76) 100 01/20/20 12:00 93 01/20/20 12:00 Nasal Cannula 2.0 Nasal Cannula 2.0 01/20/20 08:16 120 01/20/20 08:15 123 120/66 01/20/20 08:00 97.6 122 20 143/70 (94) 100 01/20/20 08:00 Nasal Cannula 2.0 Nasal Cannula 2.0 01/20/20 08:00 91 01/20/20 04:00 97.5 86 20 120/66 (84) 100 01/20/20 04:00 123 01/20/20 03:10 Nasal Cannula 2.0 Nasal Cannula 2.0 01/20/20 00:00 97.2 91 20 115/68 (84) 97 01/20/20 00:00 91 01/19/20 23:44 Nasal Cannula 2.0 Nasal Cannula 2.0 01/19/20 22:55 90 118/73 01/19/20 20:00 Nasal Cannula 2.0 Nasal Cannula 2.0 01/19/20 20:00 97.8 90 20 118/73 (88) 97 01/19/20 19:08 85 01/19/20 16:00 96.6 89 22 112/59 (76) 97 01/19/20 16:00 84 01/19/20 16:00 Nasal Cannula 2.0 Nasal Cannula 2.0 01/19/20 12:00 113 01/19/20 12:00 Nasal Cannula 2.0 Nasal Cannula 2.0 01/19/20 11:45 97.1 98 22 99/52 (68) 98 Intake and Output 01/20/20 01/21/20 19:00 07:00 Intake Total 736 ml 250 ml Output Total 650 ml 500 ml Balance 86 ml -250 ml Intake Oral 600 ml 250 ml IV Total 136 ml Output Urine Total 650 ml 500 ml # Bowel Movements 5 Labs Test 01/18/20 12:25 01/18/20 16:00 01/18/20 16:48 01/19/20 06:35 POC Whole Blood Glucose 84 MG/DL (74-106) 84 MG/DL (74-106) 77 MG/DL (74-106) Stool Occult Blood Negative (NEGATIVE) Test 01/19/20 09:05 01/19/20 12:12 01/19/20 16:45 01/19/20 21:44 White Blood Count 3.4 K/UL (4.8-10.8) Red Blood Count 2.74 M/UL (4.20-5.40) Hemoglobin 7.6 G/DL (12.0-16.0) Hematocrit 25.7 % (37.0-47.0) Mean Corpuscular Volume 94 FL (80-99) Mean Corpuscular Hemoglobin 27.7 PG (27.0-31.0) Mean Corpuscular Hemoglobin Concent 29.6 G/DL (32.0-36.0) Red Cell Distribution Width 17.0 % (11.6-14.8) Platelet Count 125 K/UL (150-450) Mean Platelet Volume 6.7 FL (6.5-10.1) Neutrophils (%) (Auto) % (45.0-75.0) Lymphocytes (%) (Auto) % (20.0-45.0) Monocytes (%) (Auto) % (1.0-10.0) Eosinophils (%) (Auto) % (0.0-3.0) Basophils (%) (Auto) % (0.0-2.0) Differential Total Cells Counted 100 Neutrophils % (Manual) 63 % (45-75) Lymphocytes % (Manual) 26 % (20-45) Monocytes % (Manual) 2 % (1-10) Eosinophils % (Manual) 9 % (0-3) Basophils % (Manual) 0 % (0-2) Band Neutrophils 0 % (0-8) Platelet Estimate Decreased Platelet Morphology Normal Polychromasia 1+ Hypochromasia 1+ Anisocytosis 1+ Sodium Level 147 MMOL/L (136-145) Potassium Level 3.1 MMOL/L (3.5-5.1) Chloride Level 110 MMOL/L (98-107) Carbon Dioxide Level 26 MMOL/L (21-32) Anion Gap 11 mmol/L (5-15) Blood Urea Nitrogen 35 mg/dL (7-18) Creatinine 0.7 MG/DL (0.55-1.30) Estimat Glomerular Filtration Rate > 60 mL/min (>60) Glucose Level 101 MG/DL (74-106) Calcium Level 8.2 MG/DL (8.5-10.1) Total Bilirubin 0.4 MG/DL (0.2-1.0) Aspartate Amino Transf (AST/SGOT) 13 U/L (15-37) Alanine Aminotransferase (ALT/SGPT) 26 U/L (12-78) Alkaline Phosphatase 110 U/L (46-116) Total Protein 5.8 G/DL (6.4-8.2) Albumin 1.9 G/DL (3.4-5.0) Globulin 3.9 g/dL Albumin/Globulin Ratio 0.5 (1.0-2.7) POC Whole Blood Glucose 101 MG/DL (74-106) 101 MG/DL (74-106) 108 MG/DL (74-106) Test 01/20/20 04:13 01/20/20 20:52 01/21/20 03:45 01/21/20 05:20 White Blood Count 4.1 K/UL (4.8-10.8) 3.3 K/UL (4.8-10.8) Red Blood Count 3.05 M/UL (4.20-5.40) 2.72 M/UL (4.20-5.40) Hemoglobin 8.5 G/DL (12.0-16.0) 7.6 G/DL (12.0-16.0) Hematocrit 29.0 % (37.0-47.0) 25.8 % (37.0-47.0) Mean Corpuscular Volume 95 FL (80-99) 95 FL (80-99) Mean Corpuscular Hemoglobin 27.8 PG (27.0-31.0) 28.1 PG (27.0-31.0) Mean Corpuscular Hemoglobin Concent 29.2 G/DL (32.0-36.0) 29.7 G/DL (32.0-36.0) Red Cell Distribution Width 18.1 % (11.6-14.8) 17.1 % (11.6-14.8) Platelet Count 149 K/UL (150-450) 130 K/UL (150-450) Mean Platelet Volume 7.5 FL (6.5-10.1) 7.3 FL (6.5-10.1) Neutrophils (%) (Auto) 57.6 % (45.0-75.0) % (45.0-75.0) Lymphocytes (%) (Auto) 25.8 % (20.0-45.0) % (20.0-45.0) Monocytes (%) (Auto) 7.0 % (1.0-10.0) % (1.0-10.0) Eosinophils (%) (Auto) 8.9 % (0.0-3.0) % (0.0-3.0) Basophils (%) (Auto) 0.7 % (0.0-2.0) % (0.0-2.0) Sodium Level 145 MMOL/L (136-145) 148 MMOL/L (136-145) Potassium Level 4.1 MMOL/L (3.5-5.1) 4.7 MMOL/L (3.5-5.1) Chloride Level 108 MMOL/L (98-107) 111 MMOL/L (98-107) Carbon Dioxide Level 25 MMOL/L (21-32) 27 MMOL/L (21-32) Anion Gap 12 mmol/L (5-15) 10 mmol/L (5-15) Blood Urea Nitrogen 32 mg/dL (7-18) 36 mg/dL (7-18) Creatinine 0.9 MG/DL (0.55-1.30) 0.8 MG/DL (0.55-1.30) Estimat Glomerular Filtration Rate > 60 mL/min (>60) > 60 mL/min (>60) Glucose Level 98 MG/DL (74-106) 91 MG/DL (74-106) Calcium Level 8.6 MG/DL (8.5-10.1) 8.1 MG/DL (8.5-10.1) Phosphorus Level 3.6 MG/DL (2.5-4.9) Magnesium Level 1.6 MG/DL (1.8-2.4) 1.5 MG/DL (1.8-2.4) Differential Total Cells Counted 100 Neutrophils % (Manual) 71 % (45-75) Lymphocytes % (Manual) 19 % (20-45) Monocytes % (Manual) 5 % (1-10) Eosinophils % (Manual) 5 % (0-3) Basophils % (Manual) 0 % (0-2) Band Neutrophils 0 % (0-8) Platelet Estimate Decreased Platelet Morphology Normal Hypochromasia 3+ Anisocytosis 1+ Height (Feet): 5 Height (Inches): 5.00 Weight (Pounds): 237 Objective Physical Exam General: Awake and alert, no acute distress HEENT: NC/AT. EOMI. PERRLA. Anicteric sclera. Cardiovascular: Tachycardic. S1 and S2 normal. Resp: 2 L nasal cannula. Tachypnea. Normal work of breathing. Abdomen: Abdomen is soft, nondistended, obese. Nontender Skin: Bandages over the heels and feet on the lower extremities MSK: Normal tone and bulk. Moving all extremities. No obvious deformity. Neuro: Awake and alert. Mentating appropriately. Reno Valle MD Jan 21, 2020 10:14
[2020-01-21] MEDS ORDERED: D5W 250 ML IVPB ONE (10:15)
--- NOTE | 2020-01-21 10:39 | Diagnostic Imaging Report ---
Indication: Shortness of breath Technique: One view of the chest Comparison: 01/14/2020 Findings: Left arm PICC is again demonstrated. There is some surgical hardware in the right shoulder. The lungs and pleural spaces remain clear except for some scarring in the left midlung periphery. The heart size is upper limits normal. Findings are unchanged Impression: No acute process
[2020-01-21] MEDS: Dakin's 0.125% Soln (Quarter Strength) 16oz TOPIC SCH (10:54)
--- NOTE | 2020-01-21 11:53 | Pulmonology Progress Note ---
Subjective ROS Limited/Unobtainable: No Interval Events: None new Constitutional: Reports: fatigue; Denies: fever HEENT: Repors: no symptoms Respiratory: Reports: shortness of breath Cardiovascular: Reports: no symptoms Gastrointestinal/Abdominal: Denies: nausea, vomiting, diarrhea Psychiatric: Denies: depression Skin: Denies: rash Musculoskeletal: Denies: pain Allergies: Coded Allergies: ERYTHROMYCIN BASE (Verified Allergy, Unknown, 01/14/20) HEPARIN (Verified Allergy, Unknown, 01/14/20) All Systems: reviewed and negative except above Objective Last 24 Hour Vital Signs Date Time Temp Pulse Resp B/P (MAP) Pulse Ox O2 Delivery O2 Flow Rate FiO2 01/21/20 09:00 Nasal Cannula 2.0 Nasal Cannula 2.0 01/21/20 08:52 74 113/55 01/21/20 08:51 74 01/21/20 08:00 97.9 87 20 113/55 (74) 100 01/21/20 08:00 87 01/21/20 06:03 97.7 01/21/20 04:00 97.7 77 20 114/73 (87) 98 01/21/20 04:00 72 01/21/20 04:00 Nasal Cannula 2.0 Nasal Cannula 2.0 01/21/20 00:00 82 01/21/20 00:00 97.7 77 22 103/60 (74) 99 01/21/20 00:00 Nasal Cannula 2.0 Nasal Cannula 2.0 01/20/20 21:00 Nasal Cannula 2.0 Nasal Cannula 2.0 01/20/20 20:59 81 117/55 01/20/20 20:00 97.8 81 20 112/55 (74) 99 01/20/20 20:00 105 01/20/20 16:00 97.8 97 20 114/67 (83) 100 01/20/20 16:00 Nasal Cannula 2.0 Nasal Cannula 2.0 01/20/20 16:00 100 01/20/20 12:00 97.9 91 20 100/64 (76) 100 01/20/20 12:00 93 01/20/20 12:00 Nasal Cannula 2.0 Nasal Cannula 2.0 Intake and Output 01/20/20 01/21/20 19:00 07:00 Intake Total 736 ml 250 ml Output Total 650 ml 500 ml Balance 86 ml -250 ml Intake Oral 600 ml 250 ml IV Total 136 ml Output Urine Total 650 ml 500 ml # Bowel Movements 5 General Appearance: no acute distress HEENT: normocephalic Respiratory: chest wall non-tender, lungs clear Cardiovascular: normal peripheral pulses Abdomen: normal bowel sounds Microbiology Date/Time Source Procedure Growth Status 01/19/20 09:05 Blood Blood Culture - Preliminary NO GROWTH AFTER 24 HOURS Resulted 01/19/20 08:55 Blood Blood Culture - Preliminary NO GROWTH AFTER 24 HOURS Resulted 01/19/20 16:00 Stool Clostridium difficile Toxin Assay - Final Complete Laboratory Tests 01/20/20 20:52: POC Whole Blood Glucose [Pending] 01/21/20 03:45: White Blood Count 3.3L, Red Blood Count 2.72L, Hemoglobin 7.6L, Hematocrit 25.8L , Mean Corpuscular Volume 95, Mean Corpuscular Hemoglobin 28.1, Mean Corpuscular Hemoglobin Concent 29.7L, Red Cell Distribution Width 17.1H, Platelet Count 130L, Mean Platelet Volume 7.3, Neutrophils (%) (Auto) , Lymphocytes (%) (Auto) , Monocytes (%) (Auto) , Eosinophils (%) (Auto) , Basophils (%) (Auto) , Differential Total Cells Counted 100, Neutrophils % ( Manual) 71, Lymphocytes % (Manual) 19L, Monocytes % (Manual) 5, Eosinophils % ( Manual) 5H, Basophils % (Manual) 0, Band Neutrophils 0, Platelet Estimate DecreasedL, Platelet Morphology Normal, Hypochromasia 3+, Anisocytosis 1+, Sodium Level 148H, Potassium Level 4.7, Chloride Level 111H, Carbon Dioxide Level 27, Anion Gap 10, Blood Urea Nitrogen 36H, Creatinine 0.8, Estimat Glomerular Filtration Rate > 60, Glucose Level 91, Calcium Level 8.1L, Magnesium Level 1.5L 01/21/20 05:20: POC Whole Blood Glucose [Pending] Current Medications Medications (Trade) Dose Ordered Sig/Samuel Route PRN Reason Start Time Stop Time Status Last Admin Dose Admin Acetaminophen (Tylenol) 650 mg Q6H PRN ORAL Mild Pain (Pain Scale 1-3) 01/21/20 09:15 02/14/20 03:14 Acetaminophen (Tylenol) 650 mg Q6H PRN ORAL Temp >100.5 01/21/20 09:15 02/14/20 03:14 Acetaminophen/ Hydrocodone Bitart ([place] 5/325) 1 tab Q6H PRN ORAL For Pain 01/21/20 11:30 01/23/20 11:29 Ascorbic Acid (Vitamin C) 250 mg TWICE A DAY ORAL 01/21/20 09:00 02/16/20 17:59 01/21/20 08:53 Chlorhexidine Gluconate (Mel-Hex 2%) 1 applic DAILY@2000 TOPIC 01/21/20 20:00 04/14/20 19:59 Dextrose (Dextrose 50%) 25 ml Q30M PRN IV Hypoglycemia 01/21/20 06:45 04/13/20 23:14 Dextrose (Dextrose 50%) 50 ml Q30M PRN IV Hypoglycemia 01/21/20 06:45 04/13/20 23:14 Digoxin (Lanoxin) 0.125 mg DAILY ORAL 01/21/20 09:00 04/16/20 08:59 01/21/20 08:51 Doxycycline Monohydrate (Doxycycline Monohydrate) 100 mg EVERY 12 HOURS ORAL 01/21/20 09:00 01/25/20 08:59 01/21/20 08:53 Duloxetine HCl (Cymbalta) 60 mg DAILY ORAL 01/21/20 09:00 04/16/20 14:44 01/21/20 08:51 Insulin Aspart (NovoLOG) BEFORE MEALS AND HS SUBQ 01/21/20 06:30 04/14/20 06:29 Insulin Detemir (Levemir) 11 units BEDTIME SUBQ 01/21/20 21:00 04/14/20 20:59 Loperamide HCl (Imodium) 2 mg Q4H PRN ORAL Diarrhea 01/21/20 07:00 02/18/20 06:59 Magnesium Sulfate 100 ml @ 100 mls/hr Q1H IVPB 01/21/20 10:00 01/21/20 13:59 01/21/20 11:46 Meropenem 1 gm/ Sodium Chloride 55 ml @ 110 mls/hr Q8HR IVPB 01/21/20 14:00 01/23/20 21:59 Metoprolol Tartrate (Lopressor) 25 mg Q12HR ORAL 01/21/20 09:00 04/14/20 08:59 01/21/20 08:52 Midodrine (Pro-Amatine) 5 mg TID PRN ORAL sbp<110 01/21/20 09:00 04/14/20 08:59 Multivitamins (Multivitamins) 1 tab Q24H ORAL 01/21/20 07:00 02/17/20 06:59 01/21/20 06:49 Pantoprazole (Protonix) 40 mg DAILY ORAL 01/21/20 09:00 02/18/20 08:59 01/21/20 08:53 Sildenafil Citrate (Revatio) 20 mg DAILY ORAL 01/21/20 09:00 04/14/20 08:59 01/21/20 08:53 Sodium Hypochlorite (Dakin's Quarter Strength) 1 applic DAILY TOPIC 01/21/20 09:00 02/14/20 10:59 01/21/20 10:54 Zinc Sulfate (Zinc Sulfate) 220 mg Q24H ORAL 01/21/20 07:00 04/17/20 06:59 01/21/20 06:49 Assessment/Plan Assessment/Plan IMPRESSION: 1. Negative for COVID-19 pneumonia. 2. UTI. 3. Diabetes mellitus. 4. Decubiti. DISCUSSION: Contnue antibiotics. Oxygen and pulmonary hygiene. Negative COVID-19 PCR. I will follow carefully. DC planning Keerthi Morales Omar Syed MD Jan 21, 2020 11:53
[2020-01-21 12:00] VITALS: BP 109/45
--- NOTE | 2020-01-21 12:44 | Surgery Progress Note ---
Surgery Progress Note Subjective Symptoms: improved, tolerating diet, voiding well, passing flatus Objective Last 24 Hour Vital Signs Date Time Temp Pulse Resp B/P (MAP) Pulse Ox O2 Delivery O2 Flow Rate FiO2 01/21/20 09:00 Nasal Cannula 2.0 Nasal Cannula 2.0 01/21/20 08:52 74 113/55 01/21/20 08:51 74 01/21/20 08:00 97.9 87 20 113/55 (74) 100 01/21/20 08:00 87 01/21/20 06:03 97.7 01/21/20 04:00 97.7 77 20 114/73 (87) 98 01/21/20 04:00 72 01/21/20 04:00 Nasal Cannula 2.0 Nasal Cannula 2.0 01/21/20 00:00 82 01/21/20 00:00 97.7 77 22 103/60 (74) 99 01/21/20 00:00 Nasal Cannula 2.0 Nasal Cannula 2.0 01/20/20 21:00 Nasal Cannula 2.0 Nasal Cannula 2.0 01/20/20 20:59 81 117/55 01/20/20 20:00 97.8 81 20 112/55 (74) 99 01/20/20 20:00 105 01/20/20 16:00 97.8 97 20 114/67 (83) 100 01/20/20 16:00 Nasal Cannula 2.0 Nasal Cannula 2.0 01/20/20 16:00 100 I&O Intake and Output 01/20/20 01/21/20 19:00 07:00 Intake Total 736 ml 250 ml Output Total 650 ml 500 ml Balance 86 ml -250 ml Intake Oral 600 ml 250 ml IV Total 136 ml Output Urine Total 650 ml 500 ml # Bowel Movements 5 Dressing: dry Wound: clean Cardiovascular: RSR Respiratory: clear Abdomen: soft, flat, non-tender, other Extremities: edema, no tenderness, no cyanosis Laboratory Tests Test 01/20/20 20:52 01/21/20 03:45 01/21/20 05:20 POC Whole Blood Glucose Pending Pending White Blood Count 3.3 K/UL (4.8-10.8) L Red Blood Count 2.72 M/UL (4.20-5.40) L Hemoglobin 7.6 G/DL (12.0-16.0) L Hematocrit 25.8 % (37.0-47.0) L Mean Corpuscular Volume 95 FL (80-99) Mean Corpuscular Hemoglobin 28.1 PG (27.0-31.0) Mean Corpuscular Hemoglobin Concent 29.7 G/DL (32.0-36.0) L Red Cell Distribution Width 17.1 % (11.6-14.8) H Platelet Count 130 K/UL (150-450) L Mean Platelet Volume 7.3 FL (6.5-10.1) Neutrophils (%) (Auto) % (45.0-75.0) Lymphocytes (%) (Auto) % (20.0-45.0) Monocytes (%) (Auto) % (1.0-10.0) Eosinophils (%) (Auto) % (0.0-3.0) Basophils (%) (Auto) % (0.0-2.0) Differential Total Cells Counted 100 Neutrophils % (Manual) 71 % (45-75) Lymphocytes % (Manual) 19 % (20-45) L Monocytes % (Manual) 5 % (1-10) Eosinophils % (Manual) 5 % (0-3) H Basophils % (Manual) 0 % (0-2) Band Neutrophils 0 % (0-8) Platelet Estimate Decreased L Platelet Morphology Normal Hypochromasia 3+ Anisocytosis 1+ Sodium Level 148 MMOL/L (136-145) H Potassium Level 4.7 MMOL/L (3.5-5.1) Chloride Level 111 MMOL/L (98-107) H Carbon Dioxide Level 27 MMOL/L (21-32) Anion Gap 10 mmol/L (5-15) Blood Urea Nitrogen 36 mg/dL (7-18) H Creatinine 0.8 MG/DL (0.55-1.30) Estimat Glomerular Filtration Rate > 60 mL/min (>60) Glucose Level 91 MG/DL (74-106) Calcium Level 8.1 MG/DL (8.5-10.1) L Magnesium Level 1.5 MG/DL (1.8-2.4) L Plan Problems: (1) Sepsis Assessment & Plan: Morbidly obese pt whom presented on admission with Multiple Pressure injuries. Pt stated wounds rapidly developed approx 3 weeks ago while acutely ill. Pt is on oxygen via N/C. Both ears assessed and no evidence of skin breakdown noted. Foam padding around oxygen tubing and pt was advised to maintain tubing loose around ears. Moisture Intertrigo noted to abd folds,R and L groin. 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 Base of wound is 100% soft Black/ rubin necrosis. Bone is palpable. Wound is malodorous. Small amt haemopurulent exudate noted. Borders are irregular, erythematous and macerated.Periwound is erythematous,indurated with additional Pressure injuries and shearing. At L gluteus is a full Thickness Pressure injury(L)7.5cm x (W)4.5cm.90% mixed necrosis/slough,10% pink epithelial at base of wound. Borders are erythematous and macerated. Small amt serous exudate noted. At R Gluteus is full thickness Pressure injury(L)7.3cm x (W)4.5cm. Base of wound is 100% slough. Borders are erythematous and macerated. Small amt serous exudate noted. Full Thickness stage 4 Pressure injury R lower Buttocks(L)4.4cm x (W)7.5cm. Base of wound is 25% necrotic,75% fibrinous slough. Wound is malodorous. Small amt haemopurulent exudate noted. Wound is malodorous. Borders are erythematous and macerated. Full Thickness stage 4 Pressure Injury R Ischium(L)7.6cm x (W)5.4cm. Base of wound is 25% necrotic,60% slough,15% pink epithelial. Small amt seropurulent exudate noted. Wound is malodorous.Borders are erythematous and macerated. Two Full thickness Pressure Injuries that are in close Proximity lower L buttocks.(Proximal)(L)3.5cm x (W)2.6cm.100% soft necrosis at base of wound. Marginal erythema along borders.Periwound L buttocks erythematous with shearing. (Distal)(L)1.3cm x (W)0.9cm. 100% slough at base of wound.Marginal erythema along Borders. Two Unstageable Pressure injuries L Ischium:(Proximal)(L)1.2cm x (W)1.9cm Base of wound is 90% slough,10%pink moist erythema.(Distal) L) 6cm x (W)5.3cm. 90% slough,10% moist erythema at base of wound. Small amt. seropurulent exudate noted. No odor noted. Borders are macerated. Periwound is erythematous with additional shearing. DTPI medial/posterior Upper L thigh which presents as blood Blister that is partially opened(L)1.1cm x (W)6.8cm.Open wound at most medial portion of wound ( L)1.1cm x (W)1.3cm noted to have slough at base. Stable dry eschar L pre-tibial (L)1.5cm x (W)1cm. Haemosiderin with dry scaly plaques L lower ext. DTPI L lateral Malleolus(L)2.3cm x (W)0.9cm. Wound presents as an intact Blood Blister. Non-Healing Surgical wound R Achilles. Pt stated she had surgical repair approximately 2 years ago. Base of wound is 40% fibrinous slough,10% necrotic , 50% pale pink. Edges are macerated. Keloid scar at distal portion of surgical wound. No odor or exudate noted. Surrounding Haemosiderin noted to R lower ext. Full thickness Pressure injury R lateral Malleolus(L)4.8cm x (W)5.8cm. Base of wound is 80%mixed soft necrosis and fibrinous slough,20% pink and moist. Small amt seropurulent exudate noted. (+) Epibole along borders.Periwound is erythematous. No elevation in skin temp. No odor noted. R Heel is boggy but blanchable. Historical scar noted to R heel. L Heel is boggy but blanchable. wounds unlikely etiology uti abx as per ID sacral wound needs debridement. currently covid positive. cont current therapy. will plan for elective debridement once stable and improved Tx.Plan: Cleanse Sacral,R and L Buttocks,R and L ischium wounds with Dakin's 0.125% Harjeet. Loosely pack with Dakin's moistened Gauze. Apply Triad Periwound. Cover with Optifoam drsgs Daily and prn. Cleanse Wound R Achilles with Dakin's 0.125% harjeet. Apply Dakin's Moistened Gauze. Apply Triad periwound. Cover with ABD Pad and Wrap with Kerlix Daily and prn. Cleanse Wound lateral R Malleolus with Dakin's 0.125%. harjeet. Apply Dakin's moistened Gauze to wound. Apply Triad Paste periwound. Cover with ABD Pad. Wrap with Kerlix Daily and prn. Apply Cavilon Skin Barrier to both heels. Cover each heel with Optifoam drsg. Change every 7 days and prn. Apply Triad Paste to abdominal folds and Bilat groin Twice Daily. Reposition at least every 2hours or as tolerated. Off-load heels with Pillow Bariatric bed with APM/LEO Mattress. (2) UTI (urinary tract infection) (3) COVID-19 (4) Anemia (5) SOB (shortness of breath) (6) Tachycardia (7) Decubitus skin ulcer Assessment & Plan: Patient presented with multiple decubitus skin ulcers in various stages. Wounds evaluated initial staging and care plan initiated. Will follow with recommendations. DAILY ESTIMATED NEEDS: Needs based on Wounds, DM 62kg abw 25-30 kcals/kg 4087-5817 total kcals 1.5-2 g protein/kg 93-124 g total protein 25-30 mL/kg 2595-5213 total fluid mLs NUTRITION DIAGNOSIS: Increase pro needs r/t wound healing as evidenced by pt w/ multiple areas of skin breakdown, eval pending, per photos, wounds appear open and advanced. CURRENT DIET: CCHO LOW PO DIET RECOMMENDATIONS: CCHO LOW + DOUBLE PROTEIN PORTIONS ADDITIONAL RECOMMENDATIONS: 1) Texture per [employer] 2) Add Glucerna 1 tetra TID 3) Wound care, f/up w/ WC eval 4) Monitor po intake, no record at this time Jens Hoang Jan 21, 2020 12:44
[2020-01-21] MEDS: Meropenem 1 GM in NS 55 ML IVPB SCH ×2 (14:21→21:41)
[2020-01-21 16:00] VITALS: BP 113/57
--- NOTE | 2020-01-21 17:00 | Cardiac Electrophysiology PN ---
Assessment/Plan Assessment/Plan 1. Runs of regular sudden onset and termination supraventricular tachycardia. Blood pressure in the 90s. On metoprolol 25 mg b.i.d. and digoxin 0.125 daily. EF 55% and ruled out for MA Dig level <0.2 2. Hypertension. On metoprolol 25 mg b.i.d. 3. Diabetes. 4. End-stage renal disease. 5. Status post recent COVID. Covid positive again and in isolation 6. Severe anemia, hemoglobin 6.5, S/P 1 unit of blood transfusion. 7. Huge decubitus ulcer. 8. Hx of DVT. Eliquis held for severe anemia. DW RN Subjective Subjective No more SVT on Lopressor 25 bid and Dig daily. Covid positive after swabbed again on 01/16/20 Objective Last 24 Hour Vital Signs Date Time Temp Pulse Resp B/P (MAP) Pulse Ox O2 Delivery O2 Flow Rate FiO2 01/21/20 12:00 86 01/21/20 12:00 97.5 86 20 109/45 (66) 100 01/21/20 09:00 Nasal Cannula 2.0 Nasal Cannula 2.0 01/21/20 08:52 74 113/55 01/21/20 08:51 74 01/21/20 08:00 97.9 87 20 113/55 (74) 100 01/21/20 08:00 87 01/21/20 06:03 97.7 01/21/20 04:00 97.7 77 20 114/73 (87) 98 01/21/20 04:00 72 01/21/20 04:00 Nasal Cannula 2.0 Nasal Cannula 2.0 01/21/20 00:00 82 01/21/20 00:00 97.7 77 22 103/60 (74) 99 01/21/20 00:00 Nasal Cannula 2.0 Nasal Cannula 2.0 01/20/20 21:00 Nasal Cannula 2.0 Nasal Cannula 2.0 01/20/20 20:59 81 117/55 01/20/20 20:00 97.8 81 20 112/55 (74) 99 01/20/20 20:00 105 Intake and Output 01/20/20 01/21/20 19:00 07:00 Intake Total 736 ml 250 ml Output Total 650 ml 500 ml Balance 86 ml -250 ml Intake Oral 600 ml 250 ml IV Total 136 ml Output Urine Total 650 ml 500 ml # Bowel Movements 5 Laboratory Tests Test 01/20/20 20:52 01/21/20 03:45 01/21/20 05:20 01/21/20 15:58 POC Whole Blood Glucose Pending Pending 100 MG/DL (74-106) White Blood Count 3.3 K/UL (4.8-10.8) L Red Blood Count 2.72 M/UL (4.20-5.40) L Hemoglobin 7.6 G/DL (12.0-16.0) L Hematocrit 25.8 % (37.0-47.0) L Mean Corpuscular Volume 95 FL (80-99) Mean Corpuscular Hemoglobin 28.1 PG (27.0-31.0) Mean Corpuscular Hemoglobin Concent 29.7 G/DL (32.0-36.0) L Red Cell Distribution Width 17.1 % (11.6-14.8) H Platelet Count 130 K/UL (150-450) L Mean Platelet Volume 7.3 FL (6.5-10.1) Neutrophils (%) (Auto) % (45.0-75.0) Lymphocytes (%) (Auto) % (20.0-45.0) Monocytes (%) (Auto) % (1.0-10.0) Eosinophils (%) (Auto) % (0.0-3.0) Basophils (%) (Auto) % (0.0-2.0) Differential Total Cells Counted 100 Neutrophils % (Manual) 71 % (45-75) Lymphocytes % (Manual) 19 % (20-45) L Monocytes % (Manual) 5 % (1-10) Eosinophils % (Manual) 5 % (0-3) H Basophils % (Manual) 0 % (0-2) Band Neutrophils 0 % (0-8) Platelet Estimate Decreased L Platelet Morphology Normal Hypochromasia 3+ Anisocytosis 1+ Sodium Level 148 MMOL/L (136-145) H Potassium Level 4.7 MMOL/L (3.5-5.1) Chloride Level 111 MMOL/L (98-107) H Carbon Dioxide Level 27 MMOL/L (21-32) Anion Gap 10 mmol/L (5-15) Blood Urea Nitrogen 36 mg/dL (7-18) H Creatinine 0.8 MG/DL (0.55-1.30) Estimat Glomerular Filtration Rate > 60 mL/min (>60) Glucose Level 91 MG/DL (74-106) Calcium Level 8.1 MG/DL (8.5-10.1) L Magnesium Level 1.5 MG/DL (1.8-2.4) L Microbiology Date/Time Source Procedure Growth Status 01/19/20 09:05 Blood Blood Culture - Preliminary NO GROWTH AFTER 24 HOURS Resulted 01/19/20 08:55 Blood Blood Culture - Preliminary NO GROWTH AFTER 24 HOURS Resulted 01/19/20 16:00 Stool Clostridium difficile Toxin Assay - Final Complete Objective HEAD AND NECK: no JVD. LUNGS: Coarse rhonchi. CARDIOVASCULAR: Regular S1 and S2 with no gallop. ABDOMEN: Soft. EXTREMITIES: No pitting edema. Austin Byrd MD Jan 21, 2020 17:00
--- NOTE | 2020-01-21 17:17 | Diagnostic Imaging Report ---
Indication: Abdominal pain Technique: Limited assessment of the liver and spleen, per referring physician request. Exam otherwise limited due to Covid precautions Comparison: none Findings: The liver measures 17.6 cm long axis dimension, demonstrates normal echogenicity. The spleen measures 13.2 cm long axis dimension. Impression: Prominent liver, mild splenomegaly
[2020-01-21 20:00] VITALS: BP 119/60
[2020-01-21] MEDS: Dyna-Hex 2% Top Sol 2oz TOPIC SCH (20:00)
[2020-01-21] MEDS: Levemir Flexpen SUBQ SCH (21:00)
--- NOTE | 2020-01-21 22:59 | General Progress Note ---
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 GERD - negative Colon 2019 - COVID (+) Recommendations - re check Fe panel - PPI - Monitor CBC - supportive care - Endoscopy at later date / outpatient Subjective Allergies: Coded Allergies: ERYTHROMYCIN BASE (Verified Allergy, Unknown, 01/14/20) HEPARIN (Verified Allergy, Unknown, 01/14/20) Subjective doing better today d/w RN tolerating PO no N/V (+) BM Objective Last 24 Hour Vital Signs Date Time Temp Pulse Resp B/P (MAP) Pulse Ox O2 Delivery O2 Flow Rate FiO2 01/21/20 21:52 97.5 01/21/20 21:21 85 119/60 01/21/20 16:00 81 01/21/20 16:00 97.5 81 20 113/57 (75) 100 01/21/20 12:00 86 01/21/20 12:00 97.5 86 20 109/45 (66) 100 01/21/20 09:00 Nasal Cannula 2.0 Nasal Cannula 2.0 01/21/20 08:52 74 113/55 01/21/20 08:51 74 01/21/20 08:00 97.9 87 20 113/55 (74) 100 01/21/20 08:00 87 01/21/20 06:03 97.7 01/21/20 04:00 97.7 77 20 114/73 (87) 98 01/21/20 04:00 72 01/21/20 04:00 Nasal Cannula 2.0 Nasal Cannula 2.0 01/21/20 00:00 82 01/21/20 00:00 97.7 77 22 103/60 (74) 99 01/21/20 00:00 Nasal Cannula 2.0 Nasal Cannula 2.0 Intake and Output 01/20/20 01/21/20 19:00 07:00 Intake Total 736 ml 250 ml Output Total 650 ml 500 ml Balance 86 ml -250 ml Intake Oral 600 ml 250 ml IV Total 136 ml Output Urine Total 650 ml 500 ml # Bowel Movements 5 Laboratory Tests 01/21/20 03:45: White Blood Count 3.3L, Red Blood Count 2.72L, Hemoglobin 7.6L, Hematocrit 25.8L , Mean Corpuscular Volume 95, Mean Corpuscular Hemoglobin 28.1, Mean Corpuscular Hemoglobin Concent 29.7L, Red Cell Distribution Width 17.1H, Platelet Count 130L, Mean Platelet Volume 7.3, Neutrophils (%) (Auto) , Lymphocytes (%) (Auto) , Monocytes (%) (Auto) , Eosinophils (%) (Auto) , Basophils (%) (Auto) , Differential Total Cells Counted 100, Neutrophils % ( Manual) 71, Lymphocytes % (Manual) 19L, Monocytes % (Manual) 5, Eosinophils % ( Manual) 5H, Basophils % (Manual) 0, Band Neutrophils 0, Platelet Estimate DecreasedL, Platelet Morphology Normal, Hypochromasia 3+, Anisocytosis 1+, Sodium Level 148H, Potassium Level 4.7, Chloride Level 111H, Carbon Dioxide Level 27, Anion Gap 10, Blood Urea Nitrogen 36H, Creatinine 0.8, Estimat Glomerular Filtration Rate > 60, Glucose Level 91, Calcium Level 8.1L, Magnesium Level 1.5L 01/21/20 05:20: POC Whole Blood Glucose [Pending] 01/21/20 15:58: POC Whole Blood Glucose 100 Height (Feet): 5 Height (Inches): 5.00 Weight (Pounds): 237 Objective Exam deferred due to COVID isolation Norman Greenberg MD Jan 21, 2020 22:59
--- NOTE | 2020-01-21 23:40 | Neurology Progress Note ---
Interim History Interim History ROS Limited/Unobtainable: No Interim History 59yo F who reported from [facility] with suspected COVID19 + as outpatient. Duration unknown.. 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 She is bedbound. She was transferred in route per EMS due to hypotension. Has remained septic, confused, poor response Objective Physical Exam Last Vital Signs Date Time Temp Pulse Resp B/P (MAP) Pulse Ox O2 Delivery O2 Flow Rate FiO2 01/21/20 21:52 97.5 01/21/20 21:21 85 119/60 01/21/20 21:00 Nasal Cannula 2.0 Nasal Cannula 2.0 01/21/20 20:00 20 100 Laboratory Tests Test 01/21/20 03:45 01/21/20 05:20 01/21/20 15:58 White Blood Count 3.3 K/UL (4.8-10.8) L Red Blood Count 2.72 M/UL (4.20-5.40) L Hemoglobin 7.6 G/DL (12.0-16.0) L Hematocrit 25.8 % (37.0-47.0) L Mean Corpuscular Volume 95 FL (80-99) Mean Corpuscular Hemoglobin 28.1 PG (27.0-31.0) Mean Corpuscular Hemoglobin Concent 29.7 G/DL (32.0-36.0) L Red Cell Distribution Width 17.1 % (11.6-14.8) H Platelet Count 130 K/UL (150-450) L Mean Platelet Volume 7.3 FL (6.5-10.1) Neutrophils (%) (Auto) % (45.0-75.0) Lymphocytes (%) (Auto) % (20.0-45.0) Monocytes (%) (Auto) % (1.0-10.0) Eosinophils (%) (Auto) % (0.0-3.0) Basophils (%) (Auto) % (0.0-2.0) Differential Total Cells Counted 100 Neutrophils % (Manual) 71 % (45-75) Lymphocytes % (Manual) 19 % (20-45) L Monocytes % (Manual) 5 % (1-10) Eosinophils % (Manual) 5 % (0-3) H Basophils % (Manual) 0 % (0-2) Band Neutrophils 0 % (0-8) Platelet Estimate Decreased L Platelet Morphology Normal Hypochromasia 3+ Anisocytosis 1+ Sodium Level 148 MMOL/L (136-145) H Potassium Level 4.7 MMOL/L (3.5-5.1) Chloride Level 111 MMOL/L (98-107) H Carbon Dioxide Level 27 MMOL/L (21-32) Anion Gap 10 mmol/L (5-15) Blood Urea Nitrogen 36 mg/dL (7-18) H Creatinine 0.8 MG/DL (0.55-1.30) Estimat Glomerular Filtration Rate > 60 mL/min (>60) Glucose Level 91 MG/DL (74-106) Calcium Level 8.1 MG/DL (8.5-10.1) L Magnesium Level 1.5 MG/DL (1.8-2.4) L POC Whole Blood Glucose Pending 100 MG/DL (74-106) Head: normocophalic Neck: no rigidity EENT: benign Neurologic Exam Objective bedridden, ulcers in the back withdraws all 4 to pain NC AT abd soft Impression/Recommendations Problems: (1) Sepsis (2) UTI (urinary tract infection) (3) COVID-19 (4) Anemia (5) SOB (shortness of breath) (6) Tachycardia (7) SVT (supraventricular tachycardia) (8) Gram-negative bacteremia (9) Decubitus skin ulcer (10) Hypokalemia (11) Hypernatremia Status: stable, progressing Diagnostic Impression Acute encephalopathy, likely metabolic Sepsis hypotention Improving Delirium precautions con atb pt ot Shin Heath MD Jan 21, 2020 23:40
[2020-01-22] VITALS: BP 107/54
[2020-01-22 04:00] VITALS: BP 110/55
[2020-01-22] MEDS: Meropenem 1 GM in NS 55 ML IVPB SCH ×3 (06:03→21:36)
[2020-01-22] MEDS: HYDROcodone/Acetamin 5/325 tab ORAL PRN ×2 (06:04→21:19)
[2020-01-22] MEDS: NovoLOG Insulin Flexpen SUBQ SCH ×4 (06:30→21:00)
[2020-01-22] MEDS: Zinc Sulfate 220mg ORAL SCH (06:55)
[2020-01-22 07:11] LABS: BASOPHILS % (AUTO) 0.9 % (0.0-2.0); EOSINOPHILS % (AUTO) 7.5 % (0.0-3.0); HEMOGLOBIN 8.2 G/DL (12.0-16.0); MEAN CORPUSCULAR VOLUME 95 FL (80-99); MONOCYTES % (AUTO) 7.1 % (1.0-10.0); NEUTROPHILS % (AUTO) 62.5 % (45.0-75.0); PLATELET COUNT 187 K/UL (150-450); RED BLOOD COUNT 2.96 M/UL (4.20-5.40)
[2020-01-22 07:18] LABS: ANION GAP 8 mmol/L (5-15); BLOOD UREA NITROGEN 20 mg/dL (7-18); CARBON DIOXIDE 25 MMOL/L (21-32); CHLORIDE 108 MMOL/L (98-107); CREATININE 0.7 MG/DL (0.55-1.30); PHOSPHORUS 3.8 MG/DL (2.5-4.9); POTASSIUM 3.7 MMOL/L (3.5-5.1); SODIUM 141 MMOL/L (136-145)
[2020-01-22 07:47] LABS: % IRON SATURATION 17 % (15-50); IRON 24 ug/dL (50-175); TOTAL IRON BINDING CAPACITY 140 ug/dL (250-450)
--- NOTE | 2020-01-22 07:53 | Hematology/Onc Progress Note ---
Assessment/Plan Assessment/Plan Assessment and Recs # Pancytopenia initialy with Anemia is due to chronic dsiease/kidney failure and covid19++, does not appear to be gi bleed --> anemia panel has been reviewed --> continue on epogen as per renal --> no hemolysis is noted --> hgb trend 6.4-->8.2 --> hold off anticaog if hgb <7 --> wbc 4.1-->3.3-->4 --> wbc 125-->149->130-->187 --> us abd is pending, r/o cirrhosis and hsm if plt lower than 100 --> hep and hiv panel neg --> may also be due to covid 19 # UTI (urinary tract infection) --> with poa Sepsis --> abx as per id team # Respiratory failure due to covid19 --> steriods, low threshold for intuabtion -> covid 19 on iso # Ddimer elevation --> duplex lower ext neg # Pulmonary HTN # Hyperocag disorder --> hold off eliquis for now given drop in h/h --> have bindu rn this info --> consider cards eval # Dvt ppx scds Appreciate consultation and bindu RN Subjective Constitutional: Denies: no symptoms, chills, fever, malaise, weakness, other HEENT: Denies: no symptoms, eye pain, blurred vision, tearing, double vision, ear pain, ear discharge, nose pain, nose congestion, throat pain, throat swelling, mouth pain, mouth swelling, other Cardiovascular: Denies: no symptoms, chest pain, edema, irregular heart rate, lightheadedness, palpitations, syncope, other Respiratory: Denies: no symptoms, cough, shortness of breath, SOB with excertion, SOB at rest, sputum, wheezing, other Gastrointestinal/Abdominal: Denies: no symptoms, abdomen distended, abdominal pain, black stools, tarry stools, blood in stool, constipated, diarrhea, difficulty swallowing, nausea, poor appetite, poor fluid intake, rectal bleeding , vomiting, other Neurologic/Psychiatric: Denies: no symptoms, anxiety, depressed, emotional problems, headache, numbness, paresthesia, pre-existing deficit, seizure, tingling, tremors, weakness, other Endocrine: Denies: no symptoms, excessive sweating, flushing, intolerance to cold, intolerance to heat, increased hunger, increased thirst, increased urine, unexplained weight gain, unexplained weight loss, other Allergies: Coded Allergies: ERYTHROMYCIN BASE (Verified Allergy, Unknown, 01/14/20) HEPARIN (Verified Allergy, Unknown, 01/14/20) Subjective 01/15 duplex was negative, holding off anticoag, no night sweats 01/18 meds noted, no bleeding, labs reviewed, h/h stable 01/19 labs have been reviewed, no bleeding, stable overnight, covid19+ 01/20 is on 2l nc, no bleeding, meds noted, pancytopenic still, wbc 3.3 01/21 labs reviewed, no bleeding, wbc 4, no hemolysis Objective Objective Current Medications Medications (Trade) Dose Ordered Sig/Samuel Route PRN Reason Start Time Stop Time Status Last Admin Dose Admin Acetaminophen (Tylenol) 650 mg Q6H PRN ORAL Mild Pain (Pain Scale 1-3) 01/21/20 09:15 02/14/20 03:14 Acetaminophen (Tylenol) 650 mg Q6H PRN ORAL Temp >100.5 01/21/20 09:15 02/14/20 03:14 Acetaminophen/ Hydrocodone Bitart ([place] 5/325) 1 tab Q6H PRN ORAL For Pain 01/21/20 11:30 01/23/20 11:29 01/22/20 06:04 Ascorbic Acid (Vitamin C) 250 mg TWICE A DAY ORAL 01/21/20 09:00 02/16/20 17:59 01/21/20 17:48 Chlorhexidine Gluconate (Mel-Hex 2%) 1 applic DAILY@1999 TOPIC 01/21/20 20:00 04/14/20 19:59 01/21/20 20:00 Dextrose (Dextrose 50%) 25 ml Q30M PRN IV Hypoglycemia 01/21/20 06:45 04/13/20 23:14 Dextrose (Dextrose 50%) 50 ml Q30M PRN IV Hypoglycemia 01/21/20 06:45 04/13/20 23:14 Digoxin (Lanoxin) 0.125 mg DAILY ORAL 01/21/20 09:00 04/16/20 08:59 01/21/20 08:51 Doxycycline Monohydrate (Doxycycline Monohydrate) 100 mg EVERY 12 HOURS ORAL 01/21/20 09:00 01/25/20 08:59 01/21/20 21:20 Duloxetine HCl (Cymbalta) 60 mg DAILY ORAL 01/21/20 09:00 04/16/20 14:44 01/21/20 08:51 Insulin Aspart (NovoLOG) BEFORE MEALS AND HS SUBQ 01/21/20 06:30 04/14/20 06:29 Insulin Detemir (Levemir) 11 units BEDTIME SUBQ 01/21/20 21:00 04/14/20 20:59 01/21/20 21:00 Loperamide HCl (Imodium) 2 mg Q4H PRN ORAL Diarrhea 01/21/20 07:00 02/18/20 06:59 Meropenem 1 gm/ Sodium Chloride 55 ml @ 110 mls/hr Q8HR IVPB 01/21/20 14:00 01/23/20 21:59 01/22/20 06:03 Metoprolol Tartrate (Lopressor) 25 mg Q12HR ORAL 01/21/20 09:00 04/14/20 08:59 01/21/20 21:21 Midodrine (Pro-Amatine) 5 mg TID PRN ORAL sbp<110 01/21/20 09:00 04/14/20 08:59 Multivitamins (Multivitamins) 1 tab Q24H ORAL 01/21/20 07:00 02/17/20 06:59 01/22/20 06:55 Pantoprazole (Protonix) 40 mg DAILY ORAL 01/21/20 09:00 02/18/20 08:59 01/21/20 08:53 Sildenafil Citrate (Revatio) 20 mg DAILY ORAL 01/21/20 09:00 04/14/20 08:59 01/21/20 08:53 Sodium Hypochlorite ([place] Strength) 1 applic DAILY TOPIC 01/21/20 09:00 02/14/20 10:59 01/21/20 10:54 Zinc Sulfate (Zinc Sulfate) 220 mg Q24H ORAL 01/21/20 07:00 04/17/20 06:59 01/22/20 06:55 Last 24 Hour Vital Signs Date Time Temp Pulse Resp B/P (MAP) Pulse Ox O2 Delivery O2 Flow Rate FiO2 01/22/20 06:36 97.9 7/15/20 04:00 94 01/22/20 04:00 97.9 83 20 110/55 (73) 95 01/22/20 00:00 84 01/22/20 00:00 97.9 85 20 107/54 (71) 98 01/21/20 21:21 85 119/60 01/21/20 21:00 Nasal Cannula 2.0 Nasal Cannula 2.0 01/21/20 20:00 96 01/21/20 20:00 99.5 85 20 119/60 (79) 100 01/21/20 16:00 81 01/21/20 16:00 97.5 81 20 113/57 (75) 100 01/21/20 12:00 86 01/21/20 12:00 97.5 86 20 109/45 (66) 100 01/21/20 09:00 Nasal Cannula 2.0 Nasal Cannula 2.0 01/21/20 08:52 74 113/55 01/21/20 08:51 74 01/21/20 08:00 97.9 87 20 113/55 (74) 100 01/21/20 08:00 87 01/21/20 06:03 97.7 01/21/20 04:00 97.7 77 20 114/73 (87) 98 01/21/20 04:00 72 01/21/20 04:00 Nasal Cannula 2.0 Nasal Cannula 2.0 01/21/20 00:00 82 01/21/20 00:00 97.7 77 22 103/60 (74) 99 01/21/20 00:00 Nasal Cannula 2.0 Nasal Cannula 2.0 01/20/20 21:00 Nasal Cannula 2.0 Nasal Cannula 2.0 01/20/20 20:59 81 117/55 01/20/20 20:00 97.8 81 20 112/55 (74) 99 01/20/20 20:00 105 01/20/20 16:00 97.8 97 20 114/67 (83) 100 01/20/20 16:00 Nasal Cannula 2.0 Nasal Cannula 2.0 01/20/20 16:00 100 01/20/20 12:00 97.9 91 20 100/64 (76) 100 01/20/20 12:00 93 01/20/20 12:00 Nasal Cannula 2.0 Nasal Cannula 2.0 01/20/20 08:16 120 01/20/20 08:15 123 120/66 01/20/20 08:00 97.6 122 20 143/70 (94) 100 01/20/20 08:00 Nasal Cannula 2.0 Nasal Cannula 2.0 01/20/20 08:00 91 Intake and Output 01/21/20 01/22/20 19:00 07:00 Intake Total 370 ml 360 ml Output Total 400 ml 700 ml Balance -30 ml -340 ml Intake Oral 370 ml Other 360 ml Output Urine Total 400 ml 700 ml Labs Test 01/19/20 09:05 01/19/20 12:12 01/19/20 16:45 01/19/20 21:44 White Blood Count 3.4 K/UL (4.8-10.8) Red Blood Count 2.74 M/UL (4.20-5.40) Hemoglobin 7.6 G/DL (12.0-16.0) Hematocrit 25.7 % (37.0-47.0) Mean Corpuscular Volume 94 FL (80-99) Mean Corpuscular Hemoglobin 27.7 PG (27.0-31.0) Mean Corpuscular Hemoglobin Concent 29.6 G/DL (32.0-36.0) Red Cell Distribution Width 17.0 % (11.6-14.8) Platelet Count 125 K/UL (150-450) Mean Platelet Volume 6.7 FL (6.5-10.1) Neutrophils (%) (Auto) % (45.0-75.0) Lymphocytes (%) (Auto) % (20.0-45.0) Monocytes (%) (Auto) % (1.0-10.0) Eosinophils (%) (Auto) % (0.0-3.0) Basophils (%) (Auto) % (0.0-2.0) Differential Total Cells Counted 100 Neutrophils % (Manual) 63 % (45-75) Lymphocytes % (Manual) 26 % (20-45) Monocytes % (Manual) 2 % (1-10) Eosinophils % (Manual) 9 % (0-3) Basophils % (Manual) 0 % (0-2) Band Neutrophils 0 % (0-8) Platelet Estimate Decreased Platelet Morphology Normal Polychromasia 1+ Hypochromasia 1+ Anisocytosis 1+ Sodium Level 147 MMOL/L (136-145) Potassium Level 3.1 MMOL/L (3.5-5.1) Chloride Level 110 MMOL/L (98-107) Carbon Dioxide Level 26 MMOL/L (21-32) Anion Gap 11 mmol/L (5-15) Blood Urea Nitrogen 35 mg/dL (7-18) Creatinine 0.7 MG/DL (0.55-1.30) Estimat Glomerular Filtration Rate > 60 mL/min (>60) Glucose Level 101 MG/DL (74-106) Calcium Level 8.2 MG/DL (8.5-10.1) Total Bilirubin 0.4 MG/DL (0.2-1.0) Aspartate Amino Transf (AST/SGOT) 13 U/L (15-37) Alanine Aminotransferase (ALT/SGPT) 26 U/L (12-78) Alkaline Phosphatase 110 U/L (46-116) Total Protein 5.8 G/DL (6.4-8.2) Albumin 1.9 G/DL (3.4-5.0) Globulin 3.9 g/dL Albumin/Globulin Ratio 0.5 (1.0-2.7) POC Whole Blood Glucose 101 MG/DL (74-106) 101 MG/DL (74-106) 108 MG/DL (74-106) Test 01/20/20 04:13 01/20/20 20:52 01/21/20 03:45 01/21/20 05:20 White Blood Count 4.1 K/UL (4.8-10.8) 3.3 K/UL (4.8-10.8) Red Blood Count 3.05 M/UL (4.20-5.40) 2.72 M/UL (4.20-5.40) Hemoglobin 8.5 G/DL (12.0-16.0) 7.6 G/DL (12.0-16.0) Hematocrit 29.0 % (37.0-47.0) 25.8 % (37.0-47.0) Mean Corpuscular Volume 95 FL (80-99) 95 FL (80-99) Mean Corpuscular Hemoglobin 27.8 PG (27.0-31.0) 28.1 PG (27.0-31.0) Mean Corpuscular Hemoglobin Concent 29.2 G/DL (32.0-36.0) 29.7 G/DL (32.0-36.0) Red Cell Distribution Width 18.1 % (11.6-14.8) 17.1 % (11.6-14.8) Platelet Count 149 K/UL (150-450) 130 K/UL (150-450) Mean Platelet Volume 7.5 FL (6.5-10.1) 7.3 FL (6.5-10.1) Neutrophils (%) (Auto) 57.6 % (45.0-75.0) % (45.0-75.0) Lymphocytes (%) (Auto) 25.8 % (20.0-45.0) % (20.0-45.0) Monocytes (%) (Auto) 7.0 % (1.0-10.0) % (1.0-10.0) Eosinophils (%) (Auto) 8.9 % (0.0-3.0) % (0.0-3.0) Basophils (%) (Auto) 0.7 % (0.0-2.0) % (0.0-2.0) Sodium Level 145 MMOL/L (136-145) 148 MMOL/L (136-145) Potassium Level 4.1 MMOL/L (3.5-5.1) 4.7 MMOL/L (3.5-5.1) Chloride Level 108 MMOL/L (98-107) 111 MMOL/L (98-107) Carbon Dioxide Level 25 MMOL/L (21-32) 27 MMOL/L (21-32) Anion Gap 12 mmol/L (5-15) 10 mmol/L (5-15) Blood Urea Nitrogen 32 mg/dL (7-18) 36 mg/dL (7-18) Creatinine 0.9 MG/DL (0.55-1.30) 0.8 MG/DL (0.55-1.30) Estimat Glomerular Filtration Rate > 60 mL/min (>60) > 60 mL/min (>60) Glucose Level 98 MG/DL (74-106) 91 MG/DL (74-106) Calcium Level 8.6 MG/DL (8.5-10.1) 8.1 MG/DL (8.5-10.1) Phosphorus Level 3.6 MG/DL (2.5-4.9) Magnesium Level 1.6 MG/DL (1.8-2.4) 1.5 MG/DL (1.8-2.4) Differential Total Cells Counted 100 Neutrophils % (Manual) 71 % (45-75) Lymphocytes % (Manual) 19 % (20-45) Monocytes % (Manual) 5 % (1-10) Eosinophils % (Manual) 5 % (0-3) Basophils % (Manual) 0 % (0-2) Band Neutrophils 0 % (0-8) Platelet Estimate Decreased Platelet Morphology Normal Hypochromasia 3+ Anisocytosis 1+ Test 01/21/20 15:58 01/22/20 06:34 POC Whole Blood Glucose 100 MG/DL (74-106) White Blood Count 4.0 K/UL (4.8-10.8) Red Blood Count 2.96 M/UL (4.20-5.40) Hemoglobin 8.2 G/DL (12.0-16.0) Hematocrit 28.0 % (37.0-47.0) Mean Corpuscular Volume 95 FL (80-99) Mean Corpuscular Hemoglobin 27.8 PG (27.0-31.0) Mean Corpuscular Hemoglobin Concent 29.3 G/DL (32.0-36.0) Red Cell Distribution Width 18.0 % (11.6-14.8) Platelet Count 187 K/UL (150-450) Mean Platelet Volume 7.5 FL (6.5-10.1) Neutrophils (%) (Auto) 62.5 % (45.0-75.0) Lymphocytes (%) (Auto) 22.0 % (20.0-45.0) Monocytes (%) (Auto) 7.1 % (1.0-10.0) Eosinophils (%) (Auto) 7.5 % (0.0-3.0) Basophils (%) (Auto) 0.9 % (0.0-2.0) Sodium Level 141 MMOL/L (136-145) Potassium Level 3.7 MMOL/L (3.5-5.1) Chloride Level 108 MMOL/L (98-107) Carbon Dioxide Level 25 MMOL/L (21-32) Anion Gap 8 mmol/L (5-15) Blood Urea Nitrogen 20 mg/dL (7-18) Creatinine 0.7 MG/DL (0.55-1.30) Estimat Glomerular Filtration Rate > 60 mL/min (>60) Glucose Level 89 MG/DL (74-106) Calcium Level 9.0 MG/DL (8.5-10.1) Phosphorus Level 3.8 MG/DL (2.5-4.9) Magnesium Level 2.1 MG/DL (1.8-2.4) Iron Level 24 ug/dL (50-175) Total Iron Binding Capacity 140 ug/dL (250-450) Percent Iron Saturation 17 % (15-50) Unsaturated Iron Binding 116 ug/dL (112-346) Height (Feet): 5 Height (Inches): 5.00 Weight (Pounds): 236 Objective Physical Exam General: Awake and alert, no acute distress HEENT: NC/AT. EOMI. PERRLA. Anicteric sclera. Cardiovascular: Tachycardic. S1 and S2 normal. Resp: 2 L nasal cannula. Tachypnea. Normal work of breathing. Abdomen: Abdomen is soft, nondistended, obese. Nontender Skin: Bandages over the heels and feet on the lower extremities MSK: Normal tone and bulk. Moving all extremities. No obvious deformity. Neuro: Awake and alert. Mentating appropriately. Reno Valle MD Jan 22, 2020 07:53
[2020-01-22 08:00] VITALS: BP 115/52
--- NOTE | 2020-01-22 09:24 | Nephrology Progress Note ---
Assessment/Plan Plan #MISSY due to pre-rernal azotemia in the setting of anemia #hypernatremia #Acute on chronic anemia # Acute Hypoxemic respiratory failure # COVID 19 infection previously - now 1 negative swab # Pulmonary HTN #UTI #runs of SVTs #ho/ HTN #DM - D5W 250 ccx1 - replete mag - defer further renal work up pending evolution of kidney function - monitor CBC - IV iron - GI eval - continue metop 25mg BID - on midodrine 5mg TID - holding AC- on apixaban - continue with dig - avoid nephrotoxins - strict I&Os - monitor weights - check BMP, mag and phos daily Time spent 70 min > 50% on care coordiation and counseling Subjective ROS Limited/Unobtainable: No Constitutional: Reports: weakness HEENT: Denies: no symptoms, eye pain, blurred vision, tearing, double vision, ear pain, ear discharge, nose pain, nose congestion, throat pain, throat swelling, mouth pain, mouth swelling, other Genitourinary: Denies: no symptoms, burning, discharge, frequency, flank pain, hematuria, incontinence, pain, urgency, other Neurologic/Psychiatric: Denies: no symptoms, anxiety, depressed, emotional problems, headache, numbness, paresthesia, pre-existing deficit, seizure, tingling, tremors, weakness, other Subjective Cr improved BP stable sodium 148 hemoglobin stable Objective Objective Last 24 Hour Vital Signs Date Time Temp Pulse Resp B/P (MAP) Pulse Ox O2 Delivery O2 Flow Rate FiO2 01/22/20 08:00 98.9 93 20 115/52 (73) 96 01/22/20 06:36 97.9 01/22/20 04:00 94 01/22/20 04:00 97.9 83 20 110/55 (73) 95 01/22/20 00:00 84 01/22/20 00:00 97.9 85 20 107/54 (71) 98 01/21/20 21:21 85 119/60 01/21/20 21:00 Nasal Cannula 2.0 Nasal Cannula 2.0 01/21/20 20:00 96 01/21/20 20:00 99.5 85 20 119/60 (79) 100 01/21/20 16:00 81 01/21/20 16:00 97.5 81 20 113/57 (75) 100 01/21/20 12:00 86 01/21/20 12:00 97.5 86 20 109/45 (66) 100 Intake and Output 01/21/20 01/22/20 19:00 07:00 Intake Total 370 ml 360 ml Output Total 400 ml 700 ml Balance -30 ml -340 ml Intake Oral 370 ml Other 360 ml Output Urine Total 400 ml 700 ml Laboratory Tests 01/21/20 11:00: POC Whole Blood Glucose [Pending] 01/21/20 15:58: POC Whole Blood Glucose 100 01/22/20 06:34: White Blood Count 4.0L, Red Blood Count 2.96L, Hemoglobin 8.2L, Hematocrit 28.0L , Mean Corpuscular Volume 95, Mean Corpuscular Hemoglobin 27.8, Mean Corpuscular Hemoglobin Concent 29.3L, Red Cell Distribution Width 18.0H, Platelet Count 187, Mean Platelet Volume 7.5, Neutrophils (%) (Auto) 62.5, Lymphocytes (%) (Auto) 22.0, Monocytes (%) (Auto) 7.1, Eosinophils (%) (Auto) 7.5H, Basophils (%) (Auto) 0.9, Sodium Level 141, Potassium Level 3.7, Chloride Level 108H, Carbon Dioxide Level 25, Anion Gap 8, Blood Urea Nitrogen 20H, Creatinine 0.7, Estimat Glomerular Filtration Rate > 60, Glucose Level 89, Calcium Level 9.0, Phosphorus Level 3.8, Magnesium Level 2.1, Iron Level 24L, Total Iron Binding Capacity 140L, Percent Iron Saturation 17, Unsaturated Iron Binding 116 Height (Feet): 5 Height (Inches): 5.00 Weight (Pounds): 236 Phil Morse M.D. Jan 22, 2020 09:24
--- NOTE | 2020-01-22 09:31 | General Progress Note ---
Assessment/Plan Status: stable, progressing Assessment/Plan: # Acute Hypoxemic respiratory failure - improving # COVID 19 infection, positive on 01/15 # Pulmonary HTN continue supplemental oxygen 2L via NC continue COVID precautions, will repeat COVID PCR per disposition purposes Incentive spirometry Trend inflammatory markers Pulm and ID following Sildenafil for pulmonary HTN #SVT #Autonomic dysfunction -continue metoprolol and digoxin -Continue midodrine -Holding anticoagulation due to anemia -EP following for possible ablation #Normocytic anemia #Thrombocytopenia #Pancytopenia #FOBT + #Diarrhea - Iron studies reviewed - Trend CBC - Transfused 1 unit pRBC - 01/16/2020 - Transfuse for Hg less than 7 - Hematology following - anticoagulation held - GI following #MISSY - resolved #Hypernatremia #Hypokalemia #Hypomagnesemia -Fluid hydration -hold nephrotoxic medications -Electrolyte replacement -Nephrology following -replace IV magnesium sulfate 4 grams today #ESBL UTI #Proteus bacteremia -Follow up cultures - ESBL in urine and Proteus in blood -Continue with antibiotics as per ID recs #Pressure injuries -Wound care -Surgery following VTE PPx I spent 35 minutes on this patient's case, and 20 minutes was dedicated to counseling and/or care coordination with RN, case fitter, consulting MDs Subjective Date patient seen: Jan 22, 2020 Time patient seen: 09:00 Constitutional: Denies: fever Cardiovascular: Denies: chest pain Respiratory: Denies: cough Gastrointestinal/Abdominal: Denies: abdominal pain Allergies: Coded Allergies: ERYTHROMYCIN BASE (Verified Allergy, Unknown, 01/14/20) HEPARIN (Verified Allergy, Unknown, 01/14/20) Subjective Follow up for COVID19 infection No new complaints No events overnight. Objective Last 24 Hour Vital Signs Date Time Temp Pulse Resp B/P (MAP) Pulse Ox O2 Delivery O2 Flow Rate FiO2 01/22/20 08:00 98.9 93 20 115/52 (73) 96 01/22/20 06:36 97.9 01/22/20 04:00 94 01/22/20 04:00 97.9 83 20 110/55 (73) 95 01/22/20 00:00 84 01/22/20 00:00 97.9 85 20 107/54 (71) 98 01/21/20 21:21 85 119/60 01/21/20 21:00 Nasal Cannula 2.0 Nasal Cannula 2.0 01/21/20 20:00 96 7/14/20 20:00 99.5 85 20 119/60 (79) 100 01/21/20 16:00 81 01/21/20 16:00 97.5 81 20 113/57 (75) 100 01/21/20 12:00 86 01/21/20 12:00 97.5 86 20 109/45 (66) 100 Intake and Output 01/21/20 01/22/20 19:00 07:00 Intake Total 370 ml 360 ml Output Total 400 ml 700 ml Balance -30 ml -340 ml Intake Oral 370 ml Other 360 ml Output Urine Total 400 ml 700 ml Laboratory Tests 01/21/20 11:00: POC Whole Blood Glucose [Pending] 01/21/20 15:58: POC Whole Blood Glucose 100 01/22/20 06:34: White Blood Count 4.0L, Red Blood Count 2.96L, Hemoglobin 8.2L, Hematocrit 28.0L , Mean Corpuscular Volume 95, Mean Corpuscular Hemoglobin 27.8, Mean Corpuscular Hemoglobin Concent 29.3L, Red Cell Distribution Width 18.0H, Platelet Count 187, Mean Platelet Volume 7.5, Neutrophils (%) (Auto) 62.5, Lymphocytes (%) (Auto) 22.0, Monocytes (%) (Auto) 7.1, Eosinophils (%) (Auto) 7.5H, Basophils (%) (Auto) 0.9, Sodium Level 141, Potassium Level 3.7, Chloride Level 108H, Carbon Dioxide Level 25, Anion Gap 8, Blood Urea Nitrogen 20H, Creatinine 0.7, Estimat Glomerular Filtration Rate > 60, Glucose Level 89, Calcium Level 9.0, Phosphorus Level 3.8, Magnesium Level 2.1, Iron Level 24L, Total Iron Binding Capacity 140L, Percent Iron Saturation 17, Unsaturated Iron Binding 116 Height (Feet): 5 Height (Inches): 5.00 Weight (Pounds): 236 General Appearance: alert Neck: supple, normal inspection Cardiovascular: normal rate, regular rhythm Respiratory/Chest: lungs clear, normal breath sounds, no respiratory distress Abdomen: non tender, soft William Rowley MD Jan 22, 2020 09:31
[2020-01-22] MEDS: Digoxin 0.125mg tab ORAL SCH (09:37)
[2020-01-22] MEDS: Revatio 20mg tab ORAL SCH (09:37)
[2020-01-22] MEDS: Doxycycline Monohydrate 100mg ORAL SCH ×2 (09:38→21:18)
[2020-01-22] MEDS: Ascorbic Acid 500mg tab ORAL SCH ×2 (09:38→18:44)
[2020-01-22] MEDS: Dakin's 0.125% Soln (Quarter Strength) 16oz TOPIC SCH (09:39)
--- NOTE | 2020-01-22 09:54 | Pulmonology Progress Note ---
Subjective ROS Limited/Unobtainable: No Interval Events: None new Constitutional: Reports: fatigue; Denies: fever HEENT: Repors: no symptoms Respiratory: Reports: shortness of breath Cardiovascular: Reports: no symptoms Gastrointestinal/Abdominal: Denies: nausea, vomiting, diarrhea Psychiatric: Denies: depression Skin: Denies: rash Musculoskeletal: Denies: pain Allergies: Coded Allergies: ERYTHROMYCIN BASE (Verified Allergy, Unknown, 01/14/20) HEPARIN (Verified Allergy, Unknown, 01/14/20) All Systems: reviewed and negative except above Objective Last 24 Hour Vital Signs Date Time Temp Pulse Resp B/P (MAP) Pulse Ox O2 Delivery O2 Flow Rate FiO2 01/22/20 09:38 93 115/52 01/22/20 09:37 93 01/22/20 08:00 98.9 93 20 115/52 (73) 96 01/22/20 06:36 97.9 01/22/20 04:00 94 01/22/20 04:00 97.9 83 20 110/55 (73) 95 01/22/20 00:00 84 01/22/20 00:00 97.9 85 20 107/54 (71) 98 01/21/20 21:21 85 119/60 01/21/20 21:00 Nasal Cannula 2.0 Nasal Cannula 2.0 01/21/20 20:00 96 01/21/20 20:00 99.5 85 20 119/60 (79) 100 01/21/20 16:00 81 01/21/20 16:00 97.5 81 20 113/57 (75) 100 01/21/20 12:00 86 01/21/20 12:00 97.5 86 20 109/45 (66) 100 Intake and Output 01/21/20 01/22/20 19:00 07:00 Intake Total 370 ml 360 ml Output Total 400 ml 700 ml Balance -30 ml -340 ml Intake Oral 370 ml Other 360 ml Output Urine Total 400 ml 700 ml General Appearance: no acute distress HEENT: normocephalic Respiratory: chest wall non-tender, lungs clear Cardiovascular: normal peripheral pulses Abdomen: normal bowel sounds Microbiology Date/Time Source Procedure Growth Status 01/19/20 16:00 Stool Clostridium difficile Toxin Assay - Final Complete Laboratory Tests 01/21/20 11:00: POC Whole Blood Glucose [Pending] 01/21/20 15:58: POC Whole Blood Glucose 100 01/22/20 06:34: White Blood Count 4.0L, Red Blood Count 2.96L, Hemoglobin 8.2L, Hematocrit 28.0L , Mean Corpuscular Volume 95, Mean Corpuscular Hemoglobin 27.8, Mean Corpuscular Hemoglobin Concent 29.3L, Red Cell Distribution Width 18.0H, Platelet Count 187, Mean Platelet Volume 7.5, Neutrophils (%) (Auto) 62.5, Lymphocytes (%) (Auto) 22.0, Monocytes (%) (Auto) 7.1, Eosinophils (%) (Auto) 7.5H, Basophils (%) (Auto) 0.9, Sodium Level 141, Potassium Level 3.7, Chloride Level 108H, Carbon Dioxide Level 25, Anion Gap 8, Blood Urea Nitrogen 20H, Creatinine 0.7, Estimat Glomerular Filtration Rate > 60, Glucose Level 89, Calcium Level 9.0, Phosphorus Level 3.8, Magnesium Level 2.1, Iron Level 24L, Total Iron Binding Capacity 140L, Percent Iron Saturation 17, Unsaturated Iron Binding 116 Current Medications Medications (Trade) Dose Ordered Sig/Samuel Route PRN Reason Start Time Stop Time Status Last Admin Dose Admin Acetaminophen (Tylenol) 650 mg Q6H PRN ORAL Mild Pain (Pain Scale 1-3) 01/21/20 09:15 02/14/20 03:14 Acetaminophen (Tylenol) 650 mg Q6H PRN ORAL Temp >100.5 01/21/20 09:15 02/14/20 03:14 Acetaminophen/ Hydrocodone Bitart ([place] 5/325) 1 tab Q6H PRN ORAL For Pain 01/21/20 11:30 01/23/20 11:29 01/22/20 06:04 Ascorbic Acid (Vitamin C) 250 mg TWICE A DAY ORAL 01/21/20 09:00 02/16/20 17:59 01/22/20 09:38 Chlorhexidine Gluconate (Mel-Hex 2%) 1 applic DAILY@1999 TOPIC 01/21/20 20:00 04/14/20 19:59 01/21/20 20:00 Dextrose (Dextrose 50%) 25 ml Q30M PRN IV Hypoglycemia 01/21/20 06:45 04/13/20 23:14 Dextrose (Dextrose 50%) 50 ml Q30M PRN IV Hypoglycemia 01/21/20 06:45 04/13/20 23:14 Digoxin (Lanoxin) 0.125 mg DAILY ORAL 01/21/20 09:00 04/16/20 08:59 01/22/20 09:37 Doxycycline Monohydrate (Doxycycline Monohydrate) 100 mg EVERY 12 HOURS ORAL 01/21/20 09:00 01/25/20 08:59 01/22/20 09:38 Duloxetine HCl (Cymbalta) 60 mg DAILY ORAL 01/21/20 09:00 04/16/20 14:44 01/22/20 09:38 Insulin Aspart (NovoLOG) BEFORE MEALS AND HS SUBQ 01/21/20 06:30 04/14/20 06:29 Insulin Detemir (Levemir) 11 units BEDTIME SUBQ 01/21/20 21:00 04/14/20 20:59 01/21/20 21:00 Loperamide HCl (Imodium) 2 mg Q4H PRN ORAL Diarrhea 01/21/20 07:00 02/18/20 06:59 Meropenem 1 gm/ Sodium Chloride 55 ml @ 110 mls/hr Q8HR IVPB 01/21/20 14:00 01/23/20 21:59 01/22/20 06:03 Metoprolol Tartrate (Lopressor) 25 mg Q12HR ORAL 01/21/20 09:00 04/14/20 08:59 01/22/20 09:38 Midodrine (Pro-Amatine) 5 mg TID PRN ORAL sbp<110 01/21/20 09:00 04/14/20 08:59 Multivitamins (Multivitamins) 1 tab Q24H ORAL 01/21/20 07:00 02/17/20 06:59 01/22/20 06:55 Pantoprazole (Protonix) 40 mg DAILY ORAL 01/21/20 09:00 02/18/20 08:59 01/22/20 09:38 Sildenafil Citrate (Revatio) 20 mg DAILY ORAL 01/21/20 09:00 04/14/20 08:59 01/22/20 09:37 Sodium Hypochlorite (Dakin's Quarter Strength) 1 applic DAILY TOPIC 01/21/20 09:00 02/14/20 10:59 01/22/20 09:39 Zinc Sulfate (Zinc Sulfate) 220 mg Q24H ORAL 01/21/20 07:00 04/17/20 06:59 01/22/20 06:55 Assessment/Plan Assessment/Plan IMPRESSION: 1. Negative for COVID-19 pneumonia. 2. UTI. 3. Diabetes mellitus. 4. Decubiti. DISCUSSION: Continue antibiotics. Oxygen and pulmonary hygiene. Negative COVID-19 PCR. I will follow carefully. DC planning Defer sacral debridement timing to general surgery Keerthi Morales Omar Syed MD Jan 22, 2020 09:54
[2020-01-22 12:00] VITALS: BP 112/50
--- NOTE | 2020-01-22 14:45 | Cardiac Electrophysiology PN ---
Assessment/Plan Assessment/Plan 1. Runs of supraventricular tachycardia. Blood pressure in the 90s. On metoprolol 25 mg b.i.d. and digoxin 0.125 daily. EF 55% and ruled out for SD Dig level <0.2 EPS as out patient 2. Hypertension. On metoprolol 25 mg b.i.d. 3. Diabetes. 4. End-stage renal disease. 5. Status post recent COVID. Covid positive again and in isolation 6. Severe anemia, hemoglobin 6.5, S/P 1 unit of blood transfusion. 7. Huge decubitus ulcer. 8. Hx of DVT. Eliquis held for severe anemia. DW RN Subjective Subjective No more SVT on Lopressor and Dig. Covid positive after swabbed again on 01/16/20 Objective Last 24 Hour Vital Signs Date Time Temp Pulse Resp B/P (MAP) Pulse Ox O2 Delivery O2 Flow Rate FiO2 01/22/20 12:00 90 01/22/20 12:00 97.7 90 20 112/50 (70) 96 01/22/20 09:38 93 115/52 01/22/20 09:37 93 01/22/20 09:00 Nasal Cannula 2.0 Nasal Cannula 2.0 01/22/20 08:00 86 01/22/20 08:00 98.9 93 20 115/52 (73) 96 01/22/20 06:36 97.9 01/22/20 04:00 94 01/22/20 04:00 97.9 83 20 110/55 (73) 95 01/22/20 00:00 84 01/22/20 00:00 97.9 85 20 107/54 (71) 98 01/21/20 21:21 85 119/60 01/21/20 21:00 Nasal Cannula 2.0 Nasal Cannula 2.0 01/21/20 20:00 96 01/21/20 20:00 99.5 85 20 119/60 (79) 100 01/21/20 16:00 81 01/21/20 16:00 97.5 81 20 113/57 (75) 100 Intake and Output 01/21/20 01/22/20 19:00 07:00 Intake Total 370 ml 360 ml Output Total 400 ml 700 ml Balance -30 ml -340 ml Intake Oral 370 ml Other 360 ml Output Urine Total 400 ml 700 ml Laboratory Tests Test 01/21/20 15:58 01/22/20 06:34 01/22/20 11:06 01/22/20 11:12 POC Whole Blood Glucose 100 MG/DL (74-106) 79 MG/DL (74-106) Pending White Blood Count 4.0 K/UL (4.8-10.8) L Red Blood Count 2.96 M/UL (4.20-5.40) L Hemoglobin 8.2 G/DL (12.0-16.0) L Hematocrit 28.0 % (37.0-47.0) L Mean Corpuscular Volume 95 FL (80-99) Mean Corpuscular Hemoglobin 27.8 PG (27.0-31.0) Mean Corpuscular Hemoglobin Concent 29.3 G/DL (32.0-36.0) L Red Cell Distribution Width 18.0 % (11.6-14.8) H Platelet Count 187 K/UL (150-450) Mean Platelet Volume 7.5 FL (6.5-10.1) Neutrophils (%) (Auto) 62.5 % (45.0-75.0) Lymphocytes (%) (Auto) 22.0 % (20.0-45.0) Monocytes (%) (Auto) 7.1 % (1.0-10.0) Eosinophils (%) (Auto) 7.5 % (0.0-3.0) H Basophils (%) (Auto) 0.9 % (0.0-2.0) Sodium Level 141 MMOL/L (136-145) Potassium Level 3.7 MMOL/L (3.5-5.1) Chloride Level 108 MMOL/L (98-107) H Carbon Dioxide Level 25 MMOL/L (21-32) Anion Gap 8 mmol/L (5-15) Blood Urea Nitrogen 20 mg/dL (7-18) H Creatinine 0.7 MG/DL (0.55-1.30) Estimat Glomerular Filtration Rate > 60 mL/min (>60) Glucose Level 89 MG/DL (74-106) Calcium Level 9.0 MG/DL (8.5-10.1) Phosphorus Level 3.8 MG/DL (2.5-4.9) Magnesium Level 2.1 MG/DL (1.8-2.4) Iron Level 24 ug/dL (50-175) L Total Iron Binding Capacity 140 ug/dL (250-450) L Percent Iron Saturation 17 % (15-50) Unsaturated Iron Binding 116 ug/dL (112-346) Microbiology Date/Time Source Procedure Growth Status 01/19/20 16:00 Stool Clostridium difficile Toxin Assay - Final Complete Objective HEAD AND NECK: no JVD. LUNGS: Coarse rhonchi. CARDIOVASCULAR: Regular S1 and S2 with no gallop. ABDOMEN: Soft. EXTREMITIES: No pitting edema. Austin Byrd MD Jan 22, 2020 14:45
--- NOTE | 2020-01-22 15:23 | Infectious Diseases Prog Note ---
Assessment/Plan Assessment/Plan ASSESSMENT AND PLAN: 1. esbl e.coli uti/pyelonephritis with bacteremia, proteus bacteremia, sepsis, fevers, leukopenia covid-19 ABEL testing + - meropenem - day # 6 - monitor labs - surveillance blood cultures - negative - fevers better - no indication for covid-19 treatment - sats good, past infection, chest x- ray negative 2. Patient has history COVID-19 virus infection - repeat covid testing negative by pcr 3. multiple wounds - surgery management, on meropenem and doxycycline 4. Patient has diabetes. 5. Hypertension. 6. Blood sugar and blood pressure treatment primary care team for diabetes and hypertension and cardiology assessment also. 7. Anemia. 8. History of renal failure in the past. Hemodialysis seems to have improved. 9. Tachycardia. 10. Continue treatment per primary consultants. 11. Allergic to erythromycin base and heparin. 12. Social history is negative. 13. Family history is noncontributory. 14. MAR was noted. 15. Case discussed with RN. Subjective Constitutional: Reports: fatigue; Denies: fever HEENT: Denies: congestion Respiratory: Denies: shortness of breath Cardiovascular: Denies: chest pain Gastrointestinal/Abdominal: Denies: nausea, vomiting Genitourinary: Reports: other - + topete Neurologic: Denies: headache Psychiatric: Denies: depression Skin: Denies: rash Hematologic: Denies: bleeding Musculoskeletal: Denies: pain Allergies: Coded Allergies: ERYTHROMYCIN BASE (Verified Allergy, Unknown, 01/14/20) HEPARIN (Verified Allergy, Unknown, 01/14/20) Objective Last 24 Hour Vital Signs Date Time Temp Pulse Resp B/P (MAP) Pulse Ox O2 Delivery O2 Flow Rate FiO2 01/22/20 12:00 90 01/22/20 12:00 97.7 90 20 112/50 (70) 96 01/22/20 09:38 93 115/52 01/22/20 09:37 93 01/22/20 09:00 Nasal Cannula 2.0 Nasal Cannula 2.0 01/22/20 08:00 86 01/22/20 08:00 98.9 93 20 115/52 (73) 96 01/22/20 06:36 97.9 01/22/20 04:00 94 01/22/20 04:00 97.9 83 20 110/55 (73) 95 01/22/20 00:00 84 01/22/20 00:00 97.9 85 20 107/54 (71) 98 01/21/20 21:21 85 119/60 01/21/20 21:00 Nasal Cannula 2.0 Nasal Cannula 2.0 01/21/20 20:00 96 01/21/20 20:00 99.5 85 20 119/60 (79) 100 01/21/20 16:00 81 01/21/20 16:00 97.5 81 20 113/57 (75) 100 Height (Feet): 5 Height (Inches): 5.00 Weight (Pounds): 236 General Appearance: no acute distress HEENT: normocephalic, atraumatic, anicteric, mucous membranes moist Respiratory/Chest: crackles/rales, rhonchi - bilaterally Cardiovascular: normal rate, regular rhythm, no gallop/murmur, no JVD Abdomen: normal bowel sounds, soft, non tender, no organomegaly, non distended Genitourinary: other - + topete - urine slt cloudy Extremities: no cyanosis Skin: no rash 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 The heart is normal in size. The aorta is tortuous and ectatic. Left arm PICC is noted Impression: No acute process Chest x-ray - 01/21/20 Procedure: XRAY Chest 1v Indication: Shortness of breath Technique: One view of the chest Comparison: 01/14/2020 Findings: Left arm PICC is again demonstrated. There is some surgical hardware in the right shoulder. The lungs and pleural spaces remain clear except for some scarring in the left midlung periphery. The heart size is upper limits normal. Findings are unchanged Impression: No acute process Microbiology Date/Time Source Procedure Growth Status 01/19/20 09:05 Blood Blood Culture - Preliminary NO GROWTH AFTER 48 HOURS Resulted 01/16/20 14:00 Nasopharynx Coronavirus COVID-19 PCR ([facility]) - Final Complete 01/19/20 16:00 Stool Clostridium difficile Toxin Assay - Final Complete 01/15/20 18:20 Urine,Clean Catch Urine Culture - Final Escherichia Coli - Esbl Complete Microbiology Date/Time Source Procedure Growth Status 01/19/20 16:00 Stool Clostridium difficile Toxin Assay - Final Complete Laboratory Tests Test 01/21/20 15:58 01/22/20 06:34 01/22/20 11:06 01/22/20 11:12 POC Whole Blood Glucose 100 MG/DL (74-106) 79 MG/DL (74-106) Pending White Blood Count 4.0 K/UL (4.8-10.8) L Red Blood Count 2.96 M/UL (4.20-5.40) L Hemoglobin 8.2 G/DL (12.0-16.0) L Hematocrit 28.0 % (37.0-47.0) L Mean Corpuscular Volume 95 FL (80-99) Mean Corpuscular Hemoglobin 27.8 PG (27.0-31.0) Mean Corpuscular Hemoglobin Concent 29.3 G/DL (32.0-36.0) L Red Cell Distribution Width 18.0 % (11.6-14.8) H Platelet Count 187 K/UL (150-450) Mean Platelet Volume 7.5 FL (6.5-10.1) Neutrophils (%) (Auto) 62.5 % (45.0-75.0) Lymphocytes (%) (Auto) 22.0 % (20.0-45.0) Monocytes (%) (Auto) 7.1 % (1.0-10.0) Eosinophils (%) (Auto) 7.5 % (0.0-3.0) H Basophils (%) (Auto) 0.9 % (0.0-2.0) Sodium Level 141 MMOL/L (136-145) Potassium Level 3.7 MMOL/L (3.5-5.1) Chloride Level 108 MMOL/L (98-107) H Carbon Dioxide Level 25 MMOL/L (21-32) Anion Gap 8 mmol/L (5-15) Blood Urea Nitrogen 20 mg/dL (7-18) H Creatinine 0.7 MG/DL (0.55-1.30) Estimat Glomerular Filtration Rate > 60 mL/min (>60) Glucose Level 89 MG/DL (74-106) Calcium Level 9.0 MG/DL (8.5-10.1) Phosphorus Level 3.8 MG/DL (2.5-4.9) Magnesium Level 2.1 MG/DL (1.8-2.4) Iron Level 24 ug/dL (50-175) L Total Iron Binding Capacity 140 ug/dL (250-450) L Percent Iron Saturation 17 % (15-50) Unsaturated Iron Binding 116 ug/dL (112-346) Current Medications Medications (Trade) Dose Ordered Sig/Samuel Route PRN Reason Start Time Stop Time Status Last Admin Dose Admin Acetaminophen (Tylenol) 650 mg Q6H PRN ORAL Mild Pain (Pain Scale 1-3) 01/21/20 09:15 02/14/20 03:14 Acetaminophen (Tylenol) 650 mg Q6H PRN ORAL Temp >100.5 01/21/20 09:15 02/14/20 03:14 Acetaminophen/ Hydrocodone Bitart ([place] 5/325) 1 tab Q6H PRN ORAL For Pain 01/21/20 11:30 01/23/20 11:29 01/22/20 06:04 Ascorbic Acid (Vitamin C) 250 mg TWICE A DAY ORAL 01/21/20 09:00 02/16/20 17:59 01/22/20 09:38 Chlorhexidine Gluconate (Mel-Hex 2%) 1 applic DAILY@1999 TOPIC 01/21/20 20:00 04/14/20 19:59 01/21/20 20:00 Dextrose (Dextrose 50%) 25 ml Q30M PRN IV Hypoglycemia 01/21/20 06:45 04/13/20 23:14 Dextrose (Dextrose 50%) 50 ml Q30M PRN IV Hypoglycemia 01/21/20 06:45 04/13/20 23:14 Digoxin (Lanoxin) 0.125 mg DAILY ORAL 01/21/20 09:00 04/16/20 08:59 01/22/20 09:37 Doxycycline Monohydrate (Doxycycline Monohydrate) 100 mg EVERY 12 HOURS ORAL 01/21/20 09:00 01/25/20 08:59 01/22/20 09:38 Duloxetine HCl (Cymbalta) 60 mg DAILY ORAL 01/21/20 09:00 04/16/20 14:44 01/22/20 09:38 Insulin Aspart (NovoLOG) BEFORE MEALS AND HS SUBQ 01/21/20 06:30 04/14/20 06:29 Insulin Detemir (Levemir) 11 units BEDTIME SUBQ 01/21/20 21:00 04/14/20 20:59 01/21/20 21:00 Loperamide HCl (Imodium) 2 mg Q4H PRN ORAL Diarrhea 01/21/20 07:00 02/18/20 06:59 Meropenem 1 gm/ Sodium Chloride 55 ml @ 110 mls/hr Q8HR IVPB 01/21/20 14:00 01/23/20 21:59 01/22/20 13:35 Metoprolol Tartrate (Lopressor) 25 mg Q12HR ORAL 01/21/20 09:00 04/14/20 08:59 01/22/20 09:38 Midodrine (Pro-Amatine) 5 mg TID PRN ORAL sbp<110 01/21/20 09:00 04/14/20 08:59 Multivitamins (Multivitamins) 1 tab Q24H ORAL 01/21/20 07:00 02/17/20 06:59 01/22/20 06:55 Pantoprazole (Protonix) 40 mg DAILY ORAL 01/21/20 09:00 02/18/20 08:59 01/22/20 09:38 Sildenafil Citrate (Revatio) 20 mg DAILY ORAL 01/21/20 09:00 04/14/20 08:59 01/22/20 09:37 Sodium Hypochlorite (Dakin's Quarter Strength) 1 applic DAILY TOPIC 01/21/20 09:00 02/14/20 10:59 01/22/20 09:39 Zinc Sulfate (Zinc Sulfate) 220 mg Q24H ORAL 01/21/20 07:00 04/17/20 06:59 01/22/20 06:55 Maria A Parra MD Jan 22, 2020 15:23
[2020-01-22 16:00] VITALS: BP 105/51
--- NOTE | 2020-01-22 16:49 | Brief Operative Note ---
Immediate Post Operative Note Operative Note Pre-op Diagnosis: necrotic sacral decubitus ulcer Procedure: excisional debridement of sacral decubitus ulcer Post-op Diagnosis: stage 4 sacral decubitus ulcer Surgeon: franklin Specimen: yes Complications: none Condition: stable Fluids: n/a Estimated Blood Loss: minimal Drains: none Implant(s) used?: No Jens Hoang Jan 22, 2020 16:49
[2020-01-22 20:00] VITALS: BP 127/71
[2020-01-22] MEDS: Dyna-Hex 2% Top Sol 2oz TOPIC SCH (20:00)
[2020-01-22] MEDS: Levemir Flexpen SUBQ SCH (21:00)
--- NOTE | 2020-01-22 21:15 | Operative Note - Dictated ---
DATE OF OPERATION: 01/22/2020 PREOPERATIVE DIAGNOSES: 1. Unstageable necrotic large sacral decubitus ulcer. 2. COVID positive. POSTOPERATIVE DIAGNOSES: 1. Stage IV sacral decubitus ulcer 15 cm x 8 cm x 7 cm deep. 2. COVID positive. OPERATION PERFORMED: Excisional debridement, sacral decubitus ulcer necrotic nonviable tissue down to healthy viable tissue with plans of primary closure versus flap in the future once ready. ATTENDING SURGEON: Jens Hoang MD. THREAD TWISTER: None. ANESTHESIOLOGIST: Not applicable. ANESTHESIA: Patient has neuralgia with limited sensorium in the buttocks, sacrum, lower extremities and did not require. COUNTS: Sponge and needle count correct x2. WOUND CLASSIFICATION: Class 4. COMPLICATIONS: None. DRAINS: None. INDICATIONS FOR PROCEDURE: This is a 59-year-old female who is bedbound, obese, and currently admitted COVID positive to [facility] for further care and management. During admission, a Cl[place]ron bariatric bed with air mattress ordered for her and she was examined on multiple days to ensure consistent evaluation identified to have a large sacral decubitus ulcer with necrotic nonviable tissue. Patient states she is unaware of how long she has had it before. States that some nurse takes care of her at her facility for it, but was unsure how large it was. Wound was described to patient. Pictures were evaluated and shown to patient and she was fairly concerned as was myself and the staff. There was necrotic slough of eschar as well as nonviable tissue all the way down until likely the bone and from the sacrum all the way down to the anus and to the bilateral buttocks and multiple other wounds. Patient persistently has incontinence and soilage in the area where dermatitis and breakdown and infection and stool within the wound bed. Excisional debridement was indicated and recommended. A long discussion was had with the patient regarding the risks, benefits, alternatives, management, and care plan. Given patient's COVID positive status and current status and situation, decision was made to perform at bedside. OPERATIVE NOTE: Patient was made comfortable at bedside with the staff and team. Patient was turned to the left lateral decubitus position. The prior dressings were removed. The wound was evaluated and measured. The surgical scalpel and scissors and forceps were used and the necrotic nonviable tissue was dissected down to healthy viable tissue. The wound bed approximately 15 cm x 8 cm x 7 cm deep down to the sacrum and coccyx clearly exposed and stage IV palpable bone identified. In the inferior aspect, the wound directed down to the anus and likely what was palpable in the distal rectum and the rectal fold nearly exposed. Significant portion of the patient's subcutaneous tissue was nonviable and complete excision was performed. Plans are for primary closure versus wound VAC until available for closure. In location of the wound plus dressings plus identifying active soilage even during procedure requiring multiple cleaning episodes, I discussed with the patient the strong recommendation for a diverting colostomy, which she is considering. There was some arterial bleeding from the right buttock lateral aspect, which hemostasis was obtained using 3-0 silk ties. The remaining venous oozing was hemostasis with pressure. Wound was irrigated. Dressings were applied. Patient tolerated the procedure well. Jens Hoang M.D. DR: FERNANDA JOB#: [id number] CC:
--- NOTE | 2020-01-22 22:04 | Consultation ---
History of Present Illness General Date patient seen: Jan 21, 2020 Chief Complaint: Flu Like Symptoms Referring physician: grace Reason for Consultation: MISSY Present Illness HPI 59yo F who reported from [facility] ([facility]) with suspected COVID19 + as outpatient. Duration unknown.. 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 She is bedbound. She was transferred in route per EMS due to hypotension. Has remained septic, confused, poor response Allergies: Coded Allergies: ERYTHROMYCIN BASE (Verified Allergy, Unknown, 01/14/20) HEPARIN (Verified Allergy, Unknown, 01/14/20) Medication History Scheduled Duloxetine Hcl* (Cymbalta*), 60 MG ORAL DAILY, (Reported) Famotidine* (Pepcid 20mg tablet*), 40 MG ORAL DAILY, (Reported) Ferrous Sulfate (Ferrous Sulfate), 325 MG PO QOD, (Reported) Folic Acid* (Folic Acid*), 1 MG ORAL DAILY, (Reported) Folic Acid/Vitamin B Comp W-C (Renal Caps Softgel), 1 MG PO DAILY, (Reported) Midodrine* (Proamatine*), 5 MG ORAL THREE TIMES A DAY, (Reported) Ropinirole Hcl* (Ropinirole Hcl*), 3 MG PO QHS, (Reported) Scheduled PRN Metoprolol Tartrate* (Metoprolol Tartrate*), 25 MG ORAL EVERY 12 HOURS PRN for for high blood pressure, (Reported) Sildenafil Citrate (Sildenafil), 20 MG ORAL DAILY PRN for hypertension, ( Reported) Patient History Healthcare decision maker Resuscitation status Advanced Directive on File Physical Exam General Appearance: no apparent distress Lines, tubes and drains: peripheral HEENT: normocephalic, atraumatic Neck: non-tender Respiratory/Chest: chest wall non-tender Breasts: no masses Cardiovascular/Chest: normal peripheral pulses Abdomen: normal bowel sounds Extremities: non-tender Skin Exam: normal pigmentation Neurologic: rn intensive care unit II-XII grossly normal Physical Exam Narrative confused, withdraws t pain, weak overall Last 24 Hour Vital Signs Date Time Temp Pulse Resp B/P (MAP) Pulse Ox O2 Delivery O2 Flow Rate FiO2 01/22/20 21:54 98.8 01/22/20 21:18 108 127/71 01/22/20 16:00 98.8 113 20 105/51 (69) 97 01/22/20 16:00 113 01/22/20 12:00 90 01/22/20 12:00 97.7 90 20 112/50 (70) 96 01/22/20 09:38 93 115/52 01/22/20 09:37 93 01/22/20 09:00 Nasal Cannula 2.0 Nasal Cannula 2.0 01/22/20 08:00 86 01/22/20 08:00 98.9 93 20 115/52 (73) 96 01/22/20 04:00 94 01/22/20 04:00 97.9 83 20 110/55 (73) 95 01/22/20 00:00 84 01/22/20 00:00 97.9 85 20 107/54 (71) 98 Intake and Output 01/21/20 01/22/20 19:00 07:00 Intake Total 370 ml 360 ml Output Total 400 ml 700 ml Balance -30 ml -340 ml Intake Oral 370 ml Other 360 ml Output Urine Total 400 ml 700 ml Laboratory Tests Test 01/22/20 06:34 01/22/20 11:06 01/22/20 11:12 White Blood Count 4.0 K/UL (4.8-10.8) L Red Blood Count 2.96 M/UL (4.20-5.40) L Hemoglobin 8.2 G/DL (12.0-16.0) L Hematocrit 28.0 % (37.0-47.0) L Mean Corpuscular Volume 95 FL (80-99) Mean Corpuscular Hemoglobin 27.8 PG (27.0-31.0) Mean Corpuscular Hemoglobin Concent 29.3 G/DL (32.0-36.0) L Red Cell Distribution Width 18.0 % (11.6-14.8) H Platelet Count 187 K/UL (150-450) Mean Platelet Volume 7.5 FL (6.5-10.1) Neutrophils (%) (Auto) 62.5 % (45.0-75.0) Lymphocytes (%) (Auto) 22.0 % (20.0-45.0) Monocytes (%) (Auto) 7.1 % (1.0-10.0) Eosinophils (%) (Auto) 7.5 % (0.0-3.0) H Basophils (%) (Auto) 0.9 % (0.0-2.0) Sodium Level 141 MMOL/L (136-145) Potassium Level 3.7 MMOL/L (3.5-5.1) Chloride Level 108 MMOL/L (98-107) H Carbon Dioxide Level 25 MMOL/L (21-32) Anion Gap 8 mmol/L (5-15) Blood Urea Nitrogen 20 mg/dL (7-18) H Creatinine 0.7 MG/DL (0.55-1.30) Estimat Glomerular Filtration Rate > 60 mL/min (>60) Glucose Level 89 MG/DL (74-106) Calcium Level 9.0 MG/DL (8.5-10.1) Phosphorus Level 3.8 MG/DL (2.5-4.9) Magnesium Level 2.1 MG/DL (1.8-2.4) Iron Level 24 ug/dL (50-175) L Total Iron Binding Capacity 140 ug/dL (250-450) L Percent Iron Saturation 17 % (15-50) Unsaturated Iron Binding 116 ug/dL (112-346) POC Whole Blood Glucose 79 MG/DL (74-106) Pending Height (Feet): 5 Height (Inches): 5.00 Weight (Pounds): 236 Medications Current Medications Medications (Trade) Dose Ordered Sig/Samuel Route PRN Reason Start Time Stop Time Status Last Admin Dose Admin Acetaminophen (Tylenol) 650 mg Q6H PRN ORAL Mild Pain (Pain Scale 1-3) 01/21/20 09:15 02/14/20 03:14 Acetaminophen (Tylenol) 650 mg Q6H PRN ORAL Temp >100.5 01/21/20 09:15 02/14/20 03:14 Acetaminophen/ Hydrocodone Bitart (Ch[place] 5/325) 1 tab Q6H PRN ORAL For Pain 01/21/20 11:30 01/23/20 11:29 01/22/20 21:19 Ascorbic Acid (Vitamin C) 250 mg TWICE A DAY ORAL 01/21/20 09:00 02/16/20 17:59 01/22/20 18:44 Chlorhexidine Gluconate (Mel-Hex 2%) 1 applic DAILY@1999 TOPIC 01/21/20 20:00 04/14/20 19:59 01/22/20 20:00 Dextrose (Dextrose 50%) 25 ml Q30M PRN IV Hypoglycemia 01/21/20 06:45 04/13/20 23:14 Dextrose (Dextrose 50%) 50 ml Q30M PRN IV Hypoglycemia 01/21/20 06:45 04/13/20 23:14 Digoxin (Lanoxin) 0.125 mg DAILY ORAL 01/21/20 09:00 04/16/20 08:59 01/22/20 09:37 Doxycycline Monohydrate (Doxycycline Monohydrate) 100 mg EVERY 12 HOURS ORAL 01/21/20 09:00 01/25/20 08:59 01/22/20 21:18 Duloxetine HCl (Cymbalta) 60 mg DAILY ORAL 01/21/20 09:00 04/16/20 14:44 01/22/20 09:38 Insulin Aspart (NovoLOG) BEFORE MEALS AND HS SUBQ 01/21/20 06:30 04/14/20 06:29 Insulin Detemir (Levemir) 11 units BEDTIME SUBQ 01/21/20 21:00 04/14/20 20:59 01/22/20 21:00 Loperamide HCl (Imodium) 2 mg Q4H PRN ORAL Diarrhea 01/21/20 07:00 02/18/20 06:59 Meropenem 1 gm/ Sodium Chloride 55 ml @ 110 mls/hr Q8HR IVPB 01/22/20 22:00 01/25/20 05:59 01/22/20 21:36 Metoprolol Tartrate (Lopressor) 25 mg Q12HR ORAL 01/21/20 09:00 04/14/20 08:59 01/22/20 21:18 Midodrine (Pro-Amatine) 5 mg TID PRN ORAL sbp<110 01/21/20 09:00 04/14/20 08:59 Multivitamins (Multivitamins) 1 tab Q24H ORAL 01/21/20 07:00 02/17/20 06:59 01/22/20 06:55 Pantoprazole (Protonix) 40 mg DAILY ORAL 01/21/20 09:00 02/18/20 08:59 01/22/20 09:38 Sildenafil Citrate (Revatio) 20 mg DAILY ORAL 01/21/20 09:00 04/14/20 08:59 01/22/20 09:37 Sodium Hypochlorite (Dakin's Quarter Strength) 1 applic DAILY TOPIC 01/21/20 09:00 02/14/20 10:59 01/22/20 09:39 Zinc Sulfate (Zinc Sulfate) 220 mg Q24H ORAL 01/21/20 07:00 04/17/20 06:59 01/22/20 06:55 Assessment/Plan Problem List: (1) Sepsis ICD Codes: A41.9 - Sepsis, unspecified organism SNOMED: 27300137 (2) UTI (urinary tract infection) ICD Codes: N39.0 - Urinary tract infection, site not specified SNOMED: 02959311 (3) COVID-19 ICD Codes: U07.1 - COVID-19 SNOMED: 441597801 (4) Anemia ICD Codes: D64.9 - Anemia, unspecified SNOMED: 566946195 Qualifiers: (5) SOB (shortness of breath) ICD Codes: R06.02 - Shortness of breath SNOMED: 853995259 (6) Tachycardia ICD Codes: R00.0 - Tachycardia, unspecified SNOMED: 0400237 (7) SVT (supraventricular tachycardia) ICD Codes: I47.1 - Supraventricular tachycardia SNOMED: 5600951 (8) Gram-negative bacteremia ICD Codes: R78.81 - Bacteremia SNOMED: 720675527968 (9) Decubitus skin ulcer ICD Codes: L89.90 - Pressure ulcer of unspecified site, unspecified stage SNOMED: 706110923 Qualifiers: Qualified Codes: L89.159 - Pressure ulcer of sacral region, unspecified stage (10) Hypokalemia ICD Codes: E87.6 - Hypokalemia SNOMED: 62311023 (11) Hypernatremia ICD Codes: E87.0 - Hyperosmolality and hypernatremia SNOMED: 358624331 Assessment/Plan: Acute encephalopathy, likely metabolic Sepsis hypotention Improving Delirium precautions con atb pt ot Shin Heath MD Jan 22, 2020 22:04
--- NOTE | 2020-01-22 22:53 | General Progress Note ---
Assessment/Plan Status: stable, progressing Assessment/Plan: Assessment - Iron deficiency anemia - OB (+) stools - meterman GERD - negative Colon 2019 - COVID (+) Recommendations - re check Fe panel -- mild deficiency - PPI - Monitor CBC - supportive care - Endoscopy at later date / outpatient Subjective Allergies: Coded Allergies: ERYTHROMYCIN BASE (Verified Allergy, Unknown, 01/14/20) HEPARIN (Verified Allergy, Unknown, 01/14/20) Subjective Above noted d/w RN tolerating PO no N/V (+) BM Objective Last 24 Hour Vital Signs Date Time Temp Pulse Resp B/P (MAP) Pulse Ox O2 Delivery O2 Flow Rate FiO2 01/22/20 21:54 98.8 01/22/20 21:18 108 127/71 01/22/20 21:00 Nasal Cannula 2.0 Nasal Cannula 2.0 01/22/20 20:00 97.9 108 20 127/71 (89) 95 01/22/20 20:00 112 01/22/20 16:00 98.8 113 20 105/51 (69) 97 01/22/20 16:00 113 01/22/20 12:00 90 01/22/20 12:00 97.7 90 20 112/50 (70) 96 01/22/20 09:38 93 115/52 01/22/20 09:37 93 01/22/20 09:00 Nasal Cannula 2.0 Nasal Cannula 2.0 01/22/20 08:00 86 01/22/20 08:00 98.9 93 20 115/52 (73) 96 01/22/20 04:00 94 01/22/20 04:00 97.9 83 20 110/55 (73) 95 01/22/20 00:00 84 01/22/20 00:00 97.9 85 20 107/54 (71) 98 Intake and Output 01/21/20 01/22/20 19:00 07:00 Intake Total 370 ml 360 ml Output Total 400 ml 700 ml Balance -30 ml -340 ml Intake Oral 370 ml Other 360 ml Output Urine Total 400 ml 700 ml Laboratory Tests 01/22/20 06:34: White Blood Count 4.0L, Red Blood Count 2.96L, Hemoglobin 8.2L, Hematocrit 28.0L , Mean Corpuscular Volume 95, Mean Corpuscular Hemoglobin 27.8, Mean Corpuscular Hemoglobin Concent 29.3L, Red Cell Distribution Width 18.0H, Platelet Count 187, Mean Platelet Volume 7.5, Neutrophils (%) (Auto) 62.5, Lymphocytes (%) (Auto) 22.0, Monocytes (%) (Auto) 7.1, Eosinophils (%) (Auto) 7.5H, Basophils (%) (Auto) 0.9, Sodium Level 141, Potassium Level 3.7, Chloride Level 108H, Carbon Dioxide Level 25, Anion Gap 8, Blood Urea Nitrogen 20H, Creatinine 0.7, Estimat Glomerular Filtration Rate > 60, Glucose Level 89, Calcium Level 9.0, Phosphorus Level 3.8, Magnesium Level 2.1, Iron Level 24L, Total Iron Binding Capacity 140L, Percent Iron Saturation 17, Unsaturated Iron Binding 116 01/22/20 11:06: POC Whole Blood Glucose 79 01/22/20 11:12: POC Whole Blood Glucose [Pending] Height (Feet): 5 Height (Inches): 5.00 Weight (Pounds): 236 Objective Vs noted patient in isolation Norman Greenberg MD Jan 22, 2020 22:53
[2020-01-23] VITALS: BP 112/62
[2020-01-23 04:00] VITALS: BP 113/56
[2020-01-23] MEDS: Meropenem 1 GM in NS 55 ML IVPB SCH (05:44)
[2020-01-23] MEDS: NovoLOG Insulin Flexpen SUBQ SCH (06:13)
[2020-01-23] MEDS: HYDROcodone/Acetamin 5/325 tab ORAL PRN (06:14)
[2020-01-23] MEDS: Zinc Sulfate 220mg ORAL SCH (06:47)
[2020-01-23 07:24] LABS: EOSINOPHILS % (AUTO) 4.5 % (0.0-3.0); HEMATOCRIT 29.2 % (37.0-47.0); HEMOGLOBIN 8.7 G/DL (12.0-16.0); MEAN CORPUSCULAR VOLUME 95 FL (80-99); NEUTROPHILS % (AUTO) 67.4 % (45.0-75.0); PLATELET COUNT 232 K/UL (150-450); RED BLOOD COUNT 3.08 M/UL (4.20-5.40); RED CELL DISTRIBUTION WIDTH 18.4 % (11.6-14.8); WHITE BLOOD COUNT 5.4 K/UL (4.8-10.8)
[2020-01-23] MEDS ORDERED: Tubing IV Secondary IV ONE (07:28)
[2020-01-23 07:57] LABS: ALANINE AMINOTRANSFERASE 22 U/L (12-78); ALBUMIN 1.8 G/DL (3.4-5.0); ALBUMIN/GLOBULIN RATIO 0.4 (1.0-2.7); ALKALINE PHOSPHATASE 129 U/L (46-116); ANION GAP 7 mmol/L (5-15); ASPARTATE AMINO TRANSFERASE 22 U/L (15-37); BILIRUBIN,TOTAL 0.3 MG/DL (0.2-1.0); BLOOD UREA NITROGEN 22 mg/dL (7-18); CALCIUM 8.9 MG/DL (8.5-10.1); CARBON DIOXIDE 28 MMOL/L (21-32); CHLORIDE 109 MMOL/L (98-107); CREATININE 0.7 MG/DL (0.55-1.30); POTASSIUM 3.8 MMOL/L (3.5-5.1); SODIUM 144 MMOL/L (136-145)
[2020-01-23 08:00] VITALS: BP 110/52
[2020-01-23] MEDS: Ascorbic Acid 500mg tab ORAL SCH (08:45)
[2020-01-23] MEDS: Doxycycline Monohydrate 100mg ORAL SCH (08:45)
[2020-01-23] MEDS: Revatio 20mg tab ORAL SCH (08:46)
[2020-01-23 08:47] VITALS: BP 110/52
[2020-01-23] MEDS: Digoxin 0.125mg tab ORAL SCH (08:47)
[2020-01-23] MEDS: Dakin's 0.125% Soln (Quarter Strength) 16oz TOPIC SCH (08:48)
--- NOTE | 2020-01-23 10:04 | Nephrology Progress Note ---
Assessment/Plan Plan #MISSY due to pre-rernal azotemia in the setting of anemia #hypernatremia #Acute on chronic anemia # Acute Hypoxemic respiratory failure # COVID 19 infection previously - now 1 negative swab # Pulmonary HTN #UTI #runs of SVTs #ho/ HTN #DM - replete mag - defer further renal work up pending evolution of kidney function - monitor CBC - IV iron - GI eval - continue metop 25mg BID - on midodrine 5mg TID - holding AC- on apixaban - continue with dig - avoid nephrotoxins - strict I&Os - monitor weights - check BMP, mag and phos daily Time spent 70 min > 50% on care coordiation and counseling Subjective ROS Limited/Unobtainable: No Constitutional: Reports: malaise, weakness Subjective Cr improved BP stable sodium 148 hemoglobin stable Objective Objective Last 24 Hour Vital Signs Date Time Temp Pulse Resp B/P (MAP) Pulse Ox O2 Delivery O2 Flow Rate FiO2 01/23/20 08:47 95 110/52 01/23/20 08:47 95 01/23/20 08:00 98.0 94 20 110/52 (71) 96 01/23/20 08:00 94 01/23/20 06:46 98.1 01/23/20 04:00 98.1 80 20 113/56 (75) 100 01/23/20 04:00 110 01/23/20 00:00 98 01/23/20 00:00 99.0 84 20 112/62 (79) 95 01/22/20 21:18 108 127/71 01/22/20 21:00 Nasal Cannula 2.0 Nasal Cannula 2.0 01/22/20 20:00 97.9 108 20 127/71 (89) 95 01/22/20 20:00 112 01/22/20 16:00 98.8 113 20 105/51 (69) 97 01/22/20 16:00 113 01/22/20 12:00 90 01/22/20 12:00 97.7 90 20 112/50 (70) 96 Intake and Output 01/22/20 01/23/20 19:00 07:00 Intake Total 240 ml Output Total 450 ml 600 ml Balance -210 ml -600 ml Intake Oral 240 ml Output Urine Total 450 ml 600 ml # Bowel Movements 1 Laboratory Tests 7/15/20 11:06: POC Whole Blood Glucose 79 01/22/20 11:12: POC Whole Blood Glucose [Pending] 01/23/20 06:37: White Blood Count 5.4, Red Blood Count 3.08L, Hemoglobin 8.7L, Hematocrit 29.2L , Mean Corpuscular Volume 95, Mean Corpuscular Hemoglobin 28.2, Mean Corpuscular Hemoglobin Concent 29.7L, Red Cell Distribution Width 18.4H, Platelet Count 232, Mean Platelet Volume 7.0, Neutrophils (%) (Auto) 67.4, Lymphocytes (%) (Auto) 20.0, Monocytes (%) (Auto) 7.0, Eosinophils (%) (Auto) 4.5H, Basophils (%) (Auto) 1.0, Sodium Level 144, Potassium Level 3.8, Chloride Level 109H, Carbon Dioxide Level 28, Anion Gap 7, Blood Urea Nitrogen 22H, Creatinine 0.7, Estimat Glomerular Filtration Rate > 60, Glucose Level 92, Calcium Level 8.9, Total Bilirubin 0.3, Aspartate Amino Transf (AST/SGOT) 22, Alanine Aminotransferase (ALT/SGPT) 22, Alkaline Phosphatase 129H, Total Protein 6.1L, Albumin 1.8L, Globulin 4.3, Albumin/Globulin Ratio 0.4L Height (Feet): 5 Height (Inches): 5.00 Weight (Pounds): 236 Phil Morse M.D. Jan 23, 2020 10:04
--- NOTE | 2020-01-23 10:12 | General Progress Note ---
Assessment/Plan Status: stable, progressing Assessment/Plan: Assessment - Iron deficiency anemia - OB (+) stools - meterman GERD - negative Colon 2019 - COVID (+) Recommendations - re check Fe panel -- mild deficiency - PPI - Monitor CBC - supportive care - Endoscopy +/- colonoscopy at later date / outpatient Subjective Allergies: Coded Allergies: ERYTHROMYCIN BASE (Verified Allergy, Unknown, 01/14/20) HEPARIN (Verified Allergy, Unknown, 01/14/20) Subjective Above noted some loose stools noted d/w patient re recommendations for outpatient EGD/Colon Objective Last 24 Hour Vital Signs Date Time Temp Pulse Resp B/P (MAP) Pulse Ox O2 Delivery O2 Flow Rate FiO2 01/23/20 08:47 95 110/52 01/23/20 08:47 95 01/23/20 08:00 98.0 94 20 110/52 (71) 96 01/23/20 08:00 94 01/23/20 06:46 98.1 01/23/20 04:00 98.1 80 20 113/56 (75) 100 01/23/20 04:00 110 01/23/20 00:00 98 01/23/20 00:00 99.0 84 20 112/62 (79) 95 01/22/20 21:18 108 127/71 01/22/20 21:00 Nasal Cannula 2.0 Nasal Cannula 2.0 01/22/20 20:00 97.9 108 20 127/71 (89) 95 01/22/20 20:00 112 01/22/20 16:00 98.8 113 20 105/51 (69) 97 01/22/20 16:00 113 01/22/20 12:00 90 01/22/20 12:00 97.7 90 20 112/50 (70) 96 Intake and Output 01/22/20 01/23/20 19:00 07:00 Intake Total 240 ml Output Total 450 ml 600 ml Balance -210 ml -600 ml Intake Oral 240 ml Output Urine Total 450 ml 600 ml # Bowel Movements 1 Laboratory Tests 01/22/20 11:06: POC Whole Blood Glucose 79 01/22/20 11:12: POC Whole Blood Glucose [Pending] 01/23/20 06:37: White Blood Count 5.4, Red Blood Count 3.08L, Hemoglobin 8.7L, Hematocrit 29.2L , Mean Corpuscular Volume 95, Mean Corpuscular Hemoglobin 28.2, Mean Corpuscular Hemoglobin Concent 29.7L, Red Cell Distribution Width 18.4H, Platelet Count 232, Mean Platelet Volume 7.0, Neutrophils (%) (Auto) 67.4, Lymphocytes (%) (Auto) 20.0, Monocytes (%) (Auto) 7.0, Eosinophils (%) (Auto) 4.5H, Basophils (%) (Auto) 1.0, Sodium Level 144, Potassium Level 3.8, Chloride Level 109H, Carbon Dioxide Level 28, Anion Gap 7, Blood Urea Nitrogen 22H, Creatinine 0.7, Estimat Glomerular Filtration Rate > 60, Glucose Level 92, Calcium Level 8.9, Total Bilirubin 0.3, Aspartate Amino Transf (AST/SGOT) 22, Alanine Aminotransferase (ALT/SGPT) 22, Alkaline Phosphatase 129H, Total Protein 6.1L, Albumin 1.8L, Globulin 4.3, Albumin/Globulin Ratio 0.4L Height (Feet): 5 Height (Inches): 5.00 Weight (Pounds): 236 Objective NCAT supple CTA RRR Abd soft NT ND no edema Norman Greenberg MD Jan 23, 2020 10:11
--- NOTE | 2020-01-23 11:07 | Hematology/Onc Progress Note ---
Assessment/Plan Assessment/Plan Assessment and Recs # Pancytopenia initialy with Anemia is due to chronic dsiease/kidney failure and covid19++, does not appear to be gi bleed --> anemia panel has been reviewed --> continue on epogen as per renal --> no hemolysis is noted --> hgb trend 6.4-->8.2->8.7 --> hold off anticaog if hgb <7 --> wbc 4.1-->3.3-->4 --> wbc 125-->149->130-->187 --> us abd is pending, r/o cirrhosis and hsm if plt lower than 100 --> hep and hiv panel neg --> may also be due to covid 19 # UTI (urinary tract infection) --> with poa Sepsis --> abx as per id team # Respiratory failure due to covid19 --> steriods, low threshold for intuabtion -> covid 19 on iso # Ddimer elevation --> duplex lower ext neg # Pulmonary HTN # Hyperocag disorder --> hold off eliquis for now given drop in h/h --> have bindu rn this info --> consider cards eval # Dvt ppx scds Appreciate consultation and bindu RN Subjective Constitutional: Denies: no symptoms, chills, fever, malaise, weakness, other Cardiovascular: Denies: no symptoms, chest pain, edema, irregular heart rate, lightheadedness, palpitations, syncope, other Respiratory: Denies: no symptoms, cough, shortness of breath, SOB with excertion, SOB at rest, sputum, wheezing, other Gastrointestinal/Abdominal: Denies: no symptoms, abdomen distended, abdominal pain, black stools, tarry stools, blood in stool, constipated, diarrhea, difficulty swallowing, nausea, poor appetite, poor fluid intake, rectal bleeding , vomiting, other Genitourinary: Denies: no symptoms, burning, discharge, frequency, flank pain, hematuria, incontinence, pain, urgency, other Neurologic/Psychiatric: Denies: no symptoms, anxiety, depressed, emotional problems, headache, numbness, paresthesia, pre-existing deficit, seizure, tingling, tremors, weakness, other Endocrine: Denies: no symptoms, excessive sweating, flushing, intolerance to cold, intolerance to heat, increased hunger, increased thirst, increased urine, unexplained weight gain, unexplained weight loss, other Allergies: Coded Allergies: ERYTHROMYCIN BASE (Verified Allergy, Unknown, 01/14/20) HEPARIN (Verified Allergy, Unknown, 01/14/20) Subjective 01/15 duplex was negative, holding off anticoag, no night sweats 01/18 meds noted, no bleeding, labs reviewed, h/h stable 01/19 labs have been reviewed, no bleeding, stable overnight, covid19+ 01/20 is on 2l nc, no bleeding, meds noted, pancytopenic still, wbc 3.3 01/21 labs reviewed, no bleeding, wbc 4, no hemolysis 01/22 meds noted, minor iron deficiency, no bleeding Objective Objective Current Medications Medications (Trade) Dose Ordered Sig/Samuel Route PRN Reason Start Time Stop Time Status Last Admin Dose Admin Acetaminophen (Tylenol) 650 mg Q6H PRN ORAL Mild Pain (Pain Scale 1-3) 01/21/20 09:15 02/14/20 03:14 Acetaminophen (Tylenol) 650 mg Q6H PRN ORAL Temp >100.5 01/21/20 09:15 02/14/20 03:14 Acetaminophen/ Hydrocodone Bitart (Quartz[place] 5/325) 1 tab Q6H PRN ORAL For Pain 01/21/20 11:30 01/23/20 11:29 01/23/20 06:14 Ascorbic Acid (Vitamin C) 250 mg TWICE A DAY ORAL 01/21/20 09:00 02/16/20 17:59 01/23/20 08:45 Chlorhexidine Gluconate (Mel-Hex 2%) 1 applic DAILY@1999 TOPIC 01/21/20 20:00 04/14/20 19:59 01/22/20 20:00 Dextrose (Dextrose 50%) 25 ml Q30M PRN IV Hypoglycemia 01/21/20 06:45 04/13/20 23:14 Dextrose (Dextrose 50%) 50 ml Q30M PRN IV Hypoglycemia 01/21/20 06:45 04/13/20 23:14 Digoxin (Lanoxin) 0.125 mg DAILY ORAL 01/21/20 09:00 04/16/20 08:59 01/23/20 08:47 Doxycycline Monohydrate (Doxycycline Monohydrate) 100 mg EVERY 12 HOURS ORAL 01/21/20 09:00 01/25/20 08:59 01/23/20 08:45 Duloxetine HCl (Cymbalta) 60 mg DAILY ORAL 01/21/20 09:00 04/16/20 14:44 01/23/20 08:45 Insulin Aspart (NovoLOG) BEFORE MEALS AND HS SUBQ 01/21/20 06:30 04/14/20 06:29 Insulin Detemir (Levemir) 11 units BEDTIME SUBQ 01/21/20 21:00 04/14/20 20:59 01/22/20 21:00 Loperamide HCl (Imodium) 2 mg Q4H PRN ORAL Diarrhea 01/21/20 07:00 02/18/20 06:59 Meropenem 1 gm/ Sodium Chloride 55 ml @ 110 mls/hr Q8HR IVPB 01/22/20 22:00 01/25/20 05:59 01/23/20 05:44 Metoprolol Tartrate (Lopressor) 25 mg Q12HR ORAL 01/21/20 09:00 04/14/20 08:59 01/23/20 08:47 Midodrine (Pro-Amatine) 5 mg TID PRN ORAL sbp<110 01/21/20 09:00 04/14/20 08:59 Multivitamins (Multivitamins) 1 tab Q24H ORAL 01/21/20 07:00 02/17/20 06:59 01/23/20 06:46 Pantoprazole (Protonix) 40 mg DAILY ORAL 01/21/20 09:00 02/18/20 08:59 01/23/20 08:45 Sildenafil Citrate (Revatio) 20 mg DAILY ORAL 01/21/20 09:00 04/14/20 08:59 01/23/20 08:46 Sodium Hypochlorite (Dakin's Quarter Strength) 1 applic DAILY TOPIC 01/21/20 09:00 02/14/20 10:59 01/23/20 08:48 Zinc Sulfate (Zinc Sulfate) 220 mg Q24H ORAL 01/21/20 07:00 04/17/20 06:59 01/23/20 06:47 Last 24 Hour Vital Signs Date Time Temp Pulse Resp B/P (MAP) Pulse Ox O2 Delivery O2 Flow Rate FiO2 01/23/20 08:47 95 110/52 01/23/20 08:47 95 01/23/20 08:00 98.0 94 20 110/52 (71) 96 01/23/20 08:00 94 01/23/20 06:46 98.1 01/23/20 04:00 98.1 80 20 113/56 (75) 100 01/23/20 04:00 110 01/23/20 00:00 98 01/23/20 00:00 99.0 84 20 112/62 (79) 95 01/22/20 21:18 108 127/71 01/22/20 21:00 Nasal Cannula 2.0 Nasal Cannula 2.0 01/22/20 20:00 97.9 108 20 127/71 (89) 95 01/22/20 20:00 112 01/22/20 16:00 98.8 113 20 105/51 (69) 97 01/22/20 16:00 113 01/22/20 12:00 90 01/22/20 12:00 97.7 90 20 112/50 (70) 96 01/22/20 09:38 93 115/52 01/22/20 09:37 93 01/22/20 09:00 Nasal Cannula 2.0 Nasal Cannula 2.0 01/22/20 08:00 86 01/22/20 08:00 98.9 93 20 115/52 (73) 96 01/22/20 04:00 94 01/22/20 04:00 97.9 83 20 110/55 (73) 95 01/22/20 00:00 84 01/22/20 00:00 97.9 85 20 107/54 (71) 98 01/21/20 21:21 85 119/60 01/21/20 21:00 Nasal Cannula 2.0 Nasal Cannula 2.0 01/21/20 20:00 96 01/21/20 20:00 99.5 85 20 119/60 (79) 100 01/21/20 16:00 81 01/21/20 16:00 97.5 81 20 113/57 (75) 100 01/21/20 12:00 86 01/21/20 12:00 97.5 86 20 109/45 (66) 100 Intake and Output 01/22/20 01/23/20 19:00 07:00 Intake Total 240 ml Output Total 450 ml 600 ml Balance -210 ml -600 ml Intake Oral 240 ml Output Urine Total 450 ml 600 ml # Bowel Movements 1 Labs Test 01/20/20 20:52 01/21/20 03:45 01/21/20 05:20 01/21/20 11:00 White Blood Count 3.3 K/UL (4.8-10.8) Red Blood Count 2.72 M/UL (4.20-5.40) Hemoglobin 7.6 G/DL (12.0-16.0) Hematocrit 25.8 % (37.0-47.0) Mean Corpuscular Volume 95 FL (80-99) Mean Corpuscular Hemoglobin 28.1 PG (27.0-31.0) Mean Corpuscular Hemoglobin Concent 29.7 G/DL (32.0-36.0) Red Cell Distribution Width 17.1 % (11.6-14.8) Platelet Count 130 K/UL (150-450) Mean Platelet Volume 7.3 FL (6.5-10.1) Neutrophils (%) (Auto) % (45.0-75.0) Lymphocytes (%) (Auto) % (20.0-45.0) Monocytes (%) (Auto) % (1.0-10.0) Eosinophils (%) (Auto) % (0.0-3.0) Basophils (%) (Auto) % (0.0-2.0) Differential Total Cells Counted 100 Neutrophils % (Manual) 71 % (45-75) Lymphocytes % (Manual) 19 % (20-45) Monocytes % (Manual) 5 % (1-10) Eosinophils % (Manual) 5 % (0-3) Basophils % (Manual) 0 % (0-2) Band Neutrophils 0 % (0-8) Platelet Estimate Decreased Platelet Morphology Normal Hypochromasia 3+ Anisocytosis 1+ Sodium Level 148 MMOL/L (136-145) Potassium Level 4.7 MMOL/L (3.5-5.1) Chloride Level 111 MMOL/L (98-107) Carbon Dioxide Level 27 MMOL/L (21-32) Anion Gap 10 mmol/L (5-15) Blood Urea Nitrogen 36 mg/dL (7-18) Creatinine 0.8 MG/DL (0.55-1.30) Estimat Glomerular Filtration Rate > 60 mL/min (>60) Glucose Level 91 MG/DL (74-106) Calcium Level 8.1 MG/DL (8.5-10.1) Magnesium Level 1.5 MG/DL (1.8-2.4) Test 01/21/20 15:58 01/22/20 06:34 01/22/20 11:06 01/22/20 11:12 POC Whole Blood Glucose 100 MG/DL (74-106) 79 MG/DL (74-106) White Blood Count 4.0 K/UL (4.8-10.8) Red Blood Count 2.96 M/UL (4.20-5.40) Hemoglobin 8.2 G/DL (12.0-16.0) Hematocrit 28.0 % (37.0-47.0) Mean Corpuscular Volume 95 FL (80-99) Mean Corpuscular Hemoglobin 27.8 PG (27.0-31.0) Mean Corpuscular Hemoglobin Concent 29.3 G/DL (32.0-36.0) Red Cell Distribution Width 18.0 % (11.6-14.8) Platelet Count 187 K/UL (150-450) Mean Platelet Volume 7.5 FL (6.5-10.1) Neutrophils (%) (Auto) 62.5 % (45.0-75.0) Lymphocytes (%) (Auto) 22.0 % (20.0-45.0) Monocytes (%) (Auto) 7.1 % (1.0-10.0) Eosinophils (%) (Auto) 7.5 % (0.0-3.0) Basophils (%) (Auto) 0.9 % (0.0-2.0) Sodium Level 141 MMOL/L (136-145) Potassium Level 3.7 MMOL/L (3.5-5.1) Chloride Level 108 MMOL/L (98-107) Carbon Dioxide Level 25 MMOL/L (21-32) Anion Gap 8 mmol/L (5-15) Blood Urea Nitrogen 20 mg/dL (7-18) Creatinine 0.7 MG/DL (0.55-1.30) Estimat Glomerular Filtration Rate > 60 mL/min (>60) Glucose Level 89 MG/DL (74-106) Calcium Level 9.0 MG/DL (8.5-10.1) Phosphorus Level 3.8 MG/DL (2.5-4.9) Magnesium Level 2.1 MG/DL (1.8-2.4) Iron Level 24 ug/dL (50-175) Total Iron Binding Capacity 140 ug/dL (250-450) Percent Iron Saturation 17 % (15-50) Unsaturated Iron Binding 116 ug/dL (112-346) Test 01/23/20 06:37 White Blood Count 5.4 K/UL (4.8-10.8) Red Blood Count 3.08 M/UL (4.20-5.40) Hemoglobin 8.7 G/DL (12.0-16.0) Hematocrit 29.2 % (37.0-47.0) Mean Corpuscular Volume 95 FL (80-99) Mean Corpuscular Hemoglobin 28.2 PG (27.0-31.0) Mean Corpuscular Hemoglobin Concent 29.7 G/DL (32.0-36.0) Red Cell Distribution Width 18.4 % (11.6-14.8) Platelet Count 232 K/UL (150-450) Mean Platelet Volume 7.0 FL (6.5-10.1) Neutrophils (%) (Auto) 67.4 % (45.0-75.0) Lymphocytes (%) (Auto) 20.0 % (20.0-45.0) Monocytes (%) (Auto) 7.0 % (1.0-10.0) Eosinophils (%) (Auto) 4.5 % (0.0-3.0) Basophils (%) (Auto) 1.0 % (0.0-2.0) Sodium Level 144 MMOL/L (136-145) Potassium Level 3.8 MMOL/L (3.5-5.1) Chloride Level 109 MMOL/L (98-107) Carbon Dioxide Level 28 MMOL/L (21-32) Anion Gap 7 mmol/L (5-15) Blood Urea Nitrogen 22 mg/dL (7-18) Creatinine 0.7 MG/DL (0.55-1.30) Estimat Glomerular Filtration Rate > 60 mL/min (>60) Glucose Level 92 MG/DL (74-106) Calcium Level 8.9 MG/DL (8.5-10.1) Total Bilirubin 0.3 MG/DL (0.2-1.0) Aspartate Amino Transf (AST/SGOT) 22 U/L (15-37) Alanine Aminotransferase (ALT/SGPT) 22 U/L (12-78) Alkaline Phosphatase 129 U/L (46-116) Total Protein 6.1 G/DL (6.4-8.2) Albumin 1.8 G/DL (3.4-5.0) Globulin 4.3 g/dL Albumin/Globulin Ratio 0.4 (1.0-2.7) Height (Feet): 5 Height (Inches): 5.00 Weight (Pounds): 236 Objective Physical Exam General: Awake and alert, no acute distress HEENT: NC/AT. EOMI. PERRLA. Anicteric sclera. Cardiovascular: Tachycardic. S1 and S2 normal. Resp: 2 L nasal cannula. Tachypnea. Normal work of breathing. Abdomen: Abdomen is soft, nondistended, obese. Nontender Skin: Bandages over the heels and feet on the lower extremities MSK: Normal tone and bulk. Moving all extremities. No obvious deformity. Neuro: Awake and alert. Mentating appropriately. Reno Valle MD Jan 23, 2020 11:07
[2020-01-23] MEDS ORDERED: DOXYCYCLINE MO100 MG ORAL (12:08)
[2020-01-23] MEDS ORDERED: IMODIUM2 MG ORAL (12:08)
[2020-01-23] MEDS ORDERED: Digoxin ORAL (12:08)
[2020-01-23] MEDS ORDERED: MEROPENEM1 GM IV (12:08)
--- NOTE | 2020-01-23 12:16 | Discharge Instructions ---
Discharge Instructions Discharge Instructions Call MD/Return to Hospital if: For uncontrolled pain, fatigue or bleeding Diet: cardiac 2 GM Na, low fat, low fat Activity: light activity, ambulate w/ assist only For Congestive Heart Failure Reminder Report to your physician any weight gain of 5 pounds or more in one week. Khanh Stuart M.D. Jan 23, 2020 12:16
--- NOTE | 2020-01-23 12:21 | Discharge Summary ---
Discharge Summary Hospital Course Date of Admission Jan 14, 2020 at 18:30 Date of Discharge Admitting Diagnosis Sepsis HPI Patient 59yo F who reported from SNF ([facility]) with suspected COVID19 + as outpatient. Duration unknown. 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 She is bedbound. She was transferred in route per EMS due to hypotension. Patients vitals here are stable. Inflammatory makers are elevated. Of note she has a hgb of 7mg/dl and a 40:1 BUN/Cr ratio. No active signs of bleeding. Patient remains on 2L NC. Consultations Hematology General Surgery Cardiology Nephrology Psychiatry GI Hospital Course Patient was admitted for sepsis secondary to UTI, COVID 19 + in the setting of pulmonary HTN. Her UTI pathogen was ESBL and had Proteus bacteremia and was initially started on Zosyn but later switch to Meropenem per ID recommendations. She was anemic on admission at 6.7 and was trasfused 1 unit PRBCs. Hematology consulted and she was found to be iron deficient. She has sacral decubitus ulcer that were managed by general surgery. She was started on Doxycycline for her wounds. Surgery cleaned up the wound well. Surgery recommends diverting colostomy in the next couple of weeks when COVID - to keep wounds clean. During hr stay she had runs of SVT. She was evaluated by cardiology and was started on digoxin. She will need an ablation as an out patient. She will continue her antibiotics at SNF for 5 more days. Continue physical therapy. She will have follow up blood work in 1-2 weeks. She has outpatient follow up appointments with specialist arranged. Discussed ED precautions with her. Patient should be started on DVT ppx upon arrival to SNF given history of DVT. 40 minuets was spent on this patient with 10 min face to face with Patient. Coordinated with consultants, reviews labs and images. Discussed plan with RN. Chart review and multiple calls from nursing. Discharge coordination for SNF placement. Discharge Medications New Medications: Meropenem (Meropenem) 1 Gm Vial 1 GM IV Q8HR for 5 Days, #15 VIAL [Digoxin] () 0.125 MG TAB 0.125 MG ORAL DAILY for 30 Days, #30 Doxycycline Monohydrate* (Doxycycline Monohydrate*) 100 Mg Capsule 100 MG ORAL EVERY 12 HOURS for 5 Days, #10 CAP Loperamide HCl (Loperamide) 2 Mg Capsule 2 MG ORAL Q4H PRN for 30 Days, #30 CAP Continued Medications: Duloxetine Hcl* (Cymbalta*) 60 Mg Capsule.dr 60 MG ORAL DAILY for depression, CAP (This prescription has been renewed) Famotidine* (Pepcid 20mg tablet*) 20 Mg Tablet 40 MG ORAL DAILY for heartburn, #30 TAB 0 Refills (This prescription has been renewed) Ferrous Sulfate (Ferrous Sulfate) 324 Mg Tablet.dr 325 MG PO QOD for iron supplement, TAB (This prescription has been renewed) Folic Acid* (Folic Acid*) 1 Mg Tablet 1 MG ORAL DAILY for supplement, TAB (This prescription has been renewed) Folic Acid/Vitamin B Comp W-C (Renal Caps Softgel) 1 Mg Capsule 1 MG PO DAILY for supplement, CAP (This prescription has been renewed) Metoprolol Tartrate* (Metoprolol Tartrate*) 25 Mg Tablet 25 MG ORAL EVERY 12 HOURS PRN for for high blood pressure, TAB (This prescription has been renewed) Midodrine* (Proamatine*) 5 Mg Tablet 5 MG ORAL THREE TIMES A DAY for for sbp <110, TAB (This prescription has been renewed) Ropinirole Hcl* (Ropinirole Hcl*) 2 Mg Tablet 3 MG PO QHS for muscle spasm, TAB (This prescription has been renewed) Sildenafil Citrate (Sildenafil) 20 Mg Tablet 20 MG ORAL DAILY PRN for hypertension, TAB 0 Refills (This prescription has been renewed) Discharge Condition Upon Discharge: improving, stable Discharge Vital Signs Last Vital Signs Date Time Temp Pulse Resp B/P (MAP) Pulse Ox O2 Delivery O2 Flow Rate FiO2 01/23/20 09:00 Nasal Cannula 2.0 Nasal Cannula 2.0 01/23/20 08:47 95 110/52 01/23/20 08:00 98.0 20 96 Discharge Disposition Patient was discharged to [facility] Discharge Diagnoses: (1) COVID-19 (2) Sepsis (3) UTI (urinary tract infection) (4) Gram-negative bacteremia (5) Decubitus skin ulcer (6) SVT (supraventricular tachycardia) (7) Hypokalemia (8) Hypernatremia (9) Anemia Discharge Instructions Discharge Instructions Call MD/Return to Hospital if: For uncontrolled pain, fatigue or bleeding Activity: light activity, ambulate w/ assist only Narciso,Mane. M.D. Jan 23, 2020 12:21
--- NOTE | 2020-01-23 12:50 | Surgery Progress Note ---
Surgery Progress Note Subjective Procedure Performed excisional debridement of sacral decubitus ulcer Symptoms: improved, tolerating diet, voiding well, passing flatus, BM, pain decreased Objective Last 24 Hour Vital Signs Date Time Temp Pulse Resp B/P (MAP) Pulse Ox O2 Delivery O2 Flow Rate FiO2 01/23/20 09:00 Nasal Cannula 2.0 Nasal Cannula 2.0 01/23/20 08:47 95 110/52 01/23/20 08:47 95 01/23/20 08:00 98.0 94 20 110/52 (71) 96 01/23/20 08:00 94 01/23/20 06:46 98.1 01/23/20 04:00 98.1 80 20 113/56 (75) 100 01/23/20 04:00 110 01/23/20 00:00 98 01/23/20 00:00 99.0 84 20 112/62 (79) 95 01/22/20 21:18 108 127/71 01/22/20 21:00 Nasal Cannula 2.0 Nasal Cannula 2.0 01/22/20 20:00 97.9 108 20 127/71 (89) 95 01/22/20 20:00 112 01/22/20 16:00 98.8 113 20 105/51 (69) 97 01/22/20 16:00 113 I&O Intake and Output 01/22/20 01/23/20 19:00 07:00 Intake Total 240 ml Output Total 450 ml 600 ml Balance -210 ml -600 ml Intake Oral 240 ml Output Urine Total 450 ml 600 ml # Bowel Movements 1 Dressing: saturated, other Wound: other Drains: other Cardiovascular: RSR Respiratory: decreased breath sounds Abdomen: soft, non-tender, present bowel sounds, non-distended Extremities: no edema, no tenderness, no cyanosis Laboratory Tests Test 01/23/20 06:37 White Blood Count 5.4 K/UL (4.8-10.8) Red Blood Count 3.08 M/UL (4.20-5.40) L Hemoglobin 8.7 G/DL (12.0-16.0) L Hematocrit 29.2 % (37.0-47.0) L Mean Corpuscular Volume 95 FL (80-99) Mean Corpuscular Hemoglobin 28.2 PG (27.0-31.0) Mean Corpuscular Hemoglobin Concent 29.7 G/DL (32.0-36.0) L Red Cell Distribution Width 18.4 % (11.6-14.8) H Platelet Count 232 K/UL (150-450) Mean Platelet Volume 7.0 FL (6.5-10.1) Neutrophils (%) (Auto) 67.4 % (45.0-75.0) Lymphocytes (%) (Auto) 20.0 % (20.0-45.0) Monocytes (%) (Auto) 7.0 % (1.0-10.0) Eosinophils (%) (Auto) 4.5 % (0.0-3.0) H Basophils (%) (Auto) 1.0 % (0.0-2.0) Sodium Level 144 MMOL/L (136-145) Potassium Level 3.8 MMOL/L (3.5-5.1) Chloride Level 109 MMOL/L (98-107) H Carbon Dioxide Level 28 MMOL/L (21-32) Anion Gap 7 mmol/L (5-15) Blood Urea Nitrogen 22 mg/dL (7-18) H Creatinine 0.7 MG/DL (0.55-1.30) Estimat Glomerular Filtration Rate > 60 mL/min (>60) Glucose Level 92 MG/DL (74-106) Calcium Level 8.9 MG/DL (8.5-10.1) Total Bilirubin 0.3 MG/DL (0.2-1.0) Aspartate Amino Transf (AST/SGOT) 22 U/L (15-37) Alanine Aminotransferase (ALT/SGPT) 22 U/L (12-78) Alkaline Phosphatase 129 U/L (46-116) H Total Protein 6.1 G/DL (6.4-8.2) L Albumin 1.8 G/DL (3.4-5.0) L Globulin 4.3 g/dL Albumin/Globulin Ratio 0.4 (1.0-2.7) L Assessment Post-op Diagnosis stage 4 sacral decubitus ulcer Plan Problems: (1) Sepsis Assessment & Plan: Morbidly obese pt whom presented on admission with Multiple Pressure injuries. Pt stated wounds rapidly developed approx 3 weeks ago while acutely ill. Pt is on oxygen via N/C. Both ears assessed and no evidence of skin breakdown noted. Foam padding around oxygen tubing and pt was advised to maintain tubing loose around ears. Moisture Intertrigo noted to abd folds,R and L groin. 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 Base of wound is 100% soft Black/ rubin necrosis. Bone is palpable. Wound is malodorous. Small amt haemopurulent exudate noted. Borders are irregular, erythematous and macerated.Periwound is erythematous,indurated with additional Pressure injuries and shearing. At L gluteus is a full Thickness Pressure injury(L)7.5cm x (W)4.5cm.90% mixed necrosis/slough,10% pink epithelial at base of wound. Borders are erythematous and macerated. Small amt serous exudate noted. At R Gluteus is full thickness Pressure injury(L)7.3cm x (W)4.5cm. Base of wound is 100% slough. Borders are erythematous and macerated. Small amt serous exudate noted. Full Thickness stage 4 Pressure injury R lower Buttocks(L)4.4cm x (W)7.5cm. Base of wound is 25% necrotic,75% fibrinous slough. Wound is malodorous. Small amt haemopurulent exudate noted. Wound is malodorous. Borders are erythematous and macerated. Full Thickness stage 4 Pressure Injury R Ischium(L)7.6cm x (W)5.4cm. Base of wound is 25% necrotic,60% slough,15% pink epithelial. Small amt seropurulent exudate noted. Wound is malodorous.Borders are erythematous and macerated. Two Full thickness Pressure Injuries that are in close Proximity lower L buttocks.(Proximal)(L)3.5cm x (W)2.6cm.100% soft necrosis at base of wound. Marginal erythema along borders.Periwound L buttocks erythematous with shearing. (Distal)(L)1.3cm x (W)0.9cm. 100% slough at base of wound.Marginal erythema along Borders. Two Unstageable Pressure injuries L Ischium:(Proximal)(L)1.2cm x (W)1.9cm Base of wound is 90% slough,10%pink moist erythema.(Distal) L) 6cm x (W)5.3cm. 90% slough,10% moist erythema at base of wound. Small amt. seropurulent exudate noted. No odor noted. Borders are macerated. Periwound is erythematous with additional shearing. DTPI medial/posterior Upper L thigh which presents as blood Blister that is partially opened(L)1.1cm x (W)6.8cm.Open wound at most medial portion of wound ( L)1.1cm x (W)1.3cm noted to have slough at base. Stable dry eschar L pre-tibial (L)1.5cm x (W)1cm. Haemosiderin with dry scaly plaques L lower ext. DTPI L lateral Malleolus(L)2.3cm x (W)0.9cm. Wound presents as an intact Blood Blister. Non-Healing Surgical wound R Achilles. Pt stated she had surgical repair approximately 2 years ago. Base of wound is 40% fibrinous slough,10% necrotic , 50% pale pink. Edges are macerated. Keloid scar at distal portion of surgical wound. No odor or exudate noted. Surrounding Haemosiderin noted to R lower ext. Full thickness Pressure injury R lateral Malleolus(L)4.8cm x (W)5.8cm. Base of wound is 80%mixed soft necrosis and fibrinous slough,20% pink and moist. Small amt seropurulent exudate noted. (+) Epibole along borders.Periwound is erythematous. No elevation in skin temp. No odor noted. R Heel is boggy but blanchable. Historical scar noted to R heel. L Heel is boggy but blanchable. wounds unlikely etiology uti abx as per ID sacral wound needs debridement. currently covid positive. cont current therapy. will plan for elective debridement once stable and improved Tx.Plan: Cleanse Sacral,R and L Buttocks,R and L ischium wounds with Dakin's 0.125% Harjeet. Loosely pack with Dakin's moistened Gauze. Apply Triad Periwound. Cover with Optifoam drsgs Daily and prn. Cleanse Wound R Achilles with Dakin's 0.125% harjeet. Apply Dakin's Moistened Gauze. Apply Triad periwound. Cover with ABD Pad and Wrap with Kerlix Daily and prn. Cleanse Wound lateral R Malleolus with Dakin's 0.125%. harjeet. Apply Dakin's moistened Gauze to wound. Apply Triad Paste periwound. Cover with ABD Pad. Wrap with Kerlix Daily and prn. Apply Cavilon Skin Barrier to both heels. Cover each heel with Optifoam drsg. Change every 7 days and prn. Apply Triad Paste to abdominal folds and Bilat groin Twice Daily. Reposition at least every 2hours or as tolerated. Off-load heels with Pillow Bariatric bed with APM/LEO Mattress. (2) UTI (urinary tract infection) (3) COVID-19 (4) Anemia (5) SOB (shortness of breath) (6) Tachycardia (7) Decubitus skin ulcer Assessment & Plan: Patient presented with multiple decubitus skin ulcers in various stages. Wounds evaluated initial staging and care plan initiated. Will follow with recommendations. DAILY ESTIMATED NEEDS: Needs based on Wounds, DM 62kg abw 25-30 kcals/kg 6700-2857 total kcals 1.5-2 g protein/kg 93-124 g total protein 25-30 mL/kg 9056-7078 total fluid mLs NUTRITION DIAGNOSIS: Increase pro needs r/t wound healing as evidenced by pt w/ multiple areas of skin breakdown, eval pending, per photos, wounds appear open and advanced. CURRENT DIET: CCHO LOW PO DIET RECOMMENDATIONS: CCHO LOW + DOUBLE PROTEIN PORTIONS ADDITIONAL RECOMMENDATIONS: 1) Texture per [employer]ER 2) Add Glucerna 1 tetra TID 3) Wound care, f/up w/ WC eval 4) Monitor po intake, no record at this time Additional Comments Okay for discharge from surgical standpoint. Plan outpatient wound care at facility. Discussed with patient she is interested in diverting colostomy given wound and care plan. Once COVID negative will arrange for diversion and wound VAC placement to sacral wound Jens Hoang Jan 23, 2020 12:50
--- NOTE | 2020-01-23 12:56 | Pulmonology Progress Note ---
Subjective ROS Limited/Unobtainable: No Interval Events: S/p sacral wopund devridement Constitutional: Reports: fatigue; Denies: fever HEENT: Repors: no symptoms Respiratory: Reports: shortness of breath Cardiovascular: Reports: no symptoms Gastrointestinal/Abdominal: Denies: nausea, vomiting Psychiatric: Denies: depression Skin: Denies: rash Musculoskeletal: Denies: pain Allergies: Coded Allergies: ERYTHROMYCIN BASE (Verified Allergy, Unknown, 01/14/20) HEPARIN (Verified Allergy, Unknown, 01/14/20) All Systems: reviewed and negative except above Objective Last 24 Hour Vital Signs Date Time Temp Pulse Resp B/P (MAP) Pulse Ox O2 Delivery O2 Flow Rate FiO2 01/23/20 09:00 Nasal Cannula 2.0 Nasal Cannula 2.0 01/23/20 08:47 95 110/52 01/23/20 08:47 95 01/23/20 08:00 98.0 94 20 110/52 (71) 96 01/23/20 08:00 94 01/23/20 06:46 98.1 01/23/20 04:00 98.1 80 20 113/56 (75) 100 01/23/20 04:00 110 01/23/20 00:00 98 01/23/20 00:00 99.0 84 20 112/62 (79) 95 01/22/20 21:18 108 127/71 01/22/20 21:00 Nasal Cannula 2.0 Nasal Cannula 2.0 01/22/20 20:00 97.9 108 20 127/71 (89) 95 01/22/20 20:00 112 01/22/20 16:00 98.8 113 20 105/51 (69) 97 01/22/20 16:00 113 Intake and Output 01/22/20 01/23/20 19:00 07:00 Intake Total 240 ml Output Total 450 ml 600 ml Balance -210 ml -600 ml Intake Oral 240 ml Output Urine Total 450 ml 600 ml # Bowel Movements 1 General Appearance: no acute distress HEENT: normocephalic Respiratory: chest wall non-tender, lungs clear Cardiovascular: normal peripheral pulses Abdomen: normal bowel sounds Laboratory Tests 01/23/20 06:37: White Blood Count 5.4, Red Blood Count 3.08L, Hemoglobin 8.7L, Hematocrit 29.2L , Mean Corpuscular Volume 95, Mean Corpuscular Hemoglobin 28.2, Mean Corpuscular Hemoglobin Concent 29.7L, Red Cell Distribution Width 18.4H, Platelet Count 232, Mean Platelet Volume 7.0, Neutrophils (%) (Auto) 67.4, Lymphocytes (%) (Auto) 20.0, Monocytes (%) (Auto) 7.0, Eosinophils (%) (Auto) 4.5H, Basophils (%) (Auto) 1.0, Sodium Level 144, Potassium Level 3.8, Chloride Level 109H, Carbon Dioxide Level 28, Anion Gap 7, Blood Urea Nitrogen 22H, Creatinine 0.7, Estimat Glomerular Filtration Rate > 60, Glucose Level 92, Calcium Level 8.9, Total Bilirubin 0.3, Aspartate Amino Transf (AST/SGOT) 22, Alanine Aminotransferase (ALT/SGPT) 22, Alkaline Phosphatase 129H, Total Protein 6.1L, Albumin 1.8L, Globulin 4.3, Albumin/Globulin Ratio 0.4L Current Medications Medications (Trade) Dose Ordered Sig/Samuel Route PRN Reason Start Time Stop Time Status Last Admin Dose Admin Acetaminophen (Tylenol) 650 mg Q6H PRN ORAL Mild Pain (Pain Scale 1-3) 01/21/20 09:15 02/14/20 03:14 Acetaminophen (Tylenol) 650 mg Q6H PRN ORAL Temp >100.5 01/21/20 09:15 02/14/20 03:14 Ascorbic Acid (Vitamin C) 250 mg TWICE A DAY ORAL 01/21/20 09:00 02/16/20 17:59 01/23/20 08:45 Chlorhexidine Gluconate (Mel-Hex 2%) 1 applic DAILY@1999 TOPIC 01/21/20 20:00 04/14/20 19:59 01/22/20 20:00 Dextrose (Dextrose 50%) 25 ml Q30M PRN IV Hypoglycemia 01/21/20 06:45 04/13/20 23:14 Dextrose (Dextrose 50%) 50 ml Q30M PRN IV Hypoglycemia 01/21/20 06:45 04/13/20 23:14 Digoxin (Lanoxin) 0.125 mg DAILY ORAL 01/21/20 09:00 04/16/20 08:59 01/23/20 08:47 Doxycycline Monohydrate (Doxycycline Monohydrate) 100 mg EVERY 12 HOURS ORAL 01/21/20 09:00 01/25/20 08:59 01/23/20 08:45 Duloxetine HCl (Cymbalta) 60 mg DAILY ORAL 01/21/20 09:00 04/16/20 14:44 01/23/20 08:45 Insulin Aspart (NovoLOG) BEFORE MEALS AND HS SUBQ 01/21/20 06:30 04/14/20 06:29 Insulin Detemir (Levemir) 11 units BEDTIME SUBQ 01/21/20 21:00 04/14/20 20:59 01/22/20 21:00 Loperamide HCl (Imodium) 2 mg Q4H PRN ORAL Diarrhea 01/21/20 07:00 02/18/20 06:59 Meropenem 1 gm/ Sodium Chloride 55 ml @ 110 mls/hr Q8HR IVPB 01/22/20 22:00 01/25/20 05:59 01/23/20 05:44 Metoprolol Tartrate (Lopressor) 25 mg Q12HR ORAL 01/21/20 09:00 04/14/20 08:59 01/23/20 08:47 Midodrine (Pro-Amatine) 5 mg TID PRN ORAL sbp<110 01/21/20 09:00 04/14/20 08:59 Multivitamins (Multivitamins) 1 tab Q24H ORAL 01/21/20 07:00 02/17/20 06:59 01/23/20 06:46 Pantoprazole (Protonix) 40 mg DAILY ORAL 01/21/20 09:00 02/18/20 08:59 01/23/20 08:45 Sildenafil Citrate (Revatio) 20 mg DAILY ORAL 01/21/20 09:00 04/14/20 08:59 01/23/20 08:46 Sodium Hypochlorite (Dakin's Quarter Strength) 1 applic DAILY TOPIC 01/21/20 09:00 02/14/20 10:59 01/23/20 08:48 Zinc Sulfate (Zinc Sulfate) 220 mg Q24H ORAL 01/21/20 07:00 04/17/20 06:59 01/23/20 06:47 Assessment/Plan Assessment/Plan IMPRESSION: 1. Negative for COVID-19 pneumonia. 2. UTI. 3. Diabetes mellitus. 4. Decubiti. DISCUSSION: Continue antibiotics. Oxygen and pulmonary hygiene. Negative COVID-19 PCR. I will follow carefully. DC planning S/p sacral debridement Keerthi Morales Omar Syed MD Jan 23, 2020 12:55
--- NOTE | 2020-01-23 16:44 | Cardiac Electrophysiology PN ---
Assessment/Plan Assessment/Plan 1. Runs of supraventricular tachycardia. Blood pressure in the 90s. On metoprolol 25 mg b.i.d. and digoxin 0.125 daily. EF 55% and ruled out for FL Dig level <0.2. EPS as out patient after Covid negative 2. Hypertension. On metoprolol 25 mg b.i.d. 3. Diabetes. 4. End-stage renal disease. 5. Status post recent COVID. Covid positive again and in isolation 6. Severe anemia, hemoglobin 6.5, S/P 1 unit of blood transfusion. 7. Huge decubitus ulcer. 8. Hx of DVT. Eliquis held for severe anemia. Subjective Subjective No more SVT on Lopressor and Dig. DC to SNIF in progress Objective Last 24 Hour Vital Signs Date Time Temp Pulse Resp B/P (MAP) Pulse Ox O2 Delivery O2 Flow Rate FiO2 01/23/20 09:00 Nasal Cannula 2.0 Nasal Cannula 2.0 01/23/20 08:47 95 110/52 01/23/20 08:47 95 01/23/20 08:00 98.0 94 20 110/52 (71) 96 01/23/20 08:00 94 01/23/20 06:46 98.1 01/23/20 04:00 98.1 80 20 113/56 (75) 100 01/23/20 04:00 110 01/23/20 00:00 98 01/23/20 00:00 99.0 84 20 112/62 (79) 95 01/22/20 21:18 108 127/71 01/22/20 21:00 Nasal Cannula 2.0 Nasal Cannula 2.0 01/22/20 20:00 97.9 108 20 127/71 (89) 95 01/22/20 20:00 112 Intake and Output 01/22/20 01/23/20 19:00 07:00 Intake Total 240 ml Output Total 450 ml 600 ml Balance -210 ml -600 ml Intake Oral 240 ml Output Urine Total 450 ml 600 ml # Bowel Movements 1 Laboratory Tests Test 01/23/20 06:37 White Blood Count 5.4 K/UL (4.8-10.8) Red Blood Count 3.08 M/UL (4.20-5.40) L Hemoglobin 8.7 G/DL (12.0-16.0) L Hematocrit 29.2 % (37.0-47.0) L Mean Corpuscular Volume 95 FL (80-99) Mean Corpuscular Hemoglobin 28.2 PG (27.0-31.0) Mean Corpuscular Hemoglobin Concent 29.7 G/DL (32.0-36.0) L Red Cell Distribution Width 18.4 % (11.6-14.8) H Platelet Count 232 K/UL (150-450) Mean Platelet Volume 7.0 FL (6.5-10.1) Neutrophils (%) (Auto) 67.4 % (45.0-75.0) Lymphocytes (%) (Auto) 20.0 % (20.0-45.0) Monocytes (%) (Auto) 7.0 % (1.0-10.0) Eosinophils (%) (Auto) 4.5 % (0.0-3.0) H Basophils (%) (Auto) 1.0 % (0.0-2.0) Sodium Level 144 MMOL/L (136-145) Potassium Level 3.8 MMOL/L (3.5-5.1) Chloride Level 109 MMOL/L (98-107) H Carbon Dioxide Level 28 MMOL/L (21-32) Anion Gap 7 mmol/L (5-15) Blood Urea Nitrogen 22 mg/dL (7-18) H Creatinine 0.7 MG/DL (0.55-1.30) Estimat Glomerular Filtration Rate > 60 mL/min (>60) Glucose Level 92 MG/DL (74-106) Calcium Level 8.9 MG/DL (8.5-10.1) Total Bilirubin 0.3 MG/DL (0.2-1.0) Aspartate Amino Transf (AST/SGOT) 22 U/L (15-37) Alanine Aminotransferase (ALT/SGPT) 22 U/L (12-78) Alkaline Phosphatase 129 U/L (46-116) H Total Protein 6.1 G/DL (6.4-8.2) L Albumin 1.8 G/DL (3.4-5.0) L Globulin 4.3 g/dL Albumin/Globulin Ratio 0.4 (1.0-2.7) L Objective HEAD AND NECK: no JVD. LUNGS: Coarse rhonchi. CARDIOVASCULAR: Regular S1 and S2 with no gallop. ABDOMEN: Soft. EXTREMITIES: No pitting edema. Austin Byrd MD Jan 23, 2020 16:44
--- NOTE | 2020-01-23 23:27 | Neurology Progress Note ---
Interim History Interim History ROS Limited/Unobtainable: No Interim History no new deficits, dc planning Objective Physical Exam Last Vital Signs Date Time Temp Pulse Resp B/P (MAP) Pulse Ox O2 Delivery O2 Flow Rate FiO2 01/23/20 09:00 Nasal Cannula 2.0 Nasal Cannula 2.0 01/23/20 08:47 95 110/52 01/23/20 08:00 98.0 20 96 Laboratory Tests Test 01/23/20 06:37 White Blood Count 5.4 K/UL (4.8-10.8) Red Blood Count 3.08 M/UL (4.20-5.40) L Hemoglobin 8.7 G/DL (12.0-16.0) L Hematocrit 29.2 % (37.0-47.0) L Mean Corpuscular Volume 95 FL (80-99) Mean Corpuscular Hemoglobin 28.2 PG (27.0-31.0) Mean Corpuscular Hemoglobin Concent 29.7 G/DL (32.0-36.0) L Red Cell Distribution Width 18.4 % (11.6-14.8) H Platelet Count 232 K/UL (150-450) Mean Platelet Volume 7.0 FL (6.5-10.1) Neutrophils (%) (Auto) 67.4 % (45.0-75.0) Lymphocytes (%) (Auto) 20.0 % (20.0-45.0) Monocytes (%) (Auto) 7.0 % (1.0-10.0) Eosinophils (%) (Auto) 4.5 % (0.0-3.0) H Basophils (%) (Auto) 1.0 % (0.0-2.0) Sodium Level 144 MMOL/L (136-145) Potassium Level 3.8 MMOL/L (3.5-5.1) Chloride Level 109 MMOL/L (98-107) H Carbon Dioxide Level 28 MMOL/L (21-32) Anion Gap 7 mmol/L (5-15) Blood Urea Nitrogen 22 mg/dL (7-18) H Creatinine 0.7 MG/DL (0.55-1.30) Estimat Glomerular Filtration Rate > 60 mL/min (>60) Glucose Level 92 MG/DL (74-106) Calcium Level 8.9 MG/DL (8.5-10.1) Total Bilirubin 0.3 MG/DL (0.2-1.0) Aspartate Amino Transf (AST/SGOT) 22 U/L (15-37) Alanine Aminotransferase (ALT/SGPT) 22 U/L (12-78) Alkaline Phosphatase 129 U/L (46-116) H Total Protein 6.1 G/DL (6.4-8.2) L Albumin 1.8 G/DL (3.4-5.0) L Globulin 4.3 g/dL Albumin/Globulin Ratio 0.4 (1.0-2.7) L Head: normocophalic Neck: no rigidity EENT: benign Neurologic Exam Objective bedridden, ulcers in the back withdraws all 4 to pain NC AT abd soft Impression/Recommendations Problems: (1) Sepsis (2) UTI (urinary tract infection) (3) COVID-19 (4) Anemia (5) SOB (shortness of breath) (6) Tachycardia (7) SVT (supraventricular tachycardia) (8) Gram-negative bacteremia (9) Decubitus skin ulcer (10) Hypokalemia (11) Hypernatremia Status: stable, progressing Diagnostic Impression Acute encephalopathy, likely metabolic Sepsis hypotention Improving Delirium precautions con atb pt ot Shin Heath MD Jan 23, 2020 23:26
== END 2020-01-23 16:43 | DRG 853 ==
LOC: EDBD 17:54 → EMR 18:26 → 2W 18:30 → EDBEDREQ 19:52 → 2W 01-17 16:03 → 2E 01-21 05:55
PROC: 30233N1 Transfusion of Nonautologous Red Blood Cells into Peripheral Vein, Percutaneous Approach (ICD-10-PCS; principal; 2020-01-16)
PROC: 0QB10ZZ Excision of Sacrum, Open Approach (ICD-10-PCS; 2020-01-22)
DX: A41.89 Other specified sepsis (principal); L89.314 Pressure ulcer of right buttock, stage 4; L89.513 Pressure ulcer of right ankle, stage 3; L89.154 Pressure ulcer of sacral region, stage 4; N18.6 End stage renal disease; U07.1 COVID-19; J96.01 Acute respiratory failure with hypoxia; I12.0 Hypertensive chronic kidney disease with stage 5 chronic kidney disease or end stage renal disease; N39.0 Urinary tract infection, site not specified; I47.1 Supraventricular tachycardia; E87.0 Hyperosmolality and hypernatremia; Z16.12 Extended spectrum beta lactamase (ESBL) resistance; D61.818 Other pancytopenia; Z88.1 Allergy status to other antibiotic agents; Z88.8 Allergy status to other drugs, medicaments and biological substances; D64.9 Anemia, unspecified; E87.6 Hypokalemia; I27.20 Pulmonary hypertension, unspecified; K21.9 Gastro-esophageal reflux disease without esophagitis; E66.01 Morbid (severe) obesity due to excess calories; L89.320 Pressure ulcer of left buttock, unstageable; L89.526 Pressure-induced deep tissue damage of left ankle; E11.22 Type 2 diabetes mellitus with diabetic chronic kidney disease; Z90.49 Acquired absence of other specified parts of digestive tract; J44.9 Chronic obstructive pulmonary disease, unspecified; M79.2 Neuralgia and neuritis, unspecified; D69.6 Thrombocytopenia, unspecified; F45.8 Other somatoform disorders; Z86.718 Personal history of other venous thrombosis and embolism; Z79.01 Long term (current) use of anticoagulants; B96.20 Unspecified Escherichia coli [E. coli] as the cause of diseases classified elsewhere; D63.8 Anemia in other chronic diseases classified elsewhere; R79.1 Abnormal coagulation profile; D50.9 Iron deficiency anemia, unspecified
CPT/HCPCS: 36415; 71045; 76705; 80048; 80053; 80162; 81001; 81003; 82270; 82550; 82553; 82728; 82962; 83540; 83550; 83605; 83735; 83880; 84100; 84439; 84443; 84484; 85007; 85025; 85379; 85610; 85730; 86140; 86703; 86705; 86709; 86803; 86850; 86900; 86901; 86920; 87040; 87045; 87086; 87181; 87324; 87340; 93005; 93306; 93970; 96365; 96368; 96375; 99291; J1815; J7030; J8499; S5561